=== PATIENT | female | born 1945 | race Caucasian/White ===

== ENCOUNTER 2018-03-05 11:00 | Outpatient (RCR) | payer MEDICARE, OTHER, SELFPAY ==
--- NOTE | 2018-02-05 10:17 | HP.PTEVAL_ITS ---
Patient's Visit Information JUDITH MERCADO is a 72 year old F referred to Physical Therapy by Alexi Hoawrd with a diagnosis of back and leg pain. Date of Evaluation: 02/05/18 Physical Therapist: Su Leary - Visit Plan Frequency: 1x/Week Duration: 4 Weeks Plan: 1X/ for 4 visits for HEP per pt request for core stability and flexion biased exercises for home exercise program. - Subjective Subjective: Pt reports that she moved her January 15 from [place] and saw Lee to continue with her pain meds. He was talking about PT. Pt wants to do exercises at home cause she can not be here 2-3X/ week. She is getting an injection around February 18. Pt has had injections before. Pt reports that she has spinal stenosis and she will be walking and her legs will start hurting and then her legs give out and she goes down to the floor. She has already fallen once since she has gotten here January 15 and had to call the ambulance. [facility], grocery store etc. She has been using the rollator for about 1-2 years. She promised the Dr she would not go anywhere without her rollator. Dr does not feel surgery is an option. pt has charcot in her R foot and it swells up really bad but keeps her shoes on to keep swelling down and has a lot of pain in the foot. Stairs: no stairs. She has a phone incase she falls. - Pain back pain Pain Intensity (Out of 10): 8 leg pain Pain Intensity (Out of 10): 9 R foot pain Pain Intensity (Out of 10): 10 - Objective Gait: with R foot outward, forearms on rollator arms, short stride, flexed spine. Trunk AROM: Seated flexion 75%, ext to neutral,. LE MMT: hip flex 3/ 5 B, knee ext B 4/5, knee flex B 4/5, hip abd in sitting 4-/5, hip add in sitting 4/5 B. Sit to stand: needs to use UE support with sit to stand - Goals Goal 1:: I HEP Goal 2:: Be informed of how to advance HEP - Rehabilitation Potential Rehabilitation Potential: Good - Anticipated Interventions Thank you for the opportunity to evaluate your patient. For Medicare and Medicare HMO plans, please review the plan of care and approve it. It will need to be FAXED BACK to us at [phone] for Medicare purposes. Please let me know if there are questions or concerns regarding this plan of care. Physician Signature: Date:
--- NOTE | 2018-03-05 11:32 | HP.PTDCSUM_ITS ---
HP - PT D/C Summary It has been my pleasure to treat JUDITH MERCADO under orders from Alexi Howard , for the diagnosis of back and leg pain for a total of 2 visit(s). Discharge Date: 03/05/18 Please see the following information for a summary of their discharge status. - Subjective Subjective: Pt feels that the shot really helped her back and leg pain. The foot Dr told her that she walking on a nerve and waiting an injection in her foot. Pt feels that the bending fw exercise in the chair has helped. HEP: LTR , PT, and sitting in a chair. - Pain back pain Pain Intensity (Out of 10): 8 leg pain Pain Intensity (Out of 10): 9 R foot pain Pain Intensity (Out of 10): 6 - Overall Improvement % Improvement: 60 - Objective Objective/Function: Pt is able to do HEP and has full understanding with printouts. - Goals Goal 1:: I HEP Goal Progress: Goal Met Goal 2:: Be informed of how to advance HEP Goal Progress: Goal Met - Plan Plan: DC PT to HEP per pt request - D/C Information Discharge Comments: DC PT to HEP If there are questions or concerns regarding this patient's physical therapy, please feel free to call me at [phone]. Thank you for the referral of this patient. Sincerely, Su Leary
== END 2018-03-05 19:00 | disposition home or self-care (01) ==
LOC: PT 11:00
PROVIDERS: Visit Provider Anesthesiology Pain Medicine
DX: M54.9 Dorsalgia, unspecified (principal); M79.606 Pain in leg, unspecified
CPT/HCPCS: 97161; 97530

== ENCOUNTER → 2018-06-05 11:25 | Outpatient (CLI) | payer MEDICARE, OTHER, SELFPAY ==
[2018-06-05 13:04] LABS: Amphetamine Urine VISTA NEGATIVE (<1000 ng/mL); Barbiturate Urine VISTA NEGATIVE (< 200 ng/mL); Benzodiazepine Urine VISTA NEGATIVE (< 200 ng/mL); Cocaine Urine VISTA NEGATIVE (< 300 ng/mL); Ecstacy Urine VISTA NEGATIVE (< 500 ng/mL); Methadone Urine VISTA NEGATIVE (< 300 ng/mL); PCP Urine VISTA NEGATIVE (< 25 ng/mL); THC Urine VISTA NEGATIVE (< 50 ng/mL); Vista UDS pH Range 7
== END ==
PROVIDERS: Visit Provider Anesthesiology Pain Medicine
DX: F11.20 Opioid dependence, uncomplicated (principal)
CPT/HCPCS: 80307

== ENCOUNTER 2018-07-22 10:45 | Day surgery (SDC) | payer MEDICARE, OTHER, SELFPAY ==
[2018-07-22 11:24] VITALS: BP 129/80; PULSE 80; RESP 18; TEMP 37.1; O2SAT 96; BMI 55.7
--- NOTE | 2018-07-22 12:00 | EGD_PTH ---
PATIENT: JUDITH MERCADO LOC: EN U#:[id number] AGE/SX: 73/F ROOM: RE07/22/[address]: Dr. Shawnee Hilario MD : 1945 BED: DIS: 07/22/2018 SPEC #: [id number] RECD: 07/22/18 14:40 STATUS: TRAMAINE SUSANNE #: [id number] DRE: 07/22/18 12:[address]: Shawnee Hilario DEPT: SURGICAL PATHOLOGY RECD BY: Hernandez Pena ENTERED: 07/22/18 14:57 SP TYPE: EGD BIOPSY OT DR: Dr. Christofer Vazquez MD Tissues: A - Gastric mucous membrane B - Gastric mucous membrane Procedures: Special Stain Group II Surgery Specimen Level IV Alcian Blue/PAS (control) HEADER OPERATION: [place] [place] PRE[place] DIAGNOSIS: GERD; screening TISSUE SUBMITTED: A - Antral biopsy for H. pylori and pathology, B - GE junction biopsy MICROSCOPIC DIAGNOSIS A. Antral biopsy: Mild gastritis. B. GE junction, biopsy: Fragments of gastroesophageal mucosa with chronic inflammation. Intestinal metaplasia (goblet cell metaplasia) is not identified. SJ:rg 07/23/18 COMMENT A. The results of immunohistochemistry for Helicobacter pylori will be reported separately ([id number]). B. Alcian blue/PAS stain with matched control is used in the evaluation of the specimen. MICROSCOPIC DESCRIPTION Slides are reviewed. A. The specimen shows fragments of gastric mucosa with chronic inflammatory cell infiltrates in the lamina propria consisting of lymphocytes and plasma cells, consistent with mild chronic gastritis. GROSS DESCRIPTION A - Received in fixative is one container labeled with the patient's name and designated antral biopsy. The specimen consists of multiple irregular fragments of light berry soft tissue that in aggregate measure 0.5 x 0.3 x 0.1 cm. The specimen is totally submitted in one cassette. B - Received in fixative is one container labeled with the patient's name and designated GE junction biopsy. The specimen consists of multiple irregular fragments of light berry soft tissue that in aggregate measure 0.6 x 0.5 x 0.1 cm. The specimen is totally submitted in one cassette. / NEIL:rowdy 07/22/18 TC: CPT: 71773 x2, 53313
--- NOTE | 2018-07-22 12:00 | IMM_PTH ---
PATIENT: JUDITH MERCADO LOC: [facility] U#:[id number] AGE/SX: 73/F ROOM: RE07/22/[address]: Dr. Shawnee Hilario MD : 1945 BED: DIS: 07/22/2018 SPEC #: [id number] RECD: 07/22/18 15:11 STATUS: TRAMAINE REMark #: [id number] DRE: 07/22/18 12:[address]: Shawnee Hilario DEPT: IMMUNOHISTOCHEMISTRY RECD BY: Mary Melgar ENTERED: 07/22/18 15:11 SP TYPE: IMMUNO OTHR DR: Dr. Christofer Vazquez MD Tissues: A - Stomach, NOS Procedures: H Pylori (initial) PHYSICIAN & INSTITUTION [place] [id number] SPECIMEN INFORMATION: Tissue Source: A - Antral biopsy Clinical Info: GERD Specimen Number: [id number] CPT code: 72673 METHODOLOGY: Deparaffinized sections of prefer/formalin-fixed tissue or PAP/DQ stained slides are incubated with monoclonal/polyclonal antibodies/oligonucleotide probes. Localization is made via biotin free immunoperoxidase method. Appropriate controls are performed and reacted as expected. Results on target cell population are indicated in the following table: RESULTS: ANTIBODY / CLONE RESULT Block A H Pylori (polyclonal) negative These tests were developed and their performance characteristics determined by [facility]. They may not have been cleared or approved by the U.S. Food and Drug Administration. The FDA has determined that such clearance or approval is not necessary. INTERPRETATION: A. Antral biopsy: Negative for Helicobacter pylori organisms. SJ:rowdy 07/23/18
--- NOTE | 2018-07-22 12:48 | OP.ENDO_ITS ---
Patient Name: Marilynn Mcgarry Procedure Date: 07/22/2018 11:44 AM Date of : 1945 Age: 73 Procedure: Upper GI endoscopy Indications: Suspected esophageal reflux Providers: Shawnee Hilario MD Referring MD: Shawnee Hilario MD Medicines: See the Anesthesia note for documentation of the administered medications Patient Profile: Refer to note in patient chart for documentation of history and physical. Complications: No immediate complications. Procedure: Pre-Anesthesia Assessment: - Prior to the procedure, a History and Physical was performed, and patient medications and allergies were reviewed. The patient is competent. The risks and benefits of the procedure and the sedation options and risks were discussed with the patient. All questions were answered and informed consent was obtained. Patient identification and proposed procedure were verified by the physician in the pre-procedure area. Mental Status Examination: alert and oriented. Airway Examination: normal oropharyngeal airway and neck mobility. Respiratory Examination: clear to auscultation. CV Examination: normal. Prophylactic Antibiotics: The patient does not require prophylactic antibiotics. Prior Anticoagulants: The patient has taken no previous anticoagulant or antiplatelet agents. ASA Grade Assessment: III - A patient with severe systemic disease. After reviewing the risks and benefits, the patient was deemed in satisfactory condition to undergo the procedure. The anesthesia plan was to use monitored anesthesia care (MAC). Immediately prior to administration of medications, the patient was re-assessed for adequacy to receive sedatives. The heart rate, respiratory rate, oxygen saturations, blood pressure, adequacy of pulmonary ventilation, and response to care were monitored throughout the procedure. The physical status of the patient was re-assessed after the procedure. After obtaining informed consent, the endoscope was passed under direct vision. Throughout the procedure, the patient's blood pressure, pulse, and oxygen saturations were monitored continuously. The gastroscope was introduced through the mouth, and advanced to the second part of duodenum. The upper GI endoscopy was accomplished without difficulty. The patient tolerated the procedure well. Scope In: 12:12:19 PM Scope Out: 12:16:34 PM Total Procedure Duration Time 0 hours 4 minutes 15 seconds Findings: The Z-line was irregular. Biopsies were taken with a cold forceps for histology. Estimated blood loss was minimal. Striped mildly erythematous mucosa without bleeding was found in the gastric antrum. Biopsies were taken with a cold forceps for histology. Estimated blood loss was minimal. The first portion of the duodenum and second portion of the duodenum were normal. A medium-sized hiatal hernia was present. Impression: - Z-line irregular. Biopsied. - Erythematous mucosa in the antrum. Biopsied. - Normal first portion of the duodenum and second portion of the duodenum. Recommendation: - Discharge patient to home (ambulatory). - Resume previous diet. - Continue present medications. - Await pathology results. Procedure Code(s): --- Professional --- 34666, Esophagogastroduodenoscopy, flexible, transoral; with biopsy, single or multiple Diagnosis Code(s): --- Professional --- K22.8, Other specified diseases of esophagus K31.89, Other diseases of stomach and duodenum CPT copyright 2017 [employer]. All rights reserved. The codes documented in this report are preliminary and upon socket puller review may be revised to meet current compliance requirements. MD Shawnee Reza MD 07/22/2018 12:48:01 PM This report has been signed electronically. Number of Addenda: 0 Note Initiated On: 07/22/2018 11:44 AM
[2018-07-22 12:50] VITALS: BP 103/38; BP 129/80; PULSE 66; RESP 18; TEMP 36.2; O2SAT 93
--- NOTE | 2018-07-22 12:51 | OP.ENDO_ITS ---
Patient Name: Marilynn Mcgarry Procedure Date: 07/22/2018 12:18 PM Date of : 1945 Age: 73 Procedure: Colonoscopy Indications: Screening for colorectal malignant neoplasm Providers: Shawnee Hilario MD Referring MD: Shawnee Hilario MD Medicines: See the Anesthesia note for documentation of the administered medications Patient Profile: Refer to note in patient chart for documentation of history and physical. Last Colonoscopy: more than 3 years ago. Complications: No immediate complications. Procedure: Pre-Anesthesia Assessment: - Prior to the procedure, a History and Physical was performed, and patient medications and allergies were reviewed. The patient is competent. The risks and benefits of the procedure and the sedation options and risks were discussed with the patient. All questions were answered and informed consent was obtained. Patient identification and proposed procedure were verified by the physician in the pre-procedure area. Mental Status Examination: alert and oriented. Airway Examination: normal oropharyngeal airway and neck mobility. Respiratory Examination: clear to auscultation. CV Examination: normal. Prophylactic Antibiotics: The patient does not require prophylactic antibiotics. Prior Anticoagulants: The patient has taken no previous anticoagulant or antiplatelet agents. ASA Grade Assessment: III - A patient with severe systemic disease. After reviewing the risks and benefits, the patient was deemed in satisfactory condition to undergo the procedure. The anesthesia plan was to use monitored anesthesia care (MAC). Immediately prior to administration of medications, the patient was re-assessed for adequacy to receive sedatives. The heart rate, respiratory rate, oxygen saturations, blood pressure, adequacy of pulmonary ventilation, and response to care were monitored throughout the procedure. The physical status of the patient was re-assessed after the procedure. After I obtained informed consent, the scope was passed under direct vision. Throughout the procedure, the patient's blood pressure, pulse, and oxygen saturations were monitored continuously. The colonoscope was introduced through the anus and advanced to the cecum, identified by appendiceal orifice and ileocecal valve. The colonoscopy was performed without difficulty. The patient tolerated the procedure well. The quality of the bowel preparation was adequate. Scope In: 12:20:45 PM Scope Withdrawal Time 0 hours 11 minutes 15 seconds Scope Out: 12:41:42 PM Total Procedure Duration Time 0 hours 20 minutes 57 seconds Findings: The perianal and digital rectal examinations were normal. Pertinent negatives include normal sphincter tone. Multiple small and large-mouthed diverticula were found in the sigmoid colon. One medium-mouthed diverticulum was found in the ascending colon. Non-bleeding internal hemorrhoids were found. Impression: - Diverticulosis in the sigmoid colon. - Diverticulosis in the ascending colon. - Non-bleeding internal hemorrhoids. - No specimens collected. Recommendation: - Repeat colonoscopy in 10 years for screening purposes. - Return to physician administrative personal assistant in 1 week. - Continue present medications. Procedure Code(s): --- Professional --- 11675, Colonoscopy, flexible; diagnostic, including collection of specimen(s) by brushing or washing, when performed (separate procedure) Diagnosis Code(s): --- Professional --- K57.30, Diverticulosis of large intestine without perforation or abscess without bleeding K64.8, Other hemorrhoids Z12.11, Encounter for screening for malignant neoplasm of colon CPT copyright 2017 [employer]. All rights reserved. The codes documented in this report are preliminary and upon quill cleaning machine operator review may be revised to meet current compliance requirements. MD Shawnee Reza MD 07/22/2018 12:50:43 PM This report has been signed electronically. Number of Addenda: 0 Note Initiated On: 07/22/2018 12:18 PM
[2018-07-22 12:55] VITALS: BP 128/74; BP 129/80; PULSE 65; RESP 18; O2SAT 94
[2018-07-22 13:00] VITALS: BP 129/80; BP 140/78; PULSE 64; RESP 18; O2SAT 94
[2018-07-22 13:06] VITALS: BP 129/80; BP 143/70; PULSE 62; RESP 18; TEMP 36; O2SAT 96
[2018-07-22 13:34] VITALS: BP 129/80
== END 2018-07-22 13:43 | disposition home or self-care (01) ==
LOC: EN 10:46 → AC 10:50
PROVIDERS: Family Provider Family Medicine; PCP Family Medicine; Referring Provider Surgery; Visit Provider Surgery
PROC: 0DJD8ZZ Inspection of Lower Intestinal Tract, Via Natural or Artificial Opening Endoscopic (ICD-10-PCS; CPT 45378; principal; 2018-07-22 11:55)
DX: K22.8 Other specified diseases of esophagus (principal); K31.89 Other diseases of stomach and duodenum; K44.9 Diaphragmatic hernia without obstruction or gangrene; E78.5 Hyperlipidemia, unspecified; I10 Essential (primary) hypertension; Z86.010 Personal history of colon polyps; K57.30 Diverticulosis of large intestine without perforation or abscess without bleeding; K64.8 Other hemorrhoids; Z12.11 Encounter for screening for malignant neoplasm of colon; K29.70 Gastritis, unspecified, without bleeding
CPT/HCPCS: 43239; 45378; 88305; 88313; 88342; J7120

== ENCOUNTER 2018-11-14 14:09 | Emergency (ER) | payer MEDICARE, OTHER, SELFPAY ==
[2018-11-14 14:11] VITALS: PULSE 78; RESP 16; TEMP 36.6; O2SAT 95; BMI 51.2
[2018-11-14 14:14] VITALS: BP 139/80; PULSE 74; RESP 16; O2SAT 94
[2018-11-14] MEDS: 0.9% Normal Saline 1,000 ML 1000 ML IV (15:22)
[2018-11-14] MEDS: Morphine 4 MG/ML Syringe IV (15:22)
[2018-11-14 15:31] LABS: Absolute Neutrophil Count 10.5 X10^3/uL (2.0-7.7); Basophil# 0.02 X10^3/uL; Basophil% 0.1 % (0-1); Eosinophil# 1.07 X10^3/uL; Eosinophils% 7.8 % (0-5); Hematocrit 40.9 % (37-47); Lymphocyte % 10.2 % (19-41); Mean Corp Hgb Conc 31.8 g/gl (32-36); Mean Corpuscular Hgb 31.7 pg (27.0-32.0); Mean Corpuscular Volume 99.8 fL (81-99); Mean Platelet Vol. 9.7 fl (6.2-12.0); Monocyte# 0.75 X10^3/uL; Monocyte% 5.4 % (0-10); Neutrophil # 10.49 X10^3/uL (2.7-7.7); Neutrophil % 76.1 % (47-70); Platelet Count 270 K/mm3 (150-450); RBC Distribution Width CV 13.5 % (11.6-14.6); RBC Distribution Width SD 49.3 fl (35.1-43.9); White Blood Count 13.8 K/mm3 (4.4-11.0)
[2018-11-14 15:32] LABS: POSITIVE COUNT NO; POSITIVE DIFFERENTIAL NO; POSITIVE MORPHOLOGY NO
[2018-11-14 15:47] LABS: Anion Gap 11 (5-15); BUN 28 mg/dL (7-18); BUN/Creat Ratio 16.7 RATIO (10-20); CPK Total, Creatine Kinase 261 U/L (26-192); Calcium,Total 8.9 mg/dL (8.5-10.1); Chloride 99 mmol/L (98-107); Creatinine, Serum 1.68 mg/dL (0.55-1.02); EST Glomerular Filtration Rate 32 mL/min (>60); Est Glom Filt Rate - Afr Amer 38 mL/min (>60); Estimated Creatinine Clearance 23.59 ml/min; Glucose 100 mg/dL (74-106); Potassium 4.4 mmol/L (3.5-5.1); Sodium Level 139 mmol/L (136-145)
[2018-11-14 16:29] VITALS: BP 125/46; PULSE 76; RESP 16; O2SAT 95
--- NOTE | 2018-11-14 16:47 | ED.DCSUM_ITS ---
- ER Visit Summary Date of Service: 11/14/18 Chief Complaint: Lower extremity cellulitis and fall History of Present Illness: The patient is a 73 F who presents with cellulitis in both lower extremities, back pain, and fall. Patient states she fell twice since yesterday. Patient states she had difficulty getting up today. Patient states that she was having some pain in her back and her legs gave out which caused her to fall. Patient admits to some redness and swelling in her lower extremities which is worse on the right. Patient denies any fevers or chills. Patient denies any discharge or drainage. Patient states she does have some trouble walking due to a Charcot foot on the right. Patient states she normally walks with a walker. Physical Examination: Vital signs are stable. Patient is afebrile. Patient is in no acute distress. Oral mucosa is pink and moist. Neck is supple. Trachea is midline. There is no JVD noted. Heart was regular rate and rhythm. Lungs are clear and equal bilateral. Abdomen is soft nontender. Skin is warm dry. There is erythema and warmth over the lower extremities bilaterally but worse on the right. Strength is 5/5 bilaterally in the upper and lower extremities. There are no sensory deficits noted. The remaining physical exam is within normal limits. Test Results: CBC showed a mild leukocytosis of 13.8. BUN was slightly elevated at 28 and creatinine was 1.68. There are no prior labs for comparison. Total CK was obtained and was 261. Emergency Department Course and Treatment: Patient was given IV fluids. Patient was given a dose of morphine here. Patient was started on Keflex. Patient was instructed to follow-up with her primary care physician in 5-7 days. Patient understood and was agreeable with the plan. All questions were answered. Disposition: Discharge home Impression: Cellulitis bilateral lower extremities This note was generated with [employer] dictation software. It may contain incorrect words, spelling, and punctuation that were not noted in review of the chart prior to signing ED Disposition - Plan for ED Patient: Disposition: Home or Assisted Living Diagnosis: Cellulitis of both lower extremities Instructions: ED Staph Infec Abx Tx Only Prescriptions: Cephalexin [Keflex] 500 mg PO Q6 #40 capsule Referrals: Christofer Vazquez MD [Primary Care Provider] -
[2018-11-14] MEDS: Cephalexin 250 MG Capsule 500 MG PO (17:07)
[2018-11-14 17:09] VITALS: BP 102/65
== END 2018-11-14 18:00 | disposition home or self-care (01) ==
PROVIDERS: Emergency Provider Emergency Medicine; Family Provider Family Medicine; PCP Family Medicine
DX: L03.116 Cellulitis of left lower limb (principal); L03.115 Cellulitis of right lower limb; I10 Essential (primary) hypertension; A52.16 Charcot's arthropathy (tabetic); Z91.81 History of falling
CPT/HCPCS: 80048; 82550; 85025

== ENCOUNTER 2018-11-14 21:45 | Inpatient (IN) | payer MEDICARE, OTHER, SELFPAY ==
[2018-11-14 14:11] VITALS: BMI 51.2
[2018-11-14 21:46] VITALS: BP 140/67; PULSE 90; RESP 16; TEMP 37.5; O2SAT 94; BMI 59.5
--- NOTE | 2018-11-14 22:38 | ED.DCSUM_ITS ---
- ER Visit Summary Date of Service: 11/14/18 Chief Complaint: [] Frequent falls History of Present Illness: The patient is a 73 F she stated she had 3 falls today. She denies any injury with this last fall. States that her upper extremities feel pain and give out. She had to call the paramedics 3 times t [place] to help her up. The second time she came into the emergency department and was discharged just after dinner. She stated she got into her house and then fell again. She ambulance with a walker. She is with chronic back pain. She is on Percocet for this and seeing pain management. She had a laminectomy in 2013 in [facility]. At that time she was having leg weakness as well. She was seen this afternoon here and had a bilateral lower extremity cellulitis diagnosed. She said they been red and warm for the last 2 days. She had a white count of 13.8 and a creatinine of 1.6. Given IV fluids, morphine and started on Keflex. Her is at home with her but cannot help her up. She is morbidly obese requiring 3 people to get her up. She does have Charcot foot on the right. Physical Examination: Vital signs reviewed General: Well-nourished well-developed Head: Normocephalic atraumatic Eyes: Pupils equal round and reactive to light extraocular movements intact ENT: TMs clear no hemotympanum no trauma Neck: Nontender full range of motion Cardiovascular: Regular rate rhythm no murmurs normal S1-S2 Respiratory: No distress clear to auscultation bilaterally chest nontender Abdomen: Soft nontender nondistended normal bowel sounds no masses Back: Mild soreness across her low back bilateral diffuse Extremities: Mild bilateral lower extremity cellulitis. Neuro alert oriented cranial nerves II through XII intact normal strength sensation reflexes Test Results: [] Emergency Department Course and Treatment: [] Discussed with the hospitalist. At this time the patient is morbidly obese with 3 falls today. She states her legs give out. I do not think she needs further lab work. She may require inpatient imaging and physical therapy. I do not think she is safe to go home as she stated that she is worried she will fall in the middle the night try to get to the bathroom. patient will be admitted discussed with the hospitalist Treatment Plan: [] Disposition: [] Impression: [] Falls x3 Bilateral lower extremity cellulitis Bilateral leg weakness This note was generated with [employer] dictation software. It may contain incorrect words, spelling, and punctuation that were not noted in review of the chart chuck or to signing ED Disposition - Plan for ED Patient: Referrals: Christofer Vazquez MD [Primary Care Provider] -
[2018-11-15] VITALS (12 sets, daily range): BP systolic 114–142; BP diastolic 50–85; PULSE 80–98; RESP 14–22; TEMP 36.6–37.3; O2SAT 90–97; BMI 57.4
--- NOTE | 2018-11-15 00:07 | PCM.HP.STD ---
Problem List (1) Debility Status: Acute History of Present Illness Date of Admission: 11/15/18 Chief Complaint: falls The patient is a 73 year old F who was in her normal state of health but today it was weak. Patient fell 3 times and unable to get herself up. EMS was called 3 times. The second time the patient was sent to the emergency room and diagnosed with cellulitis and sent back home. The third time patient again presented to the emergency room just unable to get up and care for herself. Patient's last reported fall was about a year ago. Patient states that she just felt very weak overall. [] Past Medical History Medical History: Medical History (Last Updated 11/15/18 @ 00:09 by Ortiz Childress DO) HTN (hypertension) I10 Allergies celecoxib [From Celebrex] Allergy (Verified 11/14/18 21:50) Other funny feeling in throat formaldehyde Allergy (Verified 11/14/18 21:50) Other formaldehyde in plastic gloves causes swelling and cracking in hands ketorolac [From Toradol] Adverse Reaction (Verified 11/14/18 21:50) Upset Stomach Home Medications: Ambulatory Orders Medication Instructions Recorded Aspirin [Aspirin, Baby] 81 mg PO DAILY@0800 07/19/18 Bumetanide 1 mg PO BID 07/19/18 Calcium Citrate 200 mg PO DAILY 07/19/18 Cholecalciferol (Vitamin D3) 1,000 unit PO DAILY 07/19/18 [Vitamin D3] Fish Oil/Dha/Epa [Fish Oil 1,200 1 each PO DAILY 07/19/18 mg Fish Oil] Folic Acid/Vit B Complex and C [Sm 400 mcg PO DAILY 07/19/18 Super Vitamin B Complex Tab] Lisinopril 20 mg PO BID 07/19/18 Lovastatin [Mevacor] 40 mg PO BID 07/19/18 Metoprolol Succinate 100 mg PO DAILY 07/19/18 Multivitamin [Multiple Vitamins] 1 each PO DAILY 07/19/18 Omeprazole 20 mg PO DAILY 07/19/18 Oxycodone HCl/Acetaminophen 1 tablet PO LUNCH 07/19/18 [Percocet 5/325] Ranitidine [Zantac] 150 mg PO QHS 07/19/18 Selenium 100 mcg PO DAILY 07/19/18 Cephalexin [Keflex] 500 mg PO Q6 #40 capsule 11/14/18 Surgical History: Surgical History (Last Updated 11/15/18 @ 00:10 by Ortiz Childress DO) H/O laminectomy Z98.890 2013 in [place]. Psychiatric History: No pertinent psych hx Lives: With Family Smoking Status: Never smoker Tobacco Use: Non-smoker Alcohol: None Drugs: None - *Family History Maternal History Items: - - No CAD Review of Systems Constitutional: Denies: Anorexia, Fever, Night Sweats Eyes: Reports: - - Reading glasses. Denies: Blurred vision, Double vision HEENT: Denies: Head Aches, Sinus Congestion, Sinus Drainage Cardiovascular: Reports: Edema. Denies: Chest Pain, Palpitations Respiratory: Denies: Cough, Shortness of breath at rest, Sputum production Gastrointestinal: Reports: - - No bowel incontinence. Denies: Abdominal Pain, Nausea, Vomiting Genitourinary: Reports: Incontinence - Chronic Musculoskeletal: Denies: Joint Pain, Joint Tenderness Neurological: Reports: Balance problems, Numbness - Chronic in her lower extremities. Denies: Blurred vision, Double vision Psychiatric: Denies: Anxiety, Depression Endocrine: Denies: Change in Body Habitus, Heat/ Cold Intolerance Hematologic/ Lymphatic: Denies: Easy Bruising, Easy Bleeding, Hx of blood clot Comment: A 10 point review of systems were negative except as mentioned in the history of present illness and the other review of systems. VTE Information - Inpt Only VTE Present on Admission: No VTE Mechan Device Prophylaxis: None VTE Pharm Prophylaxis ordered?: Yes Patient Problems: Active and Suspected Problems Debility (Acute) - Physical Exam General: Alert, Cooperative, No apparent distress HEENT: Atraumatic, Normocephalic Oral: Moist Mucosa, No Gingival or Mucosal Lesions/ Ulcerations Neck: No Nodes, Thyroid Normal Size and Texture Lungs: Clear to auscultation, Normal air movement, No rhonchi, No wheeze Cardiovascular: Regular rate, Regular Rhythm, - - 2 out of 6 systolic ejection murmur at the right upper sternal border. Abdomen: Bowel Sounds Present, Soft, Non Tender, Non-Distended, Obese Extremities: Edema - Prominent edema bilaterally with some weeping. Right leg gorman swollen than the left. Skin: No breakdown, - - Patient has some erythema bilateral lower extremities with some slight warmth. Musculoskeletal: No Tenderness to Palpation of Joints or Extremities, No Muscle Wasting Neurological: Sensory exam intact to light touch and pain, - - No clonus Psych/Mental Status: Normal Affect, Appropriate Vital Signs Temp Pulse Resp BP Pulse Ox 37.5 C H 90 16 140/67 H 94 11/14/18 21:46 11/14/18 21:46 11/14/18 21:46 11/14/18 21:46 11/14/18 21:46 Weight: 147.7 kg Body Mass Index (BMI) 59.5 Labs from earlier showed a white count of 13.8, platelets 270. Hemoglobin 13. CBC showed a creatinine 1.68 and a CPK of 261. No prior labs available to compare to. Urine drug screen was negativ with the exception of oxycodone and oxymorphone Assessment/Plan All Active Problems Debility (Acute) 1. Debility: Do not suspect that this is actually an acute process but feel is probably more of a process where her she has progressively gotten more weak and had a tipping point where she was just very weak overall and unable to adequately care for herself. Patient does have chronic back issues but clinically I do not suspect she has any new issues but she does complain of back pain and lower extremity weakness which may be more due to just progressive weakness rather than directly attributable to her back. We will order an MRI of her back but I did inform patient that I am not sure if she would exceed the weight capacity as she states that she is 280 pounds. I do not appreciate any red flags at this time. PT and OT to evaluate and treat. 2. Anasarca: Patient is diffusely edematous some small welts on her lower extremity which the fluids is seeping out. She does have a murmur so I am ordering an echocardiogram. We will give the patient 2 doses of IV Lasix and then she can resume home dosing of Bumex. Patient be on a fluid restricted diet. Try to glean if patient does have sleep apnea but she is never been formally evaluated for that but never been told that she has snored or any has any paroxysmal nocturnal dyspnea. But if she does have elevation of right heart pressures may be considered to be evaluated for outpatient polysomnogram. 3. DVT prophylaxis with Lovenox 4. Disposition: I do not have any definitive medical reasons to admit the patient the patient is brought under observation status. Patient made aware that may be an issue for her to go to a retirement facility given her current observation status but stated that case management would further assist the patient in regards to this. 5. Morbid obesity: Complicates care. Code Visit OBSV E&M: 23900 Initial observation care L3
--- NOTE | 2018-11-15 00:32 | MRI_ITS ---
STUDY: MRI LUMBAR SPINE WITHOUT CONTRAST REASON FOR EXAM: Female, 73 years old. Bilateral leg weakness and pain. TECHNIQUE: Standardized fat and water weighted pulse sequences were obtained in the sagittal and axial planes. COMPARISON: None FINDINGS: T10-T11: (Sagittal only). Normal T10 inferior endplate. Minimal anterior wedging of T11 superior endplate may be developmental or from remote injury. Normal disc height with moderate loss of disc hydration. Normal disc morphology. Normal central canal and bilateral intervertebral neural foramina. T11-T12: (Sagittal only). Minimal anterior wedging of both vertebral endplates may be developmental or from remote injury. Mild disc space height narrowing. Small posterior bulging disc. Normal central canal and bilateral intervertebral neural foramina. T12-L1: Anterior marginal spurs. Normal endplates. Mild disc space height narrowing. Small posterior bulging disc. Normal central canal and bilateral lateral recesses. Mild degenerative facet arthropathy. Normal bilateral intervertebral neural foramina. Normal lumbar lordosis. Moderately pronounced dextroscoliosis of the lumbar spine. Normal conus medullaris that terminates at the T12-L1 disc level. L1-2: Pronounced disc space height narrowing. Anterior and lateral marginal spurs. Mild central canal stenosis. The AP canal diameter is 8.4 mm. Normal bilateral lateral recesses. Mild degenerative facet arthropathy. Normal bilateral intervertebral neural foramina. L2-3: Pronounced left-sided disc space height narrowing with partial ankylosis on the left side. Prominent left lateral marginal spurs. Mild central canal stenosis with an AP canal diameter of 9 mm. Normal bilateral lateral recesses. Moderate bilateral degenerative facet arthropathy. Normal bilateral intervertebral neural foramina. L3-4: At least grade 1 right lateral subluxation of L3 on L4. Normal central canal but severe stenosis of the left intervertebral neural foramen. Mild stenosis of the right intervertebral neural foramen. Pronounced postsurgical absence of the spinous process and lamina. Normal central canal. Postsurgical absence of the left L3 inferior to chronic facet. Altered moderate degenerative facet arthropathy. L4-5: Pronounced right-sided disc space height narrowing with Modic type II degenerative vertebral marrow fatty changes underneath the vertebral endplates. Mild degenerative anterolisthesis of L4 on L5. Normal central canal. Normal bilateral lateral recesses. Postsurgical absence of the spinous process and lamina. Normal bilateral intervertebral neural foramina. Mild to moderate bilateral degenerative facet arthropathy. L5-S1: Pronounced disc space height narrowing. Modic type II degenerative vertebral marrow fatty changes of the deep the vertebral endplates. Normal central canal and bilateral lateral recesses. Postsurgical absence of the spinous processes and lamina. Mild to moderate asymmetric degenerative facet arthropathy. Normal bilateral intervertebral neural foramina. Normal visualized sacral ala. Normal visualized paraspinous soft tissue structures. MRI/Spine Lumbar (Routine) IMPRESSION: 1. At least grade 1 right lateral subluxation of L3 on L4, severe stenosis of the left intervertebral neural foramen and mild stenosis of the right intervertebral neural foramen. 2. Pronounced right-sided L4-L5 disc space height narrowing and mild to moderate bilateral degenerative facet arthropathy. 3. Pronounced L5-S1 disc space height narrowing and mild to moderate asymmetric degenerative facet arthropathy. 4. Pronounced left-sided L2-L3 disc space height narrowing with partial ankylosis of the left side and mild central canal stenosis. 5. Pronounced L1-L2 disc space height narrowing with small posterior bulging disc. 6. No MRI evidence of lumbar extruded disc fragment. Electronically Signed: Chris Petersen MD at 14:46 EST , Service support ,
--- NOTE | 2018-11-15 00:32 | ECHOCS_ITS ---
Reason For Study: Murmur Procedure This was a 2D Doppler, Color Flow transthoracic echocardiogram. Exam performed portable in patient room. Left Ventricle Normal LV size. Mild concentric left ventricular hypertrophy. Left ventricular systolic function is normal. The estimated ejection fraction is 65 %. Stage 1 diastolic dysfunction. No regional wall motion abnormalities noted. Atria The left atrium is mildly enlarged. Normal right atrium. Mitral Valve Normal mitral valve. Tricuspid Valve Normal tricuspid valve. Mild (1+) tricuspid valve insufficiency. Pulmonary artery systolic pressure is 28 mmHg. Aortic Valve The aortic valve is not well visualized. Pulmonic Valve The pulmonic valve is not well visualized. Great Vessels Normal aortic root. The pulmonary artery is normal size. Normal inferior vena cava. Pericardium/Pleural No pericardial effusion. Medication Diluted definity 5ml given slow IV push to enhance endocardial definition. MMode/2D Measurements & Calculations LVIDd: 3.7 cm IVSd: 1.3 cm Ao root diam: 3.3 cm LVIDs: 1.8 cm LVPWd: 1.2 cm LA dimension: 5.4 cm RVDd: 3.4 cm FS: 51.8 % LAV(MOD-bp): 58.3 ml LA A4 area: 22.4 cm2 RA A4 area: 15.8 cm2 LAV(MOD-bp) Indexed: 25.2 ml/m2 LAV(MOD-sp2): 49.1 ml LAV(MOD-sp4): 63.7 ml Doppler Measurements & Calculations MV E max charanjit: 96.0 cm/sec Lat Peak E' Charanjit: 8.7 cm/sec Med Peak E' Charanjit: 7.4 cm/sec MV A max charanjit: 124.0 cm/sec E/E' lat: 11.0 E/E' med: 12.9 MV E/A: 0.77 Ao V2 max: 203.0 cm/sec LV V1 max: 131.9 cm/sec PA V2 max: 100.0 cm/sec Ao max P.5 mmHg LV V1 max P.0 mmHg TR max charanjit: 241.5 cm/sec TR max P.3 mmHg Interpretation Summary Normal LV size. Mild concentric left ventricular hypertrophy. Left ventricular systolic function is normal. The estimated ejection fraction is 65 %. Stage 1 diastolic dysfunction. Mild (1+) tricuspid valve insufficiency. Pulmonary artery systolic pressure is 28 mmHg. Ordering Physician: Ortiz Childress Referring Physician: Darrick Vazquez Performed By: Sally Kitchen RDCS
[2018-11-15] MEDS: Furosemide 100 MG/10 ML Vial 60 MG IV (01:42)
[2018-11-15 06:02] LABS: Absolute Lymphocyte Count 1.38 X10^3/ul (0.83-4.51); Absolute Neutrophil Count 6.7 X10^3/uL (2.0-7.7); Basophil# 0.02 X10^3/uL; Basophil% 0.2 % (0-1); Eosinophil# 1.09 X10^3/uL; Eosinophils% 10.9 % (0-5); Hematocrit 36.5 % (37-47); Hemoglobin 11.6 g/dl (12.0-15.0); Lymphocyte # 1.38 X10^3/ul (4.0); Lymphocyte % 13.8 % (19-41); Mean Corp Hgb Conc 31.8 g/gl (32-36); Mean Corpuscular Volume 100.8 fL (81-99); Monocyte# 0.76 X10^3/uL; Monocyte% 7.6 % (0-10); Neutrophil # 6.74 X10^3/uL (2.7-7.7); Neutrophil % 67.2 % (47-70); Platelet Count 260 K/mm3 (150-450); RBC Distribution Width CV 13.2 % (11.6-14.6); RBC Distribution Width SD 47.8 fl (35.1-43.9); Red Blood Count 3.62 M/mm3 (4.2-5.4)
[2018-11-15 06:09] LABS: POSITIVE COUNT NO; POSITIVE DIFFERENTIAL NO; POSITIVE MORPHOLOGY NO
[2018-11-15 06:29] LABS: Anion Gap 11 (5-15); BUN 31 mg/dL (7-18); Calcium,Total 8.4 mg/dL (8.5-10.1); Chloride 103 mmol/L (98-107); Creatinine, Serum 1.41 mg/dL (0.55-1.02); EST Glomerular Filtration Rate 39 mL/min (>60); Est Glom Filt Rate - Afr Amer 47 mL/min (>60); Glucose 104 mg/dL (74-106); Potassium 4.1 mmol/L (3.5-5.1); Sodium Level 140 mmol/L (136-145)
[2018-11-15] MEDS: Enoxaparin 30 MG/0.3 ML Syringe SC (08:25)
[2018-11-15] MEDS: Calcium Carbonate 500 MG Tablet 200 MG PO (08:26)
[2018-11-15] MEDS: Metoprolol(XL)Succ 100 MG Tablet PO (08:26)
[2018-11-15] MEDS: Vitamin B Comp W-C Capsule 1 CAP PO (08:26)
--- NOTE | 2018-11-15 08:26 | PCM.PN.HOSP ---
Patient Problems: Active and Suspected Problems (Last Updated 11/15/18 @ 00:09 by Ortiz Childress DO) Debility (Acute) Subjective: Patient is a 73-year-old lady admitted with progressive generalized weakness and recurrent falls (3 times on the day of her admission) the patient had been seen in the emergency department prior to that diagnosed with cellulitis discharged home on oral antibiotics Objective: GENERAL: cooperative HEENT: Atraumatic; moist oral mucosa EYES; Anicteric, Normal Conjunctiva NECK; supple, normal thyroid, no distended JVD. RESPIRATORY: Diminished to auscultation bilaterally, CARDIOVASCULAR: Regular S1 S2, GI: soft, non-tender, normoactive bowel sounds, : No Renal angle tenderness; EXTREMITIES: Erythema involving both lower extremities with some edema MUSCULOSKELETAL: No Joint Tenderness; no muscle waisting NEURO: Awake; no lateralizing signs. SKIN: Mild involving the left lower extremities PSYCH; Normal affect Vitals/I&O's: Vital Signs Temp Pulse Resp BP Pulse Ox 99.2 F H 86 22 H 142/76 H 92 11/15/18 08:17 11/15/18 08:17 11/15/18 08:17 11/15/18 08:17 11/15/18 08:17 Oxygen Delivery Method Room Air Weight: 142.3 kg Body Mass Index (BMI) 57.4 Intake and Output for Last 24 Hours 11/13/18 11/14/18 11/15/18 23:59 23:59 23:59 Intake Total 240 / 240 Balance 240 / 240 Laboratory Results 11/15/18 05:17: Sodium 140, Potassium 4.1, Chloride 103, Carbon Dioxide 26.0, Anion Gap 11, BUN 31 H, Creatinine 1.41 H, Estim Creat Clear Calc 28.10, Est GFR (MDRD) Af Amer 47 L, Est GFR (MDRD) Non-Af 39 L, BUN/Creatinine Ratio 22.0 H, Glucose 104, Calcium 8.4 L 11/15/18 05:40: WBC 10.0, RBC 3.62 L, Hgb 11.6 L, Hct 36.5 L, MCV 100.8 H, MCH 32.0, MCHC 31.8 L, RDW 13.2, RDW Differential 47.8 H, Plt Count 260, MPV 10.0, Immature Gran % (Auto) 0.300, Neut % (Auto) 67.2, Lymph % (Auto) 13.8 L, [place] % (Auto) 7.6, Eos % (Auto) 10.9 H, Baso % (Auto) 0.2, Absolute Neuts (auto) 6.7, Absolute Lymphs (auto) 1.38, Total Counted Not Reportable Current Medications Aspirin (Aspirin, Baby) 81 mg PO DAILY@0800 [facility] Atorvastatin Calcium (Lipitor) 10 mg PO BID [facility] Bumetanide (Bumex) 1 mg PO BID [facility] Calcium Carbonate (Tums) 200 mg PO DAILY [facility] Cholecalciferol (Vitamin D) 1,000 unit PO DAILY [facility] Enoxaparin Sodium (Lovenox) 30 mg SC DAILY@1000 [facility] Famotidine (Pepcid) 20 mg PO QHS [facility] Furosemide (Lasix) 60 mg IV BID@1000,1800 [facility] Stop: 11/15/18 10:01 Sodium Chloride () 250 mls @ 15 mls/hr IV .[id number] PRN PRN Reason: SALINE FLUSH Lisinopril (Zestril) 20 mg PO BID [facility] Magnesium Hydroxide (Milk Of Magnesia) 30 ml PO DAILY PRN PRN PRN Reason: Constipation Metoprolol Succinate (Toprol Xl (Beta Agnes)) 100 mg PO DAILY [facility] Multivitamins (Allbee W/C Caplet, Thera B Comp/C) 1 capsule PO DAILYCM [facility] Multivitamins (Multivitamin) 1 tablet PO DAILY@0800 [place] Ondansetron HCl (Zofran) 4 mg IV Q8H PRN PRN PRN Reason: NAUSEA Oxycodone HCl (Oxyir) 5 mg PO LUNCH [facility] Pantoprazole Sodium (Protonix) 20 mg PO DAILY [facility] Sodium Chloride () 5 - 15 ml IV UD PRN PRN Reason: SALINE FLUSH Medical Necessity - Tobacco Use Smoking Status: Never smoker Tobacco Use: Non-smoker Assessment/Plan All Active Problems (Last Updated 11/15/18 @ 00:09 by Ortiz Childress DO) Debility (Acute) Patient is a 73-year-old lady admitted with progressive generalized weakness and recurrent falls 1. Adult failure to thrive; presented with recurrent falls requested for PT OT eval and case management social worker to assist with discharge planning. As part of patient evaluation ordered MRI of the lumbosacral spine as well as MRI of the brain 2. Recent diagnosis with cellulitis 3. Hypothyroidism-patient is on levothyroxine home dose continued 5. Hypertension-blood pressure controlled, home medications continued with dose adjustment as needed 5. Vitamin D deficiency on calcium and vitamin D supplementation 6. Chronic stasis dermatitis patient is on diuretics held patient denies any previous diagnosis of congestive heart failure in any case 2D echo was ordered for evaluation of her murmur as well as EF assessment 7. Morbid obesity with BMI of 57 lifestyle modification including weight loss advised 8. GERD on PPI 9. DVT prophylaxis SC Lovenox Active Medications Aspirin (Aspirin, Baby) 81 mg PO DAILY@0800 [facility] Atorvastatin Calcium (Lipitor) 10 mg PO BID [facility] Bumetanide (Bumex) 1 mg PO BID [facility] Calcium Carbonate (Tums) 200 mg PO DAILY [facility] Cholecalciferol (Vitamin D) 1,000 unit PO DAILY [facility] Enoxaparin Sodium (Lovenox) 30 mg SC DAILY@1000 [place] Famotidine (Pepcid) 20 mg PO QHS [facility] Furosemide (Lasix) 60 mg IV BID@1000,1800 [facility] Stop: 11/15/18 10:01 Sodium Chloride () 250 mls @ 15 mls/hr IV .[id number] PRN PRN Reason: SALINE FLUSH Lisinopril (Zestril) 20 mg PO BID [facility] Magnesium Hydroxide (Milk Of Magnesia) 30 ml PO DAILY PRN PRN PRN Reason: Constipation Metoprolol Succinate (Toprol Xl (Beta Agnes)) 100 mg PO DAILY [facility] Multivitamins (Allbee W/C Caplet, Thera B Comp/C) 1 capsule PO DAILYCM [facility] Multivitamins (Multivitamin) 1 tablet PO DAILY@0800 [facility] Ondansetron HCl (Zofran) 4 mg IV Q8H PRN PRN PRN Reason: NAUSEA Oxycodone HCl (Oxyir) 5 mg PO LUNCH [place] Pantoprazole Sodium (Protonix) 20 mg PO DAILY [facility] Sodium Chloride () 5 - 15 ml IV UD PRN PRN Reason: SALINE FLUSH Code Visit Inpatient E&M: 70996 [facility] Hosp L3
[2018-11-15] MEDS: Lisinopril 20 MG Tablet PO (08:27)
[2018-11-15] MEDS: Bumetanide 2 MG Tablet 1 MG PO (08:27)
[2018-11-15] MEDS: Multivitamins,Therapeutic Tablet 1 TABLET PO (08:27)
[2018-11-15] MEDS: Aspirin 81 MG TAB.CHEW PO (08:27)
--- NOTE | 2018-11-15 09:49 | MRI_ITS ---
STUDY: MRI BRAIN WITHOUT CONTRAST REASON FOR EXAM: Female, 73 years old. Bilateral leg weakness and pain TECHNIQUE: Standardized multiplanar fat and water weighted pulse sequences were obtained. COMPARISON: None. FINDINGS: Normal size of the ventricles and extra-axial spaces for the patient's age. There are a couple of punctate white matter lesions without mass effect or restricted diffusion likely representing small vessel ischemic changes. There is no evidence for acute infarct. Normal bilateral basal ganglia. Normal thalami. There is no extra-axial fluid accumulation. Normal flow voids within the major intracranial circulation suggesting patency by spin echo criteria. Normal sella turcica, pituitary gland, infundibular stalk, optic chiasm and hypothalamus. Normal tectal plate and pineal gland. Normal midbrain, marisela and medulla. Normal cerebellum. Normal basal cisterns. Normal bilateral temporal bones. Normal bilateral internal auditory canals. No demonstrated orbital abnormality, within the constraints of a routine brain study. There is mild mucosal thickening of the ethmoid air cells. Normal calvarium and skull base. Normal visualized soft tissue structures. Normal visualized upper cervical spine. MRI/Brain without Contrast IMPRESSION: Minor periventricular white matter ischemic changes. No evidence for acute infarct or other significant abnormality Electronically Signed: Khalif Tello MD at 16:11 EST , Service support ,
[2018-11-15] MEDS: Pantoprazole Sodium 20 MG Tablet PO (10:20)
[2018-11-15] MEDS: oxyCODONE 5 MG Tablet PO ×3 (10:22→22:16)
[2018-11-15] MEDS: Cephalexin 500 MG Capsule PO ×2 (11:38→21:46)
--- NOTE | 2018-11-15 14:07 | CASEMGMT ---
RN CM Face to Face with patient for initial transition planning/care coordination assessment. RN CM introduced self and role at [facility]. Patient lying in bed, alert and oriented, family at bedside. Patient willing to participate in assessment and is able to answer all questions appropriately. Care providers, pharmacy, and demographics verified. Patient is not able to determine discharge plans at this time. RN CM discussed options of outpatient therapy, HHC, vs. SNF. If patient needs to be seen by neurosurgeon, patient and family prefer [facility]. Patient states she has no further needs or concerns at this time. CM to follow for discharge planning needs that may arise. PCP: [facility] Specialists: Ernesto urologist; Lee, pain specialist; saw neurologist when in [place] for laminectomy. [facility]erred [facility]acy: [facility] Insurance: [facility] Prescription Benefit: Yes, [employer] Living Will/HPOA: Possibly has and Ed Cupec is HPOA LNOK: , daughter, granddaughter Living Arrangements: Patient lives in first floor apartment with no steps to enter the apartment. Patient is usually independent at home. Transportation: self or DME/HHC: Patient states she has shower chair, raised toilet, cane, walker, lift chair, grab bars, walker at home. Denies home oxygen, cpap, bipap, or nebulizer at home. Disposition Plan: RENETTA PHILIP, RN, CM
--- NOTE | 2018-11-15 17:20 | NURSING ---
Eliane CPS notified for Stat ABG's .
[2018-11-15] MEDS: Famotidine 20 MG Tablet PO (21:46)
[2018-11-15] MEDS: Atorvastatin Calcium 10 MG Tablet PO (21:46)
[2018-11-16 04:10] VITALS: BP 145/65; PULSE 72; RESP 15; TEMP 36.8; O2SAT 95
[2018-11-16 06:31] LABS: Hematocrit 36.8 % (37-47); Hemoglobin 11.7 g/dl (12.0-15.0); Mean Corp Hgb Conc 31.8 g/gl (32-36); Mean Corpuscular Hgb 31.6 pg (27.0-32.0); Mean Corpuscular Volume 99.5 fL (81-99); Mean Platelet Vol. 9.7 fl (6.2-12.0); Platelet Count 274 K/mm3 (150-450); RBC Distribution Width CV 13.2 % (11.6-14.6); RBC Distribution Width SD 47.9 fl (35.1-43.9); White Blood Count 8.6 K/mm3 (4.4-11.0)
[2018-11-16 06:43] LABS: Anion Gap 8 (5-15); BUN 25 mg/dL (7-18); BUN/Creat Ratio 25.3 RATIO (10-20); Calcium,Total 8.3 mg/dL (8.5-10.1); Chloride 106 mmol/L (98-107); Creatinine, Serum 0.99 mg/dL (0.55-1.02); EST Glomerular Filtration Rate 58 mL/min (>60); Est Glom Filt Rate - Afr Amer 71 mL/min (>60); Estimated Creatinine Clearance 40.03 ml/min; Glucose 101 mg/dL (74-106); Potassium 3.7 mmol/L (3.5-5.1); Sodium Level 139 mmol/L (136-145)
[2018-11-16 06:44] LABS: Scan Indicated on CBC? Y/N NO
[2018-11-16] MEDS: Magnesium Hydroxide 30 ML UDC PO (06:44)
[2018-11-16] MEDS: Cephalexin 500 MG Capsule PO ×2 (06:44→13:24)
[2018-11-16] MEDS: Vitamin B Comp W-C Capsule 1 CAP PO (08:04)
[2018-11-16] MEDS: Aspirin 81 MG TAB.CHEW PO (08:04)
[2018-11-16] MEDS: Multivitamins,Therapeutic Tablet 1 TABLET PO (08:04)
[2018-11-16 09:25] VITALS: BP 147/60; PULSE 68; RESP 18; TEMP 37.1; O2SAT 98
[2018-11-16] MEDS: oxyCODONE 5 MG Tablet PO ×3 (10:01→15:33)
[2018-11-16] MEDS: Enoxaparin 30 MG/0.3 ML Syringe SC (10:03)
[2018-11-16 10:04] VITALS: PULSE 85
[2018-11-16] MEDS: Calcium Carbonate 500 MG Tablet 200 MG PO (10:04)
[2018-11-16] MEDS: Metoprolol(XL)Succ 100 MG Tablet PO (10:04)
[2018-11-16] MEDS: Pantoprazole Sodium 20 MG Tablet PO (10:10)
[2018-11-16] MEDS: Atorvastatin Calcium 10 MG Tablet PO (10:11)
--- NOTE | 2018-11-16 10:27 | PN_ITS ---
Patient Problems: Active and Suspected Problems (Last Updated 11/15/18 @ 00:09 by Ortiz Childress DO) Debility (Acute) Subjective: Patient seen complains of low back pain as well as pain involving both lower thighs. Patient states she had undergone venous duplex performed by her PCP on account of similar complaints which is negative for DVT. Objective: GENERAL: cooperative HEENT: Atraumatic; moist oral mucosa EYES; Anicteric, Normal Conjunctiva NECK; supple, normal thyroid, no distended JVD. RESPIRATORY: Diminished to auscultation bilaterally, CARDIOVASCULAR: Regular S1 S2, GI: soft, non-tender, normoactive bowel sounds, : No Renal angle tenderness; EXTREMITIES: Erythema involving both lower extremities with some edema MUSCULOSKELETAL: No Joint Tenderness; no muscle waisting NEURO: Awake; no lateralizing signs. PSYCH; Normal affect Vitals/I&O's: Vital Signs Temp Pulse Resp BP Pulse Ox 98.8 F 85 18 147/60 H 98 11/16/18 09:25 11/16/18 10:04 11/16/18 09:25 11/16/18 09:25 11/16/18 09:25 Oxygen Delivery Method Room Air Weight: 143.3 kg Body Mass Index (BMI) 57.4 Intake and Output for Last 24 Hours 11/14/18 11/15/18 11/16/18 23:59 23:59 23:59 Intake Total 1200 / 1200 255 / 255 Output Total 450 / 450 500 / 500 Balance 750 / 750 -245 / -245 Laboratory Results 11/16/18 05:57: WBC 8.6, RBC 3.70 L, Hgb 11.7 L, Hct 36.8 L, MCV 99.5 H, MCH 31.6, MCHC 31.8 L, RDW 13.2, RDW Differential 47.9 H, Plt Count 274, MPV 9.7 11/16/18 05:57: Sodium 139, Potassium 3.7, Chloride 106, Carbon Dioxide 25.0, Anion Gap 8, BUN 25 H, Creatinine 0.99, Estim Creat Clear Calc 40.03, Est GFR (MDRD) Af Amer 71, Est GFR (MDRD) Non-Af 58 L, BUN/Creatinine Ratio 25.3 H, Glucose 101, Calcium 8.3 L, Magnesium 2.0 Current Medications Aspirin (Aspirin, Baby) 81 mg PO DAILY@0800 [facility] Last Admin: 11/16/18 08:04 Dose: 81 mg Atorvastatin Calcium (Lipitor) 10 mg PO BID [facility] Last Admin: 11/16/18 10:11 Dose: 10 mg Calcium Carbonate (Tums) 200 mg PO DAILY [facility] Last Admin: 11/16/18 10:04 Dose: 200 mg Cephalexin (Keflex) 500 mg PO Q8 [facility] Last Admin: 11/16/18 06:44 Dose: 500 mg Cholecalciferol (Vitamin D) 1,000 unit PO DAILY [facility] Last Admin: 11/16/18 10:04 Dose: 1,000 unit Enoxaparin Sodium (Lovenox) 30 mg SC DAILY@1000 [facility] Last Admin: 11/16/18 10:03 Dose: 30 mg Famotidine (Pepcid) 20 mg PO QHS [facility] Last Admin: 11/15/18 21:46 Dose: 20 mg Sodium Chloride () 250 mls @ 15 mls/hr IV .[id number] PRN PRN Reason: SALINE FLUSH Magnesium Hydroxide (Milk Of Magnesia) 30 ml PO DAILY PRN PRN PRN Reason: Constipation Last Admin: 11/16/18 06:44 Dose: 30 ml Metoprolol Succinate (Toprol Xl (Beta Agnes)) 100 mg PO DAILY [facility] Last Admin: 11/16/18 10:04 Dose: 100 mg Multivitamins (Allbee W/C Caplet, The[facility] B Comp[facility]) [facility] Admin: 11/16/18 08:04 Dose: 1 capsule Multivitamins (Multivitamin) 1 tablet PO DAILY@0800 [facility] Last Admin: 11/16/18 08:04 Dose: 1 tablet Ondansetron HCl (Zofran) 4 mg IV Q8H PRN PRN PRN Reason: NAUSEA Oxycodone HCl (Oxyir) 5 mg PO LUNCH [facility] Oxycodone HCl (Oxyir) 5 mg PO Q6H PRN PRN PRN Reason: SEVERE PAIN (6-10/10) Last Admin: 11/16/18 10:01 Dose: 5 mg Pantoprazole Sodium (Protonix) 20 mg PO DAILY [facility] Last Admin: 11/16/18 10:10 Dose: 20 mg Sodium Chloride () 5 - 15 ml IV UD PRN PRN Reason: SALINE FLUSH Medical Necessity - Tobacco Use Smoking Status: Never smoker Tobacco Use: Non-smoker Assessment/Plan All Active Problems (Last Updated 11/15/18 @ 00:09 by Ortiz Childress DO) Debility (Acute) Patient is a 73-year-old lady admitted with progressive generalized weakness and recurrent falls 1. Adult failure to thrive; presented with recurrent falls requested for PT OT eval and clinical social worker to assist with discharge planning. As part of patient evaluation ordered MRI of the lumbosacral spine as well as MRI of the brain with MRI of the brain was unremarkable MRI of the lumbosacral spine however demonstrated At least grade 1 right lateral subluxation of L3 on L4, severe stenosis of the left intervertebral neural foramen and mild stenosis of the right intervertebral neural foramen. Findings discussed with patient who is requesting transfer to [place] for subsequent management 2. Recent diagnosis with cellulitis: Patient is on Keflex continued 3. Hypothyroidism-patient is on levothyroxine home dose continued 5. Hypertension-blood pressure controlled, home medications continued with dose adjustment as needed 5. Vitamin D deficiency on calcium and vitamin D supplementation 6. Chronic stasis dermatitis patient is on diuretics held patient denies any previous diagnosis of congestive heart failure in any case 2D echo was ordered for evaluation of her murmur as well as EF assessment. Echo demonstrated stage I diastolic dysfunction with an ejection fraction of 65% VSP was estimated to be 28 mmHg 7. Morbid obesity with BMI of 57 lifestyle modification including weight loss advised 8. GERD on PPI 9. DVT prophylaxis SC Lovenox Clinical Impression(s) from Imaging Studies Lumbar Spine MRI 11/15/18 00:32 IMPRESSION: 1. At least grade 1 right lateral subluxation of L3 on L4, severe stenosis of the left intervertebral neural foramen and mild stenosis of the right intervertebral neural foramen. 2. Pronounced right-sided L4-L5 disc space height narrowing and mild to moderate bilateral degenerative facet arthropathy. 3. Pronounced L5-S1 disc space height narrowing and mild to moderate asymmetric degenerative facet arthropathy. 4. Pronounced left-sided L2-L3 disc space height narrowing with partial ankylosis of the left side and mild central canal stenosis. 5. Pronounced L1-L2 disc space height narrowing with small posterior bulging disc. 6. No MRI evidence of lumbar extruded disc fragment. Electronically Signed: Chris Petersen MD at 14:46 EST , Service support , Brain MRI 11/15/18 09:49 IMPRESSION: Minor periventricular white matter ischemic changes. No evidence for acute infarct or other significant abnormality Electronically Signed: Khalif Tello MD at 16:11 EST , Service support , Active Medications Aspirin (Aspirin, Baby) 81 mg PO DAILY@0800 [facility] Last Admin: 11/16/18 08:04 Dose: 81 mg Atorvastatin Calcium (Lipitor) 10 mg PO BID [facility] Last Admin: 11/16/18 10:11 Dose: 10 mg Calcium Carbonate (Tums) 200 mg PO DAILY [facility] Last Admin: 11/16/18 10:04 Dose: 200 mg Cephalexin (Keflex) 500 mg PO Q8 [facility] Last Admin: 11/16/18 06:44 Dose: 500 mg Cholecalciferol (Vitamin D) 1,000 unit PO DAILY [facility] Last Admin: 11/16/18 10:04 Dose: 1,000 unit Enoxaparin Sodium (Lovenox) 30 mg SC DAILY@1000 [facility] Last Admin: 11/16/18 10:03 Dose: 30 mg Famotidine (Pepcid) 20 mg PO QHS [facility] Last Admin: 11/15/18 21:46 Dose: 20 mg Sodium Chloride () 250 mls @ 15 mls/hr IV .[id number] PRN PRN Reason: SALINE FLUSH Magnesium Hydroxide (Milk Of Magnesia) 30 ml PO DAILY PRN PRN PRN Reason: Constipation Last Admin: 11/16/18 06:44 Dose: 30 ml Metoprolol Succinate (Toprol Xl (Beta Agnes)) 100 mg PO DAILY [facility] Last Admin: 11/16/18 10:04 Dose: 100 mg Multivitamins (Allbee W/C Caplet, Thera B Comp/C) 1 capsule PO DAILYCM [facility] Last Admin: 11/16/18 08:04 Dose: 1 capsule Multivitamins (Multivitamin) 1 tablet PO DAILY@0800 [facility] Last Admin: 11/16/18 08:04 Dose: 1 tablet Ondansetron HCl (Zofran) 4 mg IV Q8H PRN PRN PRN Reason: NAUSEA Oxycodone HCl (Oxyir) 5 mg PO LUNCH [facility] Oxycodone HCl (Oxyir) 5 mg PO Q6H PRN PRN PRN Reason: SEVERE PAIN (6-06/26) Last Admin: 11/16/18 10:01 Dose: 5 mg Pantoprazole Sodium (Protonix) 20 mg PO DAILY [facility] Last Admin: 11/16/18 10:10 Dose: 20 mg Sodium Chloride () 5 - 15 ml IV UD PRN PRN Reason: SALINE FLUSH Code Visit Inpatient E&M: 91643 Subs Hosp L2
--- NOTE | 2018-11-16 11:49 | DCINST_ITS ---
- Discharge Diagnoses Current Active Problems: Current Active and Chronic Problems (Last Updated 11/15/18 @ 00:09 by Ortiz Childress DO) Debility (Acute) You will use the following diet at home:: No restrictions Discharge Activity: May not drive while taking narcotic pain medications. Allergies/Adverse Reactions: Allergies celecoxib [From Celebrex] Allergy (Verified 11/14/18 21:50) Other funny feeling in throat formaldehyde Allergy (Verified 11/14/18 21:50) Other formaldehyde in plastic gloves causes swelling and cracking in hands ketorolac [From Toradol] Adverse Reaction (Verified 11/14/18 21:50) Upset Stomach Medications to take at Discharge Aspirin [Aspirin, Baby] 81 mg PO DAILY@0800 07/19/18 Bumetanide 1 mg PO BID 07/19/18 Calcium Citrate 200 mg PO DAILY 07/19/18 Cholecalciferol (Vitamin D3) [Vitamin D3] 1,000 unit PO DAILY 07/19/18 Fish Oil/Dha/Epa [Fish Oil 1,200 mg Fish Oil] 1 each PO DAILY 07/19/18 Folic Acid/Vit B Complex and C [ Super Vitamin B Complex Tab] 400 mcg PO DAILY 07/19/18 Lisinopril 20 mg PO BID 07/19/18 Lovastatin [Mevacor] 40 mg PO BID 07/19/18 Metoprolol Succinate 100 mg PO DAILY 07/19/18 Multivitamin [Multiple Vitamins] 1 each PO DAILY 07/19/18 Omeprazole 20 mg PO DAILY 07/19/18 Oxycodone HCl/Acetaminophen [Percocet 5/325] 1 tablet PO BID 07/19/18 Ranitidine [Zantac] 150 mg PO QHS 07/19/18 Selenium 100 mcg PO DAILY 07/19/18 Cephalexin [Keflex] 500 mg PO Q6 #40 capsule 11/14/18 Primary Care Physician: Christofer Vazquez MD [Primary Care Provider] - Test Results: Test results from this visit will be discussed in further detail at your follow- up appointment, if applicable. Proposed Discharge Date: 11/16/18
--- NOTE | 2018-11-16 12:06 | PCM.DC.SUM ---
Discharge Date and Diagnosis - Problem List Patient Problems: Active and Suspected Problems (Last Updated 11/15/18 @ 00:09 by Ortiz Childress DO) Debility (Acute) Date of Admission: 11/15/18 Date of Discharge: 11/16/18 - Primary Discharge Diagnosis Active and Suspected Problems (Last Updated 11/15/18 @ 00:09 by Ortiz Childress DO) Debility (Acute) Hospital Course and Treatment Imaging Results: Clinical Impression(s) from Imaging Studies Lumbar Spine MRI 11/15/18 00:32 IMPRESSION: 1. At least grade 1 right lateral subluxation of L3 on L4, severe stenosis of the left intervertebral neural foramen and mild stenosis of the right intervertebral neural foramen. 2. Pronounced right-sided L4-L5 disc space height narrowing and mild to moderate bilateral degenerative facet arthropathy. 3. Pronounced L5-S1 disc space height narrowing and mild to moderate asymmetric degenerative facet arthropathy. 4. Pronounced left-sided L2-L3 disc space height narrowing with partial ankylosis of the left side and mild central canal stenosis. 5. Pronounced L1-L2 disc space height narrowing with small posterior bulging disc. 6. No MRI evidence of lumbar extruded disc fragment. Electronically Signed: Chris Petersen MD at 14:46 EST , Service support , Brain MRI 11/15/18 09:49 IMPRESSION: Minor periventricular white matter ischemic changes. No evidence for acute infarct or other significant abnormality Electronically Signed: Khalif Tello MD at 16:11 EST , Service support , Summary of Care Provided: Patient is a 73-year-old lady admitted with progressive generalized weakness and recurrent falls 1. Adult failure to thrive; presented with recurrent falls requested for PT OT eval and rn social services to assist with discharge planning. As part of patient evaluation ordered MRI of the lumbosacral spine as well as MRI of the brain with MRI of the brain was unremarkable MRI of the lumbosacral spine however demonstrated At least grade 1 right lateral subluxation of L3 on L4, severe stenosis of the left intervertebral neural foramen and mild stenosis of the right intervertebral neural foramen. Findings discussed with patient requested transfer to [facility] for subsequent management. Call was placed bed was not available at [facility] instead patient was transferred to [facility] 2. Recent diagnosis of cellulitis: Patient is on Keflex continued 3. Hypothyroidism-patient is on levothyroxine home dose continued 5. Hypertension-blood pressure controlled, home medications continued with dose adjustment as needed 5. Vitamin D deficiency on calcium and vitamin D supplementation 6. Chronic stasis dermatitis patient is on diuretics held patient denies any previous diagnosis of congestive heart failure in any case 2D echo was ordered for evaluation of her murmur as well as EF assessment. Echo demonstrated stage I diastolic dysfunction with an ejection fraction of 65% RVSP was estimated to be 28 mmHg 7. Morbid obesity with BMI of 57 lifestyle modification including weight loss advised 8. GERD on PPI 9. DVT prophylaxis SC Lovenox Patient Problems: Active and Suspected Problems (Last Updated 11/15/18 @ 00:09 by Ortiz Childress DO) Debility (Acute) Objective: GENERAL: cooperative HEENT: Atraumatic; moist oral mucosa EYES; Anicteric, Normal Conjunctiva NECK; supple, normal thyroid, no distended JVD. RESPIRATORY: Diminished to auscultation bilaterally, CARDIOVASCULAR: Regular S1 S2, GI: soft, non-tender, normoactive bowel sounds, : No Renal angle tenderness; EXTREMITIES: Erythema involving both lower extremities with some edema MUSCULOSKELETAL: No Joint Tenderness; no muscle waisting NEURO: Awake; no lateralizing signs. PSYCH; Normal affect - Physical Exam Vital Signs Temp Pulse Resp BP Pulse Ox 98.8 F 85 18 147/60 H 98 11/16/18 09:25 11/16/18 10:04 11/16/18 09:25 11/16/18 09:25 11/16/18 09:25 Oxygen Delivery Method Room Air Weight: 143.3 kg Body Mass Index (BMI) 57.4 Intake and Output for Last 24 Hours 11/14/18 11/15/18 11/16/18 23:59 23:59 23:59 Intake Total 1200 / 1200 605 / 605 Output Total 450 / 450 500 / 500 Balance 750 / 750 105 / 105 Laboratory Tests Past 24 Hrs 11/16/18 11/16/18 05:57 05:57 WBC 8.6 RBC 3.70 L Hgb 11.7 L Hct 36.8 L MCV 99.5 H MCH 31.6 MCHC 31.8 L RDW 13.2 RDW Differential 47.9 H Plt Count 274 MPV 9.7 Sodium 139 Potassium 3.7 Chloride 106 Carbon Dioxide 25.0 Anion Gap 8 BUN 25 H Creatinine 0.99 Estim Creat Clear Calc 40.03 Est GFR (MDRD) Af Amer 71 Est GFR (MDRD) Non-Af 58 L BUN/Creatinine Ratio 25.3 H Glucose 101 Calcium 8.3 L Magnesium 2.0 Discharge Activity: May not drive while taking narcotic pain medications. Home Medications: Medications to take at Discharge Aspirin [Aspirin, Baby] 81 mg PO DAILY@0800 07/19/18 Bumetanide 1 mg PO BID 07/19/18 Calcium Citrate 200 mg PO DAILY 07/19/18 Cholecalciferol (Vitamin D3) [Vitamin D3] 1,000 unit PO DAILY 07/19/18 Fish Oil/Dha/Epa [Fish Oil 1,200 mg Fish Oil] 1 each PO DAILY 07/19/18 Folic Acid/Vit B Complex and C [ Super Vitamin B Complex Tab] 400 mcg PO DAILY 07/19/18 Lisinopril 20 mg PO BID 07/19/18 Lovastatin [Mevacor] 40 mg PO BID 07/19/18 Metoprolol Succinate 100 mg PO DAILY 07/19/18 Multivitamin [Multiple Vitamins] 1 each PO DAILY 07/19/18 Omeprazole 20 mg PO DAILY 07/19/18 Oxycodone HCl/Acetaminophen [Percocet 5/325] 1 tablet PO BID 07/19/18 Ranitidine [Zantac] 150 mg PO QHS 07/19/18 Selenium 100 mcg PO DAILY 07/19/18 Cephalexin [Keflex] 500 mg PO Q6 #40 capsule 11/14/18 Primary Care Physician: Christofer Vazquez MD [Primary Care Provider] - Disposition: [facility] Minutes spent on discharge:: 50 Patient Condition:: Stable Medical Necessity - Tobacco Use Smoking Status: Never smoker Tobacco Use: Non-smoker Meaningful Use Info Meaningful Use Diagnoses (Choose all that apply): None applicable Code Visit Inpatient E&M: 06185 Disch Hosp
--- NOTE | 2018-11-16 12:20 | DS.PCM_ITS ---
Discharge Date and Diagnosis - Problem List Patient Problems: Active and Suspected Problems (Last Updated 11/15/18 @ 00:09 by Ortiz Childress DO) Debility (Acute) Date of Admission: 11/15/18 Date of Discharge: 11/16/18 - Primary Discharge Diagnosis Active and Suspected Problems (Last Updated 11/15/18 @ 00:09 by Ortiz Childress DO) Debility (Acute) Hospital Course and Treatment Imaging Results: Clinical Impression(s) from Imaging Studies Lumbar Spine MRI 11/15/18 00:32 IMPRESSION: 1. At least grade 1 right lateral subluxation of L3 on L4, severe stenosis of the left intervertebral neural foramen and mild stenosis of the right intervertebral neural foramen. 2. Pronounced right-sided L4-L5 disc space height narrowing and mild to moderate bilateral degenerative facet arthropathy. 3. Pronounced L5-S1 disc space height narrowing and mild to moderate asymmetric degenerative facet arthropathy. 4. Pronounced left-sided L2-L3 disc space height narrowing with partial ankylosis of the left side and mild central canal stenosis. 5. Pronounced L1-L2 disc space height narrowing with small posterior bulging disc. 6. No MRI evidence of lumbar extruded disc fragment. Electronically Signed: Chris Petersen MD at 14:46 EST , Service support , Brain MRI 11/15/18 09:49 IMPRESSION: Minor periventricular white matter ischemic changes. No evidence for acute infarct or other significant abnormality Electronically Signed: Khalif Tello MD at 16:11 EST , Service support , Summary of Care Provided: Patient is a 73-year-old lady admitted with progressive generalized weakness and recurrent falls 1. Adult failure to thrive; presented with recurrent falls requested for PT OT eval and oncology social worker to assist with discharge planning. As part of patient evaluation ordered MRI of the lumbosacral spine as well as MRI of the brain with MRI of the brain was unremarkable MRI of the lumbosacral spine however demonstrated At least grade 1 right lateral subluxation of L3 on L4, severe stenosis of the left intervertebral neural foramen and mild stenosis of the right intervertebral neural foramen. Findings discussed with patient requested transfer to [facility] for subsequent management. Call was placed bed was not available at [facility] instead patient was transferred to [facility] 2. Recent diagnosis of cellulitis: Patient is on Keflex continued 3. Hypothyroidism-patient is on levothyroxine home dose continued 5. Hypertension-blood pressure controlled, home medications continued with dose adjustment as needed 5. Vitamin D deficiency on calcium and vitamin D supplementation 6. Chronic stasis dermatitis patient is on diuretics held patient denies any previous diagnosis of congestive heart failure in any case 2D echo was ordered for evaluation of her murmur as well as EF assessment. Echo demonstrated stage I diastolic dysfunction with an ejection fraction of 65% RVSP was estimated to be 28 mmHg 7. Morbid obesity with BMI of 57 lifestyle modification including weight loss advised 8. GERD on PPI 9. DVT prophylaxis SC Lovenox Patient Problems: Active and Suspected Problems (Last Updated 11/15/18 @ 00:09 by Ortiz Childress DO) Debility (Acute) Objective: GENERAL: cooperative HEENT: Atraumatic; moist oral mucosa EYES; Anicteric, Normal Conjunctiva NECK; supple, normal thyroid, no distended JVD. RESPIRATORY: Diminished to auscultation bilaterally, CARDIOVASCULAR: Regular S1 S2, GI: soft, non-tender, normoactive bowel sounds, : No Renal angle tenderness; EXTREMITIES: Erythema involving both lower extremities with some edema MUSCULOSKELETAL: No Joint Tenderness; no muscle waisting NEURO: Awake; no lateralizing signs. PSYCH; Normal affect - Physical Exam Vital Signs Temp Pulse Resp BP Pulse Ox 98.8 F 85 18 147/60 H 98 11/16/18 09:25 11/16/18 10:04 11/16/18 09:25 11/16/18 09:25 11/16/18 09:25 Oxygen Delivery Method Room Air Weight: 143.3 kg Body Mass Index (BMI) 57.4 Intake and Output for Last 24 Hours 11/14/18 11/15/18 11/16/18 23:59 23:59 23:59 Intake Total 1200 / 1200 605 / 605 Output Total 450 / 450 500 / 500 Balance 750 / 750 105 / 105 Laboratory Tests Past 24 Hrs 11/16/18 11/16/18 05:57 05:57 WBC 8.6 RBC 3.70 L Hgb 11.7 L Hct 36.8 L MCV 99.5 H MCH 31.6 MCHC 31.8 L RDW 13.2 RDW Differential 47.9 H Plt Count 274 MPV 9.7 Sodium 139 Potassium 3.7 Chloride 106 Carbon Dioxide 25.0 Anion Gap 8 BUN 25 H Creatinine 0.99 Estim Creat Clear Calc 40.03 Est GFR (MDRD) Af Amer 71 Est GFR (MDRD) Non-Af 58 L BUN/Creatinine Ratio 25.3 H Glucose 101 Calcium 8.3 L Magnesium 2.0 Discharge Activity: May not drive while taking narcotic pain medications. Home Medications: Medications to take at Discharge Aspirin [Aspirin, Baby] 81 mg PO DAILY@0800 07/19/18 Bumetanide 1 mg PO BID 07/19/18 Calcium Citrate 200 mg PO DAILY 07/19/18 Cholecalciferol (Vitamin D3) [Vitamin D3] 1,000 unit PO DAILY 07/19/18 Fish Oil/Dha/Epa [Fish Oil 1,200 mg Fish Oil] 1 each PO DAILY 07/19/18 Folic Acid/Vit B Complex and C [ Super Vitamin B Complex Tab] 400 mcg PO DAILY 07/19/18 Lisinopril 20 mg PO BID 07/19/18 Lovastatin [Mevacor] 40 mg PO BID 07/19/18 Metoprolol Succinate 100 mg PO DAILY 07/19/18 Multivitamin [Multiple Vitamins] 1 each PO DAILY 07/19/18 Omeprazole 20 mg PO DAILY 07/19/18 Oxycodone HCl/Acetaminophen [Percocet 5/325] 1 tablet PO BID 07/19/18 Ranitidine [Zantac] 150 mg PO QHS 07/19/18 Selenium 100 mcg PO DAILY 07/19/18 Cephalexin [Keflex] 500 mg PO Q6 #40 capsule 11/14/18 Primary Care Physician: Christofer Vazquez MD [Primary Care Provider] - Disposition: [facility] Minutes spent on discharge:: 50 Patient Condition:: Stable Medical Necessity - Tobacco Use Smoking Status: Never smoker Tobacco Use: Non-smoker Meaningful Use Info Meaningful Use Diagnoses (Choose all that apply): None applicable Code Visit Inpatient E&M: 13322 Disch Hosp
[2018-11-16 15:34] VITALS: BP 148/74; PULSE 74; RESP 18; TEMP 37; O2SAT 98
== END 2018-11-16 16:38 | disposition short-term general hospital (02) | DRG 552 ==
LOC: ED 23:03 → MS3 23:43
PROVIDERS: Internal Medicine; Emergency Provider Emergency Medicine; Family Provider Family Medicine; PCP Family Medicine; Visit Provider Internal Medicine
DX: M99.23 Subluxation stenosis of neural canal of lumbar region (principal); L03.116 Cellulitis of left lower limb; Z68.43 Body mass index [BMI] 50.0-59.9, adult; L03.115 Cellulitis of right lower limb; R53.81 Other malaise; R62.7 Adult failure to thrive; R53.1 Weakness; R29.6 Repeated falls; E66.01 Morbid (severe) obesity due to excess calories; E03.9 Hypothyroidism, unspecified; I87.2 Venous insufficiency (chronic) (peripheral); K21.9 Gastro-esophageal reflux disease without esophagitis; I10 Essential (primary) hypertension; E55.9 Vitamin D deficiency, unspecified; Z79.899 Other long term (current) drug therapy
CPT/HCPCS: 36415; 70551; 72148; 80048; 82550; 83735; 85025; 85027; 93306; 96361; 96374; 97110; 97162; 97165; 97530; 97802; 99284; 99285; Q9957; A4216; C8929; J1940

== ENCOUNTER 2018-11-21 15:18 | Inpatient (IN) | payer MEDICARE, OTHER, SELFPAY ==
[2018-11-21 15:16] VITALS: BMI 59.5
[2018-11-21 15:19] VITALS: BP 95/47; PULSE 76; RESP 18; TEMP 36.8; O2SAT 92; BMI 51.3
--- NOTE | 2018-11-21 16:03 | ED.VISSUMM ---
- ER Visit Summary Date of Service: 11/21/18 Chief Complaint: Lower extremity weakness History of Present Illness: The patient is a 73 F who presents with weakness of her lower extremities and frequent falls that has gotten worse over the past 2 days. Patient was admitted here recently for frequent falls and then was transferred to [facility]. Patient states she was supposed to see a spine surgeon but never did. Patient states she had physical therapy and was able to walk with a walker. Patient was then discharged home. Patient states her lower extremities have gotten weaker. Patient states she has been falling more frequently. Patient states she was diagnosed with a spinal stenosis with an MRI while she was admitted recently. Physical Examination: Vital signs are stable. Patient is afebrile. Patient is in no acute distress. Oral mucosa is pink and moist. Neck is supple. Trachea is midline. There is no JVD noted. Heart was regular rate and rhythm. Lungs are clear and equal bilateral. Abdomen is soft and nontender. Cranial nerves II through XII are intact. Strength is 5/5 bilaterally upper and lower extremities. There are no sensory deficits noted. Pedal pulses are equal bilaterally. Test Results: CBC shows a leukocytosis of 16.5. Basic metabolic profile showed an elevated BUN of 56 and a creatinine 4.41. These are both elevated compared to previous results. Urinalysis does not show any evidence of urinary tract infection. Troponin was normal. Emergency Department Course and Treatment: Patient initially wanted to go back to [facility] however, there were no beds available. Case was discussed with the hospitalist here. Patient will be admitted here for acute kidney injury. Disposition: Admit to hospital Impression: 1. Acute kidney injury 2. Lower extremity weakness This note was generated with [employer] dictation software. It may contain incorrect words, spelling, and punctuation that were not noted in review of the chart prior to signing ED Disposition - Plan for ED Patient: Disposition: Acute Care Hospital [facility] Diagnosis: Acute kidney injury, Lower extremity weakness, Frequent falls Referrals: Christofer Vazquez MD [Primary Care Provider] -
[2018-11-21 16:30] LABS: Hematocrit 40.1 % (37-47); Hemoglobin 12.9 g/dl (12.0-15.0); Mean Corp Hgb Conc 32.2 g/gl (32-36); Mean Corpuscular Hgb 32.2 pg (27.0-32.0); Mean Platelet Vol. 9.8 fl (6.2-12.0); Platelet Count 309 K/mm3 (150-450); RBC Distribution Width CV 13.6 % (11.6-14.6); RBC Distribution Width SD 49.4 fl (35.1-43.9); Red Blood Count 4.01 M/mm3 (4.2-5.4); White Blood Count 16.5 K/mm3 (4.4-11.0)
[2018-11-21 16:43] LABS: ALB/GLOB Ratio 0.9 RATIO (0.9-2.4); AST(SGOT) 17 U/L (15-37); Alanine Aminotransfer ALT/SGPT 23 U/L (13-56); Albumin, Serum 3.2 g/dL (3.2-5.0); Alkaline Phosphatase 48 U/L (45-117); Anion Gap 11 (5-15); BUN 56 mg/dL (7-18); BUN/Creat Ratio 12.7 RATIO (10-20); Calcium,Total 8.6 mg/dL (8.5-10.1); Chloride 101 mmol/L (98-107); Creatinine, Serum 4.41 mg/dL (0.55-1.02); EST Glomerular Filtration Rate 10 mL/min (>60); Est Glom Filt Rate - Afr Amer 13 mL/min (>60); Globulin 3.5 g/dL (2.2-4.2); Glucose 121 mg/dL (74-106); Potassium 4.3 mmol/L (3.5-5.1); Protein, Total 6.7 g/dL (6.4-8.2); Sodium Level 136 mmol/L (136-145)
[2018-11-21 16:53] LABS: Differential Indicated MANUAL DIFF; POSITIVE COUNT NO; POSITIVE DIFFERENTIAL NO; POSITIVE MORPHOLOGY YES
[2018-11-21 17:04] LABS: Eosinophil 15 % (0-5); Lymphocyte 17 % (19-41); Monocyte 2 % (0-10); Neutrophil-Band 5 % (0-5); Neutrophil-Segmented 61 % (47-70); Total Cells Counted 100 (MANUAL DIFF)
[2018-11-21 17:11] LABS: Absolute Neutrophil Count 2.8 X10^3/uL (2.0-7.7); Anisocytosis 1+; Macrocytosis 1+; Platelet Estimate ADEQUATE (ADEQ)
[2018-11-21 17:13] VITALS: BP 114/66; PULSE 62; RESP 17; O2SAT 94
[2018-11-21 17:17] LABS: Bacteria 0 SEEN /hpf (None Seen); Mucous, Urine 0 SEEN /hpf (<or=2+); Red Blood Cells-Urine 0 SEEN /hpf (0-5); Squamous Epithelial Cells - UA 0 SEEN /hpf (5-10); White Blood Cells 0 SEEN /hpf (0-5)
[2018-11-21 17:36] LABS: Color, Urine Yellow (Yellow); Glucose, Dipstick Normal (Normal); Ketone-Dipstick 5 mg/dl (Negative); Leukocyte Esterase-Dipstick 100 /ul (Negative); Nitrite-Dipstick Negative (Negative); Occult Blood-Urine 10 /ul (Negative); Protein-Dipstick 15 mg/dl (Negative); Urine Bilirubin Dipstick Negative (Negative); Urine Clarity Sl. Cloudy (Clear); Urine Urobilinogen Normal (Normal)
[2018-11-21 18:02] LABS: Amorphous Sediment 1+; Hyaline Cast 10-25 SEEN /lpf (0-5)
[2018-11-21 18:54] VITALS: BP 103/47; PULSE 64; RESP 23; O2SAT 94
--- NOTE | 2018-11-21 19:28 | PCM.HP.STD ---
Problem List (1) Acute cystitis Status: Acute (2) Acute kidney injury Status: Acute (3) Lower extremity weakness Status: Acute (4) Frequent falls Status: Acute History of Present Illness Date of Admission: 11/21/18 Chief Complaint: frequent falls and lower extremity weakness The patient is a 73 year old F with a significant history of hypertension; hyperlipidemia; and spinal stenosis who was recently admitted on 11/15/2018 and transferred to clinic on 11/16/2018 for severe spinal stenosis presenting again with frequent falls and bilateral lower extremity weakness that has no change since her prior admission. She reports that within the last 7 days she has fallen about 7 times. She fell a day before this presentation and paramedics came home to help her get up. On the day of presentation she fell again and paramedics brought her to the emergency department. At the emergency department patient was found to have severely elevated creatinine. Also, she was found to have abnormal urinalysis. Since she was recently transferred to [facility] a call was placed to [facility] to transfer patient. However it was reported that at [facility] does not have a bed at any of its facility. Past Medical History Medical History: Medical History (Last Reviewed 11/21/18 @ 20:15 by Renzo Moreno MD) HTN (hypertension) I10 Allergies celecoxib [From Celebrex] Allergy (Verified 11/14/18 21:50) Other funny feeling in throat formaldehyde Allergy (Verified 11/14/18 21:50) Other formaldehyde in plastic gloves causes swelling and cracking in hands ketorolac [From Toradol] Adverse Reaction (Verified 11/14/18 21:50) Upset Stomach Home Medications: Ambulatory Orders Medication Instructions Recorded Aspirin [Aspirin, Baby] 81 mg PO DAILY@0800 07/19/18 Bumetanide 1 mg PO BID 07/19/18 Fish Oil/Dha/Epa [Fish Oil 1,200 1 cap PO DAILY 07/19/18 mg Fish Oil] Folic Acid/Vit B Complex and C [Sm 400 mcg PO DAILY 07/19/18 Super Vitamin B Complex Tab] Lisinopril 20 mg PO BID 07/19/18 Lovastatin [Mevacor] 40 mg PO BID 07/19/18 Multivitamin [Multiple Vitamins] 1 each PO DAILY 07/19/18 Oxycodone HCl/Acetaminophen 1 tablet PO BID 07/19/18 [Percocet 5/325] Ranitidine [Zantac] 150 mg PO QHS 07/19/18 Calcium Citrate 200 mg PO DAILY 11/21/18 Cephalexin [Keflex] 500 mg PO Q6H 11/21/18 Cholecalciferol (VIT D3) [Vitamin 1,000 unit PO DAILY 11/21/18 D] Metoprolol Tartrate [Lopressor 100 mg PO DAILY 11/21/18 (beta liz)] Omeprazole 20 mg PO DAILY 11/21/18 Selenium 100 mcg PO DAILY 11/21/18 Surgical History: Surgical History (Last Reviewed 11/21/18 @ 20:15 by Renzo Moreno MD) H/O laminectomy Z98.890 2013 in [place]. Psychiatric History: No pertinent psych hx Lives: Spouse/ Significant Other Smoking Status: Never smoker Alcohol: None - *Family History Maternal History Items: - - No CAD Paternal History Items: Heart Disease Review of Systems Constitutional: Denies: Chills, Fever, Weight Change HEENT: Denies: Head Aches, Sinus Congestion, Sinus Drainage Cardiovascular: Denies: Chest Pain, Palpitations Respiratory: Reports: Cough. Denies: Shortness of breath at rest, Sputum production Gastrointestinal: Denies: Abdominal Pain, Nausea, Vomiting Genitourinary: Denies: Dysuria Musculoskeletal: Reports: Back Pain Skin: Denies: Rash, Wounds Neurological: Denies: Numbness, Tingling, Focal weakness Psychiatric: Denies: Anxiety, Depression, Homicidal Ideations, Suicidal Ideations Hematologic/ Lymphatic: Denies: Easy Bruising, Easy Bleeding VTE Information - Inpt Only VTE Present on Admission: No VTE Mechan Device Prophylaxis: None VTE Pharm Prophylaxis ordered?: Yes Patient Problems: Active and Suspected Problems (Last Reviewed 11/21/18 @ 20:15 by Renzo Moreno MD) Acute kidney injury (Acute) Lower extremity weakness (Acute) Frequent falls (Acute) Acute cystitis (Acute) - Physical Exam General: Alert, Oriented x3, Cooperative HEENT: Atraumatic, PERRLA, EOMI, Normocephalic Neck: Supple, No JVD, Negative Carotid Bruits Lungs: Clear to auscultation, Normal air movement Cardiovascular: Regular rate, No murmurs Abdomen: Bowel Sounds Present, Soft, Non Tender Extremities: Capillary Refill Less than 3 Seconds, - - Deformed bilateral lower extremities. Skin: No rashes, No breakdown Musculoskeletal: No Tenderness to Palpation of Joints or Extremities Neurological: Neuro grossly intact Psych/Mental Status: Normal Affect, Appropriate Vital Signs Temp Pulse Resp BP Pulse Ox 98.3 F 64 23 H 103/47 L 94 11/21/18 15:19 11/21/18 18:54 11/21/18 18:54 11/21/18 18:54 11/21/18 18:54 Oxygen Delivery Method Room Air Weight: 131.542 kg Body Mass Index (BMI) 51.3 Laboratory Tests Past 24 Hrs 11/21/18 11/21/18 11/21/18 16:12 16:12 17:10 WBC 16.5 H RBC 4.01 L Hgb 12.9 Hct 40.1 MCV 100.0 H MCH 32.2 H MCHC 32.2 RDW 13.6 RDW Differential 49.4 H Plt Count 309 MPV 9.8 Neut % (Auto) Not Reportable Absolute Neuts (auto) 2.8 Total Counted 100 Neutrophils % (Manual) 61 Band Neutrophils % 5 Lymphocytes % (Manual) 17 L Monocytes % (Manual) 2 Eosinophils % (Manual) 15 H Platelet Estimate ADEQUATE Anisocytosis 1+ Macrocytosis 1+ Sodium 136 Potassium 4.3 Chloride 101 Carbon Dioxide 24.0 Anion Gap 11 BUN 56 H Creatinine 4.41 H Estim Creat Clear Calc 9.40 Est GFR (MDRD) Af Amer 13 L Est GFR (MDRD) Non-Af 10 L BUN/Creatinine Ratio 12.7 Glucose 121 H Calcium 8.6 Total Bilirubin 0.60 AST 17 ALT 23 Alkaline Phosphatase 48 Troponin I < 0.015 Total Protein 6.7 Albumin 3.2 Globulin 3.5 Albumin/Globulin Ratio 0.9 Urine Color Yellow Urine Clarity Sl. Cloudy Urine pH 5.0 Ur Specific [place] 1.020 Urine Protein 15 H Urine Glucose (UA) Normal Urine Ketones 5 H Urine Occult Blood 10 H Urine Nitrite Negative Urine Bilirubin Negative Urine Urobilinogen Normal Ur Leukocyte Esterase 100 H Urine RBC 0 SEEN Urine WBC 0 SEEN Ur Squamous Epith Cells 0 SEEN Amorphous Sediment 1+ Urine Bacteria 0 SEEN Hyaline Casts 10-25 SEEN Urine Mucus 0 SEEN Assessment/Plan All Active Problems (Last Reviewed 11/21/18 @ 20:15 by Renzo Moreno MD) Debility (Acute) Acute kidney injury (Acute) Lower extremity weakness (Acute) Frequent falls (Acute) Acute cystitis (Acute) The patient is a 73 year old F with a significant history of hypertension; hyperlipidemia; and spinal stenosis who was recently admitted on 11/15/2018 and transferred to clinic on 11/16/2018 for severe spinal stenosis presenting again with frequent falls and bilateral lower extremity weakness and also found to have severely elevated creatinine and abnormal urinalysis. AK I Creatinine on admission was 4.41. Review of old records shows that her creatinine 5 days ago was 0.99. Her creatinine on 11/15/2018 was 1.41. And her creatinine on 11/14/2018 was 1.68. Her BUN on admission was 56. This is more than double her BUN 5 days ago. Her BUN over creatinine is 12.7. At this time cannot rule out intrinsic renal failure. Will order urinary studies including urine urea as patient is on Bumex. Would hold her Bumex; and lisinopril. Avoid other nephrotoxic's. Patient received normal saline IV bolus at the emergency department. Continue patient on gentle normal saline IV hydration. Trend BMP. Consider nephrology consult if patient is still here and has not been transferred to [facility]. Spinal stenosis Likely due to likely this is the etiology of her frequent falls and bilateral lower extremity weakness. Patient to work with PT and OT. Emergency housekeeping department worker has placed a call to [facility] for transfer. Please check with [facility] for availability of beds. Per patient although she was supposed to see a neurosurgeon, it was later reported that she does not need surgery and she was subsequently discharged home. Will obtain records from [facility], where patient was transferred to. Home Percocet continued. Hypertension On presentation her blood pressure was within goal. Lisinopril held due to AK I. Home metoprolol continued with parameters. Trend blood pressures and adjust blood pressure medication as necessary. Acute cystitis Patient reported that she saw urologist Bella Orozco within the last 1 to 2 weeks. She reported that her urine was sent to some lab in [place]. She reported that her urine was full of strange bacteria that would not show up on microscope. Reportedly she was started on antibiotics. On her med list is Keflex. At that time she had some tingling sensation in her urethra. But this time she does not have any tingling sensation. Because of abnormal urinalysis we will continue patient on ceftriaxone and get a urine culture. Cough Patient reports a cough that has been going on for about 1 month. She reported that the nursing staff told her that the cough may be due to lisinopril use. In any case lisinopril has been held because of AK I. Consider changing lisinopril when indicated indicated. DVT Prophylaxis Subcutaneous heparin. . Code Visit Inpatient E&M: 80366 Init Hosp L3
[2018-11-21] MEDS: 0.9% Normal Saline 1,000 ML 1000 ML IV (19:43)
[2018-11-21 20:53] VITALS: BMI 54.8
[2018-11-21 21:03] VITALS: BMI 54.8
[2018-11-21] MEDS: 0.9% Normal Saline 1,000 ML 100 ML IV (21:55)
[2018-11-21] MEDS: Ceftriaxone 1 GM/50 ML BAG IV (21:55)
[2018-11-21] MEDS: oxyCODONE 5 MG Tablet PO (21:56)
[2018-11-21] MEDS: Heparin Injection (Vial) 5,000 UNIT/ML VIAL 5000 UNIT SC (21:56)
[2018-11-21] MEDS: Famotidine 20 MG Tablet PO (21:57)
[2018-11-21] MEDS: Atorvastatin Calcium 40 MG Tablet PO (21:57)
[2018-11-21 22:34] VITALS: BP 116/89; PULSE 73; RESP 18; TEMP 36.7; O2SAT 99
[2018-11-21 23:29] LABS: Urine Sodium 28 mmol/L (Not Establ.)
[2018-11-21 23:36] LABS: Osmolality, Urine 298 mOsm/KG
[2018-11-22 04:30] VITALS: BP 97/43; PULSE 66; RESP 18; TEMP 36.6; O2SAT 94
[2018-11-22 07:02] VITALS: O2SAT 94
[2018-11-22 07:33] LABS: Hematocrit 34.4 % (37-47); Hemoglobin 10.8 g/dl (12.0-15.0); Mean Corp Hgb Conc 31.4 g/gl (32-36); Mean Corpuscular Hgb 31.4 pg (27.0-32.0); Platelet Count 307 K/mm3 (150-450); RBC Distribution Width CV 13.6 % (11.6-14.6); Red Blood Count 3.44 M/mm3 (4.2-5.4); White Blood Count 11.8 K/mm3 (4.4-11.0)
[2018-11-22 07:35] LABS: Differential Indicated MANUAL DIFF; POSITIVE COUNT NO; POSITIVE DIFFERENTIAL NO; POSITIVE MORPHOLOGY YES
[2018-11-22 07:44] LABS: Anion Gap 9 (5-15); BUN 55 mg/dL (7-18); Chloride 104 mmol/L (98-107); Creatinine, Serum 3.43 mg/dL (0.55-1.02); EST Glomerular Filtration Rate 14 mL/min (>60); Est Glom Filt Rate - Afr Amer 17 mL/min (>60); Estimated Creatinine Clearance 12.08 ml/min; Glucose 88 mg/dL (74-106); Potassium 3.8 mmol/L (3.5-5.1); Sodium Level 137 mmol/L (136-145)
[2018-11-22 08:46] LABS: Eosinophil 16 % (0-5); Lymphocyte 19 % (19-41); Monocyte 6 % (0-10); Neutrophil-Segmented 59 % (47-70); Platelet Estimate ADEQUATE (ADEQ); Red Cell Morphology NORM C+C NORMAL (NORM C&C); Total Cells Counted 100 (MANUAL DIFF)
[2018-11-22 08:48] LABS: Absolute Lymphocyte Count 2.24 X10^3/ul (0.83-4.51); Lymphocyte # 2.24 X10^3/ul (4.0)
[2018-11-22 09:35] VITALS: BP 120/53; PULSE 84; RESP 18; TEMP 36.9; O2SAT 95
[2018-11-22 09:37] VITALS: PULSE 84
[2018-11-22] MEDS: Multivitamins,Therapeutic Tablet 1 TABLET PO (09:37)
[2018-11-22] MEDS: oxyCODONE 5 MG Tablet PO ×2 (09:37→21:00)
[2018-11-22] MEDS: Pantoprazole Sodium 20 MG Tablet PO (09:37)
[2018-11-22] MEDS: Metoprolol Tartrate 100 MG Tablet PO (09:37)
[2018-11-22] MEDS: Vitamin B Comp W-C Capsule 1 CAP PO (09:37)
[2018-11-22] MEDS: Aspirin 81 MG TAB.CHEW PO (09:38)
[2018-11-22] MEDS: Calcium Carbonate 500 MG Tablet PO (09:38)
[2018-11-22] MEDS: Heparin Injection (Vial) 5,000 UNIT/ML VIAL 5000 UNIT SC ×2 (09:38→21:00)
--- NOTE | 2018-11-22 10:02 | CASEMGMT ---
RN SUDEEP Re-admission note: Recent admission 11/15-11/15 w/admission diagnosis of Debility. MRI spine showed severe stenosis. Pt was transferred to [facility]. Re-admitted 11/21/18 w/ROSAS and frequent falls @ home. To room to talk with pt. Introduced self and RN SUDEEP role to pt. Pt resting in bed. Awake/alert/oriented. Pt reports when she was just @ [facility], that she was not seen by a Neurosurgeon while there. She stated, I don't know what was going on there. I was discharged with instructions to make follow-up appt with a neurosurgeon but wasn't seen by a neurosurgeon while I was actually in the hospital. Noted in H/P, that per neuro-surgeon @ [facility], pt did not require emergent surgery and was instructed to follow-up with neurosurgeon as an out-pt. Pt states she did call to make a follow-up appt with the doctor listed on the discharge instructions but was told that he was no longer taking new patients and she was referred to a neurosurgeon, Dr Rosen. She states she did make an appt with Dr Rosen but has not seen him yet. States she does not remember the date of the appt. She states she also has an appt with PCP, Dr Vazquez, but does not remember the date of appt. Discussed therapy with pt and discharge planning. Pt states, I just want to know what's going on. I don't think therapy is the answer. I'm usually independent. I walk around fine and then my legs just give out on me out of nowhere. She states she wishes to be transferred back to [facility], since there isn't a neurosurgeon here. [facility] Sheriff, has been made aware of pt's wishes. French PHILIP RN, CM
[2018-11-22 10:36] LABS: CPK Total, Creatine Kinase 230 U/L (26-192)
--- NOTE | 2018-11-22 11:59 | PN_ITS ---
<Otf Acevedo - Last Filed: 11/22/18 11:50> Patient Problems: Active and Suspected Problems (Last Reviewed 11/21/18 @ 20:15 by Renzo Moreno MD) Acute kidney injury (Acute) Lower extremity weakness (Acute) Frequent falls (Acute) Acute cystitis (Acute) Subjective: Patient resting comfortably in bed. Minimal pain-worst pain is above the knees bilateral legs. She has no numbness or tingling. No change in urinary continence. No urinary symptoms today. She reports that she was recently diagnosed with a UTI and has been on Keflex for this, and that she was told she had an unusual bacteria. Last week she was at [facility] for her spinal stenosis and was discharged and advised to follow-up with Dr. Reddy, neurosurgery, as an outpatient next week. - Physical Exam General: Alert, Oriented x3, Cooperative HEENT: Atraumatic, PERRLA, EOMI, Normocephalic Neck: Supple, No JVD, Negative Carotid Bruits Lungs: Clear to auscultation, Normal air movement Cardiovascular: Regular rate, No murmurs Abdomen: Bowel Sounds Present, Soft, Non Tender, Obese Extremities: No edema, Capillary Refill Less than 3 Seconds Skin: No rashes, No breakdown Musculoskeletal: No Tenderness to Palpation of Joints or Extremities Neurological: Cranial nerves II-XII grossly intact Psych/Mental Status: Normal Affect, Appropriate, Alert and oriented to time, place, person, mood and affect Vital Signs Temp Pulse Resp BP Pulse Ox 98.4 F 84 18 120/53 L 95 11/22/18 09:35 11/22/18 09:37 11/22/18 09:35 11/22/18 09:35 11/22/18 09:35 Oxygen Delivery Method Room Air Weight: 309 lb 8.464 oz Body Mass Index (BMI) 54.8 Intake and Output for Last 24 Hours 11/20/18 11/21/18 11/22/18 23:59 23:59 23:59 Intake Total 210 / 210 466 / 466 Output Total 150 / 150 Balance 60 / 60 466 / 466 Laboratory Tests Past 24 Hrs 11/21/18 11/21/18 11/21/18 16:12 16:12 17:10 WBC 16.5 H RBC 4.01 L Hgb 12.9 Hct 40.1 MCV 100.0 H MCH 32.2 H MCHC 32.2 RDW 13.6 RDW Differential 49.4 H Plt Count 309 MPV 9.8 Neut % (Auto) Not Reportable Absolute Neuts (auto) 2.8 Absolute Lymphs (auto) Total Counted 100 Neutrophils % (Manual) 61 Band Neutrophils % 5 Lymphocytes % (Manual) 17 L Monocytes % (Manual) 2 Eosinophils % (Manual) 15 H Platelet Estimate ADEQUATE RBC Morphology Anisocytosis 1+ Macrocytosis 1+ Sodium 136 Potassium 4.3 Chloride 101 Carbon Dioxide 24.0 Anion Gap 11 BUN 56 H Creatinine 4.41 H Estim Creat Clear Calc 9.40 Est GFR (MDRD) Af Amer 13 L Est GFR (MDRD) Non-Af 10 L BUN/Creatinine Ratio 12.7 Glucose 121 H Calcium 8.6 Total Bilirubin 0.60 AST 17 ALT 23 Alkaline Phosphatase 48 Total Creatine Kinase Troponin I < 0.015 Total Protein 6.7 Albumin 3.2 Globulin 3.5 Albumin/Globulin Ratio 0.9 Urine Color Yellow Urine Clarity Sl. Cloudy Urine pH 5.0 Ur Specific [place] 1.020 Urine Protein 15 H Urine Glucose (UA) Normal Urine Ketones 5 H Urine Occult Blood 10 H Urine Nitrite Negative Urine Bilirubin Negative Urine Urobilinogen Normal Ur Leukocyte Esterase 100 H Urine RBC 0 SEEN Urine WBC 0 SEEN Ur Squamous Epith Cells 0 SEEN Amorphous Sediment 1+ Urine Bacteria 0 SEEN Hyaline Casts 10-25 SEEN Urine Mucus 0 SEEN Urine Osmolality Ur Random Sodium Urine Creatinine 11/21/18 11/21/18 11/21/18 22:20 22:20 22:20 WBC RBC Hgb Hct MCV MCH MCHC RDW RDW Differential Plt Count MPV Neut % (Auto) Absolute Neuts (auto) Absolute Lymphs (auto) Total Counted Neutrophils % (Manual) Band Neutrophils % Lymphocytes % (Manual) Monocytes % (Manual) Eosinophils % (Manual) Platelet Estimate RBC Morphology Anisocytosis Macrocytosis Sodium Potassium Chloride Carbon Dioxide Anion Gap BUN Creatinine Estim Creat Clear Calc Est GFR (MDRD) Af Amer Est GFR (MDRD) Non-Af BUN/Creatinine Ratio Glucose Calcium Total Bilirubin AST ALT Alkaline Phosphatase Total Creatine Kinase Troponin I Total Protein Albumin Globulin Albumin/Globulin Ratio Urine Color Urine Clarity Urine pH Ur Specific [place] Urine Protein Urine Glucose (UA) Urine Ketones Urine Occult Blood Urine Nitrite Urine Bilirubin Urine Urobilinogen Ur Leukocyte Esterase Urine RBC Urine WBC Ur Squamous Epith Cells Amorphous Sediment Urine Bacteria Hyaline Casts Urine Mucus Urine Osmolality 298 Ur Random Sodium 28 Urine Creatinine 182.00 11/22/18 11/22/18 11/22/18 05:46 05:46 05:46 WBC 11.8 H RBC 3.44 L Hgb 10.8 L Hct 34.4 L MCV 100.0 H MCH 31.4 MCHC 31.4 L RDW 13.6 RDW Differential 49.0 H Plt Count 307 MPV 10.0 Neut % (Auto) Not Reportable Absolute Neuts (auto) 7.0 Absolute Lymphs (auto) 2.24 Total Counted 100 Neutrophils % (Manual) 59 Band Neutrophils % Lymphocytes % (Manual) 19 Monocytes % (Manual) 6 Eosinophils % (Manual) 16 H Platelet Estimate ADEQUATE RBC Morphology NORM C+C Anisocytosis Macrocytosis Sodium 137 Potassium 3.8 Chloride 104 Carbon Dioxide 24.0 Anion Gap 9 BUN 55 H Creatinine 3.43 H Estim Creat Clear Calc 12.08 Est GFR (MDRD) Af Amer 17 L Est GFR (MDRD) Non-Af 14 L BUN/Creatinine Ratio 16.0 Glucose 88 Calcium 8.0 L Total Bilirubin AST ALT Alkaline Phosphatase Total Creatine Kinase 230 H Troponin I Total Protein Albumin Globulin Albumin/Globulin Ratio Urine Color Urine Clarity Urine pH Ur Specific [place] Urine Protein Urine Glucose (UA) Urine Ketones Urine Occult Blood Urine Nitrite Urine Bilirubin Urine Urobilinogen Ur Leukocyte Esterase Urine RBC Urine WBC Ur Squamous Epith Cells Amorphous Sediment Urine Bacteria Hyaline Casts Urine Mucus Urine Osmolality Ur Random Sodium Urine Creatinine Medical Necessity - Tobacco Use Smoking Status: Never smoker Assessment/Plan All Active Problems (Last Reviewed 11/21/18 @ 20:15 by Renzo Moreno MD) Debility (Acute) Acute kidney injury (Acute) Lower extremity weakness (Acute) Frequent falls (Acute) Acute cystitis (Acute) 1. Worsening debility with frequent falls at home-continue PT OT, follow-up with neurosurgery as an outpatient for spinal stenosis-Dr. Reddy at [facility]. Obtain records from [place]. 2. Acute kidney injury-suspect secondary to dehydration, mild rhabdo with elevated CPK (multiple falls at home, unable to get up, lies on the floor until somebody is able to come help her), Bumex and lisinopril held, will provide gentle hydration and recheck CPK tomorrow. Check post void residual given possible UTI. 3. Questionable UTI-currently asymptomatic, and unimpressive UA. She was on keflex as an outpatient. WBCs have improved, continue Rocephin, obtain records from Dr. Orozco's office for culture and sensitivity. 4. HTN - stable 5. HLD - statin - hold with rhabdo. 6. Mild macrocytic anemia - trend. nl at admission 7. Morbid obesity - dietary eval. DVT ppx: heparin DC planning: pt needs placement at SNF as she is unsafe to go home given her recurrent falls. I discussed this with her and she is considering it. This patient was seen by Otf Acevedo PA-C under the supervision of Doctor Melody <Eliceo Oliver F - Last Filed: 11/22/18 12:52> - Physical Exam Vital Signs Temp Pulse Resp BP Pulse Ox 98.4 F 84 18 120/53 L 95 11/22/18 09:35 11/22/18 09:37 11/22/18 09:35 11/22/18 09:35 11/22/18 09:35 Oxygen Delivery Method Room Air Weight: 309 lb 8.464 oz Body Mass Index (BMI) 54.8 Intake and Output for Last 24 Hours 11/20/18 11/21/18 11/22/18 23:59 23:59 23:59 Intake Total 210 / 210 1280 / 1280 Output Total 150 / 150 300 / 300 Balance 60 / 60 980 / 980 Laboratory Tests Past 24 Hrs 11/21/18 11/21/18 11/21/18 16:12 16:12 17:10 WBC 16.5 H RBC 4.01 L Hgb 12.9 Hct 40.1 MCV 100.0 H MCH 32.2 H MCHC 32.2 RDW 13.6 RDW Differential 49.4 H Plt Count 309 MPV 9.8 Neut % (Auto) Not Reportable Absolute Neuts (auto) 2.8 Absolute Lymphs (auto) Total Counted 100 Neutrophils % (Manual) 61 Band Neutrophils % 5 Lymphocytes % (Manual) 17 L Monocytes % (Manual) 2 Eosinophils % (Manual) 15 H Platelet Estimate ADEQUATE RBC Morphology Anisocytosis 1+ Macrocytosis 1+ Sodium 136 Potassium 4.3 Chloride 101 Carbon Dioxide 24.0 Anion Gap 11 BUN 56 H Creatinine 4.41 H Estim Creat Clear Calc 9.40 Est GFR (MDRD) Af Amer 13 L Est GFR (MDRD) Non-Af 10 L BUN/Creatinine Ratio 12.7 Glucose 121 H Calcium 8.6 Total Bilirubin 0.60 AST 17 ALT 23 Alkaline Phosphatase 48 Total Creatine Kinase Troponin I < 0.015 Total Protein 6.7 Albumin 3.2 Globulin 3.5 Albumin/Globulin Ratio 0.9 Urine Color Yellow Urine Clarity Sl. Cloudy Urine pH 5.0 Ur Specific [place] 1.020 Urine Protein 15 H Urine Glucose (UA) Normal Urine Ketones 5 H Urine Occult Blood 10 H Urine Nitrite Negative Urine Bilirubin Negative Urine Urobilinogen Normal Ur Leukocyte Esterase 100 H Urine RBC 0 SEEN Urine WBC 0 SEEN Ur Squamous Epith Cells 0 SEEN Amorphous Sediment 1+ Urine Bacteria 0 SEEN Hyaline Casts 10-25 SEEN Urine Mucus 0 SEEN Urine Osmolality Ur Random Sodium Urine Creatinine 11/21/18 11/21/18 11/21/18 22:20 22:20 22:20 WBC RBC Hgb Hct MCV MCH MCHC RDW RDW Differential Plt Count MPV Neut % (Auto) Absolute Neuts (auto) Absolute Lymphs (auto) Total Counted Neutrophils % (Manual) Band Neutrophils % Lymphocytes % (Manual) Monocytes % (Manual) Eosinophils % (Manual) Platelet Estimate RBC Morphology Anisocytosis Macrocytosis Sodium Potassium Chloride Carbon Dioxide Anion Gap BUN Creatinine Estim Creat Clear Calc Est GFR (MDRD) Af Amer Est GFR (MDRD) Non-Af BUN/Creatinine Ratio Glucose Calcium Total Bilirubin AST ALT Alkaline Phosphatase Total Creatine Kinase Troponin I Total Protein Albumin Globulin Albumin/Globulin Ratio Urine Color Urine Clarity Urine pH Ur Specific [place] Urine Protein Urine Glucose (UA) Urine Ketones Urine Occult Blood Urine Nitrite Urine Bilirubin Urine Urobilinogen Ur Leukocyte Esterase Urine RBC Urine WBC Ur Squamous Epith Cells Amorphous Sediment Urine Bacteria Hyaline Casts Urine Mucus Urine Osmolality 298 Ur Random Sodium 28 Urine Creatinine 182.00 11/22/18 11/22/18 11/22/18 05:46 05:46 05:46 WBC 11.8 H RBC 3.44 L Hgb 10.8 L Hct 34.4 L MCV 100.0 H MCH 31.4 MCHC 31.4 L RDW 13.6 RDW Differential 49.0 H Plt Count 307 MPV 10.0 Neut % (Auto) Not Reportable Absolute Neuts (auto) 7.0 Absolute Lymphs (auto) 2.24 Total Counted 100 Neutrophils % (Manual) 59 Band Neutrophils % Lymphocytes % (Manual) 19 Monocytes % (Manual) 6 Eosinophils % (Manual) 16 H Platelet Estimate ADEQUATE RBC Morphology NORM C+C Anisocytosis Macrocytosis Sodium 137 Potassium 3.8 Chloride 104 Carbon Dioxide 24.0 Anion Gap 9 BUN 55 H Creatinine 3.43 H Estim Creat Clear Calc 12.08 Est GFR (MDRD) Af Amer 17 L Est GFR (MDRD) Non-Af 14 L BUN/Creatinine Ratio 16.0 Glucose 88 Calcium 8.0 L Total Bilirubin AST ALT Alkaline Phosphatase Total Creatine Kinase 230 H Troponin I Total Protein Albumin Globulin Albumin/Globulin Ratio Urine Color Urine Clarity Urine pH Ur Specific [place] Urine Protein Urine Glucose (UA) Urine Ketones Urine Occult Blood Urine Nitrite Urine Bilirubin Urine Urobilinogen Ur Leukocyte Esterase Urine RBC Urine WBC Ur Squamous Epith Cells Amorphous Sediment Urine Bacteria Hyaline Casts Urine Mucus Urine Osmolality Ur Random Sodium Urine Creatinine Code Visit Addendum: Dr. Oliver I personally examined the patient and reviewed the chart. I agree with the above. 73-year-old female with a history of HTN, HLD and spinal stenosis who was recently admitted and discharged from the [facility] for her spinal stenosis. Apparently she was told that there is no they could do and she should follow-up with Dr. Reddy who is a neurosurgeon as an outpatient. She presents to the hospital with worsening debility and frequent falls. She was also treated for UTI which seems to be of resolved however because of her symptoms she was started on Rocephin here which we can complete in 2 more doses. We will continue with PT/OT for evaluation and to determine the necessity of placement. Of note she also has a new acute kidney injury, on the second her creatinine was 0.99 and on admission was 4.41. It is improving however I feel that is likely secondary to a combination of dehydration, medications including Keflex and lisinopril. We will continue with IV hydration and monitor her renal function. Inpatient E&M: 42363 Subs Hosp L2
[2018-11-22] MEDS: 0.9% Normal Saline 1,000 ML 75 ML IV (12:38)
--- NOTE | 2018-11-22 13:34 | CASEMGMT ---
Addendum entered by Meaghan Rodriguez 11/22/18 14:13: SW spoke with Inez at [facility] stating she is able to accept pt on Sunday. Green sheet on chart. SW completed convalescent 7000 in [facility]. Placed on chart. Pt updated on acceptance to [facility]. Original Note: Social Work Note SW met with pt to confirm discharge plans. SW introduced self and role at [facility]. Pt is alert and orientated x3. Pt states that she feels unsafe at home due to recently falling. SW educated pt on SNF and Medicare. Pt agreeable to referral being sent to [facility]. SW faxed referral to Inez at [facility] and placed a call and left a message regarding referral. SW waiting to hear back from Inez at [facility]. Plan: SNF pending acceptance Meaghan Rodriguez [employer], [employer]
--- NOTE | 2018-11-22 16:09 | CHAPLAIN ---
Type of Pastoral Visit _x__ Initial Visit ___ Follow-up Visit ___ On-call Visit ___ General Patient Visit ___ Spiritual Assessment ___ Family Conference ___ Bereavement ___ Rapid Response ___ Code Blue ___ Other (describe below) Pastoral Care Referral From _x__ Patient ___ Family ___ Nurse ___ Physician ___ Residential [place] ___ Senior Front End Web Developer ___ Other (describe below) Sacrament/Intervention _x__ Active listening ___ Anointing ___ Orthodox ___ Bereavement ___ Communion _x__ Garima exploration ___ _x__ Life review _x__ Prayer ___ Reconciliation ___ Sacrament of Sick _x__ Supportive presence ___ Wedding ___ Other (describe below) Pastoral Comments patient has lived in this area for less than one year and asked many questions about local restorationist/parish groups and is seeking greater support in spiritual connection with her roots as a [place]arsani
[2018-11-22 16:10] VITALS: BP 130/59; PULSE 70; RESP 16; TEMP 37.1; O2SAT 98
[2018-11-22 21:00] VITALS: BP 120/48; PULSE 73; RESP 16; RESP 18; TEMP 37.1; O2SAT 97
[2018-11-22] MEDS: Famotidine 20 MG Tablet PO (21:01)
[2018-11-22] MEDS: Ceftriaxone 1 GM/50 ML BAG IV (21:01)
[2018-11-23] MEDS: 0.9% Normal Saline 1,000 ML 75 ML IV (02:40)
[2018-11-23 02:48] VITALS: BP 138/53; PULSE 70; RESP 18; TEMP 36.8; O2SAT 96
[2018-11-23 07:08] LABS: Anion Gap 8 (5-15); BUN 40 mg/dL (7-18); BUN/Creat Ratio 24.5 RATIO (10-20); CPK Total, Creatine Kinase 92 U/L (26-192); Calcium,Total 8.5 mg/dL (8.5-10.1); Chloride 112 mmol/L (98-107); Creatinine, Serum 1.63 mg/dL (0.55-1.02); EST Glomerular Filtration Rate 33 mL/min (>60); Est Glom Filt Rate - Afr Amer 40 mL/min (>60); Estimated Creatinine Clearance 25.43 ml/min; Glucose 96 mg/dL (74-106); Potassium 4.3 mmol/L (3.5-5.1); Sodium Level 145 mmol/L (136-145)
[2018-11-23 07:15] LABS: Absolute Lymphocyte Count 2.63 X10^3/ul (0.83-4.51); Absolute Neutrophil Count 5.2 X10^3/uL (2.0-7.7); Basophil# 0.05 X10^3/uL; Basophil% 0.4 % (0-1); Eosinophils% 23.7 % (0-5); Hemoglobin 11.4 g/dl (12.0-15.0); Lymphocyte # 2.63 X10^3/ul (4.0); Lymphocyte % 23.7 % (19-41); Mean Corp Hgb Conc 31.7 g/gl (32-36); Mean Corpuscular Hgb 32.2 pg (27.0-32.0); Mean Corpuscular Volume 101.7 fL (81-99); Mean Platelet Vol. 9.8 fl (6.2-12.0); Monocyte% 4.5 % (0-10); Neutrophil # 5.24 X10^3/uL (2.7-7.7); Neutrophil % 47.1 % (47-70); Platelet Count 325 K/mm3 (150-450); RBC Distribution Width CV 13.4 % (11.6-14.6); RBC Distribution Width SD 48.4 fl (35.1-43.9); Red Blood Count 3.54 M/mm3 (4.2-5.4); White Blood Count 11.1 K/mm3 (4.4-11.0)
[2018-11-23 07:17] LABS: Differential Indicated SCAN CRITERIA MET; Eosinophil# 2.63 X10^3/uL; POSITIVE COUNT NO; POSITIVE DIFFERENTIAL YES; POSITIVE MORPHOLOGY NO
[2018-11-23 07:44] LABS: Macrocytosis 1+; Platelet Estimate ADEQUATE (ADEQ)
[2018-11-23 07:45] LABS: Differential Comment SCANNED
[2018-11-23] MEDS: Multivitamins,Therapeutic Tablet 1 TABLET PO (08:35)
[2018-11-23] MEDS: Vitamin B Comp W-C Capsule 1 CAP PO (08:35)
[2018-11-23] MEDS: Aspirin 81 MG TAB.CHEW PO (08:35)
[2018-11-23 08:45] VITALS: BP 136/68; PULSE 77; RESP 18; TEMP 36.5; O2SAT 98
[2018-11-23 09:00] VITALS: O2SAT 98
[2018-11-23 11:10] VITALS: PULSE 75
[2018-11-23] MEDS: Metoprolol Tartrate 100 MG Tablet PO (11:10)
[2018-11-23] MEDS: Calcium Carbonate 500 MG Tablet PO (11:10)
[2018-11-23] MEDS: oxyCODONE 5 MG Tablet PO ×2 (11:10→22:12)
[2018-11-23] MEDS: Pantoprazole Sodium 20 MG Tablet PO (11:10)
[2018-11-23] MEDS: Heparin Injection (Vial) 5,000 UNIT/ML VIAL 5000 UNIT SC ×2 (11:10→22:12)
--- NOTE | 2018-11-23 13:09 | PN_ITS ---
<Otf Acevedo - Last Filed: 11/23/18 13:04> Patient Problems: Active and Suspected Problems (Last Reviewed 11/21/18 @ 20:15 by Renzo Moreno MD) Acute kidney injury (Acute) Lower extremity weakness (Acute) Frequent falls (Acute) Acute cystitis (Acute) - Physical Exam General: Alert, Oriented x3, Cooperative HEENT: Atraumatic, PERRLA, EOMI, Normocephalic Neck: Supple, No JVD, Negative Carotid Bruits Lungs: Clear to auscultation, Normal air movement Cardiovascular: Regular rate, No murmurs Abdomen: Bowel Sounds Present, Soft, Non Tender, Obese Extremities: Capillary Refill Less than 3 Seconds, Edema - non pitting puffy edema BLE Skin: No rashes, No breakdown Musculoskeletal: No Tenderness to Palpation of Joints or Extremities Neurological: Cranial nerves II-XII grossly intact Psych/Mental Status: Normal Affect, Appropriate, Alert and oriented to time, place, person, mood and affect Vital Signs Temp Pulse Resp BP Pulse Ox 97.7 F L 75 18 136/68 H 98 11/23/18 08:45 11/23/18 11:10 11/23/18 08:45 11/23/18 08:45 11/23/18 09:00 Oxygen Delivery Method Room Air Weight: 309 lb 8.464 oz Body Mass Index (BMI) 54.8 Intake and Output for Last 24 Hours 11/21/18 11/22/18 11/23/18 23:59 23:59 23:59 Intake Total 210 / 210 2113 / 2113 1348 / 1348 Output Total 150 / 150 1000 / 1000 250 / 250 Balance 60 / 60 1113 / 1113 1098 / 1098 Laboratory Tests Past 24 Hrs 11/23/18 11/23/18 06:26 06:26 WBC 11.1 H RBC 3.54 L Hgb 11.4 L Hct 36.0 L MCV 101.7 H MCH 32.2 H MCHC 31.7 L RDW 13.4 RDW Differential 48.4 H Plt Count 325 MPV 9.8 Immature Gran % (Auto) 0.600 Neut % (Auto) 47.1 Lymph % (Auto) 23.7 [place] % (Auto) 4.5 Eos % (Auto) 23.7 H Baso % (Auto) 0.4 Absolute Neuts (auto) 5.2 Absolute Lymphs (auto) 2.63 Total Counted Not Reportable Differential Comment SCANNED Diff Path Review May foll Platelet Estimate ADEQUATE Macrocytosis 1+ Sodium 145 Potassium 4.3 Chloride 112 H Carbon Dioxide 25.0 Anion Gap 8 BUN 40 H Creatinine 1.63 H Estim Creat Clear Calc 25.43 Est GFR (MDRD) Af Amer 40 L Est GFR (MDRD) Non-Af 33 L BUN/Creatinine Ratio 24.5 H Glucose 96 Calcium 8.5 Total Creatine Kinase 92 Medical Necessity - Tobacco Use Smoking Status: Never smoker Assessment/Plan All Active Problems (Last Reviewed 11/21/18 @ 20:15 by Renzo Moreno MD) Debility (Acute) Acute kidney injury (Acute) Lower extremity weakness (Acute) Frequent falls (Acute) Acute cystitis (Acute) 1. Worsening debility with frequent falls at home-continue PT OT, follow-up with neurosurgery as an outpatient for spinal stenosis-Dr. Reddy at [facility]. Obtain records from [facility]. Will go to SNF tomorrow. 2. Acute kidney injury-suspect secondary to dehydration, mild rhabdo with elevated CPK (multiple falls at home, unable to get up, lies on the floor until somebody is able to come help her), Bumex and lisinopril held. Resolved. DC fluids. 3. Questionable UTI-currently asymptomatic, and unimpressive UA. She was on keflex as an outpatient. WBCs have improved, continue Rocephin, obtain records from Dr. Orozco's office for culture and sensitivity. culture here pending. 4. HTN - stable 5. HLD - statin - hold with rhabdo. 6. Mild macrocytic anemia - stable 7. Morbid obesity - dietary eval. DVT ppx: heparin DC planning: SNF tomorrow This patient was seen by Otf Acevedo PA-C under the supervision of Doctor Melody <Eliceo Oliver - Last Filed: 11/23/18 15:20> - Physical Exam Vital Signs Temp Pulse Resp BP Pulse Ox 97.7 F L 75 18 136/68 H 98 11/23/18 08:45 11/23/18 11:10 11/23/18 08:45 11/23/18 08:45 11/23/18 09:00 Oxygen Delivery Method Room Air Weight: 309 lb 8.464 oz Body Mass Index (BMI) 54.8 Intake and Output for Last 24 Hours 11/21/18 11/22/18 11/23/18 23:59 23:59 23:59 Intake Total 210 / 210 2113 / 2113 1348 / 1348 Output Total 150 / 150 1000 / 1000 250 / 250 Balance 60 / 60 1113 / 1113 1098 / 1098 Laboratory Tests Past 24 Hrs 11/23/18 11/23/18 06:26 06:26 WBC 11.1 H RBC 3.54 L Hgb 11.4 L Hct 36.0 L MCV 101.7 H MCH 32.2 H MCHC 31.7 L RDW 13.4 RDW Differential 48.4 H Plt Count 325 MPV 9.8 Immature Gran % (Auto) 0.600 Neut % (Auto) 47.1 Lymph % (Auto) 23.7 [place] % (Auto) 4.5 Eos % (Auto) 23.7 H Baso % (Auto) 0.4 Absolute Neuts (auto) 5.2 Absolute Lymphs (auto) 2.63 Total Counted Not Reportable Differential Comment SCANNED Diff Path Review May foll Platelet Estimate ADEQUATE Macrocytosis 1+ Sodium 145 Potassium 4.3 Chloride 112 H Carbon Dioxide 25.0 Anion Gap 8 BUN 40 H Creatinine 1.63 H Estim Creat Clear Calc 25.43 Est GFR (MDRD) Af Amer 40 L Est GFR (MDRD) Non-Af 33 L BUN/Creatinine Ratio 24.5 H Glucose 96 Calcium 8.5 Total Creatine Kinase 92 Code Visit Addendum: Dr. Oliver I personally examined the patient and reviewed the chart. I agree with the above. 73-year-old female with a history of HTN, HLD and spinal stenosis who was recently admitted and discharged from the [facility] for her spinal stenosis. Apparently she was told that there is no they could do and she should follow-up with Dr. Reddy who is a neurosurgeon as an outpatient. She presents to the hospital with worsening debility and frequent falls. She was also treated for UTI which seems to be of resolved however because of her symptoms she was started on Rocephin here which we can complete in 1 more dose. We will continue with PT/OT for evaluation and to determine the necessity of placement. Of note she also has a new acute kidney injury, on the second her creatinine was 0.99 and on admission was 4.41. It is improving however and is now 1.63, I feel that is likely secondary to a combination of dehydration, and medications including Keflex and lisinopril. We will continue with IV hydration and monitor her renal function. She complains of a cough and this could be secondary to her lisinopril and therefore on discharge will discontinue her lisinopril and start losartan. Inpatient E&M: 45201 Subs Hosp L2
[2018-11-23 14:45] VITALS: BP 97/74; PULSE 64; RESP 18; TEMP 36.2; O2SAT 98
[2018-11-23 21:57] VITALS: BP 150/55; PULSE 66; RESP 14; TEMP 37; O2SAT 95
[2018-11-23] MEDS: Famotidine 20 MG Tablet PO (22:12)
[2018-11-23] MEDS: Ceftriaxone 1 GM/50 ML BAG IV (22:12)
[2018-11-24 04:49] VITALS: BP 151/62; PULSE 66; RESP 16; TEMP 36.6; O2SAT 95
[2018-11-24 07:54] VITALS: O2SAT 94
[2018-11-24 09:02] VITALS: PULSE 70
[2018-11-24] MEDS: Multivitamins,Therapeutic Tablet 1 TABLET PO (09:02)
[2018-11-24] MEDS: Metoprolol Tartrate 100 MG Tablet PO (09:02)
[2018-11-24] MEDS: Heparin Injection (Vial) 5,000 UNIT/ML VIAL 5000 UNIT SC (09:02)
[2018-11-24] MEDS: Vitamin B Comp W-C Capsule 1 CAP PO (09:02)
[2018-11-24] MEDS: Calcium Carbonate 500 MG Tablet PO (09:02)
[2018-11-24] MEDS: Aspirin 81 MG TAB.CHEW PO (09:02)
[2018-11-24] MEDS: Pantoprazole Sodium 20 MG Tablet PO (09:02)
[2018-11-24] MEDS: oxyCODONE 5 MG Tablet PO (09:06)
--- NOTE | 2018-11-24 10:55 | PCM.EXTCARCO ---
- Diet 11/21/18 20:53 Diet: Cardiac - Routine Orders/Code Status Suppository Type: Dulcolax 10mg Suppository Frequency: Daily PRN Routine Lab Work: CBC - 5 days, BMP - 5 days Code Status: Full Code - Therapies Physical Therapy: Eval and Treat Occupational Therapy: Eval and Treat - Problem/Diagnosis (1) Acute kidney injury Status: Acute Current Visit: Yes (2) Frequent falls Status: Chronic Current Visit: Yes (3) Lower extremity weakness Status: Acute Current Visit: Yes (4) Spinal stenosis Status: Chronic Current Visit: Yes (5) Anemia Status: Chronic Current Visit: Yes (6) Morbid obesity Status: Chronic Current Visit: Yes (7) HTN (hypertension) Status: Chronic Current Visit: Yes (8) HLD (hyperlipidemia) Status: Chronic Current Visit: Yes (9) Debility Status: Chronic Current Visit: No - Allergies/Procedures Done in Hospital Allergies/Adverse Reactions: Allergies celecoxib [From Celebrex] Allergy (Verified 11/14/18 21:50) Other funny feeling in throat formaldehyde Allergy (Verified 11/14/18 21:50) Other formaldehyde in plastic gloves causes swelling and cracking in hands ketorolac [From Toradol] Adverse Reaction (Verified 11/14/18 21:50) Upset Stomach Procedures: None - Type of Care/Length of Stay Estimated LOS: Convalescent Care Less Than 30 days Type of Care Needed: Skilled Rehab Potential: Fair Prognosis: Fair - Additional Orders/Day of Discharge Day of Discharge: 11/24/18 - Dietary and Speech Recommendations Dietitian Recommendations/Changes: Rec diet change to Cardiac / low sodium w/ fluid restriction as indicated - Follow Up Care Primary Care Physician: Christofer Vazquez MD [Primary Care Provider] - Please follow up with your Primary Care Physician in: 1-2 weeks Please Follow Up With: Neurosurgery When: Keep your Appointment this Week.
--- NOTE | 2018-11-24 14:21 | PCM.DC.SUM ---
<Otf Acevedo - Last Filed: 11/24/18 14:21> Discharge Date and Diagnosis Date of Admission: 11/21/18 Date of Discharge: 11/24/18 - Primary Discharge Diagnosis Active and Suspected Problems (Last Reviewed 11/21/18 @ 20:15 by Renzo Moreno MD) Acute kidney injury (Acute) Lower extremity weakness (Acute) Acute cystitis (Acute) - ruled out Frequent falls Spinal stenosis Morbid obesity Hypertension Hyperlipidemia Macrocytic anemia - Secondary Discharge Diagnosis Chronic Problems (Last Reviewed 11/21/18 @ 20:15 by Renzo Moreno MD) Debility (Chronic) Frequent falls (Chronic) Spinal stenosis (Chronic) Anemia (Chronic) Morbid obesity (Chronic) HTN (hypertension) (Chronic) HLD (hyperlipidemia) (Chronic) Hospital Course and Treatment Operations: None Procedures: None Summary of Care Provided: Hospital course: The patient is a 73 year old F with past medical history as above, significant for spinal stenosis that she has been evaluated for at the [facility] recently. She was discharged from the [facility] to home after being evaluated for ongoing weakness and fall secondary to spinal stenosis, she was advised to follow-up with a neurosurgeon as an outpatient. She went home and was falling repeatedly. She was brought to the emergency room and found to have acute kidney injury, signs of mild early rhabdo, and questionable UTI for which she was being treated for with Keflex as an outpatient. She is admitted to the medical surgical unit given IV fluids, Rocephin, and physical therapy. Her renal function improved with IV fluids. Her urine culture came back with no bacteria and antibiotics were discontinued. She remained very weak and unsafe to go home by herself. She was agreeable to care home placement. She is discharged to care home in stable condition. She has an appointment in December to see Dr. Reddy if the neurosurgeon at [facility]. We advised her strongly to keep this appointment. We also advised her to follow-up with her PCP in 1-2 weeks. This patient was seen by Otf Acevedo PA-C under the supervision of Doctor Oliver. [] - Physical Exam General: Alert, Oriented x3, Cooperative HEENT: Atraumatic, PERRLA, EOMI, Normocephalic Neck: Supple, No JVD, Negative Carotid Bruits Lungs: Clear to auscultation, Normal air movement Cardiovascular: Regular rate, No murmurs Abdomen: Bowel Sounds Present, Soft, Non Tender Extremities: No edema, Capillary Refill Less than 3 Seconds Skin: No rashes, No breakdown Musculoskeletal: No Tenderness to Palpation of Joints or Extremities Neurological: Cranial nerves II-XII grossly intact Psych/Mental Status: Normal Affect, Appropriate, Alert and oriented to time, place, person, mood and affect Vital Signs Temp Pulse Resp BP Pulse Ox 97.8 F 70 16 151/62 H 94 11/24/18 04:49 11/24/18 09:02 11/24/18 04:49 11/24/18 04:49 11/24/18 07:54 Oxygen Delivery Method Room Air Weight: 309 lb 8.464 oz Body Mass Index (BMI) 54.8 Intake and Output for Last 24 Hours 11/22/18 11/23/18 11/25/18 23:59 23:59 00:59 Intake Total 2113 / 2113 1348 / 1348 453 / 453 Output Total 1000 / 1000 250 / 250 200 / 200 Balance 1113 / 1113 1098 / 1098 253 / 253 Microbiology Past 72 Hours 11/21/18 22:20 Urine Culture - Final Urine, Catheterized Culture exhibits no growth. Discharge Diet: Low fat/ Low Cholesterol, 2000 mg Sodium Diet Discharge Activity: Return to Normal Activity Home Medications: Medications to take at Discharge Aspirin [Aspirin, Baby] 81 mg PO DAILY@0800 07/19/18 Fish Oil/Dha/Epa [Fish Oil 1,200 mg Fish Oil] 1 cap PO DAILY 07/19/18 Folic Acid/Vit B Complex and C [Sm Super Vitamin B Complex Tab] 400 mcg PO DAILY 07/19/18 Lovastatin [Mevacor] 40 mg PO BID 07/19/18 Multivitamin [Multiple Vitamins] 1 each PO DAILY 07/19/18 Ranitidine [Zantac] 150 mg PO QHS 07/19/18 Calcium Citrate 200 mg PO DAILY 11/21/18 Cholecalciferol (VIT D3) [Vitamin D3] 1,000 unit PO DAILY 11/21/18 Metoprolol Tartrate [Lopressor (beta liz)] 100 mg PO DAILY 11/21/18 Omeprazole 20 mg PO DAILY 11/21/18 Selenium 100 mcg PO DAILY 11/21/18 Lisinopril 20 mg PO DAILY #0 11/24/18 Oxycodone HCl/Acetaminophen [Percocet 5-325] 1 tab PO BID PRN PRN 3 Days #6 tab 11/24/18 Following Prescrptions Were Given to Patient: Oxycodone HCl/Acetaminophen [Percocet 5-325] 1 tab PO BID PRN PRN 3 Days #6 tab PRN Reason: Mod-Severe Pain (-06/26) Primary Care Physician: Christofer Vazquez MD [Primary Care Provider] - Please follow up with your Primary Care Physician in: 1-2 weeks Please Follow Up With: Neurosurgery When: Keep your Appointment this Week. [facility]position: [facility] facility Minutes spent on discharge:: 35 Patient Condition:: Stable Medical Necessity - Tobacco Use Smoking Status: Never smoker Meaningful Use Info Meaningful Use Diagnoses (Choose all that apply): None applicable <Eliceo Oliver - Last Filed: 11/24/18 17:37> Discharge Date and Diagnosis - Secondary Discharge Diagnosis Chronic Problems (Last Reviewed 11/21/18 @ 20:15 by Renzo Moreno MD) Debility (Chronic) Frequent falls (Chronic) Spinal stenosis (Chronic) Anemia (Chronic) Morbid obesity (Chronic) HTN (hypertension) (Chronic) HLD (hyperlipidemia) (Chronic) Hospital Course and Treatment Summary of Care Provided: The patient is a 73 year old F [] - Physical Exam Vital Signs Temp Pulse Resp BP Pulse Ox 97.8 F 70 16 151/62 H 94 11/24/18 04:49 11/24/18 09:02 11/24/18 04:49 11/24/18 04:49 11/24/18 07:54 Oxygen Delivery Method Room Air Weight: 309 lb 8.464 oz Body Mass Index (BMI) 54.8 Intake and Output for Last 24 Hours 11/22/18 11/23/18 11/25/18 23:59 23:59 00:59 Intake Total 2113 / 2113 1348 / 1348 453 / 453 Output Total 1000 / 1000 250 / 250 200 / 200 Balance 1113 / 1113 1098 / 1098 253 / 253 Microbiology Past 72 Hours 11/21/18 22:20 Urine Culture - Final Urine, Catheterized Culture exhibits no growth. Code Visit Addendum: Dr. Oliver I personally examined the patient and reviewed the chart. I agree with the above. 73-year-old female with a history of HTN, HLD and spinal stenosis who was recently admitted and discharged from the [facility] for her spinal stenosis. Apparently she was told that there is no they could do and she should follow-up with Dr. Reddy who is a neurosurgeon as an outpatient. She presents to the hospital with worsening debility and frequent falls. She was also treated for UTI which seems to be of resolved however because of her symptoms she was started on Rocephin here which was completed while here. Her creatinine ultimately improved with IV fluids and she was discharged today for rehab. I discussed with her that if her cough does not resolve in the next couple of days to weeks, that she can discuss with her primary care physician about transitioning her off the lisinopril and onto losartan. Inpatient E&M: 07136 Disch Hosp
--- NOTE | 2018-11-24 14:25 | DS.PCM_ITS ---
<Otf Acevedo - Last Filed: 11/24/18 14:21> Discharge Date and Diagnosis Date of Admission: 11/21/18 Date of Discharge: 11/24/18 - Primary Discharge Diagnosis Active and Suspected Problems (Last Reviewed 11/21/18 @ 20:15 by Renzo Moreno MD) Acute kidney injury (Acute) Lower extremity weakness (Acute) Acute cystitis (Acute) - ruled out Frequent falls Spinal stenosis Morbid obesity Hypertension Hyperlipidemia Macrocytic anemia - Secondary Discharge Diagnosis Chronic Problems (Last Reviewed 11/21/18 @ 20:15 by Renzo Moreno MD) Debility (Chronic) Frequent falls (Chronic) Spinal stenosis (Chronic) Anemia (Chronic) Morbid obesity (Chronic) HTN (hypertension) (Chronic) HLD (hyperlipidemia) (Chronic) Hospital Course and Treatment Operations: None Procedures: None Summary of Care Provided: Hospital course: The patient is a 73 year old F with past medical history as above, significant for spinal stenosis that she has been evaluated for at the [facility] recently. She was discharged from the [facility] to home after being evaluated for ongoing weakness and fall secondary to spinal stenosis, she was advised to follow-up with a neurosurgeon as an outpatient. She went home and was falling repeatedly. She was brought to the emergency room and found to have acute kidney injury, signs of mild early rhabdo, and questionable UTI for which she was being treated for with Keflex as an outpatient. She is admitted to the medical surgical unit given IV fluids, Rocephin, and physical therapy. Her renal function improved with IV fluids. Her urine culture came back with no bacteria and antibiotics were discontinued. She remained very weak and unsafe to go home by herself. She was agreeable to shelter placement. She is discharged to shelter in stable condition. She has an appointment in December to see Dr. Reddy if the neurosurgeon at [facility]. We advised her strongly to keep this appointment. We also advised her to follow-up with her PCP in 1-2 weeks. This patient was seen by Otf Acevedo PA-C under the supervision of Doctor Oliver. [] - Physical Exam General: Alert, Oriented x3, Cooperative HEENT: Atraumatic, PERRLA, EOMI, Normocephalic Neck: Supple, No JVD, Negative Carotid Bruits Lungs: Clear to auscultation, Normal air movement Cardiovascular: Regular rate, No murmurs Abdomen: Bowel Sounds Present, Soft, Non Tender Extremities: No edema, Capillary Refill Less than 3 Seconds Skin: No rashes, No breakdown Musculoskeletal: No Tenderness to Palpation of Joints or Extremities Neurological: Cranial nerves II-XII grossly intact Psych/Mental Status: Normal Affect, Appropriate, Alert and oriented to time, place, person, mood and affect Vital Signs Temp Pulse Resp BP Pulse Ox 97.8 F 70 16 151/62 H 94 11/24/18 04:49 11/24/18 09:02 11/24/18 04:49 11/24/18 04:49 11/24/18 07:54 Oxygen Delivery Method Room Air Weight: 309 lb 8.464 oz Body Mass Index (BMI) 54.8 Intake and Output for Last 24 Hours 11/22/18 11/23/18 11/25/18 23:59 23:59 00:59 Intake Total 2113 / 2113 1348 / 1348 453 / 453 Output Total 1000 / 1000 250 / 250 200 / 200 Balance 1113 / 1113 1098 / 1098 253 / 253 Microbiology Past 72 Hours 11/21/18 22:20 Urine Culture - Final Urine, Catheterized Culture exhibits no growth. Discharge Diet: Low fat/ Low Cholesterol, 2000 mg Sodium Diet Discharge Activity: Return to Normal Activity Home Medications: Medications to take at Discharge Aspirin [Aspirin, Baby] 81 mg PO DAILY@0800 07/19/18 Fish Oil/Dha/Epa [Fish Oil 1,200 mg Fish Oil] 1 cap PO DAILY 07/19/18 Folic Acid/Vit B Complex and C [Sm Super Vitamin B Complex Tab] 400 mcg PO DAILY 07/19/18 Lovastatin [Mevacor] 40 mg PO BID 07/19/18 Multivitamin [Multiple Vitamins] 1 each PO DAILY 07/19/18 Ranitidine [Zantac] 150 mg PO QHS 07/19/18 Calcium Citrate 200 mg PO DAILY 11/21/18 Cholecalciferol (VIT D3) [Vitamin D3] 1,000 unit PO DAILY 11/21/18 Metoprolol Tartrate [Lopressor (beta liz)] 100 mg PO DAILY 11/21/18 Omeprazole 20 mg PO DAILY 11/21/18 Selenium 100 mcg PO DAILY 11/21/18 Lisinopril 20 mg PO DAILY #0 11/24/18 Oxycodone HCl/Acetaminophen [Percocet 5-325] 1 tab PO BID PRN PRN 3 Days #6 tab 11/24/18 Following Prescrptions Were Given to Patient: Oxycodone HCl/Acetaminophen [Percocet 5-325] 1 tab PO BID PRN PRN 3 Days #6 tab PRN Reason: Mod-Severe Pain (-06/26) Primary Care Physician: Christofer Vazquez MD [Primary Care Provider] - Please follow up with your Primary Care Physician in: 1-2 weeks Please Follow Up With: Neurosurgery When: Keep your Appointment this Week. Disposition: Senior Living facility Minutes spent on discharge:: 35 Patient Condition:: Stable Medical Necessity - Tobacco Use Smoking Status: Never smoker Meaningful Use Info Meaningful Use Diagnoses (Choose all that apply): None applicable <Eliceo Oliver - Last Filed: 11/24/18 17:37> Discharge Date and Diagnosis - Secondary Discharge Diagnosis Chronic Problems (Last Reviewed 11/21/18 @ 20:15 by Renzo Moreno MD) Debility (Chronic) Frequent falls (Chronic) Spinal stenosis (Chronic) Anemia (Chronic) Morbid obesity (Chronic) HTN (hypertension) (Chronic) HLD (hyperlipidemia) (Chronic) Hospital Course and Treatment Summary of Care Provided: The patient is a 73 year old F [] - Physical Exam Vital Signs Temp Pulse Resp BP Pulse Ox 97.8 F 70 16 151/62 H 94 11/24/18 04:49 11/24/18 09:02 11/24/18 04:49 11/24/18 04:49 11/24/18 07:54 Oxygen Delivery Method Room Air Weight: 309 lb 8.464 oz Body Mass Index (BMI) 54.8 Intake and Output for Last 24 Hours 11/22/18 11/23/18 11/25/18 23:59 23:59 00:59 Intake Total 2113 / 2113 1348 / 1348 453 / 453 Output Total 1000 / 1000 250 / 250 200 / 200 Balance 1113 / 1113 1098 / 1098 253 / 253 Microbiology Past 72 Hours 11/21/18 22:20 Urine Culture - Final Urine, Catheterized Culture exhibits no growth. Code Visit Addendum: Dr. Oliver I personally examined the patient and reviewed the chart. I agree with the above. 73-year-old female with a history of HTN, HLD and spinal stenosis who was recently admitted and discharged from the [facility] for her spinal stenosis. Apparently she was told that there is no they could do and she should follow-up with Dr. Reddy who is a neurosurgeon as an outpatient. She presents to the hospital with worsening debility and frequent falls. She was also treated for UTI which seems to be of resolved however because of her symptoms she was started on Rocephin here which was completed while here. Her creatinine ultimately improved with IV fluids and she was discharged today for rehab. I discussed with her that if her cough does not resolve in the next couple of days to weeks, that she can discuss with her primary care physician about transitioning her off the lisinopril and onto losartan. Inpatient E&M: 37215 Disch Hosp
[2018-11-26 13:12] LABS: Pathologist Review Reviewed
== END 2018-11-24 15:00 | disposition skilled nursing facility (03) | DRG 683 ==
LOC: ED 19:38 → MS3 20:19
PROVIDERS: Physician Assistant; Admitting Provider Hospitalist; Emergency Provider Emergency Medicine; Family Provider Family Medicine; PCP Family Medicine; Visit Provider Family Medicine
DX: N17.9 Acute kidney failure, unspecified (principal); Z68.43 Body mass index [BMI] 50.0-59.9, adult; M62.82 Rhabdomyolysis; E78.5 Hyperlipidemia, unspecified; I10 Essential (primary) hypertension; M48.00 Spinal stenosis, site unspecified; E66.01 Morbid (severe) obesity due to excess calories; R53.81 Other malaise; R29.6 Repeated falls; E86.0 Dehydration; D53.9 Nutritional anemia, unspecified; R53.1 Weakness
CPT/HCPCS: 36415; 80048; 80053; 81001; 82550; 82570; 83935; 84300; 84484; 85025; 87086; 97110; 97116; 97162; 97166; 97530; 97535; 97802; 99285; J7030; A4216

== ENCOUNTER → 2018-12-05 12:21 | Outpatient (CLI) | payer MEDICARE, OTHER, SELFPAY ==
[2018-11-21 20:53] VITALS: BMI 54.8
--- NOTE | 2018-12-05 12:23 | US_ITS ---
STUDY: RENAL ULTRASOUND - COMPLETE REASON FOR EXAM: Female, 73 years old. Elevated BUN/creatinine TECHNIQUE: Ultrasound evaluation of the kidneys was performed with real-time and static taylor-scale imaging. COMPARISON: None. FINDINGS: RIGHT KIDNEY: Normal location of the right kidney, which is normal in size. The right kidney measures 10.2 x 5.5 x 4.4 cm. There is a normal cortex of the right kidney. The renal cortex measures 1.2 cm. There is no right renal mass or cyst. There are no right renal calculi. There is no right hydronephrosis. DISTAL RIGHT URETER: There is non-visualization of the distal right ureter. There is no demonstrated right ureterovesical junction calculus. There is a visualized right ureteral jet. LEFT KIDNEY: Normal location of the left kidney, which is normal in size. The left kidney measures 10.4 x 4.2 x 5.0 cm. There is a normal cortex of the left kidney. The renal cortex measures 1.6 cm. There is no left renal mass or cyst. There are no left renal calculi. There is no left hydronephrosis. DISTAL LEFT URETER: There is non-visualization of the distal left ureter. There is no demonstrated left ureterovesical junction calculus. There is a visualized left ureteral jet. AORTA: There is no elongation or tortuosity of the abdominal aorta. I.V.C.: The IVC is patent. BLADDER: The bladder is incompletely distended US/Kidney and Bladder IMPRESSION: No suspicious sonographic findings Electronically Signed: Og Marina MD at 18:26 EDT , Service support ,
== END ==
PROVIDERS: Family Provider Family Medicine; PCP Family Medicine; Referring Provider Urology; Visit Provider Urology
DX: R79.89 Other specified abnormal findings of blood chemistry (principal)
CPT/HCPCS: 76770

== ENCOUNTER → 2019-01-08 11:53 | Outpatient (CLI) | payer MEDICARE, OTHER, SELFPAY ==
[2019-01-03 09:42] VITALS: BMI 52.1
[2019-01-08 12:20] LABS: Amphetamine Urine VISTA NEGATIVE (<1000 ng/mL); Barbiturate Urine VISTA NEGATIVE (< 200 ng/mL); Benzodiazepine Urine VISTA NEGATIVE (< 200 ng/mL); Cocaine Urine VISTA NEGATIVE (< 300 ng/mL); Ecstacy Urine VISTA NEGATIVE (< 500 ng/mL); Methadone Urine VISTA NEGATIVE (< 300 ng/mL); PCP Urine VISTA NEGATIVE (< 25 ng/mL); THC Urine VISTA NEGATIVE (< 50 ng/mL); Vista UDS pH Range 6
== END ==
PROVIDERS: Family Provider Family Medicine; PCP Family Medicine; Referring Provider Anesthesiology Pain Medicine; Visit Provider Anesthesiology Pain Medicine
DX: F11.20 Opioid dependence, uncomplicated (principal)
CPT/HCPCS: 80307

== ENCOUNTER 2019-01-10 09:45 | Outpatient (RCR) | payer MEDICARE, OTHER, SELFPAY ==
[2019-01-03 09:42] VITALS: BP 163/99; PULSE 65; RESP 16; TEMP 36.4; BMI 52.1
--- NOTE | 2019-01-03 11:51 | HP.PCM_ITS ---
(1) Lower extremity weakness Status: Acute Current Visit: No Code(s): R29.898 - Other symptoms and signs involving the musculoskeletal system (2) Debility Status: Chronic Current Visit: No Code(s): R53.81 - Other malaise (3) Frequent falls Status: Chronic Current Visit: No Code(s): R29.6 - Repeated falls (4) Decubitus ulcer of right buttock, stage 2 Status: Acute Current Visit: Yes Code(s): L89.312 - Pressure ulcer of right buttock, stage 2 (5) Decubitus ulcer of left buttock, stage 2 Status: Acute Current Visit: Yes Code(s): L89.322 - Pressure ulcer of left buttock, stage 2 (6) Morbid obesity with BMI of 40.0-44.9, adult Status: Acute Current Visit: Yes Code(s): E66.01 - Morbid (severe) obesity due to excess calories; Z68.41 - Body mass index (BMI) 40.0-44.9, adult History of Present Illness Date of Service: 01/03/19 Chief Complaint: Follow-up on right and left buttocks ulcers History of Wound: 73-year-old white female has history of many falls has just returned home from [facility] for falling. Sits most of the day in her recliner because afraid of falling and has therefore developed d ecubitus ulcers on each buttocks cheeks near her anus since November. Patient has just been using antibiotic cream. Past Medical History Past Medical History: Chronic Problems (Last Reviewed 11/21/18 @ 20:15 by Renzo Moreno MD) Debility (Chronic) Frequent falls (Chronic) Spinal stenosis (Chronic) Anemia (Chronic) Morbid obesity (Chronic) HTN (hypertension) (Chronic) HLD (hyperlipidemia) (Chronic) Past Medical History: Decubitus ulcers right and left buttocks cheeks. Chronic renal insufficiency stage III Allergies/Adverse Reactions: Allergies celecoxib [From Celebrex] Allergy (Verified 01/03/19 10:01) Other funny feeling in throat formaldehyde Allergy (Verified 01/03/19 10:01) Other formaldehyde in plastic gloves causes swelling and cracking in hands ketorolac [From Toradol] Adverse Reaction (Verified 01/03/19 10:01) Upset Stomach Home Medications: Ambulatory Orders Medication Instructions Recorded Aspirin [Aspirin, Baby] 81 mg PO DAILY@0800 07/19/18 Fish Oil/Dha/Epa [Fish Oil 1,200 1 cap PO DAILY 07/19/18 mg Fish Oil] Folic Acid/Vit B Complex and C [Sm 400 mcg PO DAILY 07/19/18 Super Vitamin B Complex Tab] Lovastatin [Mevacor] 40 mg PO BID 07/19/18 Multivitamin [Multiple Vitamins] 1 each PO DAILY 07/19/18 Ranitidine [Zantac] 150 mg PO QHS 07/19/18 Calcium Citrate 200 mg PO DAILY 11/21/18 Cholecalciferol (VIT D3) [Vitamin 1,000 unit PO DAILY 11/21/18 D3] Omeprazole 20 mg PO DAILY 11/21/18 Selenium 100 mcg PO DAILY 11/21/18 Oxycodone HCl/Acetaminophen 2 tablet PO DAILY 01/03/19 [Percocet 5/325] - Family History Maternal - - No CAD Paternal Heart Disease Smoking Status: Never smoker Review of Systems Constitutional: Denies: Chills, Fever Eyes: Denies: Blurred vision, Drainage, Pain HEENT: Denies: Difficulty Hearing, Difficulty Swallowing, Sore Throat, Visual Changes Cardiovascular: Denies: Chest Pain, Palpitations, Syncope Respiratory: Denies: Cough, Shortness of Breath Gastrointestinal: Denies: Abdominal Pain, Nausea, Vomiting Genitourinary: Denies: Dysuria, Frequency Musculoskeletal: Denies: Joint Pain, Muscle pain Skin: Denies: Jaundice, Rash Neurological: Denies: Balance problems, Change in Speech, Difficulty swallowing, Focal weakness Psychiatric: Denies: Anxiety, Depression Endocrine: Denies: Change in Body Habitus Hematologic/ Lymphatic: Denies: Adenopathy - Physical Exam Vital Signs Temp Pulse Resp BP 97.5 F L 65 16 163/99 H 01/03/19 09:42 01/03/19 09:42 01/03/19 09:42 01/03/19 09:42 General: Oriented x3, Cooperative, Well developed HEENT: Atraumatic, PERRLA Oral: Moist Mucosa Neck: Supple, No JVD Lungs: Clear to auscultation, Normal air movement Cardiovascular: Regular rate, Regular Rhythm Abdomen: Bowel Sounds Present, Soft, Non Tender, No Hepato-splenomegaly Extremities: No clubbing, No edema Skin: Ulcer/ Wound - Right and left decubitus ulcers stage II's Wound Measurements and Assessment WC - Nurse 1 - General Ulcer Measurement Start: 01/03/19 09:42 Freq: Status: Active Protocol: Activity Type Activity Date Activity User E-Sign Co-Sign Detail Recorded Client Recorded Date Recorded By Document 01/03/19 09:42 [facility] [id number] 01/03/19 09:58 [facility] 01/03/19 09:42 Wound Center Nurse 1 [Ulcer Assessment] #2- LT BUTTOCK CLUSTER -Combined with other wound No -Current Size (cm) - Length 2.8 -Current Size (cm) - Width 6.1 -Current Size (cm) - Depth 0.2 -Total Square Cm 17.08 -Date of Last Picture (Recall this 01/03/19 field) -Photo Taken Yes -Epithelialization None Present -Tunneling No -Undermining/Tunneling No -Circular Undermining No -Classification - Thickness Full Thickness without Exposed Support Structure -Exudate Amt None Present -Wound Margin Flat & Intact -Granulation Amt Medium (34-66%) -Granulation Quality [place] -Slough/Fibrin Yes -Necrosis Amt Medium (34-66%) -Necrotic Tissue Type Adherent Slough -Texture (Fidelia-wound Skin Appearance) Assessed Excoriation Scarring -Moisture (Fidelia-wound Skin Appearance Assessed ) -Color (Fidelia-wound Skin Appearance) Assessed Erythema -Temperature (Fidelia-wound Skin No Abnormality Appearance) (Pt Warm) -Tenderness on Palpation (Fidelia-wound No Skin Appearance) -Ulcer Cleansing Rinsed/ Irrigated with Saline -Foul Odor after Cleansing No -Anesthetic Used 4% Lidocaine Solution 5% Lidocaine Gel #1- RT BUTTOCK CLUSTER -Combined with other wound No -Current Size (cm) - Length 8 -Current Size (cm) - Width 3 -Current Size (cm) - Depth 0.2 -Total Square Cm 24 -Date of Last Picture (Recall this 01/03/19 field) -Photo Taken Yes -Epithelialization None Present -Tunneling No -Undermining/Tunneling No -Circular Undermining No -Classification - Thickness Full Thickness without Exposed Support Structure -Exudate Amt None Present -Wound Margin Flat & Intact -Granulation Amt Medium (34-66%) -Granulation Quality [place] -Slough/Fibrin Yes -Necrosis Amt Medium (34-66%) -Necrotic Tissue Type Adherent Slough -Texture (Fidelia-wound Skin Appearance) Assessed Excoriation Scarring -Moisture (Fidelia-wound Skin Appearance Assessed ) -Color (Fidelia-wound Skin Appearance) Assessed Erythema -Temperature (Fidelia-wound Skin No Abnormality Appearance) (Pt Warm) -Tenderness on Palpation (Fidelia-wound No Skin Appearance) -Ulcer Cleansing Rinsed/ Irrigated with Saline -Foul Odor after Cleansing No -Anesthetic Used 4% Lidocaine Solution 5% Lidocaine Gel WC - Nurse 2 - General Ulcer CM Notes Start: 01/03/19 09:42 Freq: Status: Active Protocol: Activity Type Activity Date Activity User E-Sign Co-Sign Detail Recorded Client Recorded Date Recorded By Document 01/03/19 10:21 MW [id number] 01/03/19 10:28 MW 01/03/19 10:21 Wound Center Nurse 2 [Procedure/Treatment] #2- LT BUTTOCK CLUSTER -Time 10:21 -Correct Patient Yes -Correct Side, Site, Position Yes -Correct Procedure Yes -Procedure Performed Yes -Type of Procedure Debridement -Clinical Debridement Subcutaneous -Post Debridement Size (cm) - Length 3.0 -Post Debridement Size (cm) - Width 7.0 -Post Debridement Size (cm) - Depth 0.2 -Total Square Cm 21.00 -Wound/Ulcer Outcome Not Healed -Ulcer Cleansing Rinsed/ Irrigated with Saline -Foul Odor after Cleansing No -Bioengineered Tissue No -Bleeding Controlled with Pressure -Offloading No #1- RT BUTTOCK CLUSTER -Time 10:24 -Correct Patient Yes -Correct Side, Site, Position Yes -Correct Procedure Yes -Procedure Performed Yes -Type of Procedure Debridement -Clinical Debridement Subcutaneous -Post Debridement Size (cm) - Length 8.5 -Post Debridement Size (cm) - Width 3.5 -Post Debridement Size (cm) - Depth 0.2 -Total Square Cm 29.75 -Wound/Ulcer Outcome Not Healed -Ulcer Cleansing Rinsed/ Irrigated with Saline -Foul Odor after Cleansing No -Bioengineered Tissue No -Bleeding Controlled with Pressure -Offloading No -Treatment Response Procedure Tolerated Well [See Physician Procedure note for Specifics] Pain Scale: 0-10 Numeric [Pain] -Is Patient Pain Free? Yes Musculoskeletal: No Tenderness to Palpation of Joints or Extremities Lymphatic: No Cervical, Supraclavicular, or Inguinal Adenopathy Neurological: Cranial nerves II-XII grossly intact, Neuro grossly intact Psych/Mental Status: Normal Affect, Appropriate, Alert and oriented to time, place, person, mood and affect Debridement Note Post-Debridement Measurements/Treatment WC - Nurse 2 - General Ulcer CM Notes Start: 01/03/19 09:42 Freq: Status: Active Protocol: Activity Type Activity Date Activity User E-Sign Co-Sign Detail Recorded Client Recorded Date Recorded By Document 01/03/19 10:21 MW [id number] 01/03/19 10:28 MW 01/03/19 10:21 Wound Center Nurse 2 #2- LT BUTTOCK CLUSTER -Time 10:21 -Correct Patient Yes -Correct Side, Site, Position Yes -Correct Procedure Yes -Procedure Performed Yes -Type of Procedure Debridement -Clinical Debridement Subcutaneous -Post Debridement Size (cm) - Length 3.0 -Post Debridement Size (cm) - Width 7.0 -Post Debridement Size (cm) - Depth 0.2 -Total Square Cm 21.00 -Wound/Ulcer Outcome Not Healed -Ulcer Cleansing Rinsed/ Irrigated with Saline -Foul Odor after Cleansing No -Bioengineered Tissue No -Bleeding Controlled with Pressure -Offloading No #1- RT BUTTOCK CLUSTER -Time 10:24 -Correct Patient Yes -Correct Side, Site, Position Yes -Correct Procedure Yes -Procedure Performed Yes -Type of Procedure Debridement -Clinical Debridement Subcutaneous -Post Debridement Size (cm) - Length 8.5 -Post Debridement Size (cm) - Width 3.5 -Post Debridement Size (cm) - Depth 0.2 -Total Square Cm 29.75 -Wound/Ulcer Outcome Not Healed -Ulcer Cleansing Rinsed/ Irrigated with Saline -Foul Odor after Cleansing No -Bioengineered Tissue No -Bleeding Controlled with Pressure -Offloading No -Treatment Response Procedure Tolerated Well Pain Scale: 0-10 Numeric Is Patient Pain Free? Yes Wound debrided: Right buttocks Wound Grade/Stage: Stage II Type of Debridement: Excisional debridement Anesthesia Used: 5% Lidocaine Gel Depth: Down to and including healthy tissue, in the subcutaneous layer Percentage of wound debrided: 100 Instrument Used: 5mm curette Tissue Removed: Fibrin Severity: Limited To Skin Breakdown Amount of bleeding with debridement: Mild Bleeding Controlled with: Compression and gauze Patient tolerated procedure well - Additional Wound Wound debrided: Left buttocks Wound Grade/Stage: Stage II Type of Debridement: Excisional debridement Anesthesia Used: 5% Lidocaine Gel Depth: Down to and including healthy tissue, in the subcutaneous layer Percentage of wound debrided: 100 Instrument Used: 5mm curette Tissue Removed: Fibrin Severity: Limited To Skin Breakdown Amount of bleeding with debridement: Mild Bleeding Controlled with: Compression and gauze Patient tolerated procedure: Patient tolerated procedure well Assessment/Plan Active Problems (Last Reviewed 11/21/18 @ 20:15 by Renzo Moreno MD) Decubitus ulcer of right buttock, stage 2 (Acute) Decubitus ulcer of left buttock, stage 2 (Acute) Morbid obesity with BMI of 40.0-44.9, adult (Acute) Assessment: Decubitus ulcers right and left buttocks stage II's. morbid obesity. Renal insufficiency stage III Plan: Wash buttocks with soap and water. Apply Aquacel extra 2 open areas. Cover with gauze dressings and tape. Follow-up in 1 week
[2019-01-10 10:04] VITALS: BP 165/73; PULSE 62; RESP 18; TEMP 35.3; BMI 52.1
--- NOTE | 2019-01-10 11:03 | PN.PCM_ITS ---
(1) Lower extremity weakness Status: Acute Current Visit: Yes Qualifiers: Laterality: bilateral Qualified Code(s): R29.898 - Other symptoms and signs involving the musculoskeletal system Code(s): R29.898 - Other symptoms and signs involving the musculoskeletal system (2) Debility Status: Chronic Current Visit: Yes Code(s): R53.81 - Other malaise (3) Frequent falls Status: Chronic Current Visit: Yes Code(s): R29.6 - Repeated falls (4) Decubitus ulcer of right buttock, stage 2 Status: Acute Current Visit: Yes Code(s): L89.312 - Pressure ulcer of right buttock, stage 2 (5) Decubitus ulcer of left buttock, stage 2 Status: Acute Current Visit: Yes Code(s): L89.322 - Pressure ulcer of left buttock, stage 2 (6) Morbid obesity with BMI of 40.0-44.9, adult Status: Acute Current Visit: Yes Code(s): E66.01 - Morbid (severe) obesity due to excess calories; Z68.41 - Body mass index (BMI) 40.0-44.9, adult Type of Wound Chief Complaint: Follow-up on right and left buttocks ulcers History of Wound: 73-year-old white female has history of many falls has just returned home from [facility] for falling. Sits most of the day in her recliner because afraid of falling and has therefore developed decubitus ulcers on each buttocks cheeks near her anus since November. Patient has just been using antibiotic cream. Progress of Wound: Bilateral ulcers of the cheeks have more than half there is size smaller. She is tolerating treatments well states pain is less. Patient is staying off her buttocks and laying in bed more on her sides. Patient states is still has not received her gel cushion yet. Sign of infection was here today to learn how to do the dressings better had some questions. - Physical Exam Vital Signs Temp Pulse Resp BP 95.5 F L 62 18 165/73 H 01/10/19 10:04 01/10/19 10:04 01/10/19 10:04 01/10/19 10:04 General: Oriented x3, Cooperative, Well developed HEENT: Atraumatic, PERRLA Oral: Moist Mucosa Neck: Supple, No JVD Lungs: Clear to auscultation, Normal air movement Cardiovascular: Regular rate, Regular Rhythm Abdomen: Bowel Sounds Present, Soft, Non Tender, No Hepato-splenomegaly Extremities: No clubbing, No edema Skin: Ulcer/ Wound - Venous ulcers stage II bilateral buttocks cheeks near anus Wound Measurements and Assessment WC - Nurse 1 - General Ulcer Measurement Start: 01/03/19 09:42 Freq: Status: Active Protocol: Activity Type Activity Date Activity User E-Sign Co-Sign Detail Recorded Client Recorded Date Recorded By Document 01/10/19 10:04 MW [id number] 01/10/19 10:11 MW 01/10/19 10:04 Wound Center Nurse 1 [Ulcer Assessment] #2- LT BUTTOCK CLUSTER -Combined with other wound No -Current Size (cm) - Length 3.7 -Current Size (cm) - Width 6.0 -Current Size (cm) - Depth 0.1 -Total Square Cm 22.20 -Photo Taken No -Epithelialization None Present -Tunneling No -Undermining/Tunneling No -Circular Undermining No -Exudate Amt None Present -Wound Margin Flat & Intact -Granulation Amt Medium (34-66%) -Granulation Quality [place] -Slough/Fibrin Yes -Necrosis Amt Small (1-33%) -Necrotic Tissue Type Adherent Slough -Structure Exposed N/A -Texture (Fidelia-wound Skin Appearance) No Abnormality Assessed -Moisture (Fidelia-wound Skin Appearance No Abnormality ) Assessed -Color (Fidelia-wound Skin Appearance) No Abnormality Rubor -Temperature (Fidelia-wound Skin No Abnormality Appearance) (Pt Warm) -Tenderness on Palpation (Fidelia-wound No Skin Appearance) -Ulcer Cleansing Rinsed/ Irrigated with Saline -Foul Odor after Cleansing No -Anesthetic Used 5% Lidocaine Gel #1- RT BUTTOCK CLUSTER -Combined with other wound No -Current Size (cm) - Length 4.0 -Current Size (cm) - Width 3.0 -Current Size (cm) - Depth 0.1 -Total Square Cm 12.00 -Photo Taken No -Epithelialization None Present -Tunneling No -Undermining/Tunneling No -Circular Undermining No -Exudate Amt None Present -Wound Margin Flat & Intact -Granulation Amt Medium (34-66%) -Granulation Quality [place] -Slough/Fibrin Yes -Necrosis Amt Small (1-33%) -Necrotic Tissue Type Adherent Slough -Structure Exposed N/A -Texture (Fidelia-wound Skin Appearance) No Abnormality Assessed -Moisture (Fidelia-wound Skin Appearance No Abnormality ) Assessed -Color (Fidelia-wound Skin Appearance) No Abnormality Rubor -Temperature (Fidelia-wound Skin No Abnormality Appearance) (Pt Warm) -Tenderness on Palpation (Fidelia-wound No Skin Appearance) -Ulcer Cleansing Rinsed/ Irrigated with Saline -Foul Odor after Cleansing No -Anesthetic Used 5% Lidocaine Gel [Edema Assessment] -Lower Limb Edema Present No WC - Nurse 2 - General Ulcer CM Notes Start: 01/03/19 09:42 Freq: Status: Active Protocol: Activity Type Activity Date Activity User E-Sign Co-Sign Detail Recorded Client Recorded Date Recorded By Document 01/10/19 10:20 MW [id number] 01/10/19 10:25 MW 01/10/19 10:20 Wound Center Nurse 2 [Procedure/Treatment] #2- LT BUTTOCK CLUSTER -Time 10:24 -Correct Patient Yes -Correct Side, Site, Position Yes -Correct Procedure Yes -Procedure Performed Yes -Type of Procedure Debridement -Clinical Debridement Subcutaneous -Post Debridement Size (cm) - Length 2.2 -Post Debridement Size (cm) - Width 6.0 -Post Debridement Size (cm) - Depth 0.1 -Total Square Cm 13.20 -Wound/Ulcer Outcome Not Healed -Ulcer Cleansing Rinsed/ Irrigated with Saline -Foul Odor after Cleansing No -Bioengineered Tissue No -Bleeding Controlled with Pressure -Offloading No -Treatment Response Procedure Tolerated Well #1- RT BUTTOCK CLUSTER -Time 10:24 -Correct Patient Yes -Correct Side, Site, Position Yes -Correct Procedure Yes -Procedure Performed Yes -Type of Procedure Debridement -Clinical Debridement Subcutaneous -Post Debridement Size (cm) - Length 0.7 -Post Debridement Size (cm) - Width 2.8 -Post Debridement Size (cm) - Depth 0.1 -Total Square Cm 1.96 -Wound/Ulcer Outcome Not Healed -Ulcer Cleansing Rinsed/ Irrigated with Saline -Foul Odor after Cleansing No -Bioengineered Tissue No -Bleeding Controlled with Pressure -Offloading No -Treatment Response Procedure Tolerated Well [See Physician Procedure note for Specifics] Pain Scale: 0-10 Numeric [Pain] -Is Patient Pain Free? Yes Musculoskeletal: No Tenderness to Palpation of Joints or Extremities Lymphatic: No Cervical, Supraclavicular, or Inguinal Adenopathy Neurological: Cranial nerves II-XII grossly intact, Neuro grossly intact Psych/Mental Status: Normal Affect, Appropriate Debridement Note Post-Debridement Measurements/Treatment WC - Nurse 2 - General Ulcer CM Notes Start: 01/03/19 09:42 Freq: Status: Active Protocol: Activity Type Activity Date Activity User E-Sign Co-Sign Detail Recorded Client Recorded Date Recorded By Document 01/03/19 10:21 MW [id number] 01/03/19 10:28 MW Document 01/10/19 10:20 MW [id number] 01/10/19 10:25 MW 01/03/19 01/10/19 10:21 10:20 Wound Center Nurse 2 #2- LT BUTTOCK CLUSTER -Time 10:21 10:24 -Correct Patient Yes Yes -Correct Side, Site, Position Yes Yes -Correct Procedure Yes Yes -Procedure Performed Yes Yes -Type of Procedure Debridement Debridement -Clinical Debridement Subcutaneous Subcutaneous -Post Debridement Size (cm) - Length 3.0 2.2 -Post Debridement Size (cm) - Width 7.0 6.0 -Post Debridement Size (cm) - Depth 0.2 0.1 -Total Square Cm 21.00 13.20 -Wound/Ulcer Outcome Not Healed Not Healed -Ulcer Cleansing Rinsed/ Rinsed/ Irrigated with Irrigated with Saline Saline -Foul Odor after Cleansing No No -Bioengineered Tissue No No -Bleeding Controlled with Pressure Pressure -Offloading No No -Treatment Response Procedure Tolerated Well #1- RT BUTTOCK CLUSTER -Time 10:24 10:24 -Correct Patient Yes Yes -Correct Side, Site, Position Yes Yes -Correct Procedure Yes Yes -Procedure Performed Yes Yes -Type of Procedure Debridement Debridement -Clinical Debridement Subcutaneous Subcutaneous -Post Debridement Size (cm) - Length 8.5 0.7 -Post Debridement Size (cm) - Width 3.5 2.8 -Post Debridement Size (cm) - Depth 0.2 0.1 -Total Square Cm 29.75 1.96 -Wound/Ulcer Outcome Not Healed Not Healed -Ulcer Cleansing Rinsed/ Rinsed/ Irrigated with Irrigated with Saline Saline -Foul Odor after Cleansing No No -Bioengineered Tissue No No -Bleeding Controlled with Pressure Pressure -Offloading No No -Treatment Response Procedure Procedure Tolerated Well Tolerated Well Pain Scale: 0-10 Numeric Is Patient Pain Free? Yes Yes Wound debrided: The right buttocks cheek Type of Debridement: Excisional debridement Anesthesia Used: 5% Lidocaine Gel Depth: Down to and including healthy tissue, in the subcutaneous layer Percentage of wound debrided: 100 Instrument Used: 5mm curette Tissue Removed: Fibrin Severity: Limited To Skin Breakdown Amount of bleeding with debridement: Mild Bleeding Controlled with: Compression and gauze Patient tolerated procedure well - Additional Wound Wound debrided: Left buttocks cheeks Laterality: Left Wound Grade/Stage: Stage II Type of Debridement: Excisional debridement Anesthesia Used: 5% Lidocaine Gel Depth: Down to and including healthy tissue, in the subcutaneous layer Instrument Used: 5mm curette Tissue Removed: Fibrin Severity: Limited To Skin Breakdown Amount of bleeding with debridement: Mild Bleeding Controlled with: Compression and gauze Assessment/Plan Active Problems (Last Reviewed 11/21/18 @ 20:15 by Renzo Moreno MD) Debility (Chronic) Lower extremity weakness (Acute) Frequent falls (Chronic) Decubitus ulcer of right buttock, stage 2 (Acute) Decubitus ulcer of left buttock, stage 2 (Acute) Morbid obesity with BMI of 40.0-44.9, adult (Acute) Assessment: Decubitus ulcers right and left buttocks stage II's. morbid obesity. Renal insufficiency stage III Plan: Wash buttocks with soap and water. Apply Aquacel extra 2 open areas. Cover with gauze dressings and tape. Follow-up in 1 week
== END 2019-01-14 23:59 ==
LOC: WC 09:45
PROVIDERS: Family Provider Family Medicine; PCP Family Medicine; Visit Provider Nurse Practitioner
DX: L89.312 Pressure ulcer of right buttock, stage 2 (principal); L89.322 Pressure ulcer of left buttock, stage 2; R29.6 Repeated falls; E66.01 Morbid (severe) obesity due to excess calories; Z68.41 Body mass index [BMI] 40.0-44.9, adult; N18.3 Chronic kidney disease, stage 3 (moderate); I12.9 Hypertensive chronic kidney disease with stage 1 through stage 4 chronic kidney disease, or unspecified chronic kidney disease; E78.5 Hyperlipidemia, unspecified; Z79.899 Other long term (current) drug therapy; Z79.82 Long term (current) use of aspirin
CPT/HCPCS: 11042; 11045; 99213; G0463

== ENCOUNTER 2019-01-24 09:15 | Outpatient (RCR) | payer MEDICARE, OTHER, SELFPAY ==
[2019-01-15 01:54] VITALS: BP 165/73; PULSE 62; RESP 18; TEMP 35.3
[2019-01-17 10:01] VITALS: BP 171/63; PULSE 63; RESP 16; TEMP 36; BMI 52.1
--- NOTE | 2019-01-17 11:00 | PCM.WC.PN ---
(1) Decubitus ulcer of left buttock, stage 2 Status: Acute Current Visit: Yes Code(s): L89.322 - Pressure ulcer of left buttock, stage 2 (2) Decubitus ulcer of right buttock, stage 2 Status: Acute Current Visit: Yes Code(s): L89.312 - Pressure ulcer of right buttock, stage 2 (3) Morbid obesity with BMI of 40.0-44.9, adult Status: Acute Current Visit: Yes Code(s): E66.01 - Morbid (severe) obesity due to excess calories; Z68.41 - Body mass index (BMI) 40.0-44.9, adult (4) Debility Status: Chronic Current Visit: No Code(s): R53.81 - Other malaise Type of Wound Chief Complaint: Follow-up on right and left buttocks ulcers History of Wound: 73-year-old white female has history of many falls has just returned home from [facility] for falling. Sits most of the day in her recliner because afraid of falling and has therefore developed decubitus ulcers on each buttocks cheeks near her anus since November. Patient has just been using antibiotic cream. Progress of Wound: Right buttocks cheek is healed. Left buttocks cheek much smaller only open areas near the anus. No sign of infection skin is supple. She is tolerating treatments well states pain is gone. Patient is staying off her buttocks and laying in bed more on her sides. Patient states is still has not received her gel cushion yet. - Physical Exam Vital Signs Temp Pulse Resp BP 96.8 F L 63 16 171/63 H 01/17/19 10:01 01/17/19 10:01 01/17/19 10:01 01/17/19 10:01 General: Oriented x3, Cooperative, Well developed HEENT: Atraumatic, PERRLA Oral: Moist Mucosa Neck: Supple, No JVD Lungs: Clear to auscultation, Normal air movement Cardiovascular: Regular rate, Regular Rhythm Abdomen: Bowel Sounds Present, Soft, Non Tender, No Hepato-splenomegaly Extremities: No clubbing, No edema Wound Measurements and Assessment WC - Nurse 1 - General Ulcer Measurement Start: 01/17/19 10:01 Freq: Status: Active Protocol: Activity Type Activity Date Activity User E-Sign Co-Sign Detail Recorded Client Recorded Date Recorded By Document 01/17/19 10:01 [facility] [id number] 01/17/19 10:05 [facility] 01/17/19 10:01 Wound Center Nurse 1 [Ulcer Assessment] #2- LT BUTTOCK CLUSTER -Combined with other wound No -Current Size (cm) - Length 1.7 -Current Size (cm) - Width 5 -Current Size (cm) - Depth 0.1 -Total Square Cm 8.5 -Photo Taken No -Epithelialization Small 1-33% -Tunneling No -Undermining/Tunneling No -Circular Undermining No -Wound Margin Flat & Intact -Granulation Amt Large (67-100%) -Granulation Quality Red -Slough/Fibrin Yes -Necrosis Amt Small (1-33%) -Necrotic Tissue Type Adherent Slough -Texture (Fidelia-wound Skin Appearance) Assessed Scarring -Moisture (Fidelia-wound Skin Appearance Assessed ) Maceration -Color (Fidelia-wound Skin Appearance) Assessed Erythema Palor -Temperature (Fidelia-wound Skin No Abnormality Appearance) (Pt Warm) -Tenderness on Palpation (Fidelia-wound No Skin Appearance) -Ulcer Cleansing Rinsed/ Irrigated with Saline -Foul Odor after Cleansing No -Anesthetic Used 4% Lidocaine Solution #1- RT BUTTOCK CLUSTER -Combined with other wound No -Current Size (cm) - Length 0.2 -Current Size (cm) - Width 1.1 -Current Size (cm) - Depth 0.1 -Total Square Cm 0.22 -Photo Taken No -Epithelialization Medium 34-66% -Tunneling No -Undermining/Tunneling No -Circular Undermining No -Exudate Amt None Present -Wound Margin Flat & Intact -Granulation Amt Large (67-100%) -Granulation Quality Red -Slough/Fibrin Yes -Necrosis Amt Small (1-33%) -Necrotic Tissue Type Adherent Slough -Texture (Fidelia-wound Skin Appearance) Assessed Scarring -Moisture (Fidelia-wound Skin Appearance Assessed ) Maceration -Color (Fidelia-wound Skin Appearance) Assessed Erythema Palor -Temperature (Fidelia-wound Skin No Abnormality Appearance) (Pt Warm) -Tenderness on Palpation (Fidelia-wound No Skin Appearance) -Ulcer Cleansing Rinsed/ Irrigated with Saline -Foul Odor after Cleansing No -Anesthetic Used 4% Lidocaine Solution WC - Nurse 2 - General Ulcer CM Notes Start: 01/17/19 10:01 Freq: Status: Active Protocol: Activity Type Activity Date Activity User E-Sign Co-Sign Detail Recorded Client Recorded Date Recorded By Document 01/17/19 10:16 MW [id number] 01/17/19 10:19 MW 01/17/19 10:16 Wound Center Nurse 2 [Procedure/Treatment] #2- LT BUTTOCK CLUSTER -Time 10:16 -Correct Patient Yes -Correct Side, Site, Position Yes -Correct Procedure Yes -Procedure Performed Yes -Type of Procedure Debridement -Clinical Debridement Subcutaneous -Post Debridement Size (cm) - Length 1.5 -Post Debridement Size (cm) - Width 0.9 -Post Debridement Size (cm) - Depth 0.1 -Total Square Cm 1.35 -Wound/Ulcer Outcome Not Healed -Ulcer Cleansing Rinsed/ Irrigated with Saline -Foul Odor after Cleansing No -Bioengineered Tissue No -Bleeding Controlled with Pressure -Offloading No -Treatment Response Procedure Tolerated Well #1- RT BUTTOCK CLUSTER -Time 10:17 -Correct Patient Yes -Correct Side, Site, Position Yes -Correct Procedure Yes -Procedure Performed No -Post Debridement Size (cm) - Length 0 -Post Debridement Size (cm) - Width 0 -Post Debridement Size (cm) - Depth 0 -Total Square Cm 0 -Wound/Ulcer Outcome Not Healed [See Physician Procedure note for Specifics] Musculoskeletal: No Tenderness to Palpation of Joints or Extremities Lymphatic: No Cervical, Supraclavicular, or Inguinal Adenopathy Neurological: Cranial nerves II-XII grossly intact, Neuro grossly intact Psych/Mental Status: Normal Affect, Appropriate Debridement Note Post-Debridement Measurements/Treatment WC - Nurse 2 - General Ulcer CM Notes Start: 01/17/19 10:01 Freq: Status: Active Protocol: Activity Type Activity Date Activity User E-Sign Co-Sign Detail Recorded Client Recorded Date Recorded By Document 01/17/19 10:16 MW [id number] 01/17/19 10:19 MW 01/17/19 10:16 Wound Center Nurse 2 #2- LT BUTTOCK CLUSTER -Time 10:16 -Correct Patient Yes -Correct Side, Site, Position Yes -Correct Procedure Yes -Procedure Performed Yes -Type of Procedure Debridement -Clinical Debridement Subcutaneous -Post Debridement Size (cm) - Length 1.5 -Post Debridement Size (cm) - Width 0.9 -Post Debridement Size (cm) - Depth 0.1 -Total Square Cm 1.35 -Wound/Ulcer Outcome Not Healed -Ulcer Cleansing Rinsed/ Irrigated with Saline -Foul Odor after Cleansing No -Bioengineered Tissue No -Bleeding Controlled with Pressure -Offloading No -Treatment Response Procedure Tolerated Well #1- RT BUTTOCK CLUSTER -Time 10:17 -Correct Patient Yes -Correct Side, Site, Position Yes -Correct Procedure Yes -Procedure Performed No -Post Debridement Size (cm) - Length 0 -Post Debridement Size (cm) - Width 0 -Post Debridement Size (cm) - Depth 0 -Total Square Cm 0 -Wound/Ulcer Outcome Not Healed Wound debrided: Right buttocks Wound Grade/Stage: Stage II resolved No debridement was completed today - Additional Wound Wound debrided: Left buttocks Wound Grade/Stage: Stage II Type of Debridement: Excisional debridement Anesthesia Used: 5% Lidocaine Gel Depth: Down to and including healthy tissue, in the subcutaneous layer Percentage of wound debrided: 100 Instrument Used: 3mm curette Tissue Removed: Fibrin Severity: Limited To Skin Breakdown Amount of bleeding with debridement: Mild Bleeding Controlled with: Compression and gauze Patient tolerated procedure: Patient tolerated procedure well Assessment/Plan Active Problems (Last Reviewed 11/21/18 @ 20:15 by Renzo Moreno MD) Decubitus ulcer of right buttock, stage 2 (Acute) Decubitus ulcer of left buttock, stage 2 (Acute) Morbid obesity with BMI of 40.0-44.9, adult (Acute) Assessment: Decubitus ulcers right and left buttocks stage II's. morbid obesity. Renal insufficiency stage III Plan: Wash buttocks with soap and water. Apply Aquacel extra 2 open areas left buttocks. Cover with gauze dressings and tape. Right buttocks covered with DuoDERM thin keep on for as long as possible. Follow-up in 1 week
--- NOTE | 2019-01-17 11:04 | PN.PCM_ITS ---
(1) Decubitus ulcer of left buttock, stage 2 Status: Acute Current Visit: Yes Code(s): L89.322 - Pressure ulcer of left buttock, stage 2 (2) Decubitus ulcer of right buttock, stage 2 Status: Acute Current Visit: Yes Code(s): L89.312 - Pressure ulcer of right buttock, stage 2 (3) Morbid obesity with BMI of 40.0-44.9, adult Status: Acute Current Visit: Yes Code(s): E66.01 - Morbid (severe) obesity due to excess calories; Z68.41 - Body mass index (BMI) 40.0-44.9, adult (4) Debility Status: Chronic Current Visit: No Code(s): R53.81 - Other malaise Type of Wound Chief Complaint: Follow-up on right and left buttocks ulcers History of Wound: 73-year-old white female has history of many falls has just returned home from [facility] for falling. Sits most of the day in her recliner because afraid of falling and has therefore developed decubitus ulcers on each buttocks cheeks near her anus since November. Patient has just been using antibiotic cream. Progress of Wound: Right buttocks cheek is healed. Left buttocks cheek much smaller only open areas near the anus. No sign of infection skin is supple. She is tolerating treatments well states pain is gone. Patient is staying off her buttocks and laying in bed more on her sides. Patient states is still has not received her gel cushion yet. - Physical Exam Vital Signs Temp Pulse Resp BP 96.8 F L 63 16 171/63 H 01/17/19 10:01 01/17/19 10:01 01/17/19 10:01 01/17/19 10:01 General: Oriented x3, Cooperative, Well developed HEENT: Atraumatic, PERRLA Oral: Moist Mucosa Neck: Supple, No JVD Lungs: Clear to auscultation, Normal air movement Cardiovascular: Regular rate, Regular Rhythm Abdomen: Bowel Sounds Present, Soft, Non Tender, No Hepato-splenomegaly Extremities: No clubbing, No edema Wound Measurements and Assessment WC - Nurse 1 - General Ulcer Measurement Start: 01/17/19 10:01 Freq: Status: Active Protocol: Activity Type Activity Date Activity User E-Sign Co-Sign Detail Recorded Client Recorded Date Recorded By Document 01/17/19 10:01 [facility] [id number] 01/17/19 10:05 [facility] 01/17/19 10:01 Wound Center Nurse 1 [Ulcer Assessment] #2- LT BUTTOCK CLUSTER -Combined with other wound No -Current Size (cm) - Length 1.7 -Current Size (cm) - Width 5 -Current Size (cm) - Depth 0.1 -Total Square Cm 8.5 -Photo Taken No -Epithelialization Small 1-33% -Tunneling No -Undermining/Tunneling No -Circular Undermining No -Wound Margin Flat & Intact -Granulation Amt Large (67-100%) -Granulation Quality Red -Slough/Fibrin Yes -Necrosis Amt Small (1-33%) -Necrotic Tissue Type Adherent Slough -Texture (Fidelia-wound Skin Appearance) Assessed Scarring -Moisture (Fidelia-wound Skin Appearance Assessed ) Maceration -Color (Fidelia-wound Skin Appearance) Assessed Erythema Palor -Temperature (Fidelia-wound Skin No Abnormality Appearance) (Pt Warm) -Tenderness on Palpation (Fidelia-wound No Skin Appearance) -Ulcer Cleansing Rinsed/ Irrigated with Saline -Foul Odor after Cleansing No -Anesthetic Used 4% Lidocaine Solution #1- RT BUTTOCK CLUSTER -Combined with other wound No -Current Size (cm) - Length 0.2 -Current Size (cm) - Width 1.1 -Current Size (cm) - Depth 0.1 -Total Square Cm 0.22 -Photo Taken No -Epithelialization Medium 34-66% -Tunneling No -Undermining/Tunneling No -Circular Undermining No -Exudate Amt None Present -Wound Margin Flat & Intact -Granulation Amt Large (67-100%) -Granulation Quality Red -Slough/Fibrin Yes -Necrosis Amt Small (1-33%) -Necrotic Tissue Type Adherent Slough -Texture (Fidelia-wound Skin Appearance) Assessed Scarring -Moisture (Fidelia-wound Skin Appearance Assessed ) Maceration -Color (Fidelia-wound Skin Appearance) Assessed Erythema Palor -Temperature (Fidelia-wound Skin No Abnormality Appearance) (Pt Warm) -Tenderness on Palpation (Fidelia-wound No Skin Appearance) -Ulcer Cleansing Rinsed/ Irrigated with Saline -Foul Odor after Cleansing No -Anesthetic Used 4% Lidocaine Solution WC - Nurse 2 - General Ulcer CM Notes Start: 01/17/19 10:01 Freq: Status: Active Protocol: Activity Type Activity Date Activity User E-Sign Co-Sign Detail Recorded Client Recorded Date Recorded By Document 01/17/19 10:16 MW [id number] 01/17/19 10:19 MW 01/17/19 10:16 Wound Center Nurse 2 [Procedure/Treatment] #2- LT BUTTOCK CLUSTER -Time 10:16 -Correct Patient Yes -Correct Side, Site, Position Yes -Correct Procedure Yes -Procedure Performed Yes -Type of Procedure Debridement -Clinical Debridement Subcutaneous -Post Debridement Size (cm) - Length 1.5 -Post Debridement Size (cm) - Width 0.9 -Post Debridement Size (cm) - Depth 0.1 -Total Square Cm 1.35 -Wound/Ulcer Outcome Not Healed -Ulcer Cleansing Rinsed/ Irrigated with Saline -Foul Odor after Cleansing No -Bioengineered Tissue No -Bleeding Controlled with Pressure -Offloading No -Treatment Response Procedure Tolerated Well #1- RT BUTTOCK CLUSTER -Time 10:17 -Correct Patient Yes -Correct Side, Site, Position Yes -Correct Procedure Yes -Procedure Performed No -Post Debridement Size (cm) - Length 0 -Post Debridement Size (cm) - Width 0 -Post Debridement Size (cm) - Depth 0 -Total Square Cm 0 -Wound/Ulcer Outcome Not Healed [See Physician Procedure note for Specifics] Musculoskeletal: No Tenderness to Palpation of Joints or Extremities Lymphatic: No Cervical, Supraclavicular, or Inguinal Adenopathy Neurological: Cranial nerves II-XII grossly intact, Neuro grossly intact Psych/Mental Status: Normal Affect, Appropriate Debridement Note Post-Debridement Measurements/Treatment WC - Nurse 2 - General Ulcer CM Notes Start: 01/17/19 10:01 Freq: Status: Active Protocol: Activity Type Activity Date Activity User E-Sign Co-Sign Detail Recorded Client Recorded Date Recorded By Document 01/17/19 10:16 MW [id number] 01/17/19 10:19 MW 01/17/19 10:16 Wound Center Nurse 2 #2- LT BUTTOCK CLUSTER -Time 10:16 -Correct Patient Yes -Correct Side, Site, Position Yes -Correct Procedure Yes -Procedure Performed Yes -Type of Procedure Debridement -Clinical Debridement Subcutaneous -Post Debridement Size (cm) - Length 1.5 -Post Debridement Size (cm) - Width 0.9 -Post Debridement Size (cm) - Depth 0.1 -Total Square Cm 1.35 -Wound/Ulcer Outcome Not Healed -Ulcer Cleansing Rinsed/ Irrigated with Saline -Foul Odor after Cleansing No -Bioengineered Tissue No -Bleeding Controlled with Pressure -Offloading No -Treatment Response Procedure Tolerated Well #1- RT BUTTOCK CLUSTER -Time 10:17 -Correct Patient Yes -Correct Side, Site, Position Yes -Correct Procedure Yes -Procedure Performed No -Post Debridement Size (cm) - Length 0 -Post Debridement Size (cm) - Width 0 -Post Debridement Size (cm) - Depth 0 -Total Square Cm 0 -Wound/Ulcer Outcome Not Healed Wound debrided: Right buttocks Wound Grade/Stage: Stage II resolved No debridement was completed today - Additional Wound Wound debrided: Left buttocks Wound Grade/Stage: Stage II Type of Debridement: Excisional debridement Anesthesia Used: 5% Lidocaine Gel Depth: Down to and including healthy tissue, in the subcutaneous layer Percentage of wound debrided: 100 Instrument Used: 3mm curette Tissue Removed: Fibrin Severity: Limited To Skin Breakdown Amount of bleeding with debridement: Mild Bleeding Controlled with: Compression and gauze Patient tolerated procedure: Patient tolerated procedure well Assessment/Plan Active Problems (Last Reviewed 11/21/18 @ 20:15 by Renzo Moreno MD) Decubitus ulcer of right buttock, stage 2 (Acute) Decubitus ulcer of left buttock, stage 2 (Acute) Morbid obesity with BMI of 40.0-44.9, adult (Acute) Assessment: Decubitus ulcers right and left buttocks stage II's. morbid obesity. Renal insufficiency stage III Plan: Wash buttocks with soap and water. Apply Aquacel extra 2 open areas left buttocks. Cover with gauze dressings and tape. Right buttocks covered with DuoDERM thin keep on for as long as possible. Follow-up in 1 week
[2019-01-24 09:52] VITALS: BP 194/90; PULSE 59; RESP 18; TEMP 36; BMI 52.1
--- NOTE | 2019-01-24 11:43 | PCM.WC.PN ---
(1) Decubitus ulcer of left buttock, stage 2 Status: Acute Current Visit: Yes Code(s): L89.322 - Pressure ulcer of left buttock, stage 2 (2) Decubitus ulcer of right buttock, stage 2 Status: Acute Current Visit: Yes Code(s): L89.312 - Pressure ulcer of right buttock, stage 2 (3) Morbid obesity with BMI of 40.0-44.9, adult Status: Acute Current Visit: Yes Code(s): E66.01 - Morbid (severe) obesity due to excess calories; Z68.41 - Body mass index (BMI) 40.0-44.9, adult (4) Debility Status: Chronic Current Visit: Yes Code(s): R53.81 - Other malaise Type of Wound Chief Complaint: Follow-up on right and left buttocks ulcers History of Wound: 73-year-old white female has history of many falls has just returned home from [facility] for falling. Sits most of the day in her recliner because afraid of falling and has therefore developed decubitus ulcers on each buttocks cheeks near her anus since November. Patient has just been using antibiotic cream. Progress of Wound: Right buttocks cheek is healed. Left buttocks cheek cluster healed. Patient will be discharged from the wound center - Physical Exam Vital Signs Temp Pulse Resp BP 96.8 F L 59 L 18 194/90 H 01/24/19 09:52 01/24/19 09:52 01/24/19 09:52 01/24/19 09:52 General: Oriented x3, Cooperative, Well developed HEENT: Atraumatic, PERRLA Oral: Moist Mucosa Neck: Supple, No JVD Lungs: Clear to auscultation, Normal air movement Cardiovascular: Regular rate, Regular Rhythm Abdomen: Bowel Sounds Present, Soft, Non Tender, No Hepato-splenomegaly Extremities: No clubbing, No edema Skin: Ulcer/ Wound - Right and left buttocks ulcers stage II's Wound Measurements and Assessment WC - Nurse 1 - General Ulcer Measurement Start: 01/17/19 10:01 Freq: Status: Active Protocol: Activity Type Activity Date Activity User E-Sign Co-Sign Detail Recorded Client Recorded Date Recorded By Document 01/24/19 09:52 [facility] [id number] 01/24/19 09:57 [facility] 01/24/19 09:52 Wound Center Nurse 1 [Ulcer Assessment] #2- LT BUTTOCK CLUSTER -Combined with other wound No -Current Size (cm) - Length 1 -Current Size (cm) - Width 0.3 -Current Size (cm) - Depth 0.1 -Total Square Cm 0.3 -Photo Taken No -Epithelialization Medium 34-66% -Tunneling No -Undermining/Tunneling No -Circular Undermining No -Exudate Amt None Present -Wound Margin Distinct, Outline Attached -Granulation Amt Medium (34-66%) -Granulation Quality Red -Slough/Fibrin Yes -Necrosis Amt Small (1-33%) -Necrotic Tissue Type Adherent Slough -Texture (Fidelia-wound Skin Appearance) Assessed Scarring -Moisture (Fidelia-wound Skin Appearance Assessed ) -Color (Fidelia-wound Skin Appearance) Assessed Erythema -Temperature (Fidelia-wound Skin No Abnormality Appearance) (Pt Warm) -Tenderness on Palpation (Fidelia-wound No Skin Appearance) -Ulcer Cleansing Rinsed/ Irrigated with Saline -Foul Odor after Cleansing No -Anesthetic Used 4% Lidocaine Solution WC - Nurse 2 - General Ulcer CM Notes Start: 01/17/19 10:01 Freq: Status: Active Protocol: Activity Type Activity Date Activity User E-Sign Co-Sign Detail Recorded Client Recorded Date Recorded By Document 01/24/19 10:07 MW [id number] 01/24/19 10:08 MW 01/24/19 10:07 Wound Center Nurse 2 [Procedure/Treatment] -Time 10:07 -Correct Patient Yes -Correct Side, Site, Position Yes -Correct Procedure Yes -Procedure Performed No -Post Debridement Size (cm) - Length 0 -Post Debridement Size (cm) - Width 0 -Post Debridement Size (cm) - Depth 0 -Total Square Cm 0 -Wound/Ulcer Outcome Healed- Epithelialized [See Physician Procedure note for Specifics] Pain Scale: 0-10 Numeric [Pain] -Is Patient Pain Free? Yes Musculoskeletal: No Tenderness to Palpation of Joints or Extremities Lymphatic: No Cervical, Supraclavicular, or Inguinal Adenopathy Neurological: Cranial nerves II-XII grossly intact, Neuro grossly intact Psych/Mental Status: Normal Affect, Appropriate Debridement Note Post-Debridement Measurements/Treatment WC - Nurse 2 - General Ulcer CM Notes Start: 01/17/19 10:01 Freq: Status: Active Protocol: Activity Type Activity Date Activity User E-Sign Co-Sign Detail Recorded Client Recorded Date Recorded By Document 01/17/19 10:16 MW [id number] 01/17/19 10:19 MW Document 01/24/19 10:07 MW [id number] 01/24/19 10:08 MW 01/17/19 01/24/19 10:16 10:07 Wound Center Nurse 2 #2- LT BUTTOCK CLUSTER -Time 10:16 10:07 -Correct Patient Yes Yes -Correct Side, Site, Position Yes Yes -Correct Procedure Yes Yes -Procedure Performed Yes No -Type of Procedure Debridement -Clinical Debridement Subcutaneous -Post Debridement Size (cm) - Length 1.5 0 -Post Debridement Size (cm) - Width 0.9 0 -Post Debridement Size (cm) - Depth 0.1 0 -Total Square Cm 1.35 0 -Wound/Ulcer Outcome Not Healed Healed- Epithelialized -Ulcer Cleansing Rinsed/ Irrigated with Saline -Foul Odor after Cleansing No -Bioengineered Tissue No -Bleeding Controlled with Pressure -Offloading No -Treatment Response Procedure Tolerated Well #1- RT BUTTOCK CLUSTER -Time 10:17 -Correct Patient Yes -Correct Side, Site, Position Yes -Correct Procedure Yes -Procedure Performed No -Post Debridement Size (cm) - Length 0 -Post Debridement Size (cm) - Width 0 -Post Debridement Size (cm) - Depth 0 -Total Square Cm 0 -Wound/Ulcer Outcome Not Healed Pain Scale: 0-10 Numeric Is Patient Pain Free? Yes No debridement was completed today Assessment/Plan Active Problems (Last Reviewed 01/17/19 @ 17:12 by Dee Flowers) Debility (Chronic) Decubitus ulcer of right buttock, stage 2 (Acute) Decubitus ulcer of left buttock, stage 2 (Acute) Morbid obesity with BMI of 40.0-44.9, adult (Acute) Assessment: Decubitus ulcers right and left buttocks stage II's solved. morbid obesity. Renal insufficiency stage III Plan: Discharge from the wound center follow-up as needed
--- NOTE | 2019-01-24 11:46 | PN.PCM_ITS ---
(1) Decubitus ulcer of left buttock, stage 2 Status: Acute Current Visit: Yes Code(s): L89.322 - Pressure ulcer of left buttock, stage 2 (2) Decubitus ulcer of right buttock, stage 2 Status: Acute Current Visit: Yes Code(s): L89.312 - Pressure ulcer of right buttock, stage 2 (3) Morbid obesity with BMI of 40.0-44.9, adult Status: Acute Current Visit: Yes Code(s): E66.01 - Morbid (severe) obesity due to excess calories; Z68.41 - Body mass index (BMI) 40.0-44.9, adult (4) Debility Status: Chronic Current Visit: Yes Code(s): R53.81 - Other malaise Type of Wound Chief Complaint: Follow-up on right and left buttocks ulcers History of Wound: 73-year-old white female has history of many falls has just returned home from [facility] [place] for falling. Sits most of the day in her recliner because afraid of falling and has therefore developed decubitus ulcers on each buttocks cheeks near her anus since November. Patient has just been using antibiotic cream. Progress of Wound: Right buttocks cheek is healed. Left buttocks cheek cluster healed. Patient will be discharged from the wound center - Physical Exam Vital Signs Temp Pulse Resp BP 96.8 F L 59 L 18 194/90 H 01/24/19 09:52 01/24/19 09:52 01/24/19 09:52 01/24/19 09:52 General: Oriented x3, Cooperative, Well developed HEENT: Atraumatic, PERRLA Oral: Moist Mucosa Neck: Supple, No JVD Lungs: Clear to auscultation, Normal air movement Cardiovascular: Regular rate, Regular Rhythm Abdomen: Bowel Sounds Present, Soft, Non Tender, No Hepato-splenomegaly Extremities: No clubbing, No edema Skin: Ulcer/ Wound - Right and left buttocks ulcers stage II's Wound Measurements and Assessment WC - Nurse 1 - General Ulcer Measurement Start: 01/17/19 10:01 Freq: Status: Active Protocol: Activity Type Activity Date Activity User E-Sign Co-Sign Detail Recorded Client Recorded Date Recorded By Document 01/24/19 09:52 [facility] [id number] 01/24/19 09:57 BMF 01/24/19 09:52 Wound Center Nurse 1 [Ulcer Assessment] #2- LT BUTTOCK CLUSTER -Combined with other wound No -Current Size (cm) - Length 1 -Current Size (cm) - Width 0.3 -Current Size (cm) - Depth 0.1 -Total Square Cm 0.3 -Photo Taken No -Epithelialization Medium 34-66% -Tunneling No -Undermining/Tunneling No -Circular Undermining No -Exudate Amt None Present -Wound Margin Distinct, Outline Attached -Granulation Amt Medium (34-66%) -Granulation Quality Red -Slough/Fibrin Yes -Necrosis Amt Small (1-33%) -Necrotic Tissue Type Adherent Slough -Texture (Fidelia-wound Skin Appearance) Assessed Scarring -Moisture (Fidelia-wound Skin Appearance Assessed ) -Color (Fidelia-wound Skin Appearance) Assessed Erythema -Temperature (Fidelia-wound Skin No Abnormality Appearance) (Pt Warm) -Tenderness on Palpation (Fidelia-wound No Skin Appearance) -Ulcer Cleansing Rinsed/ Irrigated with Saline -Foul Odor after Cleansing No -Anesthetic Used 4% Lidocaine Solution WC - Nurse 2 - General Ulcer CM Notes Start: 01/17/19 10:01 Freq: Status: Active Protocol: Activity Type Activity Date Activity User E-Sign Co-Sign Detail Recorded Client Recorded Date Recorded By Document 01/24/19 10:07 MW [id number] 01/24/19 10:08 MW 01/24/19 10:07 Wound Center Nurse 2 [Procedure/Treatment] -Time 10:07 -Correct Patient Yes -Correct Side, Site, Position Yes -Correct Procedure Yes -Procedure Performed No -Post Debridement Size (cm) - Length 0 -Post Debridement Size (cm) - Width 0 -Post Debridement Size (cm) - Depth 0 -Total Square Cm 0 -Wound/Ulcer Outcome Healed- Epithelialized [See Physician Procedure note for Specifics] Pain Scale: 0-10 Numeric [Pain] -Is Patient Pain Free? Yes Musculoskeletal: No Tenderness to Palpation of Joints or Extremities Lymphatic: No Cervical, Supraclavicular, or Inguinal Adenopathy Neurological: Cranial nerves II-XII grossly intact, Neuro grossly intact Psych/Mental Status: Normal Affect, Appropriate Debridement Note Post-Debridement Measurements/Treatment WC - Nurse 2 - General Ulcer CM Notes Start: 01/17/19 10:01 Freq: Status: Active Protocol: Activity Type Activity Date Activity User E-Sign Co-Sign Detail Recorded Client Recorded Date Recorded By Document 01/17/19 10:16 MW [id number] 01/17/19 10:19 MW Document 01/24/19 10:07 MW [id number] 01/24/19 10:08 MW 01/17/19 01/24/19 10:16 10:07 Wound Center Nurse 2 #2- LT BUTTOCK CLUSTER -Time 10:16 10:07 -Correct Patient Yes Yes -Correct Side, Site, Position Yes Yes -Correct Procedure Yes Yes -Procedure Performed Yes No -Type of Procedure Debridement -Clinical Debridement Subcutaneous -Post Debridement Size (cm) - Length 1.5 0 -Post Debridement Size (cm) - Width 0.9 0 -Post Debridement Size (cm) - Depth 0.1 0 -Total Square Cm 1.35 0 -Wound/Ulcer Outcome Not Healed Healed- Epithelialized -Ulcer Cleansing Rinsed/ Irrigated with Saline -Foul Odor after Cleansing No -Bioengineered Tissue No -Bleeding Controlled with Pressure -Offloading No -Treatment Response Procedure Tolerated Well #1- RT BUTTOCK CLUSTER -Time 10:17 -Correct Patient Yes -Correct Side, Site, Position Yes -Correct Procedure Yes -Procedure Performed No -Post Debridement Size (cm) - Length 0 -Post Debridement Size (cm) - Width 0 -Post Debridement Size (cm) - Depth 0 -Total Square Cm 0 -Wound/Ulcer Outcome Not Healed Pain Scale: 0-10 Numeric Is Patient Pain Free? Yes No debridement was completed today Assessment/Plan Active Problems (Last Reviewed 01/17/19 @ 17:12 by Dee Flowers) Debility (Chronic) Decubitus ulcer of right buttock, stage 2 (Acute) Decubitus ulcer of left buttock, stage 2 (Acute) Morbid obesity with BMI of 40.0-44.9, adult (Acute) Assessment: Decubitus ulcers right and left buttocks stage II's solved. morbid obesity. Renal insufficiency stage III Plan: Discharge from the wound center follow-up as needed
== END 2019-02-14 23:59 ==
LOC: WC 09:15
PROVIDERS: Family Provider Family Medicine; PCP Family Medicine; Visit Provider Nurse Practitioner
DX: L89.322 Pressure ulcer of left buttock, stage 2 (principal); E66.01 Morbid (severe) obesity due to excess calories; Z68.41 Body mass index [BMI] 40.0-44.9, adult; Z71.3 Dietary counseling and surveillance; N18.3 Chronic kidney disease, stage 3 (moderate)
CPT/HCPCS: 11042; 99212; G0463

== ENCOUNTER → 2019-02-12 07:59 | Outpatient (CLI) | payer MEDICARE, OTHER, SELFPAY ==
[2019-01-24 09:52] VITALS: BMI 52.1
--- NOTE | 2019-02-12 10:06 | NEURO ---
NCS and/or EMG Patient Report Ordering Doctor: ari motley DATE OF SERVICE: 02/12/19 This is a bilateral lower extremity nerve conduction study performed on this 74-year-old female with a history of falls, she is developed a Charcot foot which she first noted 5 or 6 years ago. Believes her sister may be developing some volar problems. There is a history of lymphedema and spinal stenosis as well as weakness in the legs. On examination there is a right Charcot joint in her ankle, and severe neuropathic changes as well as severe lymphedema. Bilateral lower extremity sensory and motor nerve conduction studies were performed. The sural sensory responses bilaterally are absent as are the H reflex is from the tibial nerves bilaterally. The left tibial and common peroneal F-wave latencies are prolonged. The right common peroneal response is absent, on the left side the response is severely slowed. The right tibial motor response is absent and the left tibial motor responses severely slowed. EMG was ordered but not performed due to severe lymphedema. 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
== END ==
PROVIDERS: Family Provider Family Medicine; PCP Family Medicine
DX: M48.061 Spinal stenosis, lumbar region without neurogenic claudication (principal)
CPT/HCPCS: 95910

== ENCOUNTER → 2020-03-03 | Outpatient (CLI) | payer MEDICARE, OTHER, SELFPAY ==
--- NOTE | 2020-03-03 13:41 | ECHOD_ITS ---
Reason For Study: DYSPNEA Procedure This was a 2D Doppler, Color Flow transthoracic echocardiogram. The study was technically difficult. Due to body habitus. Exam performed in department. Left Ventricle Normal LV size. The estimated ejection fraction is 60 %. Stage 2 diastolic dysfunction. No regional wall motion abnormalities noted. Right Ventricle Normal RV size. Normal systolic function. Atria The left atrium is mildly enlarged. Normal right atrium. No doppler evidence for ASD. Mitral Valve There is no mitral valve stenosis. No mitral valve insufficiency. Tricuspid Valve There is no tricuspid stenosis. Trivial tricuspid valve insufficiency. Pulmonary artery systolic pressure is 40 mmHg. Aortic Valve The aortic valve is not well visualized. There is no aortic stenosis. No aortic valve insufficiency. Pulmonic Valve There is no pulmonic valvular stenosis. No pulmonic valve insufficiency. Great Vessels Normal aortic root. Pericardium/Pleural No pericardial effusion. MMode/2D Measurements & Calculations LVIDd: 5.4 cm IVSd: 1.2 cm LVOT diam: 2.0 cm LVIDs: 4.0 cm LVPWd: 1.2 cm LVOT area: 3.3 cm2 RVDd: 2.9 cm FS: 27.0 % Ao root diam: 3.4 cm LAV(MOD-bp): 75.5 ml LA A4 area: 22.9 cm2 LAV(MOD-bp) Indexed: 32.4 ml/m2 LAV(MOD-sp2): 76.4 ml LAV(MOD-sp4): 72.4 ml LA dimension(2D): 4.7 cm RA A4 area: 19.5 cm2 Time Measurements MV dec time: 0.29 sec Doppler Measurements & Calculations MV E max charanjit: 92.9 cm/sec Lat Peak E' Charanjit: 6.0 cm/sec Med Peak E' Charanjit: 6.4 cm/sec MV A max charanjit: 104.8 cm/sec E/E' lat: 15.5 E/E' med: 14.5 MV E/A: 0.89 Ao V2 max: 153.8 cm/sec LV V1 max: 93.1 cm/sec PA V2 max: 96.5 cm/sec Ao max P.5 mmHg LV V1 max P.5 mmHg Ao V2 mean: 107.0 cm/sec Ao mean P.1 mmHg Ao V2 VTI: 29.5 cm CARLOS(V,D): 2.0 cm2 TR max charanjit: 292.8 cm/sec TR max P.3 mmHg Interpretation Summary The estimated ejection fraction is 60 %. Stage 2 diastolic dysfunction. Ordering Physician: Christofer Vazquez Referring Physician: Christofer Vazquez Performed By: Bree Chaves, APRIL, RVT
== END | disposition home or self-care (01) ==
PROVIDERS: PCP Family Medicine; Referring Provider Family Medicine; Visit Provider Family Medicine
DX: R06.00 Dyspnea, unspecified (principal); I10 Essential (primary) hypertension; I89.0 Lymphedema, not elsewhere classified
CPT/HCPCS: 93306

== ENCOUNTER 2020-04-27 18:34 | Inpatient (IN) | payer MEDICARE, OTHER, SELFPAY ==
[2020-03-05 12:58] VITALS: BMI 62.1
[2020-04-27 18:35] VITALS: BP 162/84; PULSE 83; RESP 17; TEMP 36.3; O2SAT 94; BMI 58.5
[2020-04-27 20:53] LABS: Absolute Lymphocyte Count 2.54 X10^3/uL (0.83-4.51); Absolute Neutrophil Count 6.8 X10^3/uL (2.0-7.7); Basophil# 0.07 X10^3/uL; Basophil% 0.6 % (0-1); Eosinophil# 0.36 X10^3/uL; Eosinophils% 3.3 % (0-5); Hematocrit 37.9 % (37-47); Hemoglobin 12.5 g/dL (12.0-15.0); Lymphocyte # 2.54 X10^3/ul (4.0); Lymphocyte % 23.4 % (19-41); Mean Corpuscular Hgb 32.1 pg (27.0-32.0); Mean Corpuscular Volume 97.4 fL (81-99); Mean Platelet Vol. 9.6 fl (6.2-12.0); Monocyte# 1.02 X10^3/uL; Monocyte% 9.4 % (0-10); NRBC Flagged by Analyzer 0 % (0-5); Neutrophil # 6.79 X10^3/uL (2.7-7.7); Neutrophil % 62.7 % (47-70); Platelet Count 264 K/mm3 (150-450); RBC Distribution Width CV 13.2 % (11.6-14.6); RBC Distribution Width SD 47.5 fl (35.1-43.9); Red Blood Count 3.89 M/mm3 (4.2-5.4); White Blood Count 10.8 K/mm3 (4.4-11.0)
[2020-04-27 21:09] LABS: ALB/GLOB Ratio 0.8 RATIO (0.9-2.4); AST(SGOT) 30 U/L (15-37); Alanine Aminotransfer ALT/SGPT 19 U/L (13-56); Albumin, Serum 3.4 g/dL (3.2-5.0); Alkaline Phosphatase 55 U/L (45-117); Anion Gap 7 (5-15); BUN 15 mg/dL (7-18); BUN/Creat Ratio 14.2 RATIO (10-20); Calcium,Total 8.8 mg/dL (8.5-10.1); Chloride 103 mmol/L (98-107); Creatinine, Serum 1.06 mg/dL (0.55-1.02); EST Glomerular Filtration Rate 54 mL/min (>60); Est Glom Filt Rate - Afr Amer 65 mL/min (>60); Estimated Creatinine Clearance 36.27 ml/min; Glucose 101 mg/dL (74-106); Potassium 3.1 mmol/L (3.5-5.1); Protein, Total 7.4 g/dL (6.4-8.2); Sodium Level 138 mmol/L (136-145)
[2020-04-27 21:25] LABS: Lactic Acid 1.4 mmol/L (0.4-1.9)
[2020-04-27] MEDS: Cefazolin 1 GM/50 ML BAG IV (21:47)
--- NOTE | 2020-04-27 22:14 | ED.VISSUMM ---
- ER Visit Summary Date of Service: 04/27/20 Chief Complaint: Cellulitis right leg History of Present Illness: The patient is a 75 F who presents with cellulitis of her right leg that it has been constant for the past several months but became worse over the past few days. Patient has a chronic wound to her right ankle area. Patient states that today she noticed some redness extending to the distal thigh. Patient admits to a fever of 100.4 at home. Patient states her pain is a dull ache. Patient states it is worse when she got in the shower. Patient denies any paresthesias or weakness. Physical Examination: Vital signs are stable. Patient is afebrile. Patient is in no acute distress. Oral mucosa is pink and moist. Neck is supple. Trachea is midline. There is no JVD. Heart was regular rate and rhythm. Lungs are clear and equal bilaterally. Abdomen is soft. Bowel sounds are normal. There is no tenderness. Cranial nerves II through XII are intact. There are no focal motor or sensory deficits noted. Skin is warm and dry. There is erythema and warmth over the right thigh and lower leg. There is no active drainage noted. There is no abscess formation. Sensation was intact to light touch in all digits. Capillary refill is less than 2 seconds in all digits. Test Results: CBC, basic metabolic profile, and lactate were obtained and were all within normal limits. Emergency Department Course and Treatment: Patient was given a dose of Ancef here. Patient states her redness in her lower leg is much worse than usual. Case was discussed with the hospitalist. Patient will be admitted for IV antibiotics. Patient understood and was agreeable with the plan. All questions were answered. Disposition: Admit to hospital Impression: Cellulitis right lower extremity This note was generated with [employer] dictation software. It may contain incorrect words, spelling, and punctuation that were not noted in review of the chart prior to signing ED Disposition - Plan for ED Patient: Disposition: Acute Care Hospital [facility] Diagnosis: Cellulitis of right lower extremity Referrals: Christofer Vazquez MD [Primary Care Provider] -
[2020-04-27 22:54] VITALS: BP 132/48; PULSE 72; PULSE 74; RESP 20; TEMP 36.6; O2SAT 96; O2SAT 97
--- NOTE | 2020-04-27 23:23 | PCM.HP.STD ---
Problem List (1) Cellulitis of right lower extremity Status: Acute (2) Neuropathy Status: Chronic (3) GERD (gastroesophageal reflux disease) Status: Chronic Qualifiers: Esophagitis presence: esophagitis presence not specified Qualified Code(s): K21.9 - Gastro-esophageal reflux disease without esophagitis (4) Morbid obesity Status: Chronic (5) Lymphedema Status: Chronic (6) Essential hypertension Status: Chronic (7) HLD (hyperlipidemia) Status: Chronic Qualifiers: Hyperlipidemia type: unspecified Qualified Code(s): E78.5 - Hyperlipidemia, unspecified History of Present Illness Date of Admission: 04/27/20 Chief Complaint: RLE redness, edema, fever, chills The patient is a 75 y/o F w/ PMHx: CKD stage III, Morbid Obesity, Chronic distal RLE wound following with WCC, Chronic BL LE Lymphedema, GERD, HTN, HLD, Chronic back pain with spinal stenosis and DDD who presents to the [facility] ED on 04/27/20 with history of onset more proximal inner upper right thigh redness, edema, warmth to touch and pain starting the Sunday prior to ED presentation with chills and fever up to 100.4 at home, not improving with associated nausea with no emesis prompting ED presentation. Patient notes that wound appearance is similar to prior with no change and no significant discharge. Work-up in the ED included T 97.8, heart rate 72, BP 132/48, respiratory rate 20, 97% on room air, CBC with WC 10.8, hemoglobin 12.5, platelet 264 without market shift, CMP with potassium 3.1, BUN/creatinine 35/1.06 otherwise not marked appearing, lactic acid 1.4, blood culture x2 pending per ED. In ED patient ministered Ancef therapy. Past Medical History Past Medical History (Chronic Problems): Chronic Problems (Last Reviewed 03/05/20 @ 13:[address] Jayson Castañeda MD) Neuropathy (Chronic) GERD (gastroesophageal reflux disease) (Chronic) Morbid obesity (Chronic) Lymphedema (Chronic) Essential hypertension (Chronic) Debility (Chronic) Frequent falls (Chronic) HLD (hyperlipidemia) (Chronic) Medical History: Medical History (Last Reviewed 03/05/20 @ 13:[address] Jayson Castañeda MD) Cellulitis (Acute) L03.90 Lymphedema (Chronic) I89.0 Essential hypertension (Chronic) I10 Debility (Chronic) R53.81 Lower extremity weakness (Acute) R29.898 Frequent falls (Chronic) R29.6 HLD (hyperlipidemia) (Chronic) E78.5 DDD (degenerative disc disease), lumbar M51.36 GERD (gastroesophageal reflux disease) K21.9 Morbid obesity with BMI of 40.0-44.9, adult E66.01, Z68.41 Spinal stenosis M48.00 Venous stasis ulcers I83.009, L97.909 Acute cystitis (Resolved) N30.00 Acute kidney injury N17.9 Anemia D64.9 Decubitus ulcer of left buttock, stage 2 (Resolved) L89.322 Decubitus ulcer of right buttock, stage 2 (Resolved) L89.312 Allergies ciprofloxacin [From Cipro] Allergy (Severe, Verified 04/27/20 18:35) unk adhesive tape Allergy (Intermediate, Verified 04/27/20 18:35) Rash celecoxib [From Celebrex] Allergy (Verified 04/27/20 18:35) Other funny feeling in throat formaldehyde Allergy (Verified 04/27/20 18:35) Other formaldehyde in plastic gloves causes swelling and cracking in hands ketorolac [From Toradol] Adverse Reaction (Verified 04/27/20 18:35) Upset Stomach Home Medications: Ambulatory Orders Medication Instructions Recorded Aspirin [Aspirin, Baby] 81 mg PO DAILY@0800 07/19/18 Lovastatin [Mevacor] 40 mg PO BID 07/19/18 Multivitamin [Multiple Vitamins] 1 ea PO DAILY 07/19/18 Cholecalciferol (VIT D3) [Vitamin 1,000 unit PO DAILY 11/21/18 D3] Omeprazole 20 mg PO DAILY 11/21/18 Selenium 100 mcg PO DAILY 11/21/18 folic acid 400 mcg tablet 0.4 mg PO DAILY 02/24/20 furosemide 20 mg tablet 60 mg PO BID tab 02/24/20 gabapentin 300 mg capsule 300 mg PO 4X/DAY cap 02/24/20 krill 1 cap PO DAILY 02/24/20 [id number] 300 mg-90 mg-24 mg-50 mg capsule losartan 50 mg tablet 75 mg PO DAILY tab 02/24/20 omega-3 fatty acids-vitamin E 1,000 mg PO DAILY cap 02/24/20 1,000 mg capsule potassium chloride 10 mEq 20 meq PO DAILY tab 02/24/20 tablet,extended release(part/cryst) metoprolol tartrate 100 mg tablet 50 mg PO BID tab 03/05/20 Surgical History: Surgical History (Last Reviewed 03/05/20 @ 13:[address] Jayson Castañeda MD) H/O laminectomy Z98.890 2014 in [place] repair of site 2015 History of Achilles tendon repair Z98.890 History of section Z98.891 x3 History of foot surgery Z98.890 heel spurs History of hysterectomy Z90.710 History of total bilateral knee replacement Z96.653 Surgical History: - - Lumbar laminectomy, bilateral total knee replacement, x3, hysterectomy with possible appendectomy concurrently, several numerous bilateral foot surgeries, tonsillectomy, cholecystectomy. Psychiatric History: No pertinent psych hx MANAGER PUBLIC History: No pertinent MANAGER PUBLIC history Lives: Spouse/ Significant Other Smoking Status: Never smoker Tobacco Use: Non-smoker Alcohol: None Drugs: None - *Family History Maternal Family History: Family History (Last Reviewed 03/05/20 @ 13:[address] Jayson Castañeda MD) Father CAD (coronary artery disease) Myocardial infarction Sister Breast cancer History Items: - - Patient notes a maternal family history of cancer, unclear specific type but when she was younger. Paternal Family History: Family History (Last Reviewed 03/05/20 @ 13:[address] Jayson Castñaeda MD) Father CAD (coronary artery disease) Myocardial infarction Sister Breast cancer History Items: Heart Disease Review of Systems Constitutional: Reports: Anorexia, Chills, Fever, Malaise, Weakness, Fatigue. Denies: Weight Change HEENT: Denies: Head Aches, Sinus Congestion, Sinus Drainage Cardiovascular: Denies: Chest Pain, Chest Pressure, Chest Tightness, Light Headedness, Palpitations, Syncope Respiratory: Denies: Cough, Shortness of Breath, Shortness of breath at rest, Shortness of breath upon exertion, Sputum production Gastrointestinal: Reports: Nausea. Denies: Abdominal Pain, Vomiting Genitourinary: Denies: Dysuria Musculoskeletal: Reports: Back Pain, Joint Pain, Leg Pain. Denies: Joint Tenderness Skin: Reports: Skin Changes, Wounds. Denies: Rash Neurological: Reports: Tingling. Denies: Focal weakness, Numbness Psychiatric: Denies: Anxiety, Depression, Homicidal Ideations, Suicidal Ideations Hematologic/ Lymphatic: Denies: Easy Bruising, Easy Bleeding VTE Information - Inpt Only VTE Present on Admission: No VTE Mechan Device Prophylaxis: SCD's VTE Pharm Prophylaxis ordered?: Yes Patient Problems: Active and Suspected Problems (Last Reviewed 03/05/20 @ 13:[address] Jayson Castañeda MD) Cellulitis of right lower extremity (Acute) Subjective: Patient seated upright in ED bed, fatigued appearance, no acute distress otherwise. Objective: Physical Examination: General: awake, alert, oriented x 3 and cooperative, seated upright in the ED bed, fatigued otherwise no acute distress. Skin: normal color, turgor, no icterus, cyanosis except significant bilateral lower extremity stasis disease, chronic bilateral lower extremity lymphedema, chronic right lower anterior vera more medial chronic wounds, no significant purulent drainage, [id number], erythema currently extending upward with section on the medial mid anterior thigh, warm to touch, tender to palpation. HEENT: AT/NC, EOMI, PERRLA, mildly dry MM, no carotid bruits or JVD noted. Lungs: CTA bilaterally, moderate effort, moderate decrease BL bases, no rales, ronchi or wheezing. Heart: Regular rate and rhythm; no gallop, rub audible. Abdomen: soft, morbidly obese, NTTP, ND, normal BS, no obvious HSM however habitus makes examination very difficult. Extremities: no cyanosis, clubbing, see skin, significant bilateral lower extremity lymphedema. Neurological: patient awake, alert, oriented x 3; cognitive function intact; pupils equally reactive to light and accomodation; cranial nerves II-XII grossly normal, moving all 4 extremities, no focal deficits, strength moderately to severely global decrease secondary to comorbidities and acute presentation. Psychiatric: affect appears fatigued otherwise normal, no acute evidence of depressive or anxiety feelings. - Physical Exam Vitals/I&O's: Vital Signs Temp Pulse Resp BP Pulse Ox 97.8 F 74 20 H 132/48 H 97 04/27/20 22:54 04/27/20 22:54 04/27/20 22:54 04/27/20 22:54 04/27/20 22:54 Oxygen Delivery Method Room Air Weight: 320 lb 0.01 oz Body Mass Index (BMI) 58.5 Intake and Output for Last 24 Hours 04/25/20 04/26/20 04/27/20 23:59 23:59 23:59 Intake Total 50 / 50 Balance 50 / 50 Laboratory Results 04/27/20 20:40: WBC 10.8, RBC 3.89 L, Hgb 12.5, Hct 37.9, MCV 97.4, MCH 32.1 H, MCHC 33.0, RDW Std Deviation 47.5 H, RDW Coeff of Joel 13.2, Plt Count 264, MPV 9.6, Immature Gran % (Auto) 0.600, Neut % (Auto) 62.7, Lymph % (Auto) 23.4, [place] % (Auto) 9.4, Eos % (Auto) 3.3, Baso % (Auto) 0.6, Absolute Neuts (auto) 6.8, Absolute Lymphs (auto) 2.54, Nucleated RBC % 0 04/27/20 20:40: Sodium 138, Potassium 3.1 L, Chloride 103, Carbon Dioxide 28.0, Anion Gap 7, BUN 15, Creatinine 1.06 H, Estim Creat Clear Calc 36.27, Est GFR (MDRD) Af Amer 65, Est GFR (MDRD) Non-Af 54 L, BUN/Creatinine Ratio 14.2, Glucose 101, Calcium 8.8, Total Bilirubin 0.90, AST 30, ALT 19, Alkaline Phosphatase 55, Total Protein 7.4, Albumin 3.4, Globulin 4.0, Albumin/Globulin Ratio 0.8 L 04/27/20 20:40: Lactic Acid 1.4 Assessment/Plan All Active Problems (Last Reviewed 03/05/20 @ 13:[address] Jayson Castañeda MD) Cellulitis of right lower extremity (Acute) Pulmonary hypertension (Acute) Cellulitis (Acute) Lower extremity weakness (Acute) Acute cystitis (Resolved) Decubitus ulcer of left buttock, stage 2 (Resolved) Decubitus ulcer of right buttock, stage 2 (Resolved) The patient is a 75 y/o F w/ PMHx: CKD stage III, Morbid Obesity, Chronic distal RLE wound following with WCC, Chronic BL LE Lymphedema, GERD, HTN, HLD, Chronic back pain with spinal stenosis and DDD who presents to the [facility] ED on 04/27/20 with history of onset more proximal inner upper right thigh redness, edema, warmth to touch and pain starting the Sunday prior to ED presentation with chills, fever, nausea associated. 1. Right lower extremity Cellulitis complicated by right lower extremity chronic wounds and chronic bilateral lower extremity lymphedema: Will admit to [facility], maintain on IV rocephin, currently no significant wound drainage but if onset would obtain wound culture and MRSA of wound, will repeat CBC in a.m., place snug [place]o wraps with bilateral lower extremity elevation, obtain duplex ultrasound of the right lower extremity given patient reported decreased activity significantly secondary to COVID precautions, continue affected extremity elevation above heart when seated and in bed, monitor erythema outline with VS checks, PRN pain regimen, PRN nausea regimen. 2. Hypokalemia: Admission K+ 3.1, magnesium level requested, supplementation given, repeat level in AM. 3. Hypertension: Continue home regimen including Lasix, losartan, metoprolol regimen with hold parameters, PRN hydralazine. 4. Hyperlipidemia: Continue home statin regimen. 5. Chronic back pain with spinal stenosis, radiculopathy: We will continue patient home gabapentin regimen, frequent position changes, fall precautions. 6. Morbid Obesity: Weight loss and lifestyle changes encouraged, nutrition consulted. 7. Chronic Kidney Disease Stage III: Admission BUN/Cr 15/1.06, baseline renal function most recently noted to be 1.4-1.6, repeat BMP in AM. 8. GERD: We will continue patient home omeprazole regimen. 9. DVT prophylaxis: SCDs, Lovenox 10. CODE status: Patient MUKUND is her and living will is currently in place. Discussed CODE status at length including difference between FULL code, DNR-CCA and DNR-CC status. Following discussions about the differences in these status, requested full CODE STATUS. Advanced Care Planning Face to Face Time: 16 minutes. Inpatient E&M: 76703 Init Hosp L3 Procedures: 47093 Advncd Care Plan 30 Min
[2020-04-28] VITALS (9 sets, daily range): BP systolic 131–159; BP diastolic 51–79; PULSE 71–86; RESP 16–19; TEMP 36.8–37.3; O2SAT 91–99; BMI 60.5
--- NOTE | 2020-04-28 01:05 | VDLE_ITS ---
Reason For Study: Pain RIGHT GSV is normal. CFV is compressible, spontaneous, phasic, competent and demonstrates normal augmentation. FV is compressible, spontaneous, phasic, competent and demonstrates normal augmentation. POP V is compressible, spontaneous, phasic, competent and demonstrates normal augmentation. T/P Trunk is compressible. PTV is compressible. RT PerV is compressible. Procedure Exam performed portable in patient room. Calf veins only visualized at proximal calf due to bandages. A preliminary report was called and/or faxed to [facility]. Interpretation Summary There is no evidence of right lower extremity deep vein thrombosis. Right great saphenous vein appears patent and compressible segmentally. Visualization of calf veins limited by dressings Ordering Physician: Alize Key Referring Physician: Darrick Vazquez Performed By: Meaghan Graham RVT
[2020-04-28 01:26] LABS: Magnesium 2.3 mg/dL (1.6-2.6)
[2020-04-28] MEDS: Enoxaparin 40 MG/0.4 ML Syringe SC ×3 (02:13→21:26)
[2020-04-28] MEDS: Nystatin Powder 15gm Bottle 1 APPLIC TOPICAL ×3 (05:32→21:26)
[2020-04-28 06:01] LABS: Absolute Lymphocyte Count 1.94 X10^3/uL (0.83-4.51); Absolute Neutrophil Count 5.9 X10^3/uL (2.0-7.7); Basophil# 0.06 X10^3/uL; Basophil% 0.6 % (0-1); Eosinophils% 6.3 % (0-5); Hematocrit 35.8 % (37-47); Hemoglobin 11.7 g/dL (12.0-15.0); Lymphocyte # 1.94 X10^3/ul (4.0); Lymphocyte % 20.5 % (19-41); Mean Corp Hgb Conc 32.7 g/dL (32-36); Mean Corpuscular Hgb 31.6 pg (27.0-32.0); Mean Corpuscular Volume 96.8 fL (81-99); Mean Platelet Vol. 9.7 fl (6.2-12.0); Monocyte# 0.89 X10^3/uL; Monocyte% 9.4 % (0-10); NRBC Flagged by Analyzer 0 % (0-5); Neutrophil # 5.92 X10^3/uL (2.7-7.7); Neutrophil % 62.6 % (47-70); Platelet Count 253 K/mm3 (150-450); RBC Distribution Width CV 13.2 % (11.6-14.6); RBC Distribution Width SD 47.3 fl (35.1-43.9); White Blood Count 9.5 K/mm3 (4.4-11.0)
[2020-04-28 06:49] LABS: ALB/GLOB Ratio 0.7 RATIO (0.9-2.4); AST(SGOT) 27 U/L (15-37); Alanine Aminotransfer ALT/SGPT 22 U/L (13-56); Albumin, Serum 2.8 g/dL (3.2-5.0); Alkaline Phosphatase 51 U/L (45-117); Anion Gap 8 (5-15); BUN 13 mg/dL (7-18); BUN/Creat Ratio 16.7 RATIO (10-20); Calcium,Total 8.4 mg/dL (8.5-10.1); Chloride 102 mmol/L (98-107); Creatinine, Serum 0.78 mg/dL (0.55-1.02); EST Glomerular Filtration Rate 77 mL/min (>60); Est Glom Filt Rate - Afr Amer 93 mL/min (>60); Estimated Creatinine Clearance 38.44 ml/min; Globulin 3.8 g/dL (2.2-4.2); Glucose 88 mg/dL (74-106); Potassium 3.2 mmol/L (3.5-5.1); Protein, Total 6.6 g/dL (6.4-8.2); Sodium Level 138 mmol/L (136-145)
[2020-04-28] MEDS: Aspirin 81 MG TAB.CHEW PO (07:49)
--- NOTE | 2020-04-28 08:19 | PCM.PN.HOSP ---
Patient Problems: Active and Suspected Problems (Last Reviewed 03/05/20 @ 13:[address] Jayson Castañeda MD) Cellulitis of right lower extremity (Acute) Reason for Visit: Patient admitted with right leg cellulitis with right medial lower leg ulcer for 8 months. Bilateral lower extremity lymphedema. No fever or chills. Physical exam General: Alert, Oriented x3, Cooperative HEENT: Atraumatic, PERRLA, EOMI, Normocephalic Oral: No Gingival or Mucosal Lesions/ Ulcerations Neck: Supple, No JVD, Negative Carotid Bruits Lungs: Air entry diminished in bilateral lung bases. No crepitation/rhonchi Cardiovascular: Regular rate, Regular Rhythm, Normal S1, Normal S2, Pansystolic murmur over left lower sternal border Abdomen: Bowel Sounds Present, Soft, Non Tender, Non-Distended : No renal angle tenderness. No suprapubic tenderness. Extremities: Bilateral lower extremity lymphedema, chronic in nature. Capillary Refill Less than 3 Seconds Skin: Superficial 3 ulceration posterior medial leg. Compression bandage applied. Erythema, swelling and tenderness present, right mid thigh, improving. Musculoskeletal: No Tenderness to Palpation of Joints or Extremities. Range of motion at knee and ankle severely limited. Right foot Charcot joint. Neurological: Cranial nerves II-XII grossly intact, Deep Tendon Reflexes 2+/4 and Symmetrical, Neuro grossly intact Psych/Mental Status: Normal Affect, Appropriate. Vitals/I&O's: Vital Signs Temp Pulse Resp BP Pulse Ox 98.7 F 75 18 133/72 H 91 04/28/20 05:38 04/28/20 05:38 04/28/20 05:38 04/28/20 05:38 04/28/20 06:52 Oxygen Delivery Method Room Air Weight: 330 lb 14.621 oz Body Mass Index (BMI) 60.5 Intake and Output for Last 24 Hours 04/26/20 04/27/20 04/28/20 23:59 23:59 23:59 Intake Total 50 / 50 250 / 250 Output Total 100 / 100 Balance 50 / 50 150 / 150 Laboratory Results 04/27/20 20:40: WBC 10.8, RBC 3.89 L, Hgb 12.5, Hct 37.9, MCV 97.4, MCH 32.1 H, MCHC 33.0, RDW Std Deviation 47.5 H, RDW Coeff of Joel 13.2, Plt Count 264, MPV 9.6, Immature Gran % (Auto) 0.600, Neut % (Auto) 62.7, Lymph % (Auto) 23.4, [place] % (Auto) 9.4, Eos % (Auto) 3.3, Baso % (Auto) 0.6, Absolute Neuts (auto) 6.8, Absolute Lymphs (auto) 2.54, Nucleated RBC % 0 04/27/20 20:40: Sodium 138, Potassium 3.1 L, Chloride 103, Carbon Dioxide 28.0, Anion Gap 7, BUN 15, Creatinine 1.06 H, Estim Creat Clear Calc 36.27, Est GFR (MDRD) Af Amer 65, Est GFR (MDRD) Non-Af 54 L, BUN/Creatinine Ratio 14.2, Glucose 101, Calcium 8.8, Total Bilirubin 0.90, AST 30, ALT 19, Alkaline Phosphatase 55, Total Protein 7.4, Albumin 3.4, Globulin 4.0, Albumin/Globulin Ratio 0.8 L 04/27/20 20:40: Lactic Acid 1.4 04/27/20 20:40: Magnesium 2.3 04/28/20 05:29: WBC 9.5, RBC 3.70 L, Hgb 11.7 L, Hct 35.8 L, MCV 96.8, MCH 31.6, MCHC 32.7, RDW Std Deviation 47.3 H, RDW Coeff of Joel 13.2, Plt Count 253, MPV 9.7, Immature Gran % (Auto) 0.600, Neut % (Auto) 62.6, Lymph % (Auto) 20.5, [place] % (Auto) 9.4, Eos % (Auto) 6.3 H, Baso % (Auto) 0.6, Absolute Neuts (auto) 5.9, Absolute Lymphs (auto) 1.94, Nucleated RBC % 0 04/28/20 05:29: Sodium 138, Potassium 3.2 L, Chloride 102, Carbon Dioxide 28.0, Anion Gap 8, BUN 13, Creatinine 0.78, Estim Creat Clear Calc 38.44, Est GFR (MDRD) Af Amer 93, Est GFR (MDRD) Non-Af 77, BUN/Creatinine Ratio 16.7, Glucose 88, Calcium 8.4 L, Total Bilirubin 0.60, AST 27, ALT 22, Alkaline Phosphatase 51, Total Protein 6.6, Albumin 2.8 L, Globulin 3.8, Albumin/Globulin Ratio 0.7 L Current Medications Acetaminophen (Tylenol) 650 mg PO Q6H PRN PRN PRN Reason: Pain Score 1-10/Temp > 100.7 F Al Hydroxide/Mg Hydroxide (Mylanta Ii) 30 ml PO Q6H PRN PRN PRN Reason: Gastric Burning Albuterol Sulfate (Ventolin Aerosols) 2.5 mg INHALATION Q2H PRN PRN PRN Reason: Dyspnea, wheezing Aspirin (Aspirin, Baby) 81 mg PO DAILY@0800 [facility] Last Admin: 04/28/20 07:49 Dose: 81 mg Documented by: Atorvastatin Calcium (Lipitor) 10 mg PO QHS [facility] Enoxaparin Sodium (Lovenox) 40 mg SC BID [facility] Last Admin: 04/28/20 02:13 Dose: 40 mg Documented by: Furosemide (Lasix) 60 mg PO BIDLX [facility] Gabapentin (Neurontin) 300 mg PO 4X/DAY [facility] Guaifenesin (Robitussin) 20 ml PO Q4H PRN PRN PRN Reason: COUGH Hydralazine HCl (Apresoline Iv) 10 mg IV Q4H PRN PRN PRN Reason: SBP > 160 Ceftriaxone Sodium (Rocephin) 1 gm in 50 mls @ 100 mls/hr IV Q24@2200 [facility] Sodium Chloride () 250 mls @ 15 mls/hr IV .[id number] PRN PRN Reason: Saline Flush Sodium Chloride () 250 mls @ 15 mls/hr IV .[id number] PRN PRN Reason: Additional IVPB Infusion Losartan Potassium (Cozaar) 75 mg PO DAILY [facility] Magnesium Hydroxide (Milk Of Magnesia) 30 ml PO DAILY PRN PRN PRN Reason: Constipation Melatonin (Melatonin) 3 mg PO QHS PRN PRN PRN Reason: INSOMNIA Metoprolol Tartrate (Lopressor (Beta Agnes)) 50 mg PO BID [facility] Morphine Sulfate () 2 mg IV Q3H PRN PRN PRN Reason: Pain Score 6-10/10 Nitroglycerin (Nitrostat) 0.4 mg SUBLINGUAL Q5M PRN PRN Reason: CARDIAC/CHEST PAIN Nystatin (Mycostatin Powder) 1 applic TOPICAL TID [facility]; Protocol Last Admin: 04/28/20 05:32 Dose: 1 applicatio Documented by: Ondansetron HCl (Zofran) 4 mg IV Q8H PRN PRN PRN Reason: NAUSEA/VOMITING Oxycodone HCl (Oxyir) 5 mg PO Q4H PRN PRN PRN Reason: Pain Score 4-5/10 Pantoprazole Sodium (Protonix) 20 mg PO DAILY [facility] Potassium Chloride (K-Dur) 20 meq PO DAILY [facility] Last Admin: 04/28/20 07:49 Dose: 20 meq Documented by: Prochlorperazine Edisylate (Compazine Iv) 5 mg IV Q4H PRN PRN PRN Reason: Breakthrough nausea/vomiting Psyllium Hydrophilic Mucilloid (Metamucil) 1 packet PO DAILY PRN PRN PRN Reason: Constipation Senna/Docusate Sodium (Senokot-S, Fidelia-Colace) 2 tablet PO BID PRN PRN PRN Reason: Constipation Sodium Chloride () 10 - 40 ml IV UD PRN PRN Reason: SALINE FLUSH Throat Lozenges (Cepacol Sore Throat Lozenge) 1 lozenge MUCOUS MEM Q2H PRN PRN PRN Reason: SORE THROAT STROKE Vital Signs/Narrative: Vital Signs Temp Pulse Resp BP Pulse Ox 04/28/20 06:52 91 04/28/20 05:38 98.7 F 75 18 133/72 H 92 Medical Necessity - Tobacco Use Smoking Status: Never smoker Tobacco Use: Non-smoker Assessment/Plan All Active Problems (Last Reviewed 03/05/20 @ 13:[address] Jayson Castañeda MD) Cellulitis of right lower extremity (Acute) Pulmonary hypertension (Acute) Cellulitis (Acute) Lower extremity weakness (Acute) Acute cystitis (Resolved) Decubitus ulcer of left buttock, stage 2 (Resolved) Decubitus ulcer of right buttock, stage 2 (Resolved) The patient is a 75 y/o F WITH HISTORY OF CKD stage III, Morbid Obesity, Chronic distal RLE ulcer, Chronic BL LE Lymphedema, GERD, HTN, HLD, Chronic back pain with spinal stenosis and DDD who presents to the [facility] ED on 04/27/20 with history of onset more proximal inner upper right thigh redness, edema, warmth to touch and pain starting the Sunday prior to ED presentation with chills, fever, nausea associated. 1. Right lower extremity Cellulitis complicated by right lower extremity chronic, superficial ulcer seems venous ulcer and chronic bilateral lower extremity lymphedema: Patient is admitted on MedSurg. On IV ceftriaxone. Core Driller Helper Dr. Yun called.. Bedside debridement of nonviable tissue. No drainage. Dressing with Aquacel and compression. MRI of right ankle to evaluate for any abscess. No evidence of right lower extremity DVT. Right great saphenous vein appears patent and compressible. Bilateral lower extremity elevation 2. Hypokalemia: Admission K+ 3.1, magnesium and phosphorus level normal. Continue potassium replacement. 3. Hypertension: Continue home regimen including Lasix, losartan, metoprolol regimen with hold parameters, PRN hydralazine. 4. Hyperlipidemia: Continue home statin regimen. 5. Chronic back pain with spinal stenosis, radiculopathy: continue patient home gabapentin regimen, frequent position changes, fall precautions. 6. Morbid Obesity: Weight loss and lifestyle changes encouraged, reading recovery teacher consulted. 7. Chronic Kidney Disease Stage III: Admission BUN/Cr 15/1.06, baseline renal function most recently noted to be 1.4-1.6, repeat BMP shows BUN/creatinine normal range. 8. GERD: continue patient home omeprazole regimen. 9. DVT prophylaxis: Pati Seay Inpatient E&M: 32841 Subs Hosp L2
[2020-04-28 08:50] LABS: Phosphorus 3.3 mg/dL (2.5-4.9)
[2020-04-28] MEDS: Metoprolol Tartrate 50 MG Tablet PO ×2 (10:36→21:27)
[2020-04-28] MEDS: Losartan Potassium 25 MG Tablet 75 MG PO (10:36)
[2020-04-28] MEDS: Gabapentin 300 MG Capsule PO ×4 (10:36→21:27)
[2020-04-28] MEDS: Furosemide 20 MG Tablet 60 MG PO ×2 (10:36→17:45)
[2020-04-28] MEDS: Pantoprazole Sodium 20 MG Tablet PO (10:36)
--- NOTE | 2020-04-28 11:35 | CASEMGMT ---
RN SUDEEP Face to Face with patient for initial transition planning/care coordination assessment. RN CM introduced self and role at [facility]. Patient lying in bed, alert and oriented. Patient willing to participate in assessment and is able to answer all questions appropriately. Care providers, pharmacy, and demographics verified. Patient wishes to discharge home, denies need for home health at this time. Patient states she has no further needs or concerns at this time. CM to follow for discharge planning needs that may arise. PCP: [facility] Specialists: [place], Podiatry; Basali, pain [facility] Benefit: yes Living Will/HPOA: yes, Ed [place] LNOK: Living Arrangements: Patient lives with in a 1st floor apartment. Patient states she is independent at home. assists with dressing changes. Transportation: DME/HHC: Patient states that she has shower chair, raised toilet, cane, walker, and grab bars. Patient denies previous HHC, has been to [facility] in the past Disposition Plan: Patient to discharge home with family support and follow-up plans in place. Meaghan PHILIP, RN, CM
--- NOTE | 2020-04-28 12:44 | NURSING ---
dr obrien was in and cleaned/assessed/redressed rt lower ext. pictures taken w/oncology camera for chart.
--- NOTE | 2020-04-28 13:03 | CON.PCM_ITS ---
Reason for Consult Date of Consultation: 04/28/20 Reason for Consultation: cellulitis of right leg History of Present Illness: The patient is a 75 year old F with history of lymphadema who has superficial ulceration treated with aquacel and compression by Gretel Kirkland, PHD, PHYSICAL THERAPY NURSE at [facility]. patient apparently has ulceration that has been present as a result of a blister sustained around 2018. she has had on/off episodes of cellulitis. patient states that over the weekend, she noticed her right leg getting more swollen, red and warm. she contacted her pcp, Dr. Darrick Ohara who is not in the office so she presented to the ED and was subsequently admitted. patient reports mild pain to right calf. duplex doppler is pending. Past Medical History Past Medical History (Chronic Problems): Chronic Problems (Last Reviewed 03/05/20 @ 13:[address] Jayson Castañeda MD) Neuropathy (Chronic) GERD (gastroesophageal reflux disease) (Chronic) Morbid obesity (Chronic) Lymphedema (Chronic) Essential hypertension (Chronic) Debility (Chronic) Frequent falls (Chronic) HLD (hyperlipidemia) (Chronic) Medical History: Medical History (Last Reviewed 03/05/20 @ 13:[address] Jayson Castañeda MD) Cellulitis (Acute) L03.90 Lymphedema (Chronic) I89.0 Essential hypertension (Chronic) I10 Debility (Chronic) R53.81 Lower extremity weakness (Acute) R29.898 Frequent falls (Chronic) R29.6 HLD (hyperlipidemia) (Chronic) E78.5 DDD (degenerative disc disease), lumbar M51.36 GERD (gastroesophageal reflux disease) K21.9 Morbid obesity with BMI of 40.0-44.9, adult E66.01, Z68.41 Spinal stenosis M48.00 Venous stasis ulcers I83.009, L97.909 Acute cystitis (Resolved) N30.00 Acute kidney injury N17.9 Anemia D64.9 Decubitus ulcer of left buttock, stage 2 (Resolved) L89.322 Decubitus ulcer of right buttock, stage 2 (Resolved) L89.312 Allergies ciprofloxacin [From Cipro] Allergy (Severe, Verified 04/27/20 18:35) unk adhesive tape Allergy (Intermediate, Verified 08/11/20 18:35) Rash celecoxib [From Celebrex] Allergy (Verified 04/27/20 18:35) Other funny feeling in throat formaldehyde Allergy (Verified 04/27/20 18:35) Other formaldehyde in plastic gloves causes swelling and cracking in hands ketorolac [From Toradol] Adverse Reaction (Verified 04/27/20 18:35) Upset Stomach Home Medications: Ambulatory Orders Medication Instructions Recorded Aspirin [Aspirin, Baby] 81 mg PO DAILY@0800 07/19/18 Lovastatin [Mevacor] 40 mg PO BID 07/19/18 Multivitamin [Multiple Vitamins] 1 ea PO DAILY 07/19/18 Cholecalciferol (VIT D3) [Vitamin 1,000 unit PO DAILY 11/21/18 D3] Omeprazole 20 mg PO DAILY 11/21/18 Selenium 100 mcg PO DAILY 11/21/18 folic acid 400 mcg tablet 0.4 mg PO DAILY 02/24/20 furosemide 20 mg tablet 60 mg PO BID tab 02/24/20 gabapentin 300 mg capsule 300 mg PO 4X/DAY cap 02/24/20 krill 1 cap PO DAILY 02/24/20 [id number] 300 mg-90 mg-24 mg-50 mg capsule losartan 50 mg tablet 75 mg PO DAILY tab 02/24/20 omega-3 fatty acids-vitamin E 1,000 mg PO DAILY cap 02/24/20 1,000 mg capsule potassium chloride 10 mEq 20 meq PO DAILY tab 02/24/20 tablet,extended release(part/cryst) metoprolol tartrate 100 mg tablet 50 mg PO BID tab 03/05/20 Surgical History: Surgical History (Last Reviewed 03/05/20 @ 13:[address] Jayson Castañeda MD) H/O laminectomy Z98.890 2014 in [place] repair of site 2015 History of Achilles tendon repair Z98.890 History of section Z98.891 x3 History of foot surgery Z98.890 heel spurs History of hysterectomy Z90.710 History of total bilateral knee replacement Z96.653 Surgical History: - - Lumbar laminectomy, bilateral total knee replacement, C- section x3, hysterectomy with possible appendectomy concurrently, several numerous bilateral foot surgeries, tonsillectomy, cholecystectomy. 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 Jayson Castañeda MD) Father CAD (coronary artery disease) Myocardial infarction Sister Breast cancer History Items: - - Patient notes a maternal family history of cancer, unclear specific type but when she was younger. Paternal Family History: Family History (Last Reviewed 03/05/20 @ 13:[address] Jayson Castañeda MD) Father CAD (coronary artery disease) Myocardial infarction Sister Breast cancer History Items: Heart Disease Patient Problems: Active and Suspected Problems (Last Reviewed 03/05/20 @ 13:[address] Jayson Castañeda MD) Cellulitis of right lower extremity (Acute) Objective: patient is alert and orientated x 3 vascular: DP and PT pulses are faint due to swelling in b/l legs. there is swelling in b/l lower extremity R>L. there is + tenderness to palpation of right posterior medial calf. there is erythema present to right entire leg but the redness does improve slightly with elevation. Derm: there are three superficial ulcerations to right posterior medial leg. the most anterior ulceration measures 1.5 cm x 0.7 cm. Just posterior to this ulceration is a superfifical ulceration that measures 0.5 cm x 2.0 cm. Lastly, there is a posterior wound that measures 3 mm in diameter. Each wound presents with mixture of eschar and granulation tissue. there is no purulence. I do not detect any fluctuance on physical exam. there is no deep subcutaneous tissue exposed. m/s: there is severe swelling of b/l lower extremity R>L. 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 - Physical Exam Vitals/I&O's: Vital Signs Temp Pulse Resp BP Pulse Ox 98.3 F 79 16 133/62 H 93 04/28/20 10:30 04/28/20 10:36 04/28/20 10:30 04/28/20 10:30 04/28/20 10:30 Oxygen Delivery Method Room Air Weight: 150.1 kg Body Mass Index (BMI) 60.5 Intake and Output for Last 24 Hours 04/26/20 04/27/20 04/28/20 23:59 23:59 23:59 Intake Total 50 / 50 250 / 250 Output Total 100 / 100 Balance 50 / 50 150 / 150 Laboratory Results 04/27/20 20:40: WBC 10.8, RBC 3.89 L, Hgb 12.5, Hct 37.9, MCV 97.4, MCH 32.1 H, MCHC 33.0, RDW Std Deviation 47.5 H, RDW Coeff of Joel 13.2, Plt Count 264, MPV 9.6, Immature Gran % (Auto) 0.600, Neut % (Auto) 62.7, Lymph % (Auto) 23.4, [place] % (Auto) 9.4, Eos % (Auto) 3.3, Baso % (Auto) 0.6, Absolute Neuts (auto) 6.8, Absolute Lymphs (auto) 2.54, Nucleated RBC % 0 04/27/20 20:40: Sodium 138, Potassium 3.1 L, Chloride 103, Carbon Dioxide 28.0, Anion Gap 7, BUN 15, Creatinine 1.06 H, Estim Creat Clear Calc 36.27, Est GFR (MDRD) Af Amer 65, Est GFR (MDRD) Non-Af 54 L, BUN/Creatinine Ratio 14.2, Glucose 101, Calcium 8.8, Total Bilirubin 0.90, AST 30, ALT 19, Alkaline Phosphatase 55, Total Protein 7.4, Albumin 3.4, Globulin 4.0, Albumin/Globulin Ratio 0.8 L 04/27/20 20:40: Lactic Acid 1.4 04/27/20 20:40: Magnesium 2.3 04/28/20 05:29: WBC 9.5, RBC 3.70 L, Hgb 11.7 L, Hct 35.8 L, MCV 96.8, MCH 31.6, MCHC 32.7, RDW Std Deviation 47.3 H, RDW Coeff of Joel 13.2, Plt Count 253, MPV 9.7, Immature Gran % (Auto) 0.600, Neut % (Auto) 62.6, Lymph % (Auto) 20.5, [place] % (Auto) 9.4, Eos % (Auto) 6.3 H, Baso % (Auto) 0.6, Absolute Neuts (auto) 5.9, Absolute Lymphs (auto) 1.94, Nucleated RBC % 0 04/28/20 05:29: Sodium 138, Potassium 3.2 L, Chloride 102, Carbon Dioxide 28.0, Anion Gap 8, BUN 13, Creatinine 0.78, Estim Creat Clear Calc 38.44, Est GFR (MDRD) Af Amer 93, Est GFR (MDRD) Non-Af 77, BUN/Creatinine Ratio 16.7, Glucose 88, Calcium 8.4 L, Total Bilirubin 0.60, AST 27, ALT 22, Alkaline Phosphatase 51, Total Protein 6.6, Albumin 2.8 L, Globulin 3.8, Albumin/Globulin Ratio 0.7 L 04/28/20 05:29: Phosphorus 3.3 Current Medications Acetaminophen (Tylenol) 650 mg PO Q6H PRN PRN PRN Reason: Pain Score 1-10/Temp > 100.7 F Al Hydroxide/Mg Hydroxide (Mylanta Ii) 30 ml PO Q6H PRN PRN PRN Reason: Gastric Burning Albuterol Sulfate (Ventolin Aerosols) 2.5 mg INHALATION Q2H PRN PRN PRN Reason: Dyspnea, wheezing Aspirin (Aspirin, Baby) 81 mg PO DAILY@0800 [facility] Last Admin: 04/28/20 07:49 Dose: 81 mg Documented by: Atorvastatin Calcium (Lipitor) 10 mg PO QHS [facility] Enoxaparin Sodium (Lovenox) 40 mg SC BID [facility] Last Admin: 04/28/20 10:37 Dose: 40 mg Documented by: Furosemide (Lasix) 60 mg PO BIDLX [facility] Last Admin: 04/28/20 10:36 Dose: 60 mg Documented by: Gabapentin (Neurontin) 300 mg PO 4X/DAY [facility] Last Admin: 04/28/20 10:36 Dose: 300 mg Documented by: Guaifenesin (Robitussin) 20 ml PO Q4H PRN PRN PRN Reason: COUGH Hydralazine HCl (Apresoline Iv) 10 mg IV Q4H PRN PRN PRN Reason: SBP > 160 Ceftriaxone Sodium (Rocephin) 1 gm in 50 mls @ 100 mls/hr IV Q24@2200 [facility] Sodium Chloride () 250 mls @ 15 mls/hr IV .[id number] PRN PRN Reason: Saline Flush Sodium Chloride () 250 mls @ 15 mls/hr IV .[id number] PRN PRN Reason: Additional IVPB Infusion Losartan Potassium (Cozaar) 75 mg PO DAILY [facility] Last Admin: 04/28/20 10:36 Dose: 75 mg Documented by: Magnesium Hydroxide (Milk Of Magnesia) 30 ml PO DAILY PRN PRN PRN Reason: Constipation Melatonin (Melatonin) 3 mg PO QHS PRN PRN PRN Reason: INSOMNIA Metoprolol Tartrate (Lopressor (Beta Agnes)) 50 mg PO BID [facility] Last Admin: 04/28/20 10:36 Dose: 50 mg Documented by: Morphine Sulfate () 2 mg IV Q3H PRN PRN PRN Reason: Pain Score 6-10/10 Nitroglycerin (Nitrostat) 0.4 mg SUBLINGUAL Q5M PRN PRN Reason: CARDIAC/CHEST PAIN Nystatin (Mycostatin Powder) 1 applic TOPICAL TID [facility]; Protocol Last Admin: 04/28/20 05:32 Dose: 1 applicatio Documented by: Ondansetron HCl (Zofran) 4 mg IV Q8H PRN PRN PRN Reason: NAUSEA/VOMITING Oxycodone HCl (Oxyir) 5 mg PO Q4H PRN PRN PRN Reason: Pain Score 4-5/10 Pantoprazole Sodium (Protonix) 20 mg PO DAILY [facility] Last Admin: 04/28/20 10:36 Dose: 20 mg Documented by: Potassium Chloride ([facility]Dur) [facility] Prochlorperazine Edisylate (Compazine Iv) 5 mg IV Q4H PRN PRN PRN Reason: Breakthrough nausea/vomiting Psyllium Hydrophilic Mucilloid (Metamucil) 1 packet PO DAILY PRN PRN PRN Reason: Constipation Senna/Docusate Sodium (Senokot-S, Fidelia-Colace) 2 tablet PO BID PRN PRN PRN Reason: Constipation Sodium Chloride () 10 - 40 ml IV UD PRN PRN Reason: SALINE FLUSH Throat Lozenges (Cepacol Sore Throat Lozenge) 1 lozenge MUCOUS MEM Q2H PRN PRN PRN Reason: SORE THROAT Assessment/Plan All Active Problems (Last Reviewed 03/05/20 @ 13:[address] Jayson Castañeda MD) Cellulitis of right lower extremity (Acute) Pulmonary hypertension (Acute) Cellulitis (Acute) Lower extremity weakness (Acute) Acute cystitis (Resolved) Decubitus ulcer of left buttock, stage 2 (Resolved) Decubitus ulcer of right buttock, stage 2 (Resolved) patient was examined and informed of current findings. on exam, she does have cellulitis of the entire leg. this cellulitis appears to be improving based on prior outline set when patient presented to the ed. I would continue with antibiotic. She does have three superficial ulcerations to the posterior medial leg. these wounds were debrided of nonviable tissue with tissue nippers. there is no drainage present to the ulceration . There is nothing to culture. I am going to treat with aquacel and compression. these wounds have been present in some capacity since july 2019. she does have cellulitis. While I have low suspicion for deep abscess, I am going to recommend getting mri of right ankle to evaluate for any abscess. if no abscess, will plan for continued wound care and compression. compression is critical to reduce swelling and aide in healing of ulceration. biopsy of wound could be of benefit but this does pose risk to patient given severe swelling. will wait on biopsy and can always be done as outpatient Patient would benefit from cardiac work-up. I feel that her swelling of right leg is detrimental to healing of these ulcerations.
--- NOTE | 2020-04-28 13:44 | MRI_ITS ---
STUDY: MRI RIGHT ANKLE WITH AND WITHOUT CONTRAST REASON FOR EXAM: Female, 75 years old. rt ankle cellulitis -- bandaid removed from inside rt ankle last fall , still has swelling, redness pain, charcot foot TECHNIQUE: Standarized fat and water weighted pulse sequences were obtained in all 3 orthogonal plane pre and post intravenous administration of dotarem iv 30 ml. COMPARISON: None. FINDINGS: There is subcutaneous edema with skin thickening and enhancement of the medial more than the lateral aspects. No fluid collection. There is marrow edema and enhancement of the distal fibula extending to the lateral malleolus, series 9 image 16/32. There is edema with cystic change and enhancement of the talus and calcaneus at the subtalar joint. There is marrow edema and enhancement of the medial aspect of the navicular, series 4 image 11/26. Normal posterior tibialis tendon. Normal flexor digitorum longus tendon. Normal flexor hallucis longus tendon. There is a tenosynovitis of the peroneal tendons without a demonstrated tendon tear. Normal tibialis anterior tendon. Normal extensor hallucis longus tendon. Normal extensor digitorum longus tendons. Tendinosis of the distal Achilles with thickening and numerous calcifications in the distal tendon. Normal plantar fascia. Normal plantar calcaneal tubercles. Normal intrinsic muscles of the rearfoot. Normal distal tibiofibular syndesmotic ligamentous complex. There is interstitial edema with periligamentous edema and thinning of the anterior and posterior talofibular ligaments of the lateral collateral ligamentous complex consistent with a partial lateral ankle sprain. Normal deltoid ligamentous complexes. Spurring and joint effusion of the tibiotalar articulation. Normal talar dome. There is a joint effusion of the posterior subtalar articulation with capsular distension. There is joint space narrowing and spurring. There is moderate joint space narrowing and spurring and effusion of the talonavicular articulation. Normal calcaneocuboid articulation. Normal navicular-cuneiform articulations. MRI/Lower Ext Joint Only W/WO Cont IMPRESSION: Soft tissue swelling. No abscess or fluid collection. Arthritic changes of the ankle and foot. Edema and enhancement of the navicular with osteomyelitis versus arthropathy. Edema and enhancement of the distal fibula and talus and calcaneus suggesting Charcot arthropathy. Tendinosis with multiple calcifications of the distal Achilles. Electronically Signed: Pablo Mendosa MD at 16:16 EDT , Service support ,
[2020-04-28] MEDS: oxyCODONE 5 MG Tablet PO (17:45)
[2020-04-28] MEDS: Atorvastatin Calcium 10 MG Tablet PO (21:27)
[2020-04-28] MEDS: Ceftriaxone 1 GM/50 ML BAG IV (21:28)
[2020-04-28] MEDS: 0.9% Saline Lock 10 ML Syringe IV (21:28)
[2020-04-28] MEDS: Acetaminophen 325 MG Tablet 650 MG PO (21:35)
[2020-04-29] MEDS: Nystatin Powder 15gm Bottle 1 APPLIC TOPICAL (05:10)
[2020-04-29 05:11] VITALS: BP 118/81; PULSE 76; RESP 18; TEMP 36.7; O2SAT 95
--- NOTE | 2020-04-29 07:19 | PCM.PN.SRG ---
Patient Problems: Active and Suspected Problems (Last Reviewed 03/05/20 @ 13:[address] Jayson Castañeda MD) Cellulitis of right lower extremity (Acute) Subjective: patient is seen this morning for follow-up right leg ulceration. patient denies n/v/f/c. patient denies any sob or chest pain. she has no pain to right leg. Objective: patient is alert and orientated x 3. she does not appear in any distress vascular: DP and PT pulses palpable to b/l lower extremity. CFT is less than 5 seconds. skin temperature is warm to warm. erythema is noted to right leg but much improved compared to yesterday. no calf pain present derm: superficial ulceration x 3 to right medial leg. scant serous drainage present but no purulence. erythema noted along periphery of ulceration but improves with elevation. no exposed tendon or bone. no deep subcutaneous exposure. There are no open sores to b/l foot. specifically, no ulceration or sore noted of right medial arch along navicular. callus present to left heel but no ulceration. m/s: there is severe swelling of right foot and ankle. there is calcaneovalgus foot type consistent with charcot neuroarthropathy. mri reviewed. There is subcutaneous edema with skin thickening and enhancement of the medial more than the lateral aspects. No fluid collection. There is marrow edema and enhancement of the distal fibula extending to the lateral malleolus, series 9 image 16/32. There is edema with cystic change and enhancement of the talus and calcaneus at the subtalar joint. There is marrow edema and enhancement of the medial aspect of the navicular, series 4 image 11/26. Normal posterior tibialis tendon. Normal flexor digitorum longus tendon. Normal flexor hallucis longus tendon. There is a tenosynovitis of the peroneal tendons without a demonstrated tendon tear. Normal tibialis anterior tendon. Normal extensor hallucis longus tendon. Normal extensor digitorum longus tendons. Tendinosis of the distal Achilles with thickening and numerous calcifications in the distal tendon. Normal plantar fascia. Normal plantar calcaneal tubercles. Normal intrinsic muscles of the rearfoot. Normal distal tibiofibular syndesmotic ligamentous complex. There is interstitial edema with periligamentous edema and thinning of the anterior and posterior talofibular ligaments of the lateral collateral ligamentous complex consistent with a partial lateral ankle sprain. Normal deltoid ligamentous complexes. Spurring and joint effusion of the tibiotalar articulation. Normal talar dome. There is a joint effusion of the posterior subtalar articulation with capsular distension. There is joint space narrowing and spurring. There is moderate joint space narrowing and spurring and effusion of the talonavicular articulation. Normal calcaneocuboid articulation. Normal navicular-cuneiform articulations. MRI/Lower Ext Joint Only W/WO Cont IMPRESSION: Soft tissue swelling. No abscess or fluid collection. Arthritic changes of the ankle and foot. Edema and enhancement of the navicular with osteomyelitis versus arthropathy. Edema and enhancement of the distal fibula and talus and calcaneus suggesting Charcot arthropathy. - Physical Exam Vitals/I&O's: Vital Signs Temp Pulse Resp BP Pulse Ox 98.1 F 76 18 118/81 H 95 04/29/20 05:11 04/29/20 05:11 04/29/20 05:11 04/29/20 05:11 04/29/20 05:11 Oxygen Delivery Method Room Air Weight: 150.1 kg Body Mass Index (BMI) 60.5 Intake and Output for Last 24 Hours 04/27/20 04/28/20 04/29/20 23:59 23:59 23:59 Intake Total 50 / 50 1060 / 1060 Output Total 550 / 550 Balance 50 / 50 510 / 510 Laboratory Results 04/28/20 05:29: Phosphorus 3.3 Current Medications Acetaminophen (Tylenol) 650 mg PO Q6H PRN PRN PRN Reason: Pain Score 1-10/Temp > 100.7 F Last Admin: 04/28/20 21:35 Dose: 650 mg Documented by: Al Hydroxide/Mg Hydroxide (Mylanta Ii) 30 ml PO Q6H PRN PRN PRN Reason: Gastric Burning Albuterol Sulfate (Ventolin Aerosols) 2.5 mg INHALATION Q2H PRN PRN PRN Reason: Dyspnea, wheezing Aspirin (Aspirin, Baby) 81 mg PO DAILY@0800 [facility] Last Admin: 04/28/20 07:49 Dose: 81 mg Documented by: Atorvastatin Calcium (Lipitor) 10 mg PO QHS [facility] Last Admin: 04/28/20 21:27 Dose: 10 mg Documented by: Enoxaparin Sodium (Lovenox) 40 mg SC BID [facility] Last Admin: 04/28/20 21:26 Dose: 40 mg Documented by: Furosemide (Lasix) 60 mg PO BIDLX [facility] Last Admin: 04/28/20 17:45 Dose: 60 mg Documented by: Gabapentin (Neurontin) 300 mg PO 4X/DAY [facility] Last Admin: 04/28/20 21:27 Dose: 300 mg Documented by: Guaifenesin (Robitussin) 20 ml PO Q4H PRN PRN PRN Reason: COUGH Hydralazine HCl (Apresoline Iv) 10 mg IV Q4H PRN PRN PRN Reason: SBP > 160 Ceftriaxone Sodium (Rocephin) 1 gm in 50 mls @ 100 mls/hr IV Q24@2200 [facility] Last Infusion: 04/28/20 22:05 Dose: Infused Documented by: Sodium Chloride () 250 mls @ 15 mls/hr IV .[id number] PRN PRN Reason: Saline Flush Last Infusion: 04/28/20 22:33 Dose: Infused Documented by: Sodium Chloride () 250 mls @ 15 mls/hr IV .[id number] PRN PRN Reason: Additional IVPB Infusion Losartan Potassium (Cozaar) 75 mg PO DAILY [facility] Last Admin: 04/28/20 10:36 Dose: 75 mg Documented by: Magnesium Hydroxide (Milk Of Magnesia) 30 ml PO DAILY PRN PRN PRN Reason: Constipation Melatonin (Melatonin) 3 mg PO QHS PRN PRN PRN Reason: INSOMNIA Metoprolol Tartrate (Lopressor (Beta Agnes)) 50 mg PO BID [facility] Last Admin: 04/28/20 21:27 Dose: 50 mg Documented by: Morphine Sulfate () 2 mg IV Q3H PRN PRN PRN Reason: Pain Score 6-10/10 Nitroglycerin (Nitrostat) 0.4 mg SUBLINGUAL Q5M PRN PRN Reason: CARDIAC/CHEST PAIN Nystatin (Mycostatin Powder) 1 applic TOPICAL TID [facility]; Protocol Last Admin: 04/29/20 05:10 Dose: 1 applicatio Documented by: Ondansetron HCl (Zofran) 4 mg IV Q8H PRN PRN PRN Reason: NAUSEA/VOMITING Oxycodone HCl (Oxyir) 5 mg PO Q4H PRN PRN PRN Reason: Pain Score 4-5/10 Last Admin: 04/28/20 17:45 Dose: 5 mg Documented by: Pantoprazole Sodium (Protonix) 20 mg PO DAILY [facility] Last Admin: 04/28/20 10:36 Dose: 20 mg Documented by: Potassium Chloride (K-Dur) 40 meq PO DAILYCM [facility] Prochlorperazine Edisylate (Compazine Iv) 5 mg IV Q4H PRN PRN PRN Reason: Breakthrough nausea/vomiting Psyllium Hydrophilic Mucilloid (Metamucil) 1 packet PO DAILY PRN PRN PRN Reason: Constipation Senna/Docusate Sodium (Senokot-S, Fidelia-Colace) 2 tablet PO BID PRN PRN PRN Reason: Constipation Sodium Chloride () 10 - 40 ml IV UD PRN PRN Reason: SALINE FLUSH Last Admin: 04/28/20 21:28 Dose: 10 ml Documented by: Throat Lozenges (Cepacol Sore Throat Lozenge) 1 lozenge MUCOUS MEM Q2H PRN PRN PRN Reason: SORE THROAT Medical Necessity - Tobacco Use Smoking Status: Never smoker Tobacco Use: Non-smoker Assessment/Plan All Active Problems (Last Reviewed 03/05/20 @ 13:[address] Jayson Castañeda MD) Cellulitis of right lower extremity (Acute) Pulmonary hypertension (Acute) Cellulitis (Acute) Lower extremity weakness (Acute) Acute cystitis (Resolved) Decubitus ulcer of left buttock, stage 2 (Resolved) Decubitus ulcer of right buttock, stage 2 (Resolved) patient was examined and informed of findings. on exam, the redness to right leg is improving relative to prior outlined margins. continue with antibiotics. on exam, there was slight amounts of serous drainage likely due to chronic venous insufficiency. I cultured this today to assure approrpiate antibiotics are being prescribed. I am going to continue with aquacel and compression. compression is critical in swelling reduction to aide in healing of ulcerations. I discussed home compliance with compression. I reviewed mri. mri does not show any deep abscess. there is marrow edema of the fibula, talus, calcaneus and navicular. the marrow edema seen can be seen in cases of osteomyelitis vs arthropathy. patient has no ulcerations in the region of navicular. I discussed options not limited to monitoring vs bone biopsy. I discussed r/b/a to biopsy. patient would like to hold on biopsy at this time. she does not wish to cause another wound that may risk slow healing. I suspect the finding on mri is that of charcot rather than osteomyelitis. I am going to order wound culture of right leg I will check esr/crp/cbc will continue with aquacel and compression. if cellulitis continues to improve, patient can likely discharge home on oral antibiotics with f/u in one week with me.
[2020-04-29 07:54] VITALS: BP 150/60; PULSE 77; RESP 18; TEMP 36.7; O2SAT 95
[2020-04-29] MEDS: Furosemide 20 MG Tablet 60 MG PO (07:58)
[2020-04-29] MEDS: Gabapentin 300 MG Capsule PO (07:58)
[2020-04-29] MEDS: Losartan Potassium 25 MG Tablet 75 MG PO (07:58)
[2020-04-29] MEDS: Enoxaparin 40 MG/0.4 ML Syringe SC (07:58)
[2020-04-29 07:59] VITALS: PULSE 77
[2020-04-29] MEDS: Aspirin 81 MG TAB.CHEW PO (07:59)
[2020-04-29] MEDS: Metoprolol Tartrate 50 MG Tablet PO (07:59)
[2020-04-29] MEDS: Pantoprazole Sodium 20 MG Tablet PO (07:59)
[2020-04-29 08:15] LABS: Erythrocyte Sedimentation Rate 59 mm/hr (0-30)
[2020-04-29 08:17] LABS: Absolute Lymphocyte Count 1.92 X10^3/uL (0.83-4.51); Basophil# 0.06 X10^3/uL; Basophil% 0.7 % (0-1); Eosinophil# 0.59 X10^3/uL; Eosinophils% 7.1 % (0-5); Hemoglobin 12.3 g/dL (12.0-15.0); Lymphocyte # 1.92 X10^3/ul (4.0); Lymphocyte % 23.2 % (19-41); Mean Corp Hgb Conc 32.4 g/dL (32-36); Mean Corpuscular Hgb 31.5 pg (27.0-32.0); Mean Corpuscular Volume 97.4 fL (81-99); Mean Platelet Vol. 9.6 fl (6.2-12.0); Monocyte# 0.65 X10^3/uL; Monocyte% 7.9 % (0-10); NRBC Flagged by Analyzer 0 % (0-5); Neutrophil # 5.02 X10^3/uL (2.7-7.7); Neutrophil % 60.6 % (47-70); Platelet Count 295 K/mm3 (150-450); RBC Distribution Width CV 13.3 % (11.6-14.6); RBC Distribution Width SD 47.7 fl (35.1-43.9); White Blood Count 8.3 K/mm3 (4.4-11.0)
--- NOTE | 2020-04-29 08:46 | PCM.DC ---
- Discharge Diagnoses Current Active Problems: Current Active and Chronic Problems (Last Reviewed 03/05/20 @ 13:[address] Jayson Castañeda MD) Cellulitis of right lower extremity (Acute) Neuropathy (Chronic) GERD (gastroesophageal reflux disease) (Chronic) Morbid obesity (Chronic) You will use the following diet at home:: No restrictions Your food should be the consistency of: Regular Allergies/Adverse Reactions: Allergies ciprofloxacin [From Cipro] Allergy (Severe, Verified 04/27/20 18:35) unk adhesive tape Allergy (Intermediate, Verified 04/27/20 18:35) Rash celecoxib [From Celebrex] Allergy (Verified 04/27/20 18:35) Other funny feeling in throat formaldehyde Allergy (Verified 04/27/20 18:35) Other formaldehyde in plastic gloves causes swelling and cracking in hands ketorolac [From Toradol] Adverse Reaction (Verified 04/27/20 18:35) Upset Stomach Medications to take at Discharge Aspirin [Aspirin, Baby] 81 mg PO DAILY@0800 07/19/18 Lovastatin [Mevacor] 40 mg PO BID 07/19/18 Multivitamin [Multiple Vitamins] 1 ea PO DAILY 07/19/18 Cholecalciferol (VIT D3) [Vitamin D3] 1,000 unit PO DAILY 11/21/18 Omeprazole 20 mg PO DAILY 11/21/18 Selenium 100 mcg PO DAILY 11/21/18 folic acid 400 mcg tablet 0.4 mg PO DAILY 02/24/20 furosemide 20 mg tablet 60 mg PO BID tab 02/24/20 gabapentin 300 mg capsule 300 mg PO 4X/DAY cap 02/24/20 krill [id number] 300 mg-90 mg-24 mg-50 mg capsule 1 cap PO DAILY 02/24/20 losartan 50 mg tablet 75 mg PO DAILY tab 02/24/20 omega-3 fatty acids-vitamin E 1,000 mg capsule 1,000 mg PO DAILY cap 02/24/20 potassium chloride 10 mEq tablet,extended release(part/cryst) 20 meq PO DAILY tab 02/24/20 metoprolol tartrate 100 mg tablet 50 mg PO BID tab 03/05/20 Cefdinir [Omnicef [equiv]] 300 mg PO Q12H #14 cap 04/29/20 The following prescriptions were given: Cefdinir [Omnicef [equiv]] 300 mg PO Q12H #14 cap Transmission Status: Pending to [id number] Primary Care Physician: Christofer Vazquez MD [Primary Care Provider] - Please follow up with your Primary Care Physician in: in 5-7 days Test Results: Test results from this visit will be discussed in further detail at your follow-up appointment, if applicable. Please Follow Up With: Alan Yun DPM When: in 5-7 days Proposed Discharge Date: 04/29/20
--- NOTE | 2020-04-29 08:49 | DS.PCM_ITS ---
Discharge Date and Diagnosis - Problem List Patient Problems: Active and Suspected Problems (Last Reviewed 03/05/20 @ 13:[address] Jayson Castañeda MD) Cellulitis of right lower extremity (Acute) Date of Admission: 04/27/20 Date of Discharge: 04/29/20 - Primary Discharge Diagnosis Acute Problems: Active Problems (Last Reviewed 03/05/20 @ 13:[address] Jayson Castañeda MD) Cellulitis of right lower extremity (Acute) - Secondary Discharge Diagnosis Chronic Problems: Chronic Problems (Last Reviewed 03/05/20 @ 13:[address] Jayson Castañeda MD) Neuropathy (Chronic) GERD (gastroesophageal reflux disease) (Chronic) Morbid obesity (Chronic) Lymphedema (Chronic) Essential hypertension (Chronic) Debility (Chronic) Frequent falls (Chronic) HLD (hyperlipidemia) (Chronic) Hospital Course and Treatment Consultations 04/28/20 02:06 Consult: Onc/Wound/computer forensics investigator Routine Comment: Operations: None Summary of Care Provided: The patient is a 75 year old F who comorbidities admitted with redness involving the right lower extremity 1. Cellulitis involving the right lower extremity ?Patient admitted to regular nursing floor managed with Rocephin patient did improve. Patient was also seen in consultation by podiatry 2. Chronic stasis dermatitis with superficial ulcers ?MRI performed did not demonstrate any abscesses. Patient was offered bone biopsy by podiatry she wanted to try conservative management at this point 3. Hypothyroidism -patient is on levothyroxine home dose continued 5. Hypertension -blood pressure controlled, home medications continued with dose adjustment as needed 5. Vitamin D deficiency on calcium and vitamin D supplementation 6. Hypokalemia ?Corrected per protocol 7. Morbid obesity with BMI of 60 lifestyle modification including weight loss advised 8. GERD on PPI 9. Chronic back pain ?Secondary to spinal stenosis with radiculopathy. Patient is on gabapentin did continue 6. DVT Prophylaxis ?SC Lovenox Patient Problems: Active and Suspected Problems (Last Reviewed 03/05/20 @ 13:[address] Jayson Castañeda MD) Cellulitis of right lower extremity (Acute) - Physical Exam Vitals/I&O's: Vital Signs Temp Pulse Resp BP Pulse Ox 98.0 F 77 18 150/60 H 95 04/29/20 07:54 04/29/20 07:59 04/29/20 07:54 04/29/20 07:54 04/29/20 07:54 Oxygen Delivery Method Room Air Weight: 150.1 kg Body Mass Index (BMI) 60.5 Intake and Output for Last 24 Hours 04/27/20 04/28/20 04/29/20 23:59 23:59 23:59 Intake Total 50 / 50 1060 / 1060 Output Total 550 / 550 Balance 50 / 50 510 / 510 General: Alert HEENT: Atraumatic Neck: Supple Lungs: Diminished Cardiovascular: Regular rate, Regular Rhythm Neurological: Neuro grossly intact Laboratory Results 04/28/20 05:29: Phosphorus 3.3 04/29/20 08:00: WBC 8.3, RBC 3.90 L, Hgb 12.3, Hct 38.0, MCV 97.4, MCH 31.5, MCHC 32.4, RDW Std Deviation 47.7 H, RDW Coeff of Joel 13.3, Plt Count 295, MPV 9.6, Immature Gran % (Auto) 0.500, Neut % (Auto) 60.6, Lymph % (Auto) 23.2, Fajardo % (Auto) 7.9, Eos % (Auto) 7.1 H, Baso % (Auto) 0.7, Absolute Neuts (auto) 5.0, Absolute Lymphs (auto) 1.92, Nucleated RBC % 0, ESR 59 H 04/29/20 08:00: C-React Prot High Sens 57.50 H Current Medications Acetaminophen (Tylenol) 650 mg PO Q6H PRN PRN PRN Reason: Pain Score 1-10/Temp > 100.7 F Last Admin: 04/28/20 21:35 Dose: 650 mg Documented by: Al Hydroxide/Mg Hydroxide (Mylanta Ii) 30 ml PO Q6H PRN PRN PRN Reason: Gastric Burning Albuterol Sulfate (Ventolin Aerosols) 2.5 mg INHALATION Q2H PRN PRN PRN Reason: Dyspnea, wheezing Aspirin (Aspirin, Baby) 81 mg PO DAILY@0800 [facility] Last Admin: 04/29/20 07:59 Dose: 81 mg Documented by: Atorvastatin Calcium (Lipitor) 10 mg PO QHS [facility] Last Admin: 04/28/20 21:27 Dose: 10 mg Documented by: Enoxaparin Sodium (Lovenox) 40 mg SC BID [facility] Last Admin: 04/29/20 07:58 Dose: 40 mg Documented by: Furosemide (Lasix) 60 mg PO BIDLX [facility] Last Admin: 04/29/20 07:58 Dose: 60 mg Documented by: Gabapentin (Neurontin) 300 mg PO 4X/DAY [facility] Last Admin: 04/29/20 07:58 Dose: 300 mg Documented by: Guaifenesin (Robitussin) 20 ml PO Q4H PRN PRN PRN Reason: COUGH Hydralazine HCl (Apresoline Iv) 10 mg IV Q4H PRN PRN PRN Reason: SBP > 160 Ceftriaxone Sodium (Rocephin) 1 gm in 50 mls @ 100 mls/hr IV Q24@2200 [facility] Last Infusion: 04/28/20 22:05 Dose: Infused Documented by: Sodium Chloride () 250 mls @ 15 mls/hr IV .[id number] PRN PRN Reason: Saline Flush Last Infusion: 04/28/20 22:33 Dose: Infused Documented by: Sodium Chloride () 250 mls @ 15 mls/hr IV .[id number] PRN PRN Reason: Additional IVPB Infusion Losartan Potassium (Cozaar) 75 mg PO DAILY [facility] Last Admin: 04/29/20 07:58 Dose: 75 mg Documented by: Magnesium Hydroxide (Milk Of Magnesia) 30 ml PO DAILY PRN PRN PRN Reason: Constipation Melatonin (Melatonin) 3 mg PO QHS PRN PRN PRN Reason: INSOMNIA Metoprolol Tartrate (Lopressor (Beta Agnes)) 50 mg PO BID [facility] Last Admin: 04/29/20 07:59 Dose: 50 mg Documented by: Morphine Sulfate () 2 mg IV Q3H PRN PRN PRN Reason: Pain Score 6-10/10 Nitroglycerin (Nitrostat) 0.4 mg SUBLINGUAL Q5M PRN PRN Reason: CARDIAC/CHEST PAIN Nystatin (Mycostatin Powder) 1 applic TOPICAL TID [facility]; Protocol Last Admin: 04/29/20 05:10 Dose: 1 applicatio Documented by: Ondansetron HCl (Zofran) 4 mg IV Q8H PRN PRN PRN Reason: NAUSEA/VOMITING Oxycodone HCl (Oxyir) 5 mg PO Q4H PRN PRN PRN Reason: Pain Score 4-5/10 Last Admin: 04/28/20 17:45 Dose: 5 mg Documented by: Pantoprazole Sodium (Protonix) 20 mg PO DAILY [facility] Last Admin: 04/29/20 07:59 Dose: 20 mg Documented by: Potassium Chloride (K-Dur) [facility] Last Admin: 04/29/20 08:00 Dose: 40 meq Documented by: Prochlorperazine Edisylate (Compazine Iv) 5 mg IV Q4H PRN PRN PRN Reason: Breakthrough nausea/vomiting Psyllium Hydrophilic Mucilloid (Metamucil) 1 packet PO DAILY PRN PRN PRN Reason: Constipation Senna/Docusate Sodium (Senokot-S, Fidelia-Colace) 2 tablet PO BID PRN PRN PRN Reason: Constipation Sodium Chloride () 10 - 40 ml IV UD PRN PRN Reason: SALINE FLUSH Last Admin: 04/28/20 21:28 Dose: 10 ml Documented by: Throat Lozenges (Cepacol Sore Throat Lozenge) 1 lozenge MUCOUS MEM Q2H PRN PRN PRN Reason: SORE THROAT Discharge Diet: No Restrictions Discharge Activity: Return to Normal Activity Home Medications: Medications to take at Discharge Aspirin [Aspirin, Baby] 81 mg PO DAILY@0800 07/19/18 Lovastatin [Mevacor] 40 mg PO BID 07/19/18 Multivitamin [Multiple Vitamins] 1 ea PO DAILY 07/19/18 Cholecalciferol (VIT D3) [Vitamin D3] 1,000 unit PO DAILY 11/21/18 Omeprazole 20 mg PO DAILY 11/21/18 Selenium 100 mcg PO DAILY 11/21/18 folic acid 400 mcg tablet 0.4 mg PO DAILY 02/24/20 furosemide 20 mg tablet 60 mg PO BID tab 02/24/20 gabapentin 300 mg capsule 300 mg PO 4X/DAY cap 02/24/20 krill [id number] 300 mg-90 mg-24 mg-50 mg capsule 1 cap PO DAILY 02/24/20 losartan 50 mg tablet 75 mg PO DAILY tab 02/24/20 omega-3 fatty acids-vitamin E 1,000 mg capsule 1,000 mg PO DAILY cap 02/24/20 potassium chloride 10 mEq tablet,extended release(part/cryst) 20 meq PO DAILY tab 02/24/20 metoprolol tartrate 100 mg tablet 50 mg PO BID tab 03/05/20 Cefdinir [Omnicef [equiv]] 300 mg PO Q12H #14 cap 04/29/20 Following Prescriptions Were Given to Patient: Cefdinir [Omnicef [equiv]] 300 mg PO Q12H #14 cap Transmission Status: Received by [id number] Primary Care Physician: Christofer Vazquez MD [Primary Care Provider] - Please follow up with your Primary Care Physician in: in 5-7 days Please Follow Up With: Alan Yun DPM When: in 5-7 days Disposition: Home Minutes spent on discharge:: 35 Patient Condition:: Stable Medical Necessity - Tobacco Use Smoking Status: Never smoker Tobacco Use: Non-smoker Meaningful Use Info Meaningful Use Diagnoses (Choose all that apply): None applicable Inpatient E&M: 16836 Disch Hosp
--- NOTE | 2020-04-29 11:04 | PHA.DC.COU ---
Pharmacy Services has performed discharge medication counseling for this patient. The patient was counseled on the following discharge medications and changes in medications for homegoing review. The Reason for Use, instructions for use, and potential side effects were reviewed for all new medications. The patient's questions regarding all of their medications were answered. The patient was able to verbally demonstrate an understanding of their discharge medications. The patient demonstrated some understanding but would benefit from further education and reinforcement. The patient was not able to adequately demonstrate understanding.
== END 2020-04-29 11:28 | disposition home or self-care (01) | DRG 603 ==
LOC: ED 22:20 → MS3 04-28 03:04
PROVIDERS: Internal Medicine; Podiatrist Foot & Ankle Surgery; Admitting Provider Family Medicine; Emergency Provider Emergency Medicine; PCP Family Medicine; Visit Provider Internal Medicine
DX: L03.115 Cellulitis of right lower limb (principal); Z68.43 Body mass index [BMI] 50.0-59.9, adult; L97.811 Non-pressure chronic ulcer of other part of right lower leg limited to breakdown of skin; G62.9 Polyneuropathy, unspecified; K21.9 Gastro-esophageal reflux disease without esophagitis; E66.01 Morbid (severe) obesity due to excess calories; E78.5 Hyperlipidemia, unspecified; I12.9 Hypertensive chronic kidney disease with stage 1 through stage 4 chronic kidney disease, or unspecified chronic kidney disease; N18.3 Chronic kidney disease, stage 3 (moderate); Z79.899 Other long term (current) drug therapy; E87.6 Hypokalemia; M48.00 Spinal stenosis, site unspecified; M54.10 Radiculopathy, site unspecified; I89.0 Lymphedema, not elsewhere classified; I87.2 Venous insufficiency (chronic) (peripheral); E03.9 Hypothyroidism, unspecified; E55.9 Vitamin D deficiency, unspecified
CPT/HCPCS: 36415; 73723; 80053; 83605; 83735; 84100; 85025; 85652; 86141; 87040; 87070; 87075; 87077; 87186; 87205; 93971; 97802; 99283; A9575; J7050; A4216

== ENCOUNTER → 2020-07-28 10:59 | Outpatient (CLI) | payer MEDICARE, OTHER, SELFPAY ==
[2020-04-28 01:13] VITALS: BMI 60.5
--- NOTE | 2020-07-28 11:02 | RAD_ITS ---
STUDY: X-RAY - LUMBAR SPINE REASON FOR EXAM: Female, 75 years old. LOWER BACK PAIN. TECHNIQUE: 4 view(s) of the lumbar spine were obtained. COMPARISON: None FINDINGS: Diminished lumbar lordosis. There is a dextroscoliosis with apex at L3-4. Status post laminectomy from L3 through L5. Degenerative changes of the vertebral bodies with prominent spurring at the lower lumbar endplates. Narrowed disc space heights. Vacuum phenomena at L3-4 The soft tissue structures are unremarkable. Calcified aorta. RAD/Lumbar Spine 2 or 3 Views IMPRESSION: Degenerative and postsurgical changes as noted of the lumbar spine. Scoliosis. Electronically Signed: Kapil Wild DO at 17:32 EST Tel [phone], Service support ,
== END ==
PROVIDERS: PCP Family Medicine; Referring Provider Anesthesiology Pain Medicine; Visit Provider Anesthesiology Pain Medicine
DX: M54.5 Low back pain (principal)
CPT/HCPCS: 72100

== ENCOUNTER 2020-10-15 10:44 | Outpatient (RCR) | payer MEDICARE, OTHER, SELFPAY ==
[2020-04-28 01:13] VITALS: BMI 60.5
== END 2020-10-15 23:59 ==
LOC: IMMUN 10:44
PROVIDERS: PCP Family Medicine; Referring Provider Family Medicine; Visit Provider Family Medicine
DX: Z23 Encounter for immunization (principal)
CPT/HCPCS: 0011A; 0012A; 91301

== ENCOUNTER 2020-12-08 16:16 | Inpatient (IN) | payer MEDICARE, OTHER, SELFPAY ==
[2020-04-28 01:13] VITALS: BMI 60.5
[2020-12-08 16:21] VITALS: BP 139/113; PULSE 77; PULSE 89; RESP 18; TEMP 37.2; O2SAT 94; O2SAT 95; BMI 60.1
--- NOTE | 2020-12-08 16:33 | EKG12_ITS ---
Test Reason : WEAKNESS Blood Pressure : / mmHG Vent. Rate : 077 BPM Atrial Rate : 077 BPM P-R Int : 216 ms QRS Dur : 086 ms QT Int : 372 ms P-R-T Axes : 037 -28 032 degrees QTc Int : 420 ms Sinus rhythm with sinus arrhythmia with 1st degree A-V block Cannot rule out Inferior infarct , age undetermined Abnormal ECG Confirmed by TARYN العلي, JENNIFER ([id number]), newspaper editor SHAMA SHOEMAKER ([id number]) on 12/10/2020 9:34:48 AM Referred By: LANDON Confirmed By:MARÍA CENTENO MD
--- NOTE | 2020-12-08 16:34 | ED.VISSUMM ---
- ER Visit Summary Date of Service: 12/08/20 Chief Complaint: [Weakness] History of Present Illness: The patient is a 75 F [presents to the emergency department with complaint of weakness in both legs. Patient states that she has had chills all day and her legs just do not feel like they want to hold her up. Patient states he had an episode in the kitchen where she had to help her self slowly to the floor because she felt like she was going to fall. Patient denies any fever or cough or sore throat. She has been immunized for Covid. Patient denies urinary symptoms. She denies chest pain or shortness of breath. She denies any back pain out of the ordinary but states she has some chronic mild pain from time to time. Patient denies vomiting or diarrhea. Patient states that she is currently on an antibiotic prescribed to her by her urologist to help her get to the bathroom on time but she can think of the name of the antibiotic. Patient denies any injuries today.] Physical Examination: [HEENT-PERRLA, EOMI. Cranial nerves II through XII grossly intact. TMs clear. Mucous membranes moist. No adenopathy. Cardiovascular-regular rate and rhythm without murmur or ectopy Lungs-clear to auscultation, chest wall stable without crepitus or subcu emphysema Abdomen-normoactive bowel sounds, soft, nontender, no rebound or rigidity, no peritoneal signs. Back exam-no significant tenderness to the thoracic or lumbar spine. She has negative straight leg raises. She is able to lift both legs off the bed. She has normal sensation. Extremities-intact ?4, normal range of motion, normal pulses, atraumatic. Patient has a Charcot foot on the right and the foot is rotated out chronically. She does have some faint erythema to the right lower extremity compared to the left and she does have chronic lymphedema. Patient has had history of chronic wound to the right lower extremity.] Test Results: [EKG obtained arrival shows sinus rhythm with a ventricular rate 77 bpm with first-degree AV block and old inferior infarct noted. CBC with differential showed a count of 14.4, hemoglobin 14.4, hematocrit 44, placed 313. Chemistries unremarkable. Troponin was less than 0.015. Lactate was 1.7. Chest x-ray 1 view obtained showed pulmonary congestion on my interpretation and radiology read as CHF and pulmonary edema.] Emergency Department Course and Treatment: [Line established on arrival. Patient was started on Unasyn 3 g IV. During her stay in the department her blood pressure would vary from the 140s systolic and at times to 80 systolic. Her blood pressure cuff is on her forearm however. Patient is not exhibiting any symptoms of hypotension otherwise.] Treatment Plan: [Admit] Disposition: [Admit] Impression: [Generalized weakness Cellulitis right leg] This note was generated with [employer] dictation software. It may contain incorrect words, spelling, and punctuation that were not noted in review of the chart prior to signing ED Disposition - Plan for ED Patient: Referrals: Christofer Vazquez MD [Primary Care Provider] -
--- NOTE | 2020-12-08 16:37 | NURSING ---
NO OLD EKGS
--- NOTE | 2020-12-08 17:15 | RAD_ITS ---
STUDY: X-RAY CHEST REASON FOR EXAM: Female, 75 years old. Weakness TECHNIQUE: Single frontal view of the chest. COMPARISON: None. FINDINGS: Cardiac silhouette enlarged. Pulmonary vascularity increased. Aorta unremarkable. No focal airspace opacities. No pleural effusions. Upper abdomen unremarkable. Osseous structures intact. No pneumothorax. RAD/Chest 1 View (Portable) IMPRESSION: Findings consistent with CHF/pulmonary edema as clinically indicated. Electronically Signed: Guilherme Mills MD at 17:48 EDT Tel , Service support ,
[2020-12-08] MEDS: 0.9% Normal Saline 1,000 ML 1000 ML IV (17:24)
[2020-12-08 17:40] LABS: Absolute Lymphocyte Count 0.87 X10^3/uL (0.83-4.51); Absolute Neutrophil Count 12.3 X10^3/uL (2.0-7.7); Basophil# 0.06 X10^3/uL; Basophil% 0.4 % (0-1); Eosinophil# 0.52 X10^3/uL; Eosinophils% 3.6 % (0-5); Hematocrit 44.1 % (37-47); Hemoglobin 14.4 g/dL (12.0-15.0); Lymphocyte # 0.87 X10^3/ul (4.0); Mean Corp Hgb Conc 32.7 g/dL (32-36); Mean Corpuscular Hgb 32.7 pg (27.0-32.0); Mean Corpuscular Volume 100.2 fL (81-99); Mean Platelet Vol. 9.7 fl (6.2-12.0); Monocyte# 0.66 X10^3/uL; Monocyte% 4.6 % (0-10); NRBC Flagged by Analyzer 0 % (0-5); Neutrophil # 12.29 X10^3/uL (2.7-7.7); Neutrophil % 85.1 % (47-70); Platelet Count 313 K/mm3 (150-450); RBC Distribution Width SD 47.7 fl (35.1-43.9); White Blood Count 14.4 K/mm3 (4.4-11.0)
[2020-12-08 17:41] LABS: Anion Gap 4 (5-15); BUN 18 mg/dL (7-18); BUN/Creat Ratio 16.7 RATIO (10-20); Calcium,Total 9.7 mg/dL (8.5-10.1); Chloride 97 mmol/L (98-107); Creatinine, Serum 1.08 mg/dL (0.55-1.02); EST Glomerular Filtration Rate 52 mL/min (>60); Est Glom Filt Rate - Afr Amer 64 mL/min (>60); Estimated Creatinine Clearance 37.23 ml/min; Glucose 108 mg/dL (74-106); Potassium 3.7 mmol/L (3.5-5.1); Sodium Level 134 mmol/L (136-145)
[2020-12-08 17:48] LABS: Lactic Acid 1.7 mmol/L (0.4-1.9)
[2020-12-08 19:11] VITALS: BP 142/58; PULSE 81; RESP 16; O2SAT 95
[2020-12-08 19:15] LABS: Bacteria 0 SEEN /hpf (None Seen); Color, Urine Yellow (Yellow); Glucose, Dipstick Normal (Normal); Ketone-Dipstick Negative (Negative); Leukocyte Esterase-Dipstick Negative /ul (Negative); Mucous, Urine 0 SEEN /hpf (<or=2+); Nitrite-Dipstick Negative (Negative); Occult Blood-Urine 10 /ul (Negative); Protein-Dipstick Negative (Negative); Red Blood Cells-Urine 0 SEEN /hpf (0-5); Urine Bilirubin Dipstick Negative (Negative); Urine Clarity Clear (Clear); Urine Urobilinogen Normal (Normal); Urine pH 6.5 (5.0 - 8.0); White Blood Cells 0 SEEN /hpf (0-5)
[2020-12-08] MEDS: 0.9% Normal Saline 1,000 ML 150 ML IV (19:16)
[2020-12-08 19:41] LABS: Squamous Epithelial Cells - UA 0-5 SEEN /hpf (5-10)
--- NOTE | 2020-12-08 20:12 | PCM.HP.STD ---
Problem List (1) Cellulitis of right lower extremity Status: Acute (2) Neuropathy Status: Chronic (3) GERD (gastroesophageal reflux disease) Status: Chronic (4) Morbid obesity Status: Chronic (5) Lymphedema Status: Chronic (6) Essential hypertension Status: Chronic (7) Lower extremity weakness Status: Chronic Qualifiers: Laterality: bilateral (8) HLD (hyperlipidemia) Status: Chronic Qualifiers: History of Present Illness Date of Admission: 12/08/20 Chief Complaint: Bilateral lower extremity weakness The patient is a 75 year old F who presents today following a fall at home. Patient reports that she has chronic weakness of her bilateral lower extremities and that at times it gets worse which is what happened today. Patient is currently being treated by her urologist for a urinary tract infection, but otherwise has no other acute symptoms. Patient denies fever, cough, sore throat, chest pain, shortness of breath. Patient reports back pain that is chronic. Patient also reports that she has chronic lymphedema of her right lower extremity, but that it is not usually red or warm. Past Medical History Past Medical History (Chronic Problems): Chronic Problems (Last Reviewed 03/05/20 @ 13:[address] Jayson Castañeda MD) Neuropathy (Chronic) GERD (gastroesophageal reflux disease) (Chronic) Morbid obesity (Chronic) Lymphedema (Chronic) Essential hypertension (Chronic) Debility (Chronic) Lower extremity weakness (Chronic) Frequent falls (Chronic) HLD (hyperlipidemia) (Chronic) Medical History: Medical History (Last Reviewed 12/08/20 @ 20:15 by Danay Gonzalez, PUBLISHING DIRECTOR-C) Cellulitis (Acute) L03.90 Lymphedema (Chronic) I89.0 Essential hypertension (Chronic) I10 Debility (Chronic) R53.81 Lower extremity weakness (Acute) R29.898 Frequent falls (Chronic) R29.6 HLD (hyperlipidemia) (Chronic) E78.5 DDD (degenerative disc disease), lumbar M51.36 GERD (gastroesophageal reflux disease) K21.9 Morbid obesity with BMI of 40.0-44.9, adult E66.01, Z68.41 Spinal stenosis M48.00 Venous stasis ulcers I83.009, L97.909 Acute cystitis (Resolved) N30.00 Acute kidney injury N17.9 Anemia D64.9 Decubitus ulcer of left buttock, stage 2 (Resolved) L89.322 Decubitus ulcer of right buttock, stage 2 (Resolved) L89.312 Allergies ciprofloxacin [From Cipro] Allergy (Severe, Verified 04/27/20 18:35) unk adhesive tape Allergy (Intermediate, Verified 04/27/20 18:35) Rash celecoxib [From Celebrex] Allergy (Verified 04/27/20 18:35) Other funny feeling in throat formaldehyde Allergy (Verified 04/27/20 18:35) Other formaldehyde in plastic gloves causes swelling and cracking in hands ketorolac [From Toradol] Adverse Reaction (Verified 04/27/20 18:35) Upset Stomach Home Medications: Ambulatory Orders Medication Instructions Recorded Aspirin [Aspirin, Baby] 81 mg PO DAILY@0800 07/19/18 Lovastatin [Mevacor] 40 mg PO BID 07/19/18 Multivitamin [Multiple Vitamins] 1 ea PO DAILY 07/19/18 Cholecalciferol (VIT D3) [Vitamin 1,000 unit PO DAILY 11/21/18 D3] Selenium 100 mcg PO DAILY 11/21/18 folic acid 400 mcg tablet 0.4 mg PO DAILY 02/24/20 furosemide 20 mg tablet 60 mg PO BID tab 02/24/20 gabapentin 300 mg capsule 300 mg PO 4X/DAY cap 02/24/20 losartan 50 mg tablet 75 mg PO DAILY tab 02/24/20 potassium chloride 10 mEq 20 meq PO DAILY tab 02/24/20 tablet,extended release(part/cryst) metoprolol tartrate 100 mg tablet 50 mg PO BID tab 03/05/20 Nitrofurantoin Macrocrystal 100 mg PO BID 12/08/20 [Nitrofurantoin] [place]-3 Fatty Acids/Fish Oil 1 cap PO DAILY 12/08/20 [[place] 3 1,000 mg Softgel] Omeprazole [Prilosec] 20 mg PO DAILY 12/08/20 Zinc Sulfate 220 mg PO DAILY 12/08/20 Surgical History: Surgical History (Last Reviewed 12/08/20 @ 20:15 by Danay Gonzalez, PUBLISHING DIRECTOR-C) H/O laminectomy Z98.890 2013 in 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 Paternal Family History: Family History (Last Reviewed 12/08/20 @ 20:15 by DARLINE SanchezC) Father CAD (coronary artery disease) Myocardial infarction Sister Breast cancer History Items: Heart Disease Review of Systems Constitutional: Reports: Weakness - Specifically bilateral lower extremities. Denies: Chills, Fever, Weight Change HEENT: Denies: Head Aches, Sinus Congestion, Sinus Drainage Cardiovascular: Denies: Chest Pain, Palpitations Respiratory: Denies: Cough, Shortness of breath at rest, Sputum production Gastrointestinal: Denies: Abdominal Pain, Nausea, Vomiting Genitourinary: Reports: Frequency, Incontinence - Patient currently being treated outpatient for UTI, Urgency. Denies: Dysuria Musculoskeletal: Reports: Back Pain - Chronic. Denies: Joint Pain, Joint Tenderness Skin: Reports: -. Denies: Rash, Wounds Neurological: Denies: Numbness, Tingling, Focal weakness Psychiatric: Denies: Anxiety, Depression, Homicidal Ideations, Suicidal Ideations Hematologic/ Lymphatic: Denies: Easy Bruising, Easy Bleeding VTE Information - Inpt Only VTE Present on Admission: No VTE Mechan Device Prophylaxis: None VTE Pharm Prophylaxis ordered?: Yes - Physical Exam Vitals/I&O's: Vital Signs Temp Pulse Resp BP Pulse Ox 98.9 F 81 16 142/58 H 95 12/08/20 16:21 12/08/20 19:11 12/08/20 19:11 12/08/20 19:11 12/08/20 19:11 Oxygen Delivery Method Room Air Weight: 339 lb 8.19 oz Body Mass Index (BMI) 60.1 Intake and Output for Last 24 Hours 12/06/20 12/07/20 12/08/20 23:59 23:59 23:59 Intake Total 1000 / 1000 Balance 1000 / 1000 General: Alert, Oriented x3, Cooperative HEENT: Atraumatic, PERRLA, EOMI, Normocephalic Neck: Supple, No JVD, Negative Carotid Bruits Lungs: Clear to auscultation, Normal air movement, Diminished Cardiovascular: Regular rate, Regular Rhythm, Normal S1, Normal S2, No murmurs Abdomen: Bowel Sounds Present, Soft, Non Tender Extremities: Diminished Peripheral Pulses, Edema - Chronic lymphedema to right lower extremity Skin: No rashes, No breakdown, - - Erythema and warmth to right lower extremity Musculoskeletal: No Tenderness to Palpation of Joints or Extremities Neurological: Cranial nerves II-XII grossly intact Psych/Mental Status: Normal Affect, Appropriate Laboratory Results 12/08/20 16:55: WBC 14.4 H, RBC 4.40, Hgb 14.4, Hct 44.1, MCV 100.2 H, MCH 32.7 H, MCHC 32.7, RDW Std Deviation 47.7 H, RDW Coeff of Joel 13.0, Plt Count 313, MPV 9.7, Immature Gran % (Auto) 0.300, Neut % (Auto) 85.1 H, Lymph % (Auto) 6.0 L, [place] % (Auto) 4.6, Eos % (Auto) 3.6, Baso % (Auto) 0.4, Absolute Neuts (auto) 12.3 H, Absolute Lymphs (auto) 0.87, Nucleated RBC % 0 12/08/20 16:55: Sodium 134 L, Potassium 3.7, Chloride 97 L, Carbon Dioxide 33.0 H, Anion Gap 4 L, BUN 18, Creatinine 1.08 H, Estim Creat Clear Calc 37.23, Est GFR (MDRD) Af Amer 64, Est GFR (MDRD) Non-Af 52 L, BUN/Creatinine Ratio 16.7, Glucose 108 H, Calcium 9.7, Troponin I < 0.015 12/08/20 16:55: Lactic Acid 1.7 12/08/20 19:00: Urine Color Yellow, Urine Clarity Clear, Urine pH 6.5, Ur Specific [place] 1.010, Urine Protein Negative, Urine Glucose (UA) Normal, Urine Ketones Negative, Urine Occult Blood 10 H, Urine Nitrite Negative, Urine Bilirubin Negative, Urine Urobilinogen Normal, Ur Leukocyte Esterase Negative, Urine RBC 0 SEEN, Urine WBC 0 SEEN, Ur Squamous Epith Cells 0-5 SEEN, Urine Bacteria 0 SEEN, Urine Mucus 0 SEEN Current Medications Sodium Chloride () 1,000 mls @ 150 mls/hr IV .Q6H40M [facility] Last Admin: 12/08/20 19:16 Dose: 150 mls/hr Documented by: Ampicillin Sodium/Sulbactam (Sodium 3 gm/ Sodium Chloride) 112 mls @ 150 mls/hr IV X1 ONE Stop: 12/08/20 20:25 Sodium Chloride () 500 mls @ 999 mls/hr IV .Q31M [facility] Stop: 12/08/20 20:15 Assessment/Plan All Active Problems (Last Reviewed 03/05/20 @ 13:[address] Jayson Castañeda MD) Cellulitis of right lower extremity (Acute) Pulmonary hypertension (Acute) Cellulitis (Acute) Acute cystitis (Resolved) Decubitus ulcer of left buttock, stage 2 (Resolved) Decubitus ulcer of right buttock, stage 2 (Resolved) 1. Cellulitis of right lower extremity -start Rocephin IV -CEZAR wraps ordered. -CBC in am as WBC 14.4, no left shift present -Procalcitonin ordered 2. Lymphedema of right lower extremity -CEZRA wraps ordered. -Lasix 40 mg IV x1. -Venous duplex ordered to rule out DVT 3. Lower extremity weakness, bilateral -PT/OT to eval and treat 4. UTI -Started nitrofurantoin as outpatient 2 days ago, will hold while inpatient and receiving rocephin. 4. Hypertension -Continue home regimen -IV hydralazine ordered as needed 5. Hyperlipidemia -Continue home regimen. 6. GERD -Continue home regimen 7. Morbid obesity -Lifestyle modification encouraged. DVT prophylaxis-subcu Lovenox This patient was seen by Danay Gonzalez NP-C under the supervision of Dr. Key.
[2020-12-08] MEDS: Acetaminophen 325 MG Tablet 650 MG PO (20:35)
[2020-12-08 20:42] VITALS: BP 158/64; PULSE 83; RESP 26; TEMP 38.6; O2SAT 92
--- NOTE | 2020-12-08 22:10 | VDLE_ITS ---
Reason For Study: Elevated D-dimer RIGHT GSV is normal. CFV is compressible, spontaneous, phasic, competent and demonstrates normal augmentation. FV is compressible, spontaneous, phasic, competent and demonstrates normal augmentation. POP V is compressible, spontaneous, phasic, competent and demonstrates normal augmentation. T/P Trunk is compressible. PTV is compressible. RT PerV is compressible. Procedure This is a venous duplex using B-mode, color flow and spectral Doppler. Exam performed portable in patient room. A preliminary report was called and/or faxed to [facility]. Interpretation Summary There is no evidence of right lower extremity deep vein thrombosis. Right great saphenous vein appears patent and compressible segmentally. Ordering Physician: Danay Gonzalez Referring Physician: Darrick Vazquez Performed By: Meaghan Graham RVT
[2020-12-08 22:11] VITALS: BMI 61.0
[2020-12-08 22:25] LABS: Magnesium 2.1 mg/dL (1.6-2.6)
[2020-12-08 22:26] VITALS: BP 139/67; PULSE 76; RESP 20; TEMP 36.6; O2SAT 93
[2020-12-08 22:37] LABS: Procalcitonin 0.06 ng/mL (0.00-0.09)
[2020-12-08 23:09] VITALS: PULSE 76
[2020-12-08] MEDS: 0.9% Saline Lock 10 ML Syringe IV (23:09)
[2020-12-08] MEDS: Metoprolol Tartrate 50 MG Tablet PO (23:09)
[2020-12-08] MEDS: Furosemide 40 MG/4 ML Vial IV (23:09)
[2020-12-08] MEDS: Enoxaparin 40 MG/0.4 ML Syringe SC (23:10)
[2020-12-08] MEDS: Gabapentin 300 MG Capsule PO (23:10)
[2020-12-08] MEDS: Atorvastatin Calcium 20 MG Tablet PO (23:10)
[2020-12-08 23:56] VITALS: PULSE 73
[2020-12-09] VITALS (15 sets, daily range): BP systolic 103–138; BP diastolic 33–87; PULSE 68–90; RESP 17–20; TEMP 37.1–37.4; O2SAT 92–95
[2020-12-09 05:03] LABS: Absolute Lymphocyte Count 1.07 X10^3/uL (0.83-4.51); Absolute Neutrophil Count 8.1 X10^3/uL (2.0-7.7); Basophil# 0.05 X10^3/uL; Basophil% 0.5 % (0-1); Eosinophil# 0.89 X10^3/uL; Eosinophils% 8.2 % (0-5); Hematocrit 40.7 % (37-47); Lymphocyte # 1.07 X10^3/ul (4.0); Lymphocyte % 9.9 % (19-41); Mean Corp Hgb Conc 31.9 g/dL (32-36); Mean Corpuscular Hgb 32.6 pg (27.0-32.0); Mean Platelet Vol. 9.6 fl (6.2-12.0); Monocyte# 0.65 X10^3/uL; NRBC Flagged by Analyzer 0 % (0-5); Neutrophil # 8.13 X10^3/uL (2.7-7.7); Neutrophil % 74.9 % (47-70); Platelet Count 264 K/mm3 (150-450); RBC Distribution Width SD 48.9 fl (35.1-43.9); Red Blood Count 3.99 M/mm3 (4.2-5.4); White Blood Count 10.8 K/mm3 (4.4-11.0)
[2020-12-09 05:38] LABS: ALB/GLOB Ratio 0.9 RATIO (0.9-2.4); AST(SGOT) 13 U/L (15-37); Alanine Aminotransfer ALT/SGPT 20 U/L (13-56); Albumin, Serum 3.2 g/dL (3.2-5.0); Alkaline Phosphatase 49 U/L (45-117); Anion Gap 5 (5-15); BUN 15 mg/dL (7-18); BUN/Creat Ratio 15.9 RATIO (10-20); Calcium,Total 8.6 mg/dL (8.5-10.1); Chloride 102 mmol/L (98-107); Creatinine, Serum 0.94 mg/dL (0.55-1.02); EST Glomerular Filtration Rate 61 mL/min (>60); Est Glom Filt Rate - Afr Amer 74 mL/min (>60); Estimated Creatinine Clearance 42.78 ml/min; Globulin 3.5 g/dL (2.2-4.2); Glucose 108 mg/dL (74-106); Potassium 3.5 mmol/L (3.5-5.1); Protein, Total 6.7 g/dL (6.4-8.2); Sodium Level 140 mmol/L (136-145)
[2020-12-09] MEDS: Aspirin 81 MG TAB.CHEW PO (07:29)
--- NOTE | 2020-12-09 09:51 | PCM.PROGNOTE ---
<Darlyn Burch RAW SCALES OPERATOR - Last Filed: 12/09/20 10:03> Patient Problems: Active and Suspected Problems (Last Reviewed 12/08/20 @ 20:15 by Danay Gonzalez NP-C) Cellulitis of right lower extremity (Acute) Subjective: Patient seen and examined. Reports right lower extremity burning. States her legs intermittently give out on her which is happened to her several times in the past. Denies fever. States chills have resolved. - Physical Exam Vitals/I&O's: Vital Signs Temp Pulse Resp BP Pulse Ox 99.3 F H 90 18 138/55 H 95 12/09/20 04:48 12/09/20 07:31 12/09/20 04:48 12/09/20 04:48 12/09/20 07:07 Oxygen Delivery Method Room Air Weight: 344 lb 2.265 oz Body Mass Index (BMI) 61.0 Intake and Output for Last 24 Hours 12/07/20 12/08/20 12/09/20 23:59 23:59 23:59 Intake Total 2364.5 / 2364.5 0 / 0 Output Total 240 / 240 920 / 920 Balance 2124.5 / 2124.5 -920 / -920 General: Alert, Oriented x3, Cooperative HEENT: Atraumatic, PERRLA, EOMI, Normocephalic Neck: Supple, No JVD, Negative Carotid Bruits Lungs: Clear to auscultation, Normal air movement Cardiovascular: Regular rate, No murmurs Abdomen: Bowel Sounds Present, Soft, Non Tender, Non-Distended Extremities: No clubbing, No cyanosis, - - Chronic lymphedema right lower extremity Skin: - - Redness, warmth right lower extremity Musculoskeletal: No Tenderness to Palpation of Joints or Extremities Neurological: Cranial nerves II-XII grossly intact, Neuro grossly intact Psych/Mental Status: Normal Affect, Appropriate Laboratory Results 12/08/20 16:55: WBC 14.4 H, RBC 4.40, Hgb 14.4, Hct 44.1, MCV 100.2 H, MCH 32.7 H, MCHC 32.7, RDW Std Deviation 47.7 H, RDW Coeff of Joel 13.0, Plt Count 313, MPV 9.7, Immature Gran % (Auto) 0.300, Neut % (Auto) 85.1 H, Lymph % (Auto) 6.0 L, Eddy % (Auto) 4.6, Eos % (Auto) 3.6, Baso % (Auto) 0.4, Absolute Neuts (auto) 12.3 H, Absolute Lymphs (auto) 0.87, Nucleated RBC % 0 12/08/20 16:55: Sodium 134 L, Potassium 3.7, Chloride 97 L, Carbon Dioxide 33.0 H, Anion Gap 4 L, BUN 18, Creatinine 1.08 H, Estim Creat Clear Calc 37.23, Est GFR (MDRD) Af Amer 64, Est GFR (MDRD) Non-Af 52 L, BUN/Creatinine Ratio 16.7, Glucose 108 H, Calcium 9.7, Troponin I < 0.015 12/08/20 16:55: Lactic Acid 1.7 12/08/20 16:55: Magnesium 2.1 12/08/20 16:55: Procalcitonin 0.06 12/08/20 19:00: Urine Color Yellow, Urine Clarity Clear, Urine pH 6.5, Ur Specific [place] 1.010, Urine Protein Negative, Urine Glucose (UA) Normal, Urine Ketones Negative, Urine Occult Blood 10 H, Urine Nitrite Negative, Urine Bilirubin Negative, Urine Urobilinogen Normal, Ur Leukocyte Esterase Negative, Urine RBC 0 SEEN, Urine WBC 0 SEEN, Ur Squamous Epith Cells 0-5 SEEN, Urine Bacteria 0 SEEN, Urine Mucus 0 SEEN 12/08/20 22:40: Troponin I < 0.015 12/09/20 01:27: Troponin I < 0.015 12/09/20 04:40: WBC 10.8, RBC 3.99 L, Hgb 13.0, Hct 40.7, MCV 102.0 H, MCH 32.6 H, MCHC 31.9 L, RDW Std Deviation 48.9 H, RDW Coeff of Joel 13.0, Plt Count 264, MPV 9.6, Immature Gran % (Auto) 0.500, Neut % (Auto) 74.9 H, Lymph % (Auto) 9.9 L, Eddy % (Auto) 6.0, Eos % (Auto) 8.2 H, Baso % (Auto) 0.5, Absolute Neuts (auto) 8.1 H, Absolute Lymphs (auto) 1.07, Nucleated RBC % 0 12/09/20 04:40: Sodium 140, Potassium 3.5, Chloride 102, Carbon Dioxide 33.0 H, Anion Gap 5, BUN 15, Creatinine 0.94, Estim Creat Clear Calc 42.78, Est GFR (MDRD) Af Amer 74, Est GFR (MDRD) Non-Af 61, BUN/Creatinine Ratio 15.9, Glucose 108 H, Calcium 8.6, Total Bilirubin 0.80, AST 13 L, ALT 20, Alkaline Phosphatase 49, Total Protein 6.7, Albumin 3.2, Globulin 3.5, Albumin/Globulin Ratio 0.9 12/09/20 04:40: Troponin I < 0.015 Current Medications Acetaminophen (Acetaminophen 325 Mg Tablet) 650 mg PO Q6H PRN PRN PRN Reason: Pain Score 1-10/Temp > 100.7 F Al Hydroxide/Mg Hydroxide (Mag Hydrox/Al Hydrox/Simeth 30 Ml Udc) 30 ml PO Q6H PRN PRN PRN Reason: Gastric Burning Albuterol Sulfate (Albuterol 2.5 Mg/3 Ml Vial.Neb.) 2.5 mg INHALATION Q2H PRN PRN PRN Reason: Dyspnea, wheezing Aspirin (Aspirin 81 Mg Tab.Chew) 81 mg PO DAILY@0800 [facility] Last Admin: 12/09/20 07:29 Dose: 81 mg Documented by: Atorvastatin Calcium (Atorvastatin Calcium 20 Mg Tablet) 20 mg PO QHS [facility] Last Admin: 12/08/20 23:10 Dose: 20 mg Documented by: Cholecalciferol (Cholecalciferol (Vit D3) 25 Mcg Tablet (1,000 Units)) 25 mcg PO DAILY [facility] Enoxaparin Sodium (Enoxaparin 40 Mg/0.4 Ml Syringe) 40 mg SC BID [facility] Last Admin: 12/08/20 23:10 Dose: 40 mg Documented by: Furosemide (Furosemide 20 Mg Tablet) 60 mg PO BID [facility] Gabapentin (Gabapentin 300 Mg Capsule) 300 mg PO 4X/DAY [facility] Last Admin: 12/08/20 23:10 Dose: 300 mg Documented by: Guaifenesin (Guaifenesin 10 Ml Udc (200mg/10ml)) 20 ml PO Q4H PRN PRN PRN Reason: COUGH Hydralazine HCl (Hydralazine 20 Mg/Ml Vial) 10 mg IV Q4H PRN PRN PRN Reason: SBP > 160 Ceftriaxone Sodium 2 gm/ (Sodium Chloride) 50 mls @ 100 mls/hr IV Q24 [facility] Losartan Potassium (Losartan Potassium 25 Mg Tablet) 75 mg PO DAILY [facility] Magnesium Hydroxide (Magnesium Hydroxide 30 Ml Udc) 30 ml PO DAILY PRN PRN PRN Reason: Constipation Melatonin (Melatonin 3 Mg Tablet) 3 mg PO QHS PRN PRN PRN Reason: INSOMNIA Metoprolol Tartrate (Metoprolol Tartrate 50 Mg Tablet) 50 mg PO BID [facility] Last Admin: 12/08/20 23:09 Dose: 50 mg Documented by: Morphine Sulfate (Morphine 2 Mg/Ml Syringe) 2 mg IV Q3H PRN PRN PRN Reason: Pain Score 6-10 Nitroglycerin (Nitroglycerin (Inpatient Use) 0.4 Mg Tab.Subl) 0.4 mg SL Q5M PRN PRN Reason: CARDIAC/CHEST PAIN Nutritional Formula (Lactose Free) (Ensure Enlive 120 Ml Liquid) 120 ml PO 4X/DAY [facility] Ondansetron HCl (Ondansetron 4 Mg/2 Ml Vial) 4 mg IV Q8H PRN PRN PRN Reason: NAUSEA/VOMITING Oxycodone HCl (Oxycodone 5 Mg Tablet) 5 mg PO Q4H PRN PRN PRN Reason: Pain Score 4-5 Pantoprazole Sodium (Pantoprazole Sodium 20 Mg Tablet) 20 mg PO DAILY [facility] Potassium Chloride (Potassium Chloride Oral Tablet 10 Meq) 20 meq PO DAILY [facility] Prochlorperazine Edisylate (Prochlorperazine 10 Mg/2 Ml Vial) 5 mg IV Q4H PRN PRN PRN Reason: Breakthrough nausea/vomiting Psyllium Hydrophilic Mucilloid (Psyllium 1 Packet) 1 packet PO DAILY PRN PRN PRN Reason: Constipation Senna/Docusate Sodium (Senna/Docusate Sodium 1 Tablet) 2 tablet PO BID PRN PRN PRN Reason: Constipation Sodium Chloride (0.9% Saline Lock 10 Ml Syringe) 10 - 40 ml IV UD PRN PRN Reason: SALINE FLUSH Last Admin: 12/08/20 23:09 Dose: 10 ml Documented by: Throat Lozenges (Benzocaine/Menthol 1 Lozenge) 1 lozenge MUCOUS MEM Q2H PRN PRN PRN Reason: SORE THROAT Medical Necessity - Tobacco Use Smoking Status: Never smoker Assessment/Plan All Active Problems (Last Reviewed 12/08/20 @ 20:15 by Danay Gonzalez NP-Corina) Cellulitis of right lower extremity (Acute) Pulmonary hypertension (Acute) Cellulitis (Acute) Acute cystitis (Resolved) Decubitus ulcer of left buttock, stage 2 (Resolved) Decubitus ulcer of right buttock, stage 2 (Resolved) 1. Right lower extremity cellulitis, chronic right charcot foot-duplex ultrasound pending to rule out DVT. IV Rocephin. PT/OT. 2. Chronic bilateral lower extremity lymphedema-snug Paco wraps. Received IV Lasix x1. 3. Chronic bilateral lower extremity weakness-PT/OT. 4. Hypertension-stable, continue losartan, metoprolol, Lasix. 5. Hyperlipidemia-continue statin. 6. GERD-continue PPI. 7. Morbid obesity-encouraged diet and lifestyle modifications. DVT prophylaxis-Lovenox subcu This patient was seen by ANDI Manzano under the supervision of Dr. Andres. <Melissa Andres - Last Filed: 12/09/20 16:39> Subjective: Agree with the above and the following is a reflection of my independent history and physical examination. Patient is sleeping soundly upon my evaluation. - Physical Exam Vitals/I&O's: Vital Signs Temp Pulse Resp BP Pulse Ox 98.7 F 70 18 133/59 H 94 12/09/20 14:51 12/09/20 14:57 12/09/20 14:51 12/09/20 14:51 12/09/20 14:51 Oxygen Delivery Method Room Air Weight: 156.1 kg Body Mass Index (BMI) 61.0 Intake and Output for Last 24 Hours 12/07/20 12/08/20 12/09/20 23:59 23:59 23:59 Intake Total 2364.5 / 2364.5 50 / 50 Output Total 240 / 240 1670 / 1670 Balance 2124.5 / 2124.5 -1620 / -1620 General: No apparent distress, Well developed, Well nourished, - - Obese older white female lying in bed sleeping soundly, nontoxic-appearing HEENT: Atraumatic, PERRLA, EOMI, Normocephalic, EAC Clear Oral: - - We will to examine Neck: - - Able to examine Lungs: Clear to auscultation, Normal air movement, No rhonchi, No wheeze, No rales, - - Distant secondary to body habitus Cardiovascular: Regular rate, Regular Rhythm, Normal S1, Normal S2, No murmurs, No Ectopic Activity, No rub noted, No Gallop, - - Distant secondary to body habitus Abdomen: Bowel Sounds Present, Soft, Non Tender, Non-Distended, Obese Extremities: No clubbing, No cyanosis, Capillary Refill Less than 3 Seconds, Edema - Trace bilateral lower extremity edema, - - Chronic lymphedema right lower extremity, bilateral lower extremity dressings in place Musculoskeletal: No Tenderness to Palpation of Joints or Extremities, Arthritic Changes, - - Right lower extremity Charcot foot deformity-severe Neurological: - - Unable to examine secondary to patient's sleeping Laboratory Results 12/08/20 16:55: WBC 14.4 H, RBC 4.40, Hgb 14.4, Hct 44.1, MCV 100.2 H, MCH 32.7 H, MCHC 32.7, RDW Std Deviation 47.7 H, RDW Coeff of Joel 13.0, Plt Count 313, MPV 9.7, Immature Gran % (Auto) 0.300, Neut % (Auto) 85.1 H, Lymph % (Auto) 6.0 L, Eddy % (Auto) 4.6, Eos % (Auto) 3.6, Baso % (Auto) 0.4, Absolute Neuts (auto) 12.3 H, Absolute Lymphs (auto) 0.87, Nucleated RBC % 0 12/08/20 16:55: Sodium 134 L, Potassium 3.7, Chloride 97 L, Carbon Dioxide 33.0 H, Anion Gap 4 L, BUN 18, Creatinine 1.08 H, Estim Creat Clear Calc 37.23, Est GFR (MDRD) Af Amer 64, Est GFR (MDRD) Non-Af 52 L, BUN/Creatinine Ratio 16.7, Glucose 108 H, Calcium 9.7, Troponin I < 0.015 12/08/20 16:55: Lactic Acid 1.7 12/08/20 16:55: Magnesium 2.1 12/08/20 16:55: Procalcitonin 0.06 12/08/20 19:00: Urine Color Yellow, Urine Clarity Clear, Urine pH 6.5, Ur Specific [place] 1.010, Urine Protein Negative, Urine Glucose (UA) Normal, Urine Ketones Negative, Urine Occult Blood 10 H, Urine Nitrite Negative, Urine Bilirubin Negative, Urine Urobilinogen Normal, Ur Leukocyte Esterase Negative, Urine RBC 0 SEEN, Urine WBC 0 SEEN, Ur Squamous Epith Cells 0-5 SEEN, Urine Bacteria 0 SEEN, Urine Mucus 0 SEEN 12/08/20 22:40: Troponin I < 0.015 12/09/20 01:27: Troponin I < 0.015 12/09/20 04:40: WBC 10.8, RBC 3.99 L, Hgb 13.0, Hct 40.7, MCV 102.0 H, MCH 32.6 H, MCHC 31.9 L, RDW Std Deviation 48.9 H, RDW Coeff of Joel 13.0, Plt Count 264, MPV 9.6, Immature Gran % (Auto) 0.500, Neut % (Auto) 74.9 H, Lymph % (Auto) 9.9 L, Eddy % (Auto) 6.0, Eos % (Auto) 8.2 H, Baso % (Auto) 0.5, Absolute Neuts (auto) 8.1 H, Absolute Lymphs (auto) 1.07, Nucleated RBC % 0 12/09/20 04:40: Sodium 140, Potassium 3.5, Chloride 102, Carbon Dioxide 33.0 H, Anion Gap 5, BUN 15, Creatinine 0.94, Estim Creat Clear Calc 42.78, Est GFR (MDRD) Af Amer 74, Est GFR (MDRD) Non-Af 61, BUN/Creatinine Ratio 15.9, Glucose 108 H, Calcium 8.6, Total Bilirubin 0.80, AST 13 L, ALT 20, Alkaline Phosphatase 49, Total Protein 6.7, Albumin 3.2, Globulin 3.5, Albumin/Globulin Ratio 0.9 12/09/20 04:40: Troponin I < 0.015 Current Medications Acetaminophen (Acetaminophen 325 Mg Tablet) 650 mg PO Q6H PRN PRN PRN Reason: Pain Score 1-10/Temp > 100.7 F Al Hydroxide/Mg Hydroxide (Mag Hydrox/Al Hydrox/Simeth 30 Ml Udc) 30 ml PO Q6H PRN PRN PRN Reason: Gastric Burning Albuterol Sulfate (Albuterol 2.5 Mg/3 Ml Vial.Neb.) 2.5 mg INHALATION Q2H PRN PRN PRN Reason: Dyspnea, wheezing Aspirin (Aspirin 81 Mg Tab.Chew) 81 mg PO DAILY@0800 [facility] Last Admin: 12/09/20 07:29 Dose: 81 mg Documented by: Atorvastatin Calcium (Atorvastatin Calcium 20 Mg Tablet) 20 mg PO QHS [facility] Last Admin: 12/08/20 23:10 Dose: 20 mg Documented by: Cholecalciferol (Cholecalciferol (Vit D3) 25 Mcg Tablet (1,000 Units)) 25 mcg PO DAILY [facility] Last Admin: 12/09/20 09:54 Dose: 25 mcg Documented by: Enoxaparin Sodium (Enoxaparin 40 Mg/0.4 Ml Syringe) 40 mg SC BID [facility] Last Admin: 12/09/20 09:55 Dose: 40 mg Documented by: Furosemide (Furosemide 20 Mg Tablet) 60 mg PO BID [facility] Last Admin: 12/09/20 09:53 Dose: 60 mg Documented by: Gabapentin (Gabapentin 300 Mg Capsule) 300 mg PO 4X/DAY [facility] Last Admin: 12/09/20 13:22 Dose: 300 mg Documented by: Guaifenesin (Guaifenesin 10 Ml Udc (200mg/10ml)) 20 ml PO Q4H PRN PRN PRN Reason: COUGH Hydralazine HCl (Hydralazine 20 Mg/Ml Vial) 10 mg IV Q4H PRN PRN PRN Reason: SBP > 160 Ceftriaxone Sodium 2 gm/ (Sodium Chloride) 50 mls @ 100 mls/hr IV Q24 [facility] Last Infusion: 12/09/20 11:00 Dose: Infused Documented by: Losartan Potassium (Losartan Potassium 25 Mg Tablet) 75 mg PO DAILY [facility] Last Admin: 12/09/20 15:09 Dose: 75 mg Documented by: Magnesium Hydroxide (Magnesium Hydroxide 30 Ml Udc) 30 ml PO DAILY PRN PRN PRN Reason: Constipation Melatonin (Melatonin 3 Mg Tablet) 3 mg PO QHS PRN PRN PRN Reason: INSOMNIA Metoprolol Tartrate (Metoprolol Tartrate 50 Mg Tablet) 50 mg PO BID [facility] Last Admin: 12/09/20 09:53 Dose: 50 mg Documented by: Morphine Sulfate (Morphine 2 Mg/Ml Syringe) 2 mg IV Q3H PRN PRN PRN Reason: Pain Score 6-10 Nitroglycerin (Nitroglycerin (Inpatient Use) 0.4 Mg Tab.Subl) 0.4 mg SL Q5M PRN PRN Reason: CARDIAC/CHEST PAIN Ondansetron HCl (Ondansetron 4 Mg/2 Ml Vial) 4 mg IV Q8H PRN PRN PRN Reason: NAUSEA/VOMITING Oxycodone HCl (Oxycodone 5 Mg Tablet) 5 mg PO Q4H PRN PRN PRN Reason: Pain Score 4-5 Last Admin: 12/09/20 10:23 Dose: 5 mg Documented by: Pantoprazole Sodium (Pantoprazole Sodium 20 Mg Tablet) 20 mg PO DAILY [facility] Last Admin: 12/09/20 09:53 Dose: 20 mg Documented by: Potassium Chloride (Potassium Chloride Oral Tablet 10 Meq) 20 meq PO DAILY [facility] Last Admin: 12/09/20 09:54 Dose: 20 meq Documented by: Prochlorperazine Edisylate (Prochlorperazine 10 Mg/2 Ml Vial) 5 mg IV Q4H PRN PRN PRN Reason: Breakthrough nausea/vomiting Psyllium Hydrophilic Mucilloid (Psyllium 1 Packet) 1 packet PO DAILY PRN PRN PRN Reason: Constipation Senna/Docusate Sodium (Senna/Docusate Sodium 1 Tablet) 2 tablet PO BID PRN PRN PRN Reason: Constipation Sodium Chloride (0.9% Saline Lock 10 Ml Syringe) 10 - 40 ml IV UD PRN PRN Reason: SALINE FLUSH Last Admin: 12/08/20 23:09 Dose: 10 ml Documented by: Throat Lozenges (Benzocaine/Menthol 1 Lozenge) 1 lozenge MUCOUS MEM Q2H PRN PRN PRN Reason: SORE THROAT Assessment/Plan ASSESSMENT Right lower extremity cellulitis Severe Charcot foot abnormality-chronic right lower extremity Leukocytosis Mild ROSAS on CKD stage II HFpEF secondary to diastolic dysfunction and PAH-mild to moderate pulmonary artery systolic pressures 40 mmHg Frequent falls/debility Hyponatremia Obesity hypoventilation syndrome with chronic CO2 elevation-compensated Vitamin D deficiency Diabetic neuropathy Hyperlipidemia Hypertension GERD Super morbid obesity-BMI 61 Suspected IVETTE/OHS Degenerative disc disease Osteoarthritis Spinal stenosis Chronic venous stasis Mild fasting hyperglycemia PLAN -Continue IV antibiotics as ordered-ceftriaxone 2 g daily -Check MRSA PCR -If positive add vancomycin -PT and OT to follow -ROSAS has resolved -Bilateral ultrasounds of lower extremities pending -Continue diuresis -Continue bilateral lower extremity dressings with Paco wraps -Check hemoglobin A1c as patient's fasting blood sugars are mildly elevated -I suspect her postprandial blood sugars may even be higher Inpatient E&M: 57110 Subs Hosp L2
[2020-12-09] MEDS: Metoprolol Tartrate 50 MG Tablet PO ×2 (09:53→21:01)
[2020-12-09] MEDS: Furosemide 20 MG Tablet 60 MG PO ×2 (09:53→21:01)
[2020-12-09] MEDS: Pantoprazole Sodium 20 MG Tablet PO (09:53)
[2020-12-09] MEDS: Gabapentin 300 MG Capsule PO ×4 (09:53→21:02)
[2020-12-09] MEDS: Cholecalciferol (VIT D3) 25 MCG TABLET (1,000 UNITS) PO (09:54)
[2020-12-09] MEDS: Potassium Chloride Oral Tablet 10 MEQ 20 MEQ PO (09:54)
[2020-12-09] MEDS: Enoxaparin 40 MG/0.4 ML Syringe SC ×2 (09:55→21:01)
[2020-12-09] MEDS: oxyCODONE 5 MG Tablet PO (10:23)
--- NOTE | 2020-12-09 14:32 | CHAPLAIN ---
Type of Pastoral Visit _x__ Initial Visit ___ Follow-up Visit ___ On-call Visit ___ General Patient Visit ___ Spiritual Assessment ___ Family Conference ___ Bereavement ___ Rapid Response ___ Code Blue ___ Other (describe below) Pastoral Care Referral From _x__ Patient ___ Family ___ Nurse ___ Physician ___ Residential Sales Associate ___ Rn Radiation Oncology ___ Other (describe below) Sacrament/Intervention _x__ Active listening ___ Anointing ___ Lutheran ___ Bereavement ___ Communion ___ Garima exploration ___ _x__ Life review _x__ Prayer ___ Reconciliation ___ Sacrament of Sick ___ Supportive presence ___ Wedding ___ Other (describe below) Pastoral Comments patient is sitting up in chair and welcoming; pt is talkative; pt requests a prayer; technicians came into room for testing so visit ended
--- NOTE | 2020-12-09 14:35 | CASEMGMT ---
GUILLE SHEETS Assessment: Face to Face with pt for initial transition planning/care coordination assessment. RN SUDEEP introduced self and role at [facility], pt voices understanding and consents to assessment. Pt is A/O x4 and answers all questions appropriately at this time. Pt is very pleasant, lying in bed in no distress. Care providers, pharmacy, and demographics verified/updated. Admitting Dx: Cellulitis PCP: Dr. Vazquez Specialists: Dr. Kowalski, cardio; , pain mgmt; , neuro; , uro; Dr. Yun, podiatry; Pt sees Flores Vergara at [facility] for lymphedema. Preferred Pharmacy: [facility] Prescription Benefit: Yes, [employer] LW/HPOA: Pt reports she has a LW/DPOA in [place] but not in [place]. Reports her is her DPOA. LNOK: Ed Zeferino, Dtr Emily Campocarlos a Living Arrangements: Pt lives with her in a ground floor apt with no steps to enter. Pt states she is I in ADL's. Denies concerns at home. Transportation: Pt states she can drive but not far and her usually takes her to her appts. Pt denies concerns regarding transportation. DME/HHC/SNF: Pt reports having a rollator, cane, shower chair and grab bars in the shower. She denies need for further DME. Pt denies having HHC in the past. States she has stayed at [facility] for a short stay. Pt states no concerns with going home at time of dc. Pt states no further concerns/needs. CM to follow. Advised pt to ask CM if any further question/concerns/needs arise, voices understanding. Pt Goal: Home Plan: Home with family support, will follow therapy.
[2020-12-09] MEDS: Losartan Potassium 25 MG Tablet 75 MG PO (15:09)
--- NOTE | 2020-12-09 17:01 | NURSING ---
CEZAR wraps were removed for about one hour now applied again, and scds applied and legs elevated.
[2020-12-09] MEDS: guaiFENesin 10 ML UDC (200MG/10ML) 20 ML PO (18:22)
[2020-12-09] MEDS: Albuterol 2.5 MG/3 ML VIAL.NEB. INHALATION ×2 (18:50→21:54)
[2020-12-09 19:41] LABS: M R Staph aureus DNA By PCR Negative (Negative); Probe Check PASS; Specimen Processing Control PASS
[2020-12-09] MEDS: Atorvastatin Calcium 20 MG Tablet PO (21:01)
[2020-12-10] VITALS (7 sets, daily range): BP systolic 132–143; BP diastolic 47–58; PULSE 76–80; RESP 16–18; TEMP 36.8–37.2; O2SAT 93–95
[2020-12-10 05:54] LABS: Anion Gap 6 (5-15); BUN 16 mg/dL (7-18); BUN/Creat Ratio 18.2 RATIO (10-20); Calcium,Total 8.7 mg/dL (8.5-10.1); Chloride 102 mmol/L (98-107); Creatinine, Serum 0.88 mg/dL (0.55-1.02); EST Glomerular Filtration Rate 67 mL/min (>60); Est Glom Filt Rate - Afr Amer 81 mL/min (>60); Estimated Creatinine Clearance 45.69 ml/min; Glucose 115 mg/dL (74-106); Potassium 3.9 mmol/L (3.5-5.1); Sodium Level 139 mmol/L (136-145)
[2020-12-10 07:48] LABS: Hemoglobin A1c 5.5 % (3.8-5.6)
[2020-12-10] MEDS: Aspirin 81 MG TAB.CHEW PO (09:39)
[2020-12-10] MEDS: Losartan Potassium 25 MG Tablet 75 MG PO (09:40)
[2020-12-10] MEDS: Potassium Chloride Oral Tablet 10 MEQ 20 MEQ PO (09:41)
[2020-12-10] MEDS: Furosemide 20 MG Tablet 60 MG PO (09:41)
[2020-12-10] MEDS: Metoprolol Tartrate 50 MG Tablet PO (09:42)
[2020-12-10] MEDS: Gabapentin 300 MG Capsule PO (09:43)
[2020-12-10] MEDS: Cholecalciferol (VIT D3) 25 MCG TABLET (1,000 UNITS) PO (09:44)
[2020-12-10] MEDS: Pantoprazole Sodium 20 MG Tablet PO (09:44)
[2020-12-10] MEDS: Enoxaparin 40 MG/0.4 ML Syringe SC (09:45)
[2020-12-10] MEDS: 0.9% Saline Lock 10 ML Syringe IV ×2 (09:56→10:37)
[2020-12-10] MEDS: Acetaminophen 325 MG Tablet 650 MG PO (10:43)
--- NOTE | 2020-12-10 10:46 | DCINST_ITS ---
- Discharge Diagnoses Current Active Problems: Current Active and Chronic Problems (Last Reviewed 12/08/20 @ 20:15 by Danay Gonzalez NP-C) Cellulitis of right lower extremity (Acute) Neuropathy (Chronic) GERD (gastroesophageal reflux disease) (Chronic) Morbid obesity (Chronic) Lymphedema (Chronic) Essential hypertension (Chronic) Lower extremity weakness (Chronic) HLD (hyperlipidemia) (Chronic) You will use the following diet at home:: Cardiac Discharge Activity: Return to Normal Activity, Use Walker Call your doctor if you observe: Fever of 101 or Higher, Shortness of breath, Dizziness, Fainting spells, Chest pain Allergies/Adverse Reactions: Allergies ciprofloxacin [From Cipro] Allergy (Severe, Verified 12/08/20 22:15) throat swelling adhesive tape Allergy (Intermediate, Verified 04/27/20 18:35) Rash celecoxib [From Celebrex] Allergy (Verified 12/08/20 22:15) vomited blood clots formaldehyde Allergy (Verified 04/27/20 18:35) Other formaldehyde in plastic gloves causes swelling and cracking in hands ketorolac [From Toradol] Adverse Reaction (Verified 04/27/20 18:35) Upset Stomach Medications to take at Discharge Aspirin [Aspirin, Baby] 81 mg PO DAILY@0800 07/19/18 Lovastatin [Mevacor] 40 mg PO BID 07/19/18 Multivitamin [Multiple Vitamins] 1 ea PO DAILY 07/19/18 Cholecalciferol (VIT D3) [Vitamin D3] 1,000 unit PO DAILY 11/21/18 Selenium 100 mcg PO DAILY 11/21/18 folic acid 400 mcg tablet 0.4 mg PO DAILY 02/24/20 furosemide 20 mg tablet 40 mg PO TID tab 02/24/20 gabapentin 300 mg capsule 300 mg PO 4X/DAY cap 02/24/20 losartan 50 mg tablet 75 mg PO DAILY tab 02/24/20 potassium chloride 10 mEq tablet,extended release(part/cryst) 20 meq PO DAILY tab 02/24/20 metoprolol tartrate 100 mg tablet 50 mg PO BID tab 03/05/20 [place]-3 Fatty Acids/Fish Oil [[place] 3 1,000 mg Softgel] 1 cap PO DAILY 12/08/20 Omeprazole [Prilosec] 20 mg PO DAILY 12/08/20 Zinc Sulfate 220 mg PO DAILY 12/08/20 levoFLOXacin tablet [Levaquin tablet] 750 mg PO Q48H #5 tab 12/10/20 The following prescriptions were given: levoFLOXacin tablet [Levaquin tablet] 750 mg PO Q48H #5 tab Transmission Status: Pending to [facility] Primary Care Physician: Christofer Vazquez MD [Primary Care Provider] - Please follow up with your Primary Care Physician in: 1 Week Test Results: Test results from this visit will be discussed in further detail at your follow- up appointment, if applicable. Please Follow Up With: Clinic,Wound When: Follow at wound clinic for chronic lymphedema Proposed Discharge Date: 12/10/20
[2020-12-10] MEDS: guaiFENesin 10 ML UDC (200MG/10ML) 20 ML PO (10:50)
--- NOTE | 2020-12-10 10:58 | PCM.DC.SUM ---
<MarcinDarlyneverardo FREED - Last Filed: 12/10/20 11:19> Discharge Date and Diagnosis - Problem List Patient Problems: Active and Suspected Problems (Last Reviewed 12/08/20 @ 20:15 by ANDI Sanchez) Cellulitis of right lower extremity (Acute) Date of Admission: 12/08/20 Date of Discharge: 12/10/20 - Primary Discharge Diagnosis Acute Problems: Active Problems (Last Reviewed 12/08/20 @ 20:15 by ANDI Sanchez) 1. Right lower extremity cellulitis, chronic right charcot foot 2. Chronic bilateral lower extremity lymphedema 3. Chronic bilateral lower extremity weakness 4. Hypertension 5. Hyperlipidemia 6. GERD 7. Morbid obesity - Secondary Discharge Diagnosis Chronic Problems: Chronic Problems (Last Reviewed 12/08/20 @ 20:15 by ANDI Sanchez) Neuropathy (Chronic) GERD (gastroesophageal reflux disease) (Chronic) Morbid obesity (Chronic) Lymphedema (Chronic) Essential hypertension (Chronic) Debility (Chronic) Lower extremity weakness (Chronic) Frequent falls (Chronic) HLD (hyperlipidemia) (Chronic) Hospital Course and Treatment Imaging Results: Diagnostic Data Chest X-Ray 12/08/20 17:15 IMPRESSION: Findings consistent with CHF/pulmonary edema as clinically indicated. Electronically Signed: Guilherme Mills MD at 17:48 EDT Tel , Service support , Operations: None Procedures: None Summary of Care Provided: The patient is a 75 year old F admitted 12/08/2020 due to bilateral lower extremity weakness. 1. Right lower extremity cellulitis, chronic right charcot foot-duplex ultrasound negative for DVT. IV Rocephin during admission. Right lower extremity redness and warmth improved. Based on prior wound cultures which grew staph and Pseudomonas, discharged on renally dosed Levaquin to complete 10-day course. Recommend follow-up with podiatry for chronic right charcot foot to discuss correction. 2. Chronic bilateral lower extremity lymphedema-snug Paco wraps. Received IV Lasix x1. Continue home Lasix regimen. Recommend outpatient follow-up with wound center for chronic lymphedema. 3. Chronic bilateral lower extremity weakness-outpatient PT/OT if patient is amendable. Continue use of walker. 4. Hypertension-stable, continue losartan, metoprolol, Lasix. 5. Hyperlipidemia-continue statin. 6. GERD-continue PPI. 7. Morbid obesity-encouraged diet and lifestyle modifications. General: Alert, Oriented x3, Cooperative HEENT: Atraumatic, PERRLA, EOMI, Normocephalic Neck: Supple, No JVD, Negative Carotid Bruits Lungs: Clear to auscultation, Normal air movement Cardiovascular: Regular rate, No murmurs Abdomen: Bowel Sounds Present, Soft, Non Tender, Non-Distended Extremities: No clubbing, No cyanosis, - - Chronic lymphedema bilateral lower extremity, worse on right Skin: Right lower extremity warmth and redness improved Musculoskeletal: No Tenderness to Palpation of Joints or Extremities Neurological: Cranial nerves II-XII grossly intact, Neuro grossly intact Psych/Mental Status: Normal Affect, Appropriate Patient seen and examined prior to discharge. Physical assessment as noted above. Patient is stable for discharge with follow up recommendations as noted above. This patient was seen by ANDI Manzano under the supervision of Dr. Andres. Patient Problems: Active and Suspected Problems (Last Reviewed 12/08/20 @ 20:15 by ANDI Sanchez) Cellulitis of right lower extremity (Acute) - Physical Exam Vitals/I&O's: Vital Signs Temp Pulse Resp BP Pulse Ox 98.2 F 77 16 132/58 H 93 12/10/20 08:52 12/10/20 09:42 12/10/20 08:52 12/10/20 09:42 12/10/20 08:52 Oxygen Delivery Method Room Air Weight: 344 lb 9.32 oz Body Mass Index (BMI) 61.0 Intake and Output for Last 24 Hours 12/08/20 12/09/20 12/10/20 23:59 23:59 23:59 Intake Total 2364.5 / 2364.5 50 / 300 300 / 300 Output Total 240 / 240 2420 / 3920 2500 / 2500 Balance 2124.5 / 2124.5 -2370 / -3620 -2200 / -2200 Laboratory Results 12/09/20 18:12: MRSA (PCR) Negative 12/10/20 05:34: Sodium 139, Potassium 3.9, Chloride 102, Carbon Dioxide 31.0, Anion Gap 6, BUN 16, Creatinine 0.88, Estim Creat Clear Calc 45.69, Est GFR (MDRD) Af Amer 81, Est GFR (MDRD) Non-Af 67, BUN/Creatinine Ratio 18.2, Glucose 115 H, Calcium 8.7 12/10/20 05:34: Hemoglobin A1c 5.5 Current Medications Acetaminophen (Acetaminophen 325 Mg Tablet) 650 mg PO Q6H PRN PRN PRN Reason: Pain Score 1-10/Temp > 100.7 F Last Admin: 12/10/20 10:43 Dose: 650 mg Documented by: Al Hydroxide/Mg Hydroxide (Mag Hydrox/Al Hydrox/Simeth 30 Ml Udc) 30 ml PO Q6H PRN PRN PRN Reason: Gastric Burning Albuterol Sulfate (Albuterol 2.5 Mg/3 Ml Vial.Neb.) 2.5 mg INHALATION Q2H PRN PRN PRN Reason: Dyspnea, wheezing Last Admin: 12/09/20 21:54 Dose: 2.5 mg Documented by: Aspirin (Aspirin 81 Mg Tab.Chew) 81 mg PO DAILY@0800 [facility] Last Admin: 12/10/20 09:39 Dose: 81 mg Documented by: Atorvastatin Calcium (Atorvastatin Calcium 20 Mg Tablet) 20 mg PO QHS [facility] Last Admin: 12/09/20 21:01 Dose: 20 mg Documented by: Cholecalciferol (Cholecalciferol (Vit D3) 25 Mcg Tablet (1,000 Units)) 25 mcg PO DAILY [facility] Last Admin: 12/10/20 09:44 Dose: 25 mcg Documented by: Enoxaparin Sodium (Enoxaparin 40 Mg/0.4 Ml Syringe) 40 mg SC BID [facility] Last Admin: 12/10/20 09:45 Dose: 40 mg Documented by: Furosemide (Furosemide 20 Mg Tablet) 60 mg PO BID [facility] Last Admin: 12/10/20 09:41 Dose: 60 mg Documented by: Gabapentin (Gabapentin 300 Mg Capsule) 300 mg PO 4X/DAY [facility] Last Admin: 12/10/20 09:43 Dose: 300 mg Documented by: Guaifenesin (Guaifenesin 10 Ml Udc (200mg/10ml)) 20 ml PO Q4H PRN PRN PRN Reason: COUGH Last Admin: 12/10/20 10:50 Dose: 20 ml Documented by: Hydralazine HCl (Hydralazine 20 Mg/Ml Vial) 10 mg IV Q4H PRN PRN PRN Reason: SBP > 160 Ceftriaxone Sodium 2 gm/ (Sodium Chloride) 50 mls @ 100 mls/hr IV Q24 [facility] Last Infusion: 12/10/20 10:36 Dose: Infused Documented by: Losartan Potassium (Losartan Potassium 25 Mg Tablet) 75 mg PO DAILY [facility] Last Admin: 12/10/20 09:40 Dose: 75 mg Documented by: Magnesium Hydroxide (Magnesium Hydroxide 30 Ml Udc) 30 ml PO DAILY PRN PRN PRN Reason: Constipation Melatonin (Melatonin 3 Mg Tablet) 3 mg PO QHS PRN PRN PRN Reason: INSOMNIA Metoprolol Tartrate (Metoprolol Tartrate 50 Mg Tablet) 50 mg PO BID [facility] Last Admin: 12/10/20 09:42 Dose: 50 mg Documented by: Morphine Sulfate (Morphine 2 Mg/Ml Syringe) 2 mg IV Q3H PRN PRN PRN Reason: Pain Score 6-10 Nitroglycerin (Nitroglycerin (Inpatient Use) 0.4 Mg Tab.Subl) 0.4 mg SL Q5M PRN PRN Reason: CARDIAC/CHEST PAIN Ondansetron HCl (Ondansetron 4 Mg/2 Ml Vial) 4 mg IV Q8H PRN PRN PRN Reason: NAUSEA/VOMITING Oxycodone HCl (Oxycodone 5 Mg Tablet) 5 mg PO Q4H PRN PRN PRN Reason: Pain Score 4-5 Last Admin: 12/09/20 10:23 Dose: 5 mg Documented by: Pantoprazole Sodium (Pantoprazole Sodium 20 Mg Tablet) 20 mg PO DAILY [facility] Last Admin: 12/10/20 09:44 Dose: 20 mg Documented by: Potassium Chloride (Potassium Chloride Oral Tablet 10 Meq) 20 meq PO DAILY [facility] Last Admin: 12/10/20 09:41 Dose: 20 meq Documented by: Prochlorperazine Edisylate (Prochlorperazine 10 Mg/2 Ml Vial) 5 mg IV Q4H PRN PRN PRN Reason: Breakthrough nausea/vomiting Psyllium Hydrophilic Mucilloid (Psyllium 1 Packet) 1 packet PO DAILY PRN PRN PRN Reason: Constipation Senna/Docusate Sodium (Senna/Docusate Sodium 1 Tablet) 2 tablet PO BID PRN PRN PRN Reason: Constipation Sodium Chloride (0.9% Saline Lock 10 Ml Syringe) 10 - 40 ml IV UD PRN PRN Reason: SALINE FLUSH Last Admin: 12/10/20 10:37 Dose: 10 ml Documented by: Throat Lozenges (Benzocaine/Menthol 1 Lozenge) 1 lozenge MUCOUS MEM Q2H PRN PRN PRN Reason: SORE THROAT Discharge Diet: Low fat/ Low Cholesterol Discharge Activity: Return to Normal Activity, Use Walker Call your doctor if you observe: Fever of 101 or Higher, Shortness of breath, Dizziness, Fainting spells, Chest pain Home Medications: Medications to take at Discharge Aspirin [Aspirin, Baby] 81 mg PO DAILY@0800 07/19/18 Lovastatin [Mevacor] 40 mg PO BID 07/19/18 Multivitamin [Multiple Vitamins] 1 ea PO DAILY 07/19/18 Cholecalciferol (VIT D3) [Vitamin D3] 1,000 unit PO DAILY 11/21/18 Selenium 100 mcg PO DAILY 11/21/18 folic acid 400 mcg tablet 0.4 mg PO DAILY 02/24/20 furosemide 20 mg tablet 40 mg PO TID tab 02/24/20 gabapentin 300 mg capsule 300 mg PO 4X/DAY cap 02/24/20 losartan 50 mg tablet 75 mg PO DAILY tab 02/24/20 potassium chloride 10 mEq tablet,extended release(part/cryst) 20 meq PO DAILY tab 02/24/20 metoprolol tartrate 100 mg tablet 50 mg PO BID tab 03/05/20 [place]-3 Fatty Acids/Fish Oil [[place] 3 1,000 mg Softgel] 1 cap PO DAILY 12/08/20 Omeprazole [Prilosec] 20 mg PO DAILY 12/08/20 Zinc Sulfate 220 mg PO DAILY 12/08/20 levoFLOXacin tablet [Levaquin tablet] 750 mg PO Q48H #5 tab 12/10/20 Following Prescriptions Were Given to Patient: levoFLOXacin tablet [Levaquin tablet] 750 mg PO Q48H #5 tab Transmission Status: Received by [facility] Primary Care Physician: Christofer Vazquez MD [Primary Care Provider] - Please follow up with your Primary Care Physician in: 1 Week Please Follow Up With: Clinic,Wound When: Follow at wound clinic for chronic lymphedema Disposition: Home Minutes spent on discharge:: 35 Patient Condition:: Stable Medical Necessity - Tobacco Use Smoking Status: Never smoker Meaningful Use Info Meaningful Use Diagnoses (Choose all that apply): None applicable <Melissa Andres - Last Filed: 12/10/20 12:43> Discharge Date and Diagnosis - Primary Discharge Diagnosis Acute Problems: Active Problems (Last Reviewed 12/08/20 @ 20:15 by ANDI Sanchez) Cellulitis of right lower extremity (Acute) - Secondary Discharge Diagnosis Chronic Problems: Chronic Problems (Last Reviewed 12/08/20 @ 20:15 by ANDI Sanchez) Neuropathy (Chronic) GERD (gastroesophageal reflux disease) (Chronic) Morbid obesity (Chronic) Lymphedema (Chronic) Essential hypertension (Chronic) Debility (Chronic) Lower extremity weakness (Chronic) Frequent falls (Chronic) HLD (hyperlipidemia) (Chronic) Hospital Course and Treatment Summary of Care Provided: I agree with the above and the following is representation my independent history and physical examination. Ms. Mcgarry is a 75 year old white F who presented to the emergency department on 12/08/2020 with a chief complaint of bilateral lower extremity weakness and right lower extremity erythema. The patient reported on admission that she has chronic weakness of her bilateral lower extremities and that at times she has worsening weakness which is what happened on the day of presentation. She had been undergoing treatment with antibiotics for urinary tract infection. She admits to chronic right lower extremity lymphedema related to her chronic Charcot foot but states that it is slightly more erythematous and warm than it is at baseline. She was admitted to the medical surgical floor and placed on IV ceftriaxone. An MRSA PCR was assessed and was negative. She had mild elevation of her serum creatinine on admission but prior to discharge had resolved to baseline. She had mild fasting hyperglycemia and hemoglobin A1c was assessed and found to be 5.5. She was seen by physical therapy and did well with them and her walker and is at her baseline functional status prior to discharge. Further outpatient physical therapy was recommended but the patient is resistant at this time. Bilateral lower extremity duplex ultrasounds were performed and were negative for DVT. Given previous wound cultures which grew Pseudomonas and sensitive staph aureus she was discharged on Levaquin to complete a 10-day course and was instructed to follow-up with podiatry for chronic right Charcot foot. She is to follow-up with her primary care physician in 1 to 2 weeks Discharge diagnoses Right lower extremity cellulitis Severe Charcot foot abnormality-chronic right lower extremity Leukocytosis CKD stage II HFpEF secondary to diastolic dysfunction and PAH-mild to moderate pulmonary artery systolic pressures 40 mmHg Frequent falls/debility Hyponatremia Obesity hypoventilation syndrome with chronic CO2 elevation-compensated Vitamin D deficiency Diabetic neuropathy Hyperlipidemia Hypertension GERD Super morbid obesity-BMI 61 Suspected IVETTE/OHS Degenerative disc disease Osteoarthritis Spinal stenosis Chronic venous stasis Mild fasting hyperglycemia--> A1c 5.5 Charge time greater than 35 minutes [] Subjective: She states she is feeling better. Her right lower extremity is less erythematous and not nearly as tender as she was on presentation. She does report that occasionally her legs go out on her without notice and feels that this may be related to her back but denies any back pain when this occurs and has no leg pain either. She was seen again by physical therapy and was standby assist for bed mobility and transfers and ambulated 25 feet x 2 with a wheeled walker which is her baseline with standby assist I as well. We did recommend continued outpatient physical therapy but she was disinterested. - Physical Exam Vitals/I&O's: Vital Signs Temp Pulse Resp BP Pulse Ox 98.2 F 77 16 132/58 H 93 12/10/20 08:52 12/10/20 09:42 12/10/20 08:52 12/10/20 09:42 12/10/20 08:52 Oxygen Delivery Method Room Air Weight: 156.3 kg Body Mass Index (BMI) 61.0 Intake and Output for Last 24 Hours 12/08/20 12/09/20 12/10/20 23:59 23:59 23:59 Intake Total 2364.5 / 2364.5 50 / 300 300 / 300 Output Total 240 / 240 2420 / 3920 2500 / 2500 Balance 2124.5 / 2124.5 -2370 / -3620 -2200 / -2200 General: Alert, Oriented x3, Cooperative, No apparent distress, Well developed, Well nourished, - - Obese older white female sitting up in bed watching television, appears comfortable, nontoxic HEENT: Atraumatic, PERRLA, EOMI, Normocephalic, EAC Clear Oral: Moist Mucosa, No Gingival or Mucosal Lesions/ Ulcerations, - - Poor dentition, short thick neck Neck: Supple, Trachea Midline, Thyroid Normal Size and Texture Lungs: Clear to auscultation, Normal air movement, No rhonchi, No wheeze, No rales, - - Distant secondary to body habitus Cardiovascular: Regular rate, Regular Rhythm, Normal S1, Normal S2, No murmurs, No Ectopic Activity, No rub noted, No Gallop Abdomen: Bowel Sounds Present, Soft, Non Tender, Non-Distended, Obese Extremities: No clubbing, No cyanosis, Capillary Refill Less than 3 Seconds, Edema - Trace chronic right lower extremity edema nonpitting, Peripheral Pulses Normal Skin: No breakdown, - - Right lower extremity with mild erythema although this erythema has retracted from outlining that was placed on admission, no skin lesions were noted right lower extremity was no longer tender to palpation Musculoskeletal: No Tenderness to Palpation of Joints or Extremities, No Muscle Wasting, Arthritic Changes, - - Marked right lower extremity foot deformity Lymphatic: No Cervical, Supraclavicular, or Inguinal Adenopathy Neurological: Cranial nerves II-XII grossly intact, Neuro grossly intact, Muscle tone normal, Coordination normal, - - Light sensory loss the right foot as compared to left-chronic, generalized weakness Psych/Mental Status: Normal Affect, Appropriate, - - Very talkative Laboratory Results 12/09/20 18:12: MRSA (PCR) Negative 12/10/20 05:34: Sodium 139, Potassium 3.9, Chloride 102, Carbon Dioxide 31.0, Anion Gap 6, BUN 16, Creatinine 0.88, Estim Creat Clear Calc 45.69, Est GFR (MDRD) Af Amer 81, Est GFR (MDRD) Non-Af 67, BUN/Creatinine Ratio 18.2, Glucose 115 H, Calcium 8.7 12/10/20 05:34: Hemoglobin A1c 5.5 Meaningful Use Info Meaningful Use Diagnoses (Choose all that apply): None applicable Inpatient E&M: 10803 Disch Hosp
--- NOTE | 2020-12-10 11:05 | CASEMGMT ---
PT is recommending additional therapy for pt. GUILLE CM in to pt room to discuss. PT receives outpt OT at [facility]. She states she does not feel like she needs PT once she gets home and out of the hospital she will be at baseline. Pt aware to contact PCP if she should change her mind for the PT, and PCP can order. She verbalizes understanding and denies further needs.
== END 2020-12-10 12:00 | disposition home or self-care (01) | DRG 603 ==
LOC: ED 17:11 → MS3 20:08
PROVIDERS: Nurse Practitioner Family; Admitting Provider Family Medicine; Emergency Provider Emergency Medicine; PCP Family Medicine; Visit Provider Internal Medicine
DX: L03.115 Cellulitis of right lower limb (principal); A52.16 Charcot's arthropathy (tabetic); I13.0 Hypertensive heart and chronic kidney disease with heart failure and stage 1 through stage 4 chronic kidney disease, or unspecified chronic kidney disease; Z68.44 Body mass index [BMI] 60.0-69.9, adult; N39.0 Urinary tract infection, site not specified; N17.9 Acute kidney failure, unspecified; I50.32 Chronic diastolic (congestive) heart failure; E87.1 Hypo-osmolality and hyponatremia; E66.2 Morbid (severe) obesity with alveolar hypoventilation; I89.0 Lymphedema, not elsewhere classified; N18.2 Chronic kidney disease, stage 2 (mild); E78.5 Hyperlipidemia, unspecified; K21.9 Gastro-esophageal reflux disease without esophagitis; Z79.2 Long term (current) use of antibiotics; R29.6 Repeated falls; R53.81 Other malaise; E55.9 Vitamin D deficiency, unspecified; E11.40 Type 2 diabetes mellitus with diabetic neuropathy, unspecified; E11.22 Type 2 diabetes mellitus with diabetic chronic kidney disease; M51.36 Other intervertebral disc degeneration, lumbar region; M19.90 Unspecified osteoarthritis, unspecified site; M48.00 Spinal stenosis, site unspecified; I87.8 Other specified disorders of veins; E11.65 Type 2 diabetes mellitus with hyperglycemia
CPT/HCPCS: 36415; 71045; 80048; 80053; 81001; 83036; 83605; 83735; 84145; 84484; 85025; 87040; 87641; 93005; 93971; 94640; 97110; 97162; 97166; 97530; 97535; 97802; 99285; J7030; J7040; J7050; A4216; J0295; J0696; J1940

== ENCOUNTER 2023-07-12 09:51 | Outpatient (RCR) | payer MEDICARE, OTHER, SELFPAY ==
[2023-07-12 10:10] VITALS: BP 182/84; PULSE 87; RESP 20; TEMP 36.3; BMI 60.4
--- NOTE | 2023-07-12 10:43 | PCM.WC.HP ---
History of Present Illness Date of Service: 07/12/23 Chief Complaint: Right foot ulcer History of Wound: Patient is a 78-year-old female who presents to the wound care center as a referral by Dr. Court DPM, for right foot ulcer. She has PMHx of posterior tibial tendon dysfunction stage IV, lymphedema, HTN, HLD, debility, morbid obesity, degenerative disc disease of the lumbar, Hx Achilles tendon surgery right foot. Patient has been following with Dr. Yun for a few weeks for ulceration overlying the navicular bone of the right foot. Ulceration is complicated by significant foot deformity secondary to PTTD stage IV. Patient unable to ambulate in offloading boot secondary to significant lymphedema. Patient has been ambulating with foam cut out and placed inside of a sock barefoot. 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 Patient states she will be moving to [facility] in December as she has family in this area will aid in care of her and her. She states she has had previous discussion with a surgeon about her deformity and was told the only option was lower leg amputation. Patient did not want this at that time. States since then deformity has continued to progressively worsen with new ulceration developing on medial right foot and has been present for 2 months. Patient denies being diabetic, recent A1c 5.6%. She has been placing Aquacel to the site and is now utilizing Yaquelin. She was referred to the wound care center for second opinion pertaining to wound. She denies N/V/F/chills. She denies further problems. [facility] Medical History (Updated 07/12/23 @ 18:[address] Rylan Moreno DPM) Acute cystitis Acute kidney injury Anemia Cellulitis DDD (degenerative disc disease), lumbar Debility Decubitus ulcer of left buttock, stage 2 Decubitus ulcer of right buttock, stage 2 Essential hypertension Frequent falls GERD (gastroesophageal reflux disease) HLD (hyperlipidemia) Lower extremity weakness Lymphedema Morbid obesity with BMI of 40.0-44.9, adult Spinal stenosis Venous stasis ulcers Home Medications aspirin 81 mg chewable tablet 81 mg PO DAILY@0800 heart 07/19/18 [History Last Taken 12/08/20] lovastatin 40 mg tablet 40 mg PO BID cholesterol 07/19/18 [History Last Taken 12/08/20] multivitamin 1 ea PO DAILY spinal stenosis 07/19/18 [History Last Taken 12/08/20] cholecalciferol (vitamin D3) 25 mcg (1,000 unit) tablet 1,000 unit PO DAILY supplement 11/21/18 [History Last Taken 12/08/20] selenium 100 mcg tablet 100 mcg PO DAILY Check with primary doctor 11/21/18 [History Last Taken 12/08/20] folic acid 400 mcg tablet 0.4 mg PO DAILY supplement 02/24/20 [History Last Taken 12/08/20] furosemide 20 mg tablet 40 mg PO TID diuretic 02/24/20 [History Last Taken 12/08/20] losartan 50 mg tablet 75 mg PO DAILY hypertension 02/24/20 [History Last Taken 12/08/20] potassium chloride 10 mEq tablet,extended release(part/cryst) 20 meq PO DAILY supplement 02/24/20 [History Last Taken 12/08/20] metoprolol tartrate 100 mg tablet 50 mg PO BID hypertension 03/05/20 [History Last Taken 12/08/20] omega-3 fatty acids-fish oil 300 mg-1,000 mg capsule 1 cap PO DAILY SUPPLEMENT 12/08/20 [History Last Taken 12/08/20] omeprazole 20 mg capsule,delayed release 20 mg PO DAILY GERD 12/08/20 [History Last Taken 12/08/20] zinc sulfate 50 mg zinc (220 mg) tablet 220 mg PO DAILY SUPPLEMENT 12/08/20 [History Last Taken 12/08/20] Allergy/AdvReac Type Severity Reaction Status Date / Time ciprofloxacin [From Cipro] Allergy Severe throat Verified 12/08/20 22:15 swelling adhesive tape Allergy Intermediate Rash Verified 04/27/20 18:35 celecoxib [From Celebrex] Allergy vomited Verified 12/08/20 22:15 blood clots formaldehyde Allergy Other Verified 04/27/20 18:35 ketorolac [From Toradol] AdvReac Upset Verified 04/27/20 18:35 Stomach Family History Father CAD (coronary artery disease) Myocardial infarction Sister Breast cancer Surgical History H/O laminectomy History of Achilles tendon repair History of section History of foot surgery History of hysterectomy History of total bilateral knee replacement Social History (Updated 03/05/20 @ 14:[address] Jayson Castañeda MD) Smoking Status: Never smoker substance use type: does not use ROS Constitutional Constitutional: Denies anorexia, change in weight, chills or fever(s) Eyes Eyes: Denies blurry vision, change in vision or double vision ENT HEENT: Denies dysphagia, nasal congestion, nasal discharge or sore throat Cardiovascular Cardiovascular: Denies chest pain, claudication or palpitations Respiratory/Chest Respiratory/Chest: Denies cough, shortness of breath at rest or wheezing Gastrointestinal Gastrointestinal: Denies abdominal pain, constipation, diarrhea, nausea or vomiting Genitourinary Genitourinary: Denies dysuria, hematuria, urinary frequency or urinary urgency Musculoskeletal Musculoskeletal: Denies joint pain, joint stiffness or joint swelling Integumentary Integumentary: Denies lesions, pruritus or rash Neurologic Neurologic: Denies dizziness, numbness or seizures Psychiatric Psychiatric: Denies depression Endocrine Endocrinology: Denies cold intolerance or heat intolerance Hematologic/Lymphatic Hematologic/Lymphatic: Denies lymphadenopathy Vital Signs Vital Signs Vital Signs: 07/12/23 10:10 Temperature 97.4 F L Temperature Source Temporal Pulse Rate 87 Respiratory Rate 20 H Blood Pressure 182/84 H Blood Pressure Mean 116 Blood Pressure Source Monitor Weight Weight: 149.924 kg Body Mass Index (BMI) 60.4 Physical Exam Const alert, oriented x3, no apparent distress and well nourished General Appearance: cooperative Nutritional Appearance: morbidly obese HEENT normocephalic Eyes General Eye: normal appearance of both eyes Neck General: normal visual inspection Lymph Lymphatic: no lymphadenopathy noted and no lymphedema noted Resp normal respiratory effort Cardio regular rate and regular rhythm Extremity normal capillary refill, no calf tenderness and no pedal edema Extremity Narrative: DP and PT pulses palpable bilateral. Capillary fill time less than 5 seconds to the digits. Lymphedema and lipedema noted to lower extremity bilateral. Dermatological: Positive Stemmer sign bilateral. Lower extremity demonstrates significant swelling consistent with lymphedema versus lipedema/Lipolymphedema. There is an ulceration noted overlying the navicular bone medially with surrounding hyperkeratosis and macerated tissue. Wound base demonstrates granular layer with serosanguineous drainage. No erythema, no purulent drainage, no malodor, no palpable fluctuance/bogginess noted, no visible abscess formation, no lymphangitic streaking. Musculoskeletal: Muscle strength 5 of 5 age-appropriate left lower extremity. Muscle strength deferred secondary to significant deformity of the right lower extremity. Patient demonstrates significant valgus deformity of the ankle with inversion of the foot on ankle with rigidity of the subtalar joint and midtarsal joint. Deformity is noted to be rigid with inability to relocate calcaneus and talus under the tibia. Patient ambulates exclusively on the medial aspect of the ankle/foot with direct pressure overlying the navicular bone. Patient demonstrates changes consistent with PTTD stage IV of the right foot. Skin no rashes or lesions noted and no jaundice Neuro moves all extremities Debridement Note Debridement Note Wound debrided: Right foot Laterality: Right Wound Grade/Stage: Rivera stage I Type of Debridement: Excisional debridement Anesthesia Used: 5% Lidocaine Gel Depth: Down to and including healthy tissue and in the subcutaneous layer Percentage of wound debrided: 100 Instrument Used: 5mm curette Tissue Removed: Fibrous, devitalized subcutaneous, biofilm, slough Severity: Fat Layer Exposed Amount of bleeding with debridement: Mild Bleeding Controlled with: Compression and gauze Patient tolerated procedure: Patient tolerated procedure well Post-Debridement Measurements and Additional Note: Post-Debridement Measurements/Treatment - Nurse 1 - General Ulcer Assessment Start: 07/12/23 10:02 Freq: Status: Active Protocol: CHELSI Activity Type Activity Date Activity User E-sign Co-sign Detail Recorded Client Recorded Date Recorded By Document 07/12/23 10:10 DL Desktop 07/12/23 10:32 DL 07/12/23 10:10 - Today's Visit Information Type of service Initial Visit Arrival Mode Ambulatory, Walker Transfer Assistance None Patient Identification Verified (Name & Yes ) Patient Requires Transmission-Based Yes Precautions Safety Precautions Fall Prevention Height and Weight Height 5 ft 2 in Weight 149.924 kg Weight in Pounds 330.5 lbs Weight Measurement Method Estimated by Patient Body Mass Index (BMI) 60.4 BMI Classification Obese BSA - Juan Ramon 2.37 Vital Signs Temperature (97.8 F-99.1 F) 97.4 F L Temperature Source Temporal Pulse Rate (60-100) 87 Pulse Location Monitor Respiratory Rate (12-18) 20 H Respiratory rate source Observation Blood Pressure (90/60-120/80) 182/84 H Blood Pressure Mean 116 Source Monitor Pain Scale: 0-10 Numeric Is Patient Pain Free? Yes Lower Extremity Assessment/ Foot Assessment/ Toe Nail Assessment Left -Posterior Tibial Palpable No -Posterior Tibial Doppler Multiphasic -Dorsalis Pedis Doppler Multiphasic -Extremity Color Hemosiderin -Hair Growth on Legs No -Hair Growth on Toes No -Temperature of Extremity Warm -Capillary Refill Greater than 3 Seconds -Dependent Rubor No -Blanched when Elevated No -Lipodermatosclerosis No -Thick Yes -Discolored Yes -Deformed Yes -Improper Length & Hygeine No Right -Popliteal Doppler Monophasic -Posterior Tibial Doppler Monophasic -Extremity Color Hemosiderin -Hair Growth on Legs No -Hair Growth on Toes No -Temperature of Extremity Warm -Capillary Refill Greater than 3 Seconds -Dependent Rubor No -Blanched when Elevated No -Lipodermatosclerosis No -Other Deformity Yes -Prior Foot Ulcer Yes -Charcot Joint Yes -Prior Amputation No -Thick Yes -Discolored Yes -Improper Length & Hygeine No Neuropathy Assessment Feet - Top Side and Bottom <Entered> (a) Communication Assessment Preferred language Armenian Able to Read Yes Able to Write Yes Communication Tools None Right Hearing Abillity Normal Left Hearing Abillity Normal Visual Assistive Devices Glasses Teaching Assessment Preferences Verbal,Written Barriers to Learning None Readiness To Learn Good Willingness to Engage in Self Management Med Activies Readiness to Engage in Self Management Med Activities Anxiety Level Calm Cooperation Cooperative Interest in Health Problem Asks Questions Education Importance Acknowledges Need Does Patient Smoke tobacco or other No substances Smoking Status Never smoker Is Patient Diabetic No Functional Assessment Recent Decline in Ability to Perform Denies Any Declines Culture/Latter Day/[employer] Cultural/Latter Day Needs that may affect No Treatment Plan Would you allow our hospital direct care staffer to No meet you for the purpose of spiritual/ emotional support? Packager Machine to contact place of sabianism No (a) 1 - + WC - Nurse 1 - General Ulcer Measurement Start: 07/12/23 10:02 Freq: Status: Active Protocol: Activity Type Activity Date Activity User E-sign Co-sign Detail Recorded Client Recorded Date Recorded By Document 07/12/23 10:10 DL Desktop 07/12/23 10:32 DL 07/12/23 10:10 Wound Center Nurse 1 #3 R Med Foot -Current Size (cm) - Length 1.1 -Current Size (cm) - Width 1.2 -Current Size (cm) - Depth 0.8 -Total Square Cm 1.32 -Photo Taken Yes -Classification - Thickness Full Thickness without Exposed Support Structure -Exudate Amt Medium -Exudate Type Serosanguineous -Granulation Amt Large (67-100%) -Granulation Quality [place],Red -Necrosis Amt Small (1-33%) -Necrotic Tissue Type Adherent Slough -Structure Exposed N/A -Texture (Fidelia-wound Skin Appearance) Callus,Scarring -Moisture (Fidelia-wound Skin Appearance) Maceration -Color (Fidelia-wound Skin Appearance) Hemosiderin Staining -Temperature (Fidelia-wound Skin No Abnormality Appearance) (Pt Warm) -Tenderness on Palpation (Fidelia-wound No Skin Appearance) -Ulcer Cleansing Soap and Water -Foul Odor after Cleansing No -Anesthetic Used 5% Lidocaine Gel Right Calf (cm) 51.5 Right Ankle (cm) 35 Left Calf (cm) 50 Left Ankle (cm) 34.5 Assessment/Plan Assessment/Plan (1) Morbid obesity: CODE(S): E66.01 - Morbid (severe) obesity due to excess calories (2) Lymphedema: CODE(S): I89.0 - Lymphedema, not elsewhere classified (3) Essential hypertension: CODE(S): I10 - Essential (primary) hypertension (4) Debility: CODE(S): R53.81 - Other malaise (5) Lower extremity weakness: CODE(S): R29.898 - Other symptoms and signs involving the musculoskeletal system QUALIFIERS: Laterality: bilateral (6) Frequent falls: CODE(S): R29.6 - Repeated falls (7) HLD (hyperlipidemia): CODE(S): E78.5 - Hyperlipidemia, unspecified (8) Lipedema: CODE(S): R60.9 - Edema, unspecified (9) Posterior tibial tendon dysfunction (PTTD) of right lower extremity: CODE(S): M76.821 - Posterior tibial tendinitis, right leg (10) Acquired valgus deformity of ankle: CODE(S): M21.079 - Valgus deformity, not elsewhere classified, unspecified ankle (11) Neuropathic ulcer of right foot with fat layer exposed: CODE(S): L97.512 - Non-pressure chronic ulcer of other part of right foot with fat layer exposed (12) Neuropathy: CODE(S): G62.9 - Polyneuropathy, unspecified (13) Altered gait: CODE(S): R26.9 - Unspecified abnormalities of gait and mobility PLAN: Plan Patient seen and evaluated Right lower extremity: Lower extremity demonstrates significant swelling consistent with lymphedema vs lipedema;Lipolymphedema. There is an ulceration noted overlying the navicular bone medially with surrounding hyperkeratosis and macerated tissue. No signs of infection. Patient demonstrates significant valgus deformity of the ankle with inversion of the foot on ankle with rigidity of the subtalar joint and midtarsal joint. Deformity is noted to be rigid with inability to relocate calcaneus and talus under the tibia. Patient ambulates exclusively on the medial aspect of the ankle/foot with direct pressure overlying the navicular bone. Patient demonstrates changes consistent with PTTD stage IV of the right foot. Gait analysis: Patient ambulating without shoe gear secondary to foot deformity and Lipo lymphedema to the right lower extremity. Patient demonstrates significant valgus deformity of the ankle with inversion of the forefoot on the hindfoot. Patient ambulating exclusively on medial aspect of the ankle/foot with direct pressure overlying the navicular bone. Gait is altered secondary to significant deformity. Patient denies being diabetic, recent A1c 5.6%. Ulceration was debrided as noted in the clinical panel above. Ulceration overlying the navicular bone of the right foot measures 1.2 cm x 1.3 cm x 1.5 cm. No signs of infection. Yaquelin applied to the wound base and dressed with Aquacel Ag and dry sterile dressing. She is instructed to change dressing daily. Her plantar offloading insert (Pegasys insert) was modified with offloading cut outs underlying site of ulceration. A Plastizote insert was applied in addition to a felt offloading pad. These were secured together creating a try layer offloading insert. This insert was unable to be placed into boot or surgical shoe for additional offloading secondary to deformity and Lipo lymphedema. Patient secures offloading insert foot with Paco wrap and apply a sock over this to keep in place. She was instructed to continue to do this for adequate offloading of the right foot. We will modify this as needed. Discussed use of lymphedema pumps however this may be ineffective in her compounded lipedema. Discussed remaining off feet as much as possible however this is challenging secondary to being the only caregiver for her ill . Due to this patient also requires need to drive. Discussed elevation of lower extremities at all times of rest. Discussed adequate protein intake to aid in wound healing. Guicho supplementation recommended. She is currently taking oral Keflex. She was instructed to finish antibiotic to completion. Offloading remains difficult secondary to deformity and Lipo lymphedema. Total contact cast would be ineffective secondary to deformity and possibility of new wound formation in other areas of foot/ankle. Consideration given to knee scooter however with considerable Lipo lymphedema this would also remain difficult for compliance and use. I discussed in detail surgical options for consideration. Discussed with patient given her stage of deformity a TTC fusion would be required via intramedullary gabriela to correct the hindfoot/ankle deformity. Secondary fusions may be required for the talonavicular joint in addition to posterior tibial tendon debridement and advancement/possible tendon transfer. Discussed typical postoperative course in detail in addition to recovery time. Discussed her chronic Lipo lymphedema complicates surgical intervention and poses risk of wound healing. Discussed risk of infection is higher given her condition. Discussed risk of infection with open ulceration currently. Discussed she is at high risk of below the knee amputation of the right lower extremity. She voices understanding of this discussion today. At this time patient not interested in surgical reconstruction due to the care of her . Discussed obtaining new x-rays of the right lower extremity. She previously had radiographs at [facility] interpreted by Dr. Yun, demonstrating no evidence of osteomyelitis. Discussed signs and symptoms of infection. Discussed if she notices any redness about the ulcerative site that moves up the foot/leg, if she has any purulent drainage emerging from the wound site, she has increasing foul odor from the wound site, or if she experiences fever greater than 101 degree, nausea, vomiting, chills, these are signs of progressing infection and she needs to report to the ED to receive IV antibiotics. She voices understanding of this today. I reviewed and discussed his case today. Debridement was performed today as noted in the clinical panel to all of the ulcer sites. The following work up and care recommendations were made: Dressing: Yaquelin, Aquacel Ag and dry sterile dressing. Wash: Soap and water Tissue growth optimization: Yaquelin Offload: Modified offloading insert applied to right foot. She was instructed to continue to ambulate utilizing this to have as much offloading as possible Vascular: Palpable pedal pulses with adequate capillary fill time. Do not feel vascular is impeding healing progress. Edema: Chronic Lipo lymphedema. Discussed elevation of lower extremities and use of lymphedema pump however these may be ineffective given her status. Infection: No signs of infection. Patient currently finishing oral Keflex. Pain: May take [id number] Tylenol extra strength for discomfort Host factors: PTTD stage IV right foot, bilateral Lipo lymphedema, altered gait, valgus deformity right ankle/foot, morbid obesity, neuropathy, debility. I answered all the patient's questions. To return to the wound healing center in 2 weeks or call sooner if the patient has any questions or concerns.
== END 2023-07-17 23:59 | disposition home or self-care (01) ==
LOC: WC 09:51
PROVIDERS: PCP Family Medicine; Referring Provider Podiatrist Foot & Ankle Surgery; Visit Provider Student in an Organized Health Care Education/Training Program
DX: L97.512 Non-pressure chronic ulcer of other part of right foot with fat layer exposed (principal); E66.01 Morbid (severe) obesity due to excess calories; Z68.44 Body mass index [BMI] 60.0-69.9, adult; M21.079 Valgus deformity, not elsewhere classified, unspecified ankle; I10 Essential (primary) hypertension; I89.0 Lymphedema, not elsewhere classified; R60.9 Edema, unspecified; M14.60 Charcot's joint, unspecified site; M76.821 Posterior tibial tendinitis, right leg; G62.9 Polyneuropathy, unspecified; R53.81 Other malaise; Z79.82 Long term (current) use of aspirin; E78.5 Hyperlipidemia, unspecified; R26.9 Unspecified abnormalities of gait and mobility; R29.898 Other symptoms and signs involving the musculoskeletal system
CPT/HCPCS: 11042; 99213; G0463

== ENCOUNTER 2023-08-16 10:45 | Outpatient (RCR) | payer MEDICARE, OTHER, SELFPAY ==
[2023-07-18 00:55] VITALS: BP 182/84; PULSE 87; RESP 20; TEMP 36.3; BMI 60.4
[2023-07-26 10:28] VITALS: BP 154/87; PULSE 88; RESP 18; TEMP 36.1; O2SAT 95; BMI 60.4
--- NOTE | 2023-07-26 19:45 | PN.PCM_ITS ---
History of Present Illness Date of Service: 07/26/23 Chief Complaint: Right foot ulcer History of Wound: Patient is a 78-year-old female who presents to the wound care center as a referral by Dr. Yun, GERMÁN, for right foot ulcer. She has PMHx of posterior tibial tendon dysfunction stage IV, lymphedema, HTN, HLD, debility, morbid obesity, degenerative disc disease of the lumbar, Hx Achilles tendon surgery right foot. Patient has been following with Dr. Yun for a few weeks for ulceration overlying the navicular bone of the right foot. Ulceration is complicated by significant foot deformity secondary to PTTD stage IV. Patient unable to ambulate in offloading boot secondary to significant lymphedema. Patient has been ambulating with foam cut out and placed inside of a sock barefoot. 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 Patient states she will be moving to [facility] in December as she has family in this area will aid in care of her and her. She states she has had previous discussion with a surgeon about her deformity and was told the only option was lower leg amputation. Patient did not want this at that time. States since then deformity has continued to progressively worsen with new ulceration developing on medial right foot and has been present for 2 months. Patient denies being diabetic, recent A1c 5.6%. She has been placing Aquacel to the site and is now utilizing Yaquelin. She was referred to the wound care center for second opinion pertaining to wound. She denies N/V/F/chills. She denies furthe r problems. Subjective Subjective Patient is a 78-year-old female who follows to the wound care center for right medial foot ulcer secondary to PTTD stage IV with significant inversion of the forefoot. She states she did not continue offloading with the prior made offloading padding feeling that this was too hard to walk on. Continue to ambulate on deformity. She states she has been changing dressings to the foot daily. Denies constitutional symptoms. Denies further complaints. Objective Data Objective Data Vital Signs: Vital Signs Temp Pulse Resp BP Pulse Ox O2 Del Method 96.9 F L 88 18 154/87 H 95 Room Air 07/26/23 10:28 07/26/23 10:28 07/26/23 10:28 07/26/23 10:28 07/26/23 10:28 07/26/23 10:28 Oxygen Delivery Method Room Air Weight: 149.924 kg Body Mass Index (BMI) 60.4 Physical Exam Const alert, oriented x3, no apparent distress and well nourished General Appearance: cooperative Nutritional Appearance: morbidly obese HEENT normocephalic Eyes General Eye: normal appearance of both eyes Neck General: normal visual inspection Lymph Lymphatic: no lymphadenopathy noted and lymphedema Resp normal respiratory effort Cardio regular rate and regular rhythm Extremity normal capillary refill, no calf tenderness and no pedal edema Extremity Narrative: DP and PT pulses palpable bilateral. Capillary fill time less than 5 seconds to the digits. Lymphedema and lipedema noted to lower extremity bilateral. Dermatological: Positive Stemmer sign bilateral. Lower extremity demonstrates significant swelling consistent with lymphedema versus lipedema/Lipolymphedema. There is an ulceration noted overlying the navicular bone medially with surrounding hyperkeratosis and macerated tissue. Wound base demonstrates granular layer with serosanguineous drainage. No erythema, no purulent drainage, no malodor, no palpable fluctuance/bogginess noted, no visible abscess formation, no lymphangitic streaking. Musculoskeletal: Muscle strength 5 of 5 age-appropriate left lower extremity. Muscle strength deferred secondary to significant deformity of the right lower extremity. Patient demonstrates significant valgus deformity of the ankle with inversion of the foot on ankle with rigidity of the subtalar joint and midtarsal joint. Deformity is noted to be rigid with inability to relocate calcaneus and talus under the tibia. Patient ambulates exclusively on the medial aspect of the ankle/foot with direct pressure overlying the navicular bone. Patient demonstrates changes consistent with PTTD stage IV of the right foot. Skin no rashes or lesions noted and no jaundice Neuro moves all extremities Debridement Note Debridement Note Wound debrided: Right foot Laterality: Right Wound Grade/Stage: Rivera stage I Type of Debridement: Excisional debridement Anesthesia Used: 5% Lidocaine Gel Depth: Down to and including healthy tissue and in the subcutaneous layer Percentage of wound debrided: 100 Instrument Used: 5mm curette Tissue Removed: Fibrous, devitalized subcutaneous, biofilm, slough Severity: Fat Layer Exposed Amount of bleeding with debridement: Mild Bleeding Controlled with: Compression and gauze Patient tolerated procedure: Patient tolerated procedure well Post-Debridement Measurements and Additional Note: Post-Debridement Measurements/Treatment TYE - Nurse 1 - General Ulcer Assessment Start: 07/26/23 10:28 Freq: Status: Active Protocol: CHELSI Activity Type Activity Date Activity User E-sign Co-sign Detail Recorded Client Recorded Date Recorded By Document 07/26/23 10:28 A [place] Pleasureop 07/26/23 10:44 KW 07/26/23 10:28 - Today's Visit Information Type of service Follow-up Visit (Physician/INSPECTOR QUALITY ASSURANCE ) Arrival Mode Ambulatory, Walker Patient Identification Verified (Name & Yes ) Height and Weight Body Mass Index (BMI) 60.4 BMI Classification Obese Vital Signs Temperature (97.8 F-99.1 F) 96.9 F L Temperature Source Temporal Pulse Rate (60-100) 88 Pulse Location Monitor Respiratory Rate (12-18) 18 Respiratory rate source Observation Pulse Oximetry 95 Oxygen Delivery Method Room Air Blood Pressure (90/60-120/80) 154/87 H Blood Pressure Mean (mm Hg) 109 Source Monitor Position Sitting Blood Pressure Location Left Arm History Since Last Visit- (Skip if this is Patient's initial visit) Have you changed medications since your No last visit? Any new allergies or adverse reactions No Had a fall/change in ADL's that may No increase risk of falls Signs or symptoms of abuse and/or No neglect since last visit Have you been in the hospital since your No last visit? Has dressing in place as prescribed Yes Has compression in place as prescribed Yes Has offloadiing in place as prescribed No Experienced any changes in pain level or No management Left Footwear Regular Shoe Right Footwear No Footwear Pain Scale: 0-10 Numeric Is Patient Pain Free? Yes TYE - Nurse 1 - General Ulcer Measurement Start: 07/26/23 10:28 Freq: Status: Active Protocol: Activity Type Activity Date Activity User E-sign Co-sign Detail Recorded Client Recorded Date Recorded By Document 07/26/23 10:28 A [place] Ple[place]op 07/26/23 10:44 KW 07/26/23 10:28 Wound Center Nurse 1 #3 R Med Foot -Current Size (cm) - Length 1.2 -Current Size (cm) - Width 1.6 -Current Size (cm) - Depth 1.2 -Total Square Cm 1.92 -Exudate Amt Medium -Exudate Type Serosanguineous -Wound Margin Distinct, Outline Attached -Granulation Amt Large (67-100%) -Granulation Quality [place] -Necrosis Amt Small (1-33%) -Necrotic Tissue Type Adherent Slough -Texture (Fidelia-wound Skin Appearance) Assessed,Callus -Moisture (Fidelia-wound Skin Appearance) Assessed -Color (Fidelia-wound Skin Appearance) Assessed -Temperature (Fidelia-wound Skin No Abnormality Appearance) (Pt Warm) -Ulcer Cleansing Soap and Water -Anesthetic Used 5% Lidocaine Gel Right Calf (cm) 52.5 Right Ankle (cm) 44.5 WC - Nurse 2 - General Ulcer CM Notes Start: 07/26/23 10:28 Freq: Status: Active Protocol: Activity Type Activity Date Activity User E-sign Co-sign Detail Recorded Client Recorded Date Recorded By Document 07/26/23 17:06 WALLY [id number] 07/26/23 17:07 WALLY 07/26/23 17:06 Wound Center Nurse 2 #3 R Med Foot -Time 11:16 -Correct Patient Yes -Correct Side, Site, Position Yes -Correct Procedure Yes -Procedure Performed Yes -Type of Procedure Debridement -Clinical Debridement Subcutaneous -Tissue Removed Subcutaneous -Post Debridement (cm) - Length 1.4 -Post Debridement (cm) - Width 1.4 -Post Debridement (cm) - Depth 0.9 -Total Square (Post) (cm) 1.96 -Area of Debridement (cm) - Length 1.4 -Area of Debridement (cm) - Width 1.4 -Total Square (Area) (cm) 1.96 -Tunneling No -Undermining/Tunneling No -Circular Undermining No -Wound/Ulcer Outcome Not Healed -Ulcer Cleansing Rinsed/ Irrigated with Saline -Foul Odor after Cleansing No -Bioengineered Tissue Yes -Type of Bioengineered Tissue Epifix 18mm Disc -Expiration Date 03/17/28 -Product Lot Number [id number] -Percent Used 100 -Bleeding Controlled with Pressure -Treatment Response Procedure Tolerated Well -Debridement - Subq, 1st 20sq cm No -Apply Skin Sub - 1st 25 sq cm - Feet 1 -Epifix 18mm Disc 3 Pain Scale: 0-10 Numeric Is Patient Pain Free? Yes TYE - Nurse 3 - General Ulcer D/C NN Start: 07/26/23 10:28 Freq: Status: Active Protocol: Activity Type Activity Date Activity User E-sign Co-sign Detail Recorded Client Recorded Date Recorded By Document 07/26/23 11:40 Laptop 07/26/23 11:41 07/26/23 11:40 Wound Care Center Nurse 3 #3 R Med Foot -Ulcer Cleansing Rinsed/ Irrigated with Saline -Foul Odor after Cleansing No -Other Dressing abd pad -Primary Dressing Covered/Secured with Dry Gauze & Roll Gauze, Secured with Tape Pain Scale: 0-10 Numeric Is Patient Pain Free? Yes WC - Visit Discharge Discharge Condition Stable Ambulatory Status Ambulatory, Walker Transportation Private Auto Medication Reconcilliation completed & Yes provided to patient/care provider Clinical Summary of Care Provided Yes Assessment/Plan Assessment/Plan (1) Altered gait: CODE(S): R26.9 - Unspecified abnormalities of gait and mobility (2) Neuropathic ulcer of right foot with fat layer exposed: CODE(S): L97.512 - Non-pressure chronic ulcer of other part of right foot with fat layer exposed (3) Acquired valgus deformity of ankle: CODE(S): M21.079 - Valgus deformity, not elsewhere classified, unspecified ankle (4) Posterior tibial tendon dysfunction (PTTD) of right lower extremity: CODE(S): M76.821 - Posterior tibial tendinitis, right leg (5) Lipedema: CODE(S): R60.9 - Edema, unspecified (6) Morbid obesity: CODE(S): E66.01 - Morbid (severe) obesity due to excess calories (7) Neuropathy: CODE(S): G62.9 - Polyneuropathy, unspecified (8) Lymphedema: CODE(S): I89.0 - Lymphedema, not elsewhere classified (9) Essential hypertension: CODE(S): I10 - Essential (primary) hypertension (10) Debility: CODE(S): R53.81 - Other malaise (11) Frequent falls: CODE(S): R29.6 - Repeated falls (12) HLD (hyperlipidemia): CODE(S): E78.5 - Hyperlipidemia, unspecified PLAN: Plan Patient seen and evaluated Right lower extremity: Lower extremity demonstrates significant swelling consistent with lymphedema vs lipedema;Lipolymphedema. There is an ulceration noted overlying the navicular bone medially with surrounding hyperkeratosis and macerated tissue. No signs of infection. Patient demonstrates significant valgus deformity of the ankle with inversion of the foot on ankle with rigidity of the subtalar joint and midtarsal joint. Deformity is noted to be rigid with inability to relocate calcaneus and talus under the tibia. Patient ambulates exclusively on the medial aspect of the ankle/foot with direct pressure overlying the navicular bone. Patient demonstrates changes consistent with PTTD stage IV of the right foot. Gait analysis: Patient ambulating without shoe gear secondary to foot deformity and Lipo lymphedema to the right lower extremity. Patient demonstrates significant valgus deformity of the ankle with inversion of the forefoot on the hindfoot. Patient ambulating exclusively on medial aspect of the ankle/foot with direct pressure overlying the navicular bone. Gait is altered secondary to significant deformity. Patient denies being diabetic, recent A1c 5.6%. Ulceration was debrided as noted in the clinical panel above. Ulceration overlying the navicular bone of the right foot measures 1.4 cm x 1.4 cm x 0.9 cm. No signs of infection. EpiFix #1 applied to the wound base and dressed with Adaptic touch, Steri-Strips, Aquacel Ag and dry sterile dressing. She is instructed to change outer dressing as needed. She was instructed to not get the site wet. Her plantar offloading insert (Pegasys insert) was modified with offloading cut outs underlying site of ulceration. A Plastizote insert was applied in addition to a felt offloading pad. These were secured together creating a try layer offloading insert. This insert was unable to be placed into boot or surgical shoe for additional offloading secondary to deformity and Lipo lymphedema. Patient secures offloading insert foot with Paco wrap and apply a sock over this to keep in place. She was instructed to continue to do this for adequate offloading of the right foot. We will modify this as needed. She reports from last visit she was unable to wear this modification due to offloading being uncomfortable to ambulate on. I did fashion to felt offloading pads to be placed about the foot and secured to the foot so that she may ambulate with reduced pressure to wound site. Discussed the pressure reduction is essential to healing. Discussed use of lymphedema pumps however this may be ineffective in her compounded lipedema. Discussed remaining off feet as much as possible however this is challenging secondary to being the only caregiver for her ill . Due to this patient also requires need to drive. Discussed elevation of lower extremities at all times of rest. Discussed adequate protein intake to aid in wound healing. Guicho supplementation recommended. She has finished oral antibiotic, Keflex, to completion. Offloading remains difficult secondary to deformity and Lipo lymphedema. Total contact cast would be ineffective secondary to deformity and possibility of new wound formation in other areas of foot/ankle. Consideration given to knee scooter however with considerable Lipo lymphedema this would also remain difficult for compliance and use. I discussed in detail surgical options for consideration. Discussed with patient given her stage of deformity a TTC fusion would be required via intramedullary gabriela to correct the hindfoot/ankle deformity. Secondary fusions may be required for the talonavicular joint in addition to posterior tibial tendon debridement and advancement/possible tendon transfer. Discussed typical postoperative course in detail in addition to recovery time. Discussed her chronic Lipo lymphedema complicates surgical intervention and poses risk of wound healing. Discussed risk of infection is higher given her condition. Discussed risk of infection with open ulceration currently. Discussed she is at high risk of below the knee amputation of the right lower extremity. She voices understanding of this discussion today. At this time patient not interested in surgical reconstruction due to the care of her . Discussed obtaining new x-rays of the right lower extremity, foot and ankle. She previously had radiographs at [facility] interpreted by Dr. Yun, demonstrating no evidence of osteomyelitis. Discussed signs and symptoms of infection. Discussed if she notices any redness about the ulcerative site that moves up the foot/leg, if she has any purulent drainage emerging from the wound site, she has increasing foul odor from the wound site, or if she experiences fever greater than 101 degree, nausea, vomiting, chills, these are signs of progressing infection and she needs to report to the ED to receive IV antibiotics. She voices understanding of this today. I reviewed and discussed his case today. Debridement was performed today as noted in the clinical panel to all of the ulcer sites. The following work up and care recommendations were made: Dressing: EpiFix, Adaptic touch, Steri-Strips, Aquacel Ag and dry sterile dressing. Change outer dressing as needed. Wash: Do not get wet Tissue growth optimization: EpiFix Offload: Modified offloading insert applied to right foot. She was instructed to continue to ambulate utilizing this to have as much offloading as possible Vascular: Palpable pedal pulses with adequate capillary fill time. Do not feel vascular is impeding healing progress. Edema: Chronic Lipo lymphedema. Discussed elevation of lower extremities and use of lymphedema pump however these may be ineffective given her status. Infection: No signs of infection. Patient currently finishing oral Keflex. Pain: May take [id number] Tylenol extra strength for discomfort Host factors: PTTD stage IV right foot, bilateral Lipo lymphedema, altered gait, valgus deformity right ankle/foot, morbid obesity, neuropathy, debility. I answered all the patient's questions. To return to the wound healing center in 1 week or call sooner if the patient has any questions or concerns.
[2023-08-02 10:48] VITALS: BP 154/84; PULSE 84; RESP 18; TEMP 36.2; BMI 60.4
--- NOTE | 2023-08-02 10:50 | PN.PCM_ITS ---
History of Present Illness Date of Service: 08/02/23 Chief Complaint: Right foot ulcer History of Wound: Patient is a 78-year-old female who presents to the wound care center as a referral by Dr. Yun, GERMÁN, for right foot ulcer. She has PMHx of posterior tibial tendon dysfunction stage IV, lymphedema, HTN, HLD, debility, morbid obesity, degenerative disc disease of the lumbar, Hx Achilles tendon surgery right foot. Patient has been following with Dr. Yun for a few weeks for ulceration overlying the navicular bone of the right foot. Ulceration is complicated by significant foot deformity secondary to PTTD stage IV. Patient unable to ambulate in offloading boot secondary to significant lymphedema. Patient has been ambulating with foam cut out and placed inside of a sock barefoot. 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 Patient states she will be moving to [facility] in December as she has family in this area will aid in care of her and her. She states she has had previous discussion with a surgeon about her deformity and was told the only option was lower leg amputation. Patient did not want this at that time. States since then deformity has continued to progressively worsen with new ulceration developing on medial right foot and has been present for 2 months. Patient denies being diabetic, recent A1c 5.6%. She has been placing Aquacel to the site and is now utilizing Yaquelin. She was referred to the wound care center for second opinion pertaining to wound. She denies N/V/F/chills. She denies furthe r problems. Subjective Subjective Patient is a 78-year-old female who follows to the wound care center for right medial foot ulcer secondary to PTTD stage IV with significant inversion of the forefoot. She states this new offloading padding was more comfortable to wear. She also states she tried to stay off of her feet is much as possible this week. She does continue to ambulate on deformity. She states she has been changing dressings to the foot daily. Denies constitutional symptoms. Denies further complaints. Objective Data Objective Data Vital Signs: Vital Signs Temp Pulse Resp BP Pulse Ox O2 Del Method 96.9 F L 88 18 154/87 H 95 Room Air 07/26/23 10:28 07/26/23 10:28 07/26/23 10:28 07/26/23 10:28 07/26/23 10:28 07/26/23 10:28 Oxygen Delivery Method Room Air Weight: 149.924 kg Body Mass Index (BMI) 60.4 Physical Exam Const alert, oriented x3, no apparent distress and well nourished General Appearance: cooperative Nutritional Appearance: morbidly obese HEENT normocephalic Eyes General Eye: normal appearance of both eyes Neck General: normal visual inspection Lymph Lymphatic: no lymphadenopathy noted and lymphedema Resp normal respiratory effort Cardio regular rate and regular rhythm Extremity normal capillary refill, no calf tenderness and no pedal edema Extremity Narrative: DP and PT pulses palpable bilateral. Capillary fill time less than 5 seconds to the digits. Lymphedema and lipedema noted to lower extremity bilateral. Dermatological: Positive Stemmer sign bilateral. Lower extremity demonstrates significant swelling consistent with lymphedema versus lipedema/Lipolymphedema. There is an ulceration noted overlying the navicular bone medially with surrounding hyperkeratosis and macerated tissue. Wound base demonstrates granular layer with serosanguineous drainage. No erythema, no purulent drainage, no malodor, no palpable fluctuance/bogginess noted, no visible abscess formation, no lymphangitic streaking. Musculoskeletal: Muscle strength 5 of 5 age-appropriate left lower extremity. Muscle strength deferred secondary to significant deformity of the right lower extremity. Patient demonstrates significant valgus deformity of the ankle with inversion of the foot on ankle with rigidity of the subtalar joint and midtarsal joint. Deformity is noted to be rigid with inability to relocate calcaneus and talus under the tibia. Patient ambulates exclusively on the medial aspect of the ankle/foot with direct pressure overlying the navicular bone. Patient demonstrates changes consistent with PTTD stage IV of the right foot. Skin no rashes or lesions noted and no jaundice Neuro moves all extremities Debridement Note Debridement Note Wound debrided: Right foot Laterality: Right Wound Grade/Stage: Rivera stage I Type of Debridement: Excisional debridement Anesthesia Used: 5% Lidocaine Gel Depth: Down to and including healthy tissue and in the subcutaneous layer Percentage of wound debrided: 100 Instrument Used: 5mm curette Tissue Removed: Fibrous, devitalized subcutaneous, biofilm, slough Severity: Fat Layer Exposed Amount of bleeding with debridement: Mild Bleeding Controlled with: Compression and gauze Patient tolerated procedure: Patient tolerated procedure well Post-Debridement Measurements and Additional Note: Post-Debridement Measurements/Treatment - Nurse 1 - General Ulcer Assessment Start: 07/26/23 10:28 Freq: Status: Active Protocol: CHELSI Activity Type Activity Date Activity User E-sign Co-sign Detail Recorded Client Recorded Date Recorded By Document 07/26/23 10:28 KW [employer] 07/26/23 10:44 KW 07/26/23 10:28 - Today's Visit Information Type of service 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 ) Arrival Mode Ambulatory, Walker Patient Identification Verified (Name & Yes ) Height and Weight Body Mass Index (BMI) 60.4 BMI Classification Obese Vital Signs Temperature (97.8 F-99.1 F) 96.9 F L Temperature Source Temporal Pulse Rate (60-100) 88 Pulse Location Monitor Respiratory Rate (12-18) 18 Respiratory rate source Observation Pulse Oximetry 95 Oxygen Delivery Method Room Air Blood Pressure (90/60-120/80) 154/87 H Blood Pressure Mean (mm Hg) 109 Source Monitor Position Sitting Blood Pressure Location Left Arm History Since Last Visit- (Skip if this is Patient's initial visit) Have you changed medications since your No last visit? Any new allergies or adverse reactions No Had a fall/change in ADL's that may No increase risk of falls Signs or symptoms of abuse and/or No neglect since last visit Have you been in the hospital since your No last visit? Has dressing in place as prescribed Yes Has compression in place as prescribed Yes Has offloadiing in place as prescribed No Experienced any changes in pain level or No management Left Footwear Regular Shoe Right Footwear No Footwear Pain Scale: 0-10 Numeric Is Patient Pain Free? Yes - Nurse 1 - General Ulcer Measurement Start: 07/26/23 10:28 Freq: Status: Active Protocol: Activity Type Activity Date Activity User E-sign Co-sign Detail Recorded Client Recorded Date Recorded By Document 07/26/23 10:28 KW [employer] 07/26/23 10:44 KW 07/26/23 10:28 Wound Center Nurse 1 #3 R Med Foot -Current Size (cm) - Length 1.2 -Current Size (cm) - Width 1.6 -Current Size (cm) - Depth 1.2 -Total Square Cm 1.92 -Exudate Amt Medium -Exudate Type Serosanguineous -Wound Margin Distinct, Outline Attached -Granulation Amt Large (67-100%) -Granulation Quality Sanderson -Necrosis Amt Small (1-33%) -Necrotic Tissue Type Adherent Slough -Texture (Fidelia-wound Skin Appearance) Assessed,Callus -Moisture (Fidelia-wound Skin Appearance) Assessed -Color (Fidelia-wound Skin Appearance) Assessed -Temperature (Fidelia-wound Skin No Abnormality Appearance) (Pt Warm) -Ulcer Cleansing Soap and Water -Anesthetic Used 5% Lidocaine Gel Right Calf (cm) 52.5 Right Ankle (cm) 44.5 WC - Nurse 2 - General Ulcer CM Notes Start: 07/26/23 10:28 Freq: Status: Active Protocol: Activity Type Activity Date Activity User E-sign Co-sign Detail Recorded Client Recorded Date Recorded By Document 07/26/23 17:06 PL [id number] 07/26/23 17:07 PL 07/26/23 17:06 Wound Center Nurse 2 #3 R Med Foot -Time 11:16 -Correct Patient Yes -Correct Side, Site, Position Yes -Correct Procedure Yes -Procedure Performed Yes -Type of Procedure Debridement -Clinical Debridement Subcutaneous -Tissue Removed Subcutaneous -Post Debridement (cm) - Length 1.4 -Post Debridement (cm) - Width 1.4 -Post Debridement (cm) - Depth 0.9 -Total Square (Post) (cm) 1.96 -Area of Debridement (cm) - Length 1.4 -Area of Debridement (cm) - Width 1.4 -Total Square (Area) (cm) 1.96 -Tunneling No -Undermining/Tunneling No -Circular Undermining No -Wound/Ulcer Outcome Not Healed -Ulcer Cleansing Rinsed/ Irrigated with Saline -Foul Odor after Cleansing No -Bioengineered Tissue Yes -Type of Bioengineered Tissue Epifix 18mm Disc -Expiration Date 03/17/28 -Product Lot Number [id number] -Percent Used 100 -Bleeding Controlled with Pressure -Treatment Response Procedure Tolerated Well -Debridement - Subq, 1st 20sq cm No -Apply Skin Sub - 1st 25 sq cm - Feet 1 -Epifix 18mm Disc 3 Pain Scale: 0-10 Numeric Is Patient Pain Free? Yes - Nurse 3 - General Ulcer D/C NN Start: 07/26/23 10:28 Freq: Status: Active Protocol: Activity Type Activity Date Activity User E-sign Co-sign Detail Recorded Client Recorded Date Recorded By Document 07/26/23 11:40 Laptop 07/26/23 11:41 07/26/23 11:40 Wound Care Center Nurse 3 #3 R Med Foot -Ulcer Cleansing Rinsed/ Irrigated with Saline -Foul Odor after Cleansing No -Other Dressing abd pad -Primary Dressing Covered/Secured with Dry Gauze & Roll Gauze, Secured with Tape Pain Scale: 0-10 Numeric Is Patient Pain Free? Yes WC - Visit Discharge Discharge Condition Stable Ambulatory Status Ambulatory, Walker Transportation Private Auto Medication Reconcilliation completed & Yes provided to patient/care provider Clinical Summary of Care Provided Yes Assessment/Plan Assessment/Plan (1) Altered gait: CODE(S): R26.9 - Unspecified abnormalities of gait and mobility (2) Neuropathic ulcer of right foot with fat layer exposed: CODE(S): L97.512 - Non-pressure chronic ulcer of other part of right foot with fat layer exposed (3) Acquired valgus deformity of ankle: CODE(S): M21.079 - Valgus deformity, not elsewhere classified, unspecified ankle (4) Posterior tibial tendon dysfunction (PTTD) of right lower extremity: CODE(S): M76.821 - Posterior tibial tendinitis, right leg (5) Lipedema: CODE(S): R60.9 - Edema, unspecified (6) Morbid obesity: CODE(S): E66.01 - Morbid (severe) obesity due to excess calories (7) Neuropathy: CODE(S): G62.9 - Polyneuropathy, unspecified (8) Lymphedema: CODE(S): I89.0 - Lymphedema, not elsewhere classified (9) Essential hypertension: CODE(S): I10 - Essential (primary) hypertension (10) Debility: CODE(S): R53.81 - Other malaise (11) Frequent falls: CODE(S): R29.6 - Repeated falls (12) HLD (hyperlipidemia): CODE(S): E78.5 - Hyperlipidemia, unspecified PLAN: Plan Patient seen and evaluated Right lower extremity: Lower extremity demonstrates significant swelling consistent with lymphedema vs lipedema;Lipolymphedema. There is an ulceration noted overlying the navicular bone medially with surrounding hyperkeratosis and macerated tissue. No signs of infection. Patient demonstrates significant valgus deformity of the ankle with inversion of the foot on ankle with rigidity of the subtalar joint and midtarsal joint. Deformity is noted to be rigid with inability to relocate calcaneus and talus under the tibia. Patient ambulates exclusively on the medial aspect of the ankle/foot with direct pressure overlying the navicular bone. Patient demonstrates changes consistent with PTTD stage IV of the right foot. Gait analysis: Patient ambulating without shoe gear secondary to foot deformity and Lipo lymphedema to the right lower extremity. Patient demonstrates significant valgus deformity of the ankle with inversion of the forefoot on the hindfoot. Patient ambulating exclusively on medial aspect of the ankle/foot with direct pressure overlying the navicular bone. Gait is altered secondary to significant deformity. Patient denies being diabetic, recent A1c 5.6%. Ulceration was debrided as noted in the clinical panel above. Ulceration overlying the navicular bone of the right foot measures 1.4 cm x 1.2 cm x 1.3 cm. No signs of infection. EpiFix #2 applied to the wound base and dressed with Adaptic touch, Steri-Strips, Aquacel Ag and dry sterile dressing. She is instructed to change outer dressing as needed. She was instructed to not get the site wet. I did fashion to felt offloading pads to be placed about the foot and secured to the foot so that she may ambulate with reduced pressure to wound site. This is going much better for her. Discussed the pressure reduction is essential to healing. Discussed use of lymphedema pumps however this may be ineffective in her compounded lipedema. Discussed remaining off feet as much as possible however this is challenging secondary to being the only caregiver for her ill . Due to this patient also requires need to drive. Discussed elevation of lower extremities at all times of rest. Discussed adequate protein intake to aid in wound healing. Guicho supplementation recommended. She has finished oral antibiotic, Keflex, to completion. Offloading remains difficult secondary to deformity and Lipo lymphedema. Total contact cast would be ineffective secondary to deformity and possibility of new wound formation in other areas of foot/ankle. Consideration given to knee sc ooter however with considerable Lipo lymphedema this would also remain difficult for compliance and use. I discussed in detail surgical options for consideration. Discussed with patient given her stage of deformity a TTC fusion would be required via intramedullary gabriela to correct the hindfoot/ankle deformity. Secondary fusions may be required for the talonavicular joint in addition to posterior tibial tendon debridement and advancement/possible tendon transfer. Discussed typical postoperative course in detail in addition to recovery time. Discussed her chronic Lipo lymphedema complicates surgical intervention and poses risk of wound healing. Discussed risk of infection is higher given her condition. Discussed risk of infection with open ulceration currently. Discussed she is at high risk of below the knee amputation of the right lower extremity. She voices understanding of this discussion today. At this time patient not interested in surgical reconstruction due to the care of her . Discussed obtaining new x-rays of the right lower extremity, foot and ankle. New radiographs were ordered today. She previously had radiographs at [facility] interpreted by Dr. Yun, demonstrating no evidence of osteomyelitis. Discussed signs and symptoms of infection. Discussed if she notices any redness about the ulcerative site that moves up the foot/leg, if she has any purulent drainage emerging from the wound site, she has increasing foul odor from the wound site, or if she experiences fever greater than 101 degree, nausea, vomiting, chills, these are signs of progressing infection and she needs to report to the ED to receive IV antibiotics. She voices understanding of this today. I reviewed and discussed his case today. Debridement was performed today as noted in the clinical panel to all of the ulcer sites. The following work up and care recommendations were made: Dressing: EpiFix, Adaptic touch, Steri-Strips, Aquacel Ag and dry sterile dressing. Change outer dressing as needed. Wash: Do not get wet Tissue growth optimization: EpiFix Offload: Modified offloading insert applied to right foot. She was instructed to continue to ambulate utilizing this to have as much offloading as possible Vascular: Palpable pedal pulses with adequate capillary fill time. Do not feel vascular is impeding healing progress. Edema: Chronic Lipo lymphedema. Discussed elevation of lower extremities and use of lymphedema pump however these may be ineffective given her status. Infection: No signs of infection. Patient currently finishing oral Keflex. Pain: May take [id number] Tylenol extra strength for discomfort Host factors: PTTD stage IV right foot, bilateral Lipo lymphedema, altered gait, valgus deformity right ankle/foot, morbid obesity, neuropathy, debility. I answered all the patient's questions. To return to the wound healing center in 2 weeks or call sooner if the patient has any questions or concerns.
--- NOTE | 2023-08-02 12:15 | RAD_ITS ---
STUDY: X-RAY - RIGHT FOOT CLINICAL: Female, 78 years old. ULCER TECHNIQUE: 2 view(s) of the foot. COMPARISON: None. FINDINGS: Normal talus, calcaneus, and tarsal bones. No bony destruction to suggest osteomyelitis. Charcot foot of the hindfoot. Normal metatarsi. Normal metatarsophalangeal joint of the great toe. Normal tibial and fibular sesamoid bones. Normal interphalangeal joint of the great toe. Normal phalanges of the great toe. Normal second through fifth metatarsophalangeal joints. Normal interphalangeal joints and phalanges of the lesser toes. The soft tissue structures are unremarkable. RAD/Foot 2 Views IMPRESSION: No radiographic evidence of osteomyelitis. Electronically Signed: Adal Edgar MD at 23:38 EST ,
--- NOTE | 2023-08-02 12:15 | RAD_ITS ---
STUDY: X-RAY - RIGHT ANKLE REASON FOR EXAM: Female, 78 years old. VALGUS DEFORMITY TECHNIQUE: 2 view(s) of the ankle. COMPARISON: None. FINDINGS: Normal visualized distal tibia and fibula. Normal medial and lateral malleoli. Moderate tibiotalar joint arthrosis. Charcot foot of the hindfoot. No bony destruction to suggest osteomyelitis. The soft tissue structures are unremarkable. RAD/Ankle min 3 Views IMPRESSION: No radiographic evidence of osteomyelitis. Electronically Signed: Adal Edgar MD at 23:39 EST ,
[2023-08-16 11:03] VITALS: BP 152/61; PULSE 84; RESP 18; TEMP 36.6; BMI 60.4
--- NOTE | 2023-08-16 13:37 | PCM.WC.PN ---
History of Present Illness Date of Service: 08/16/23 Chief Complaint: Right foot ulcer History of Wound: Patient is a 78-year-old female who presents to the wound care center as a referral by Dr. Yun, GERMÁN, for right foot ulcer. She has PMHx of posterior tibial tendon dysfunction stage IV, lymphedema, HTN, HLD, debility, morbid obesity, degenerative disc disease of the lumbar, Hx Achilles tendon surgery right foot. Patient has been following with Dr. Yun for a few weeks for ulceration overlying the navicular bone of the right foot. Ulceration is complicated by significant foot deformity secondary to PTTD stage IV. Patient unable to ambulate in offloading boot secondary to significant lymphedema. Patient has been ambulating with foam cut out and placed inside of a sock barefoot. 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 Patient states she will be moving to [facility] in December as she has family in this area will aid in care of her and her. She states she has had previous discussion with a surgeon about her deformity and was told the only option was lower leg amputation. Patient did not want this at that time. States since then deformity has continued to progressively worsen with new ulceration developing on medial right foot and has been present for 2 months. Patient denies being diabetic, recent A1c 5.6%. She has been placing Aquacel to the site and is now utilizing Yaquelin. She was referred to the wound care center for second opinion pertaining to wound. She denies N/V/F/chills. She denies further problems. Subjective Subjective Patient is a 78-year-old female who follows to the wound care center for right medial foot ulcer secondary to PTTD stage IV with significant inversion of the forefoot. She states felt offloading padding is comfortable to wear. She does continue to ambulate on deformity. She states she has been changing outer dressings to the foot as needed. Denies constitutional symptoms. Denies further complaints. Objective Data Objective Data Vital Signs: Vital Signs Temp Pulse Resp BP Pulse Ox O2 Del Method 97.8 F 84 18 152/61 H 95 Room Air 08/16/23 11:03 08/16/23 11:03 08/16/23 11:03 08/16/23 11:03 07/26/23 10:28 08/16/23 11:03 Oxygen Delivery Method Room Air Weight: 149.924 kg Body Mass Index (BMI) 60.4 Physical Exam Const alert, oriented x3, no apparent distress and well nourished General Appearance: cooperative Nutritional Appearance: morbidly obese HEENT normocephalic Eyes General Eye: normal appearance of both eyes Neck General: normal visual inspection Lymph Lymphatic: no lymphadenopathy noted and lymphedema Resp normal respiratory effort Cardio regular rate and regular rhythm Extremity normal capillary refill, no calf tenderness and no pedal edema Extremity Narrative: DP and PT pulses palpable bilateral. Capillary fill time less than 5 seconds to the digits. Lymphedema and lipedema noted to lower extremity bilateral. Dermatological: Positive Stemmer sign bilateral. Lower extremity demonstrates significant swelling consistent with lymphedema versus lipedema/Lipolymphedema. There is an ulceration noted overlying the navicular bone medially with surrounding hyperkeratosis and macerated tissue. Wound base demonstrates granular layer with serosanguineous drainage. No erythema, no purulent drainage, no malodor, no palpable fluctuance/bogginess noted, no visible abscess formation, no lymphangitic streaking. Musculoskeletal: Muscle strength 5 of 5 age-appropriate left lower extremity. Muscle strength deferred secondary to significant deformity of the right lower extremity. Patient demonstrates significant valgus deformity of the ankle with inversion of the foot on ankle with rigidity of the subtalar joint and midtarsal joint. Deformity is noted to be rigid with inability to relocate calcaneus and talus under the tibia. Patient ambulates exclusively on the medial aspect of the ankle/foot with direct pressure overlying the navicular bone. Patient demonstrates changes consistent with PTTD stage IV of the right foot. Skin no rashes or lesions noted and no jaundice Neuro moves all extremities Debridement Note Debridement Note Wound debrided: Right foot Laterality: Right Wound Grade/Stage: Rivera stage I Type of Debridement: Excisional debridement Anesthesia Used: 5% Lidocaine Gel Depth: Down to and including healthy tissue and in the subcutaneous layer Percentage of wound debrided: 100 Instrument Used: 5mm curette and - (313 blade) Tissue Removed: Fibrous, devitalized subcutaneous, biofilm, slough Severity: Fat Layer Exposed Bleeding Controlled with: Compression and gauze Patient tolerated procedure: Patient tolerated procedure well Post-Debridement Measurements and Additional Note: Post-Debridement Measurements/Treatment WC - Nurse 1 - General Ulcer Assessment Start: 07/26/23 10:28 Freq: Status: Active Protocol: WC.LOWEXT Activity Type Activity Date Activity User E-sign Co-sign Detail Recorded Client Recorded Date Recorded By Document 07/26/23 10:28 KW Desktop 07/26/23 10:44 KW Document 08/02/23 10:48 KW Desktop 08/02/23 10:53 KW Document 08/16/23 11:03 KW Desktop 08/16/23 11:14 KW 07/26/23 08/02/23 08/16/23 10:28 10:48 11:03 WC - Today's Visit Information Type of service Follow-up Visit Follow-up Visit Follow-up Visit (Physician/SYSTEM SAFETY ENGINEER (Physician/SYSTEM SAFETY ENGINEER (Physician/SYSTEM SAFETY ENGINEER ) ) ) Arrival Mode Ambulatory, Ambulatory, Ambulatory, Walker Walker Walker Patient Identification Verified (Name & Yes Yes Yes ) Height and Weight Body Mass Index (BMI) 60.4 60.4 60.4 BMI Classification Obese Obese Obese Vital Signs Temperature (97.8 F-99.1 F) 96.9 F L 97.1 F L 97.8 F Temperature Source Temporal Temporal Temporal Pulse Rate (60-100) 88 84 84 Pulse Location Monitor Monitor Monitor Respiratory Rate (12-18) 18 18 18 Respiratory rate source Observation Observation Observation Pulse Oximetry 95 Oxygen Delivery Method Room Air Room Air Blood Pressure (90/60-120/80) 154/87 H 154/84 H 152/61 H Blood Pressure Mean (mm Hg) 109 107 91 Source Monitor Monitor Monitor Position Sitting Sitting Semi-Fowlers Blood Pressure Location Left Arm Left Forearm Left Forearm History Since Last Visit- (Skip if this is Patient's initial visit) Have you changed medications since your No No No last visit? Any new allergies or adverse reactions No No No Had a fall/change in ADL's that may No No No increase risk of falls Signs or symptoms of abuse and/or No No neglect since last visit Have you been in the hospital since your No No No last visit? Has dressing in place as prescribed Yes Yes Yes Has compression in place as prescribed Yes N/A No Has offloadiing in place as prescribed No N/A No Experienced any changes in pain level or No No No management Left Footwear Regular Shoe Regular Shoe Regular Shoe Right Footwear No Footwear Multipodus Slipper Splint/Boot Pain Scale: 0-10 Numeric Is Patient Pain Free? Yes Yes Yes WC - Nurse 1 - General Ulcer Measurement Start: 07/26/23 10:28 Freq: Status: Active Protocol: Activity Type Activity Date Activity User E-sign Co-sign Detail Recorded Client Recorded Date Recorded By Document 07/26/23 10:28 KW Desktop 07/26/23 10:44 KW Document 08/02/23 10:48 KW Desktop 08/02/23 10:53 KW Document 08/16/23 11:03 KW Desktop 08/16/23 11:14 KW 07/26/23 08/02/23 08/16/23 10:28 10:48 11:03 Wound Center Nurse 1 #3 R Med Foot -Combined with other wound No -Current Size (cm) - Length 1.2 1.1 1.1 -Current Size (cm) - Width 1.6 1.2 1.5 -Current Size (cm) - Depth 1.2 0.8 1.0 -Total Square Cm 1.92 1.32 1.65 -Epithelialization Small 1-33% -Undermining/Tunneling Yes Yes -Undermining/Tunneling Starts (O'clock 7 5 ) -Undermining/Tunneling Ends (O'clock) 8 9 -Maximum Distance (cm) 0.8 0.1 -Circular Undermining No -Exudate Amt Medium Medium Medium -Exudate Type Serosanguineous Serosanguineous Serosanguineous -Wound Margin Distinct, Distinct, Distinct, Outline Outline Outline Attached Attached Attached -Granulation Amt Large (67-100%) Small (1-33%) Large (67-100%) -Granulation Quality [place] Red -Slough/Fibrin Yes -Necrosis Amt Small (1-33%) Small (1-33%) -Necrotic Tissue Type Adherent Slough Adherent Slough Adherent Slough -Texture (Fidelia-wound Skin Appearance) Assessed,Callus Assessed Assessed,Callus ,Localized Edema -Moisture (Fidelia-wound Skin Appearance) Assessed Assessed Assessed -Color (Fidelia-wound Skin Appearance) Assessed Assessed Assessed -Temperature (Fidelia-wound Skin No Abnormality No Abnormality No Abnormality Appearance) (Pt Warm) (Pt Warm) (Pt Warm) -Tenderness on Palpation (Fidelia-wound No Skin Appearance) -Ulcer Cleansing Soap and Water Wound Cleanser Soap and Water -Foul Odor after Cleansing No No -Anesthetic Used 5% Lidocaine 5% Lidocaine 4% Lidocaine Gel Gel Solution Lower Limb Edema Present Yes Right Calf (cm) 52.5 Right Ankle (cm) 44.5 - Nurse 2 - General Ulcer CM Notes Start: 07/26/23 10:28 Freq: Status: Active Protocol: Activity Type Activity Date Activity User E-sign Co-sign Detail Recorded Client Recorded Date Recorded By Document 07/26/23 17:06 PL [id number] 07/26/23 17:07 PL Document 08/02/23 16:21 PL [id number] 08/02/23 16:23 PL 07/26/23 08/02/23 17:06 16:21 Wound Center Nurse 2 #3 R Med Foot -Time 11:16 10:58 -Correct Patient Yes Yes -Correct Side, Site, Position Yes Yes -Correct Procedure Yes Yes -Procedure Performed Yes Yes -Type of Procedure Debridement Debridement -Clinical Debridement Subcutaneous Subcutaneous -Tissue Removed Subcutaneous Subcutaneous -Post Debridement (cm) - Length 1.4 1.4 -Post Debridement (cm) - Width 1.4 1.2 -Post Debridement (cm) - Depth 0.9 1.3 -Total Square (Post) (cm) 1.96 1.68 -Area of Debridement (cm) - Length 1.4 1.4 -Area of Debridement (cm) - Width 1.4 1.2 -Total Square (Area) (cm) 1.96 1.68 -Tunneling No No -Undermining/Tunneling No No -Circular Undermining No No -Wound/Ulcer Outcome Not Healed Not Healed -Ulcer Cleansing Rinsed/ Rinsed/ Irrigated with Irrigated with Saline Saline -Foul Odor after Cleansing No No -Bioengineered Tissue Yes Yes -Type of Bioengineered Tissue Epifix 18mm Epifix 18mm Disc Disc -Expiration Date 03/17/28 03/17/28 -Product Lot Number [id number] -Percent Used 100 100 -Bleeding Controlled with Pressure Pressure -Treatment Response Procedure Procedure Tolerated Well Tolerated Well -Debridement - Subq, 1st 20sq cm No No -Apply Skin Sub - 1st 25 sq cm - Feet 1 1 -Epifix 18mm Disc 3 3 Pain Scale: 0-10 Numeric Is Patient Pain Free? Yes Yes - Nurse 3 - General Ulcer D/C NN Start: 07/26/23 10:28 Freq: Status: Active Protocol: Activity Type Activity Date Activity User E-sign Co-sign Detail Recorded Client Recorded Date Recorded By Document 07/26/23 11:40 Laptop 07/26/23 11:41 Document 08/02/23 11:23 KW Desktop 08/02/23 11:23 KW 07/26/23 08/02/23 11:40 11:23 Wound Care Center Nurse 3 #3 R Med Foot -Ulcer Cleansing Rinsed/ Irrigated with Saline -Foul Odor after Cleansing No -Other Dressing abd pad -Primary Dressing Covered/Secured with Dry Gauze & Dry Gauze & Roll Gauze, Roll Gauze, Secured with Secured with Tape Tape Pain Scale: 0-10 Numeric Is Patient Pain Free? Yes Yes WC - Visit Discharge Discharge Condition Stable Stable Ambulatory Status Ambulatory, Ambulatory Walker Transportation Private Auto Private Auto Medication Reconcilliation completed & Yes No provided to patient/care provider Clinical Summary of Care Provided Yes Yes Assessment/Plan Assessment/Plan (1) Altered gait: CODE(S): R26.9 - Unspecified abnormalities of gait and mobility (2) Neuropathic ulcer of right foot with fat layer exposed: CODE(S): L97.512 - Non-pressure chronic ulcer of other part of right foot with fat layer exposed (3) Acquired valgus deformity of ankle: CODE(S): M21.079 - Valgus deformity, not elsewhere classified, unspecified ankle (4) Posterior tibial tendon dysfunction (PTTD) of right lower extremity: CODE(S): M76.821 - Posterior tibial tendinitis, right leg (5) Lipedema: CODE(S): R60.9 - Edema, unspecified (6) Morbid obesity: CODE(S): E66.01 - Morbid (severe) obesity due to excess calories (7) Neuropathy: CODE(S): G62.9 - Polyneuropathy, unspecified (8) Lymphedema: CODE(S): I89.0 - Lymphedema, not elsewhere classified (9) Essential hypertension: CODE(S): I10 - Essential (primary) hypertension (10) Debility: CODE(S): R53.81 - Other malaise (11) Frequent falls: CODE(S): R29.6 - Repeated falls (12) HLD (hyperlipidemia): CODE(S): E78.5 - Hyperlipidemia, unspecified PLAN: Plan Patient seen and evaluated Right lower extremity: Lower extremity demonstrates significant swelling consistent with lymphedema vs lipedema;Lipolymphedema. There is an ulceration noted overlying the navicular bone medially with surrounding hyperkeratosis and macerated tissue. No signs of infection. Patient demonstrates significant valgus deformity of the ankle with inversion of the foot on ankle with rigidity of the subtalar joint and midtarsal joint. Deformity is noted to be rigid with inability to relocate calcaneus and talus under the tibia. Patient ambulates exclusively on the medial aspect of the ankle/foot with direct pressure overlying the navicular bone. Patient demonstrates changes consistent with PTTD stage IV of the right foot. Gait analysis: Patient ambulating without shoe gear secondary to foot deformity and Lipo lymphedema to the right lower extremity. Patient demonstrates significant valgus deformity of the ankle with inversion of the forefoot on the hindfoot. Patient ambulating exclusively on medial aspect of the ankle/foot with direct pressure overlying the navicular bone. Gait is altered secondary to significant deformity. Patient denies being diabetic, recent A1c 5.6%. Ulceration was debrided as noted in the clinical panel above. Ulceration overlying the navicular bone of the right foot measures 1.0 cm x 1.5 cm x 1.2 cm. No signs of infection. EpiFix #3 applied to the wound base and dressed with Adaptic touch, Steri-Strips, Aquacel Ag and dry sterile dressing. She is instructed to change outer dressing as needed. She was instructed to not get the site wet. I did fashion three felt offloading pads to be placed about the foot and secured to the foot so that she may ambulate with reduced pressure to wound site. This is going much better for her. Discussed the pressure reduction is essential to healing. Discussed use of lymphedema pumps however this may be ineffective in her compounded lipedema. Discussed remaining off feet as much as possible however this is challenging secondary to being the only caregiver for her ill . Due to this patient also requires need to drive. Discussed elevation of lower extremities at all times of rest. Discussed adequate protein intake to aid in wound healing. Guicho supplementation recommended. She has finished oral antibiotic, Keflex, to completion. Offloading remains difficult secondary to deformity and Lipo lymphedema. Total contact cast would be ineffective secondary to deformity and possibility of new wound formation in other areas of foot/ankle. Consideration given to knee scooter however with considerable Lipo lymphedema this would also remain difficult for compliance and use. I discussed in detail surgical options for consideration. Discussed with patient given her stage of deformity a TTC fusion would be required via intramedullary gabriela to correct the hindfoot/ankle deformity. Secondary fusions may be required for the talonavicular joint in addition to posterior tibial tendon debridement and advancement/possible tendon transfer. Discussed typical postoperative course in detail in addition to recovery time. Discussed her chronic Lipo lymphedema complicates surgical intervention and poses risk of wound healing. Discussed risk of infection is higher given her condition. Discussed risk of infection with open ulceration currently. Discussed she is at high risk of below the knee amputation of the right lower extremity. She voices understanding of this discussion today. At this time patient not interested in surgical reconstruction due to the care of her . Discussed obtaining new x-rays of the right lower extremity, foot and ankle. New radiographs were ordered and demonstrate subluxation and breakdown of the midfoot joints and ankle joints with secondary arthritic/Charcot changes. No evidence of osteomyelitis. She previously had radiographs at [facility] interpreted by Dr. Yun, demonstrating no evidence of osteomyelitis. Discussed signs and symptoms of infection. Discussed if she notices any redness about the ulcerative site that moves up the foot/leg, if she has any purulent drainage emerging from the wound site, she has increasing foul odor from the wound site, or if she experiences fever greater than 101 degree, nausea, vomiting, chills, these are signs of progressing infection and she needs to report to the ED to receive IV antibiotics. She voices understanding of this today. I reviewed and discussed his case today. Debridement was performed today as noted in the clinical panel to all of the ulcer sites. The following work up and care recommendations were made: Dressing: EpiFix, Adaptic touch, Steri-Strips, Aquacel Ag and dry sterile dressing. Change outer dressing as needed. Wash: Do not get wet Tissue growth optimization: EpiFix Offload: Modified offloading insert applied to right foot. She was instructed to continue to ambulate utilizing this to have as much offloading as possible Vascular: Palpable pedal pulses with adequate capillary fill time. Do not feel vascular is impeding healing progress. Edema: Chronic Lipo lymphedema. Discussed elevation of lower extremities and use of lymphedema pump however these may be ineffective given her status. Infection: No signs of infection. Patient currently finishing oral Keflex. Pain: May take [id number] Tylenol extra strength for discomfort Host factors: PTTD stage IV right foot, bilateral Lipo lymphedema, altered gait, valgus deformity right ankle/foot, morbid obesity, neuropathy, debility. I answered all the patient's questions. To return to the wound healing center in 1 week or call sooner if the patient has any questions or concerns.
== END 2023-08-16 23:59 | disposition home or self-care (01) ==
LOC: WC 10:45
PROVIDERS: PCP Family Medicine; Referring Provider Podiatrist Foot & Ankle Surgery; Visit Provider Student in an Organized Health Care Education/Training Program
DX: L97.512 Non-pressure chronic ulcer of other part of right foot with fat layer exposed (principal); E66.01 Morbid (severe) obesity due to excess calories; Z68.44 Body mass index [BMI] 60.0-69.9, adult; E78.5 Hyperlipidemia, unspecified; I10 Essential (primary) hypertension; R26.9 Unspecified abnormalities of gait and mobility; I89.0 Lymphedema, not elsewhere classified; G62.9 Polyneuropathy, unspecified; M21.079 Valgus deformity, not elsewhere classified, unspecified ankle; M76.821 Posterior tibial tendinitis, right leg
CPT/HCPCS: 15275; 73610; 73620; Q4186

== ENCOUNTER 2023-08-21 12:24 | Inpatient (IN) | payer MEDICARE, OTHER, SELFPAY ==
[2023-08-21] VITALS (7 sets, daily range): BP systolic 103–145; BP diastolic 60–91; PULSE 75–103; RESP 12–20; TEMP 36.8–37.6; O2SAT 93–98; BMI 58.8
--- NOTE | 2023-08-21 12:48 | EX.ED.DYSGE1 ---
HPI History of Present Illness Chief Complaint: General Illness Informant: patient Narrative Narrative: Patient has been feeling poorly generally speaking for about a week. Around that time she had foul-smelling urine, 2 days later she had a urinalysis the doctor and was diagnosed with a UTI and prescribed an antibiotic that she is almost complete with. She states malaise has been worsening and this morning at 4 AM she had a fever up to 102. She has a nonproductive cough but no dyspnea. She has a longstanding history of Charcot foot on the right, and bilateral lymphedema, about a month ago she had skin grafting performed in the right foot by Dr. Moreno, she has been having burning on the bottom of her foot, and since she started the antibiotics for the urine infection, she states the burning actually has gone away. She denies any other foot pain, does not have chronic numbness. Today she is been having some pain around her pelvis and low back all the way around. It is relatively mild. Denies any new urinary symptoms or hematuria. She denies any other symptoms. [facility] Medical History (Updated 08/21/23 @ 15:[address] Pablo Cardona MD) Acute cystitis Acute kidney injury Anemia Cellulitis DDD (degenerative disc disease), lumbar Debility Decubitus ulcer of left buttock, stage 2 Decubitus ulcer of right buttock, stage 2 Essential hypertension Frequent falls GERD (gastroesophageal reflux disease) HLD (hyperlipidemia) Lower extremity weakness Lymphedema Morbid obesity with BMI of 40.0-44.9, adult Spinal stenosis Venous stasis ulcers Home Medications aspirin 81 mg chewable tablet 81 mg PO DAILY@0800 heart 07/19/18 [History Last Taken 12/08/20] lovastatin 40 mg tablet 40 mg PO BID cholesterol 07/19/18 [History Last Taken 12/08/20] multivitamin 1 ea PO DAILY spinal stenosis 07/19/18 [History Last Taken 12/08/20] cholecalciferol (vitamin D3) 25 mcg (1,000 unit) tablet 1,000 unit PO DAILY supplement 11/21/18 [History Last Taken 12/08/20] selenium 100 mcg tablet 100 mcg PO DAILY Check with primary doctor 11/21/18 [History Last Taken 12/08/20] folic acid 400 mcg tablet 0.4 mg PO DAILY supplement 02/24/20 [History Last Taken 12/08/20] losartan 50 mg tablet 75 mg PO DAILY hypertension 02/24/20 [History Last Taken 12/08/20] potassium chloride 10 mEq tablet,extended release(part/cryst) 20 meq PO DAILY supplement 02/24/20 [History Last Taken 12/08/20] metoprolol tartrate 100 mg tablet 50 mg PO BID hypertension 03/05/20 [History Last Taken 12/08/20] omega-3 fatty acids-fish oil 300 mg-1,000 mg capsule 1 cap PO DAILY SUPPLEMENT 12/08/20 [History Last Taken 12/08/20] omeprazole 20 mg capsule,delayed release 20 mg PO DAILY GERD 12/08/20 [History Last Taken 12/08/20] zinc sulfate 50 mg zinc (220 mg) tablet 220 mg PO DAILY SUPPLEMENT 12/08/20 [History Last Taken 12/08/20] diltiazem HCl 120 mg capsule,extended release 24 hr 120 mg PO DAILY 08/21/23 [History Last Taken Unknown] furosemide 80 mg tablet 80 mg PO BID 08/21/23 [History Last Taken Unknown] Allergy/AdvReac Type Severity Reaction Status Date / Time ciprofloxacin [From Cipro] Allergy Severe throat Verified 08/21/23 12:26 swelling adhesive tape Allergy Intermediate Rash Verified 08/21/23 12:26 celecoxib [From Celebrex] Allergy vomited Verified 08/21/23 12:26 blood clots formaldehyde Allergy Other Verified 08/21/23 12:26 ketorolac [From Toradol] AdvReac Upset Verified 08/21/23 12:26 Stomach Family History Father CAD (coronary artery disease) Myocardial infarction Sister Breast cancer Surgical History H/O laminectomy History of Achilles tendon repair History of section History of foot surgery History of hysterectomy History of total bilateral knee replacement Social History Smoking Status: Never smoker substance use type: does not use ROS ROS ED Constitutional Constitutional ED: Reports chills, fever(s), malaise and weakness Eyes Eyes: Denies change in vision or diplopia ENT ENT ED: Denies ear pain, rhinorrhea or sore throat Cardiovascular Cardiovascular: Reports pedal edema; Denies chest pain or palpitations Respiratory/Chest Respiratory/Chest: Reports cough; Denies dyspnea Gastrointestinal Gastrointestinal: Reports abdominal pain; Denies diarrhea, nausea or vomiting Genitourinary Genitourinary ED: Denies dysuria or hematuria Musculoskeletal Musculoskeletal: Reports back pain; Denies neck pain Integumentary Reports other Details: wound R foot where skin grafting has occurred. ; Denies abscess or rash Neurologic Neurologic: Denies headache(s), paresthesias or weakness Psychiatric Psychiatric: Denies anxiety or suicidal thoughts EXAM Physical Exam Const Vital Signs: 08/21/23 12:26 08/21/23 12:35 08/21/23 12:51 Temperature 99.6 F H Temperature Source Temporal Pulse Rate 95 Respiratory Rate 18 Respiratory Effort Normal Non-Labored Respiratory Pattern Normal Blood Pressure 144/75 H Blood Pressure Mean 98 Pulse Ox 93 94 Oxygen Delivery Method Room Air Room Air 08/21/23 14:35 Temperature Temperature Source Pulse Rate 81 Respiratory Rate 20 H Respiratory Effort Respiratory Pattern Blood Pressure 103/60 Blood Pressure Mean 74 Pulse Ox 94 Oxygen Delivery Method Room Air Positive well nourished, well developed and obese General Appearance ED: well developed and NAD Nutritional Appearance: obese HEENT Reports moist mucous membranes normocephalic and atraumatic Eyes PERRL and EOMs intact bilaterally Neck full ROM and supple Chest Wall inspection of chest normal and palpation of chest normal Resp normal respiratory effort and clear to auscultation bilaterally Cardio regular rate, regular rhythm and no murmurs Rate: Negative for bradycardia or tachycardic GI non-distended GI Narrative: mild tenderness medial aspect RLQ, no guarding or rebound. Exam significantly limited by morbid obesity. She has an easily spontaneously reducible, nontender ventral hernia that is present only when she actively sit up and uses her abdominal musculature. Auscultation: normoactive bowel sounds Palpation: soft Back/Spine no CVA tenderness General Back: other FROM Extremity Extremity Narrative: Right foot: Chronic deformity, external rotation. Paco wrap, Kerlix over top of thick pad over the plantar aspect where her graft is then covered beneath the pad, there is a hole within the center of it without any active discharge, no surrounding erythema here but there is erythema on the dorsum of the foot that is nontender, uncovering this hole there is a foul smell but no necrotic tissue. General Extremety ED: Yes edema; Negative for pulses abnormal or tenderness General Extremity: edema bilateral lower extremity Details: severe; Negative for pulses abnormal Neuro oriented x3, CN's II-XII intact bilaterally and no sensory deficits noted Sensorium / Orientation: awake and alert Motor Exam: strength 5/5 throughout Psych mental status grossly normal Skin no rashes or lesions noted Skin Narrative: Wound plantar aspect right foot see above MDM MDM MDM Narrative Medical decision making narrative: Patient was seen in the office prior to being sent here, she presents paper copy of what appears to be a macro part of the urinalysis that appears unremarkable, suggesting that her urine infection is better, and she may have another source of the fever other than that. Symptoms that she has include cough, and this right foot that she has been having skin grafting on. Infection could be coming from either 1 of these locations, so workup was directed toward that including workup for sepsis with blood cultures, lactic acid, x-ray of the right foot. 3 views of foot on my interpretation showed chronic Charcot deformity but no acute bony erosions in the middle of the plantar aspect of the foot. Chest x-ray 2 views of my interpretation shows no acute pneumonia. Her COVID and influenza is negative. She has a white count of 17 with a leftward shift. ESR and CRP are elevated, my concern would be the foot even though it does not grossly look infected, it is the most obvious other potential source since it is an open wound with a recent skin graft there and is on the plantar aspect of her foot. I discussed with Dr. Moreno with podiatry, he has been following it closely and as I discussed with him it looks healthy but she has been having fevers up to 102 after the urine is clear, and he agrees with following the patient in the hospital, empiric antibiotics, possibly advanced imaging to rule out abscess/soft tissue infection/osteomyelitis. Given her mild abdominal and low back discomfort and mild right lower quadrant tenderness we did a CT of the abdomen/pelvis as well, it was negative for anything acute I reviewed the images and report which I agree with. Discussed with hospitalist for admission who will consult podiatry. Also at their request added respiratory viral panel. Lab Data Attestation: I reviewed the patient's lab results. Labs: Laboratory Results - last 24 hr 08/21/23 08/21/23 12:40 14:30 WBC 17.3 H RBC 4.36 Hgb 13.9 Hct 42.0 MCV 96.3 MCH 31.9 MCHC 33.1 RDW Std Deviation 46.1 H RDW Coeff of Joel 12.9 Plt Count 392 MPV 9.5 Immature Gran % (Auto) 1.000 H Neut % (Auto) 83.7 H Lymph % (Auto) 7.3 L [place] % (Auto) 2.5 Eos % (Auto) 5.3 H Baso % (Auto) 0.2 Absolute Neuts (auto) 14.5 H Absolute Lymphs (auto) 1.26 Nucleated RBC % 0 ESR 59 H PT 15.1 H INR 1.2 APTT 33.0 Sodium 134 L Potassium 3.5 Chloride 101 Carbon Dioxide 24.0 Anion Gap 9 BUN 21 H Creatinine 1.25 H Est GFR (MDRD) Af Amer 53 L Est GFR (MDRD) Non-Af 44 L BUN/Creatinine Ratio 16.8 Glucose 117 H Lactic Acid 3.4 H* Calcium 9.1 Total Bilirubin 1.00 AST 33 ALT 32 Alkaline Phosphatase 59 C-React Prot Ext Range 89.70 H Total Protein 7.3 Albumin 3.2 Globulin 4.1 Albumin/Globulin Ratio 0.8 L Urine Color Yellow Urine Clarity Clear Urine pH 5.0 Ur Specific [place] 1.020 Urine Protein 30 H Urine Glucose (UA) Normal Urine Ketones 5 H Urine Occult Blood 10 H Urine Nitrite Negative Urine Bilirubin Negative Urine Urobilinogen 1 H Ur Leukocyte Esterase 25 H Urine RBC 0 SEEN Urine WBC 0 SEEN Ur Squamous Epith Cells 0-5 SEEN Urine Bacteria 0 SEEN Urine Mucus 0 SEEN Radiography Diagnostic Testing: Clinical Impression(s) from Imaging Studies Abdomen/Pelvis CT 08/21/23 12:54 IMPRESSION: Prior cholecystectomy. Sigmoid diverticulosis. Prior hysterectomy. Electronically Signed: King Mcduffie MD at 13:51 EST , Chest X-Ray 08/21/23 13:30 IMPRESSION: Mild increased markings at the lung bases suggestive of atelectasis. Electronically Signed: King Mcduffie MD at 14:11 EST , Foot X-Ray 08/21/23 13:30 IMPRESSION: Diffuse soft tissue swelling. Charcot deformity of the foot. Electronically Signed: King Mcduffie MD at 14:08 EST , Rhythm Strip Rhythm Strip: Sinus Rhythm Rate: 95 Ectopy: None Management Discussion w/another healthcare provider: Hospitalist and [employer] Technician (podiatry) Discharge Plan Triage Chief Complaint: General Illness ED Provider: Pablo Cardona Dx/Rx/DC Orders Clinical Impression: SIRS (systemic inflammatory response syndrome), Charcot's joint of right foot, Open wound of right foot, Acute cough Clinical Impression: (Ruled Out): Neuropathy Prescriptions: No Action losartan 50 mg tablet 75 mg PO DAILY potassium chloride 10 mEq tablet,ER particles/crystals 20 meq PO DAILY folic acid 400 mcg tablet 0.4 mg PO DAILY metoprolol tartrate 100 mg tablet 50 mg PO BID multivitamin 1 EACH tablet 1 ea PO DAILY lovastatin 40 MG tablet 40 mg PO BID aspirin 81 MG tablet,chewable 81 mg PO DAILY@0800 selenium 100 MCG tablet 100 mcg PO DAILY cholecalciferol (vitamin D3) 1,000 UNIT tablet 1,000 unit PO DAILY zinc sulfate 50 MG tablet 220 mg PO DAILY omeprazole 20 MG capsule 20 mg PO DAILY omega-3 fatty acids-fish oil 1 EACH capsule 1 cap PO DAILY furosemide 80 mg tablet 80 mg PO BID diltiazem HCl 120 mg capsule,extended release 24hr 120 mg PO DAILY Primary Care Provider: Christofer Vazquez Referrals: Christofer Vazquez MD [Primary Care Provider] - Disposition Disposition: Acute Care Hospital [facility]
--- NOTE | 2023-08-21 12:54 | CT_ITS ---
STUDY: CT ABDOMEN AND PELVIS WITHOUT CONTRAST REASON FOR EXAM: Female, 78 years old. RLQ pain, fever. RADIATION DOSAGE (If Supplied By Facility): CTDIvol = ( 24.17 ) mGy, DLP = ( 1213.51 ) mGycm TECHNIQUE: Transaxial images were obtained from the dome of the diaphragm to the symphysis pubis without oral contrast, and without intravenous contrast. Sagittal and coronal images were reconstructed. Individualized dose optimization techniques were used for this CT. COMPARISON: None. FINDINGS: Reticular nodular pattern at the lung bases suggestive of a scarring. Coronary artery calcification. Normal liver. There are surgical clips in the gallbladder fossa consistent with a prior cholecystectomy. Normal spleen. Normal pancreas. Normal bilateral adrenal glands. Normal right kidney. Normal left kidney. There is a small hiatal hernia. Normal small intestine. There are scattered colonic diverticula consistent with diverticulosis. The appendix is visualized and appears normal. There is diffuse atherosclerotic calcification of the abdominal aorta and its major visceral branches, without a demonstrated aneurysm. Normal inferior vena cava. Normal retroperitoneum. Normal urinary bladder. There is absence of the uterus consistent with a prior hysterectomy. There is a small umbilical hernia containing fat. Multiple small bilateral inguinal lymph nodes are seen. There are diffuse degenerative changes of the visualized lumbar spine. Dextroscoliosis. CT/Abdomen/Pelvis without Cont IMPRESSION: Prior cholecystectomy. Sigmoid diverticulosis. Prior hysterectomy. Electronically Signed: King Mcduffie MD at 13:51 EST ,
[2023-08-21 13:16] LABS: Absolute Lymphocyte Count 1.26 X10^3/uL (0.83-4.51); Absolute Neutrophil Count 14.5 X10^3/uL (2.0-7.7); Basophil# 0.04 X10^3/uL; Basophil% 0.2 % (0-1); Eosinophil# 0.91 X10^3/uL; Eosinophils% 5.3 % (0-5); Hemoglobin 13.9 g/dL (12.0-15.0); Lymphocyte # 1.26 X10^3/ul (0.83-4.51); Lymphocyte % 7.3 % (19-41); Mean Corp Hgb Conc 33.1 g/dL (32-36); Mean Corpuscular Hgb 31.9 pg (27.0-32.0); Mean Corpuscular Volume 96.3 fL (81-99); Mean Platelet Vol. 9.5 fl (6.2-12.0); Monocyte# 0.43 X10^3/uL; Monocyte% 2.5 % (0-10); NRBC Flagged by Analyzer 0 % (0-5); Neutrophil # 14.48 X10^3/uL (2.7-7.7); Neutrophil % 83.7 % (47-70); Platelet Count 392 K/mm3 (150-450); RBC Distribution Width CV 12.9 % (11.6-14.6); RBC Distribution Width SD 46.1 fl (35.1-43.9); Red Blood Count 4.36 M/mm3 (4.2-5.4); White Blood Count 17.3 K/mm3 (4.4-11.0)
[2023-08-21 13:18] LABS: Erythrocyte Sedimentation Rate 59 mm/hr (0-30); International Normalized Ratio 1.2; Prothrombin Time (Protime)PT. 15.1 SECONDS (11.7-14.9)
[2023-08-21 13:21] LABS: ALB/GLOB Ratio 0.8 RATIO (0.9-2.4); AST(SGOT) 33 U/L (15-37); Alanine Aminotransfer ALT/SGPT 32 U/L (13-56); Albumin, Serum 3.2 g/dL (3.2-5.0); Alkaline Phosphatase 59 U/L (45-117); Anion Gap 9 (5-15); BUN 21 mg/dL (7-18); BUN/Creat Ratio 16.8 RATIO (10-20); Calcium,Total 9.1 mg/dL (8.5-10.1); Chloride 101 mmol/L (98-107); Creatinine, Serum 1.25 mg/dL (0.55-1.02); EST Glomerular Filtration Rate 44 mL/min (>60); Est Glom Filt Rate - Afr Amer 53 mL/min (>60); Globulin 4.1 g/dL (2.2-4.2); Glucose 117 mg/dL (74-106); Potassium 3.5 mmol/L (3.5-5.1); Protein, Total 7.3 g/dL (6.4-8.2); Sodium Level 134 mmol/L (136-145)
--- NOTE | 2023-08-21 13:30 | RAD_ITS ---
STUDY: X-RAY - RIGHT FOOT CLINICAL: Female, 78 years old. Fever, recent plantar skin graft TECHNIQUE: 3 view(s) of the foot. COMPARISON: Comparison is made with prior radiographs dated August 02, 2023. FINDINGS: Once again, there are surgical deformity of the hindfoot with sclerosis and this subluxation. Normal metatarsi. There is degenerative arthrosis of the metatarsophalangeal joint of the hallux with a hallux valgus deformity. Normal tibial and fibular sesamoid bones. There is degenerative arthrosis of the interphalangeal joint of the great toe. Normal phalanges of the great toe. Joint space narrowing of the metatarsophalangeal joints. Old fracture of the distal fourth metatarsal bone. There is Hammer toe deformity of the second through fifth toes. Diffuse soft tissue swelling. RAD/Foot min 3 Views IMPRESSION: Diffuse soft tissue swelling. Charcot deformity of the foot. Electronically Signed: King Mcduffie MD at 14:08 EST ,
--- NOTE | 2023-08-21 13:30 | RAD_ITS ---
STUDY: X-RAY CHEST REASON FOR EXAM: Female, 78 years old. Cough, fever TECHNIQUE: AP and lateral views of the chest. COMPARISON: Comparison is made with prior study December 08, 2020. FINDINGS: EKG electrodes are seen. Mild increased markings at the lung bases suggestive of atelectasis. There is no demonstrated pleural abnormality. Normal size heart. Normal mediastinum and [place]. Normal visualized pulmonary arteries. There is atherosclerotic calcification of the aortic arch with tortuosity. There are diffuse degenerative changes of the visualized thoracic spine. Normal visualized ribs, clavicles, and shoulders. There is no demonstrated abnormality of the visualized soft tissue structures of the upper abdomen. RAD/Chest PA and Lateral IMPRESSION: Mild increased markings at the lung bases suggestive of atelectasis. Electronically Signed: King Mcduffie MD at 14:11 EST ,
[2023-08-21 13:32] LABS: Lactic Acid 3.4 mmol/L (0.4-1.9)
[2023-08-21 14:39] LABS: Bacteria 0 SEEN /hpf (None Seen); Mucous, Urine 0 SEEN /hpf (<or=2+); Red Blood Cells-Urine 0 SEEN /hpf (0-5); White Blood Cells 0 SEEN /hpf (0-5)
[2023-08-21 14:51] LABS: Color, Urine Yellow (Yellow); Glucose, Dipstick Normal (Normal); Ketone-Dipstick 5 mg/dl (Negative); Leukocyte Esterase-Dipstick 25 /ul (Negative); Nitrite-Dipstick Negative (Negative); Occult Blood-Urine 10 /ul (Negative); Protein-Dipstick 30 mg/dl (Negative); Urine Bilirubin Dipstick Negative (Negative); Urine Clarity Clear (Clear); Urine Urobilinogen 1 mg/dl (Normal)
[2023-08-21 14:57] LABS: Squamous Epithelial Cells - UA 0-5 SEEN /hpf (5-10)
--- NOTE | 2023-08-21 15:40 | HP.PCM.HOS_ITS ---
HPI - General General Date of Admission: 08/21/23 HPI Narrative JUDITH MERCADO, is a 78 F who presents to the hospital with fevers and chills secondary to a right lower extremity chronic wound infection. She does have a history of Charcot foot and recently had a skin graft done to a chronic wound on her right foot. For last couple weeks she has been having fevers and chills and saw her PCP last and was told that she had an E. coli UTI and was placed on antibiotics for that which she is almost completed and then presents today because of continued fevers and chills and just not feeling well. Repeat urine cultures are pending though urinalysis is unremarkable. She does have an elevated white count with lactic acid of 3.4. Her inflammatory markers are also elevated. [facility] Medical History (Updated 08/21/23 @ 16:20 by Pebbles Zhao) Acute cystitis Acute kidney injury Anemia Cellulitis Chronic pain DDD (degenerative disc disease), lumbar Debility Decubitus ulcer of left buttock, stage 2 Decubitus ulcer of right buttock, stage 2 Essential hypertension Frequent falls GERD (gastroesophageal reflux disease) HLD (hyperlipidemia) Lower extremity weakness Lymphedema Migraines Morbid obesity with BMI of 40.0-44.9, adult Non-smoker Spinal stenosis Venous stasis ulcers Home Medications aspirin 81 mg chewable tablet 81 mg PO DAILY@0800 heart 07/19/18 [History Last Taken 12/08/20] lovastatin 40 mg tablet 40 mg PO BID cholesterol 07/19/18 [History Last Taken 12/08/20] multivitamin 1 ea PO DAILY spinal stenosis 07/19/18 [History Last Taken 12/08/20] cholecalciferol (vitamin D3) 25 mcg (1,000 unit) tablet 1,000 unit PO DAILY supplement 11/21/18 [History Last Taken 12/08/20] selenium 100 mcg tablet 100 mcg PO DAILY Check with primary doctor 11/21/18 [History Last Taken 12/08/20] folic acid 400 mcg tablet 0.4 mg PO DAILY supplement 02/24/20 [History Last Jone en 12/08/20] losartan 50 mg tablet 75 mg PO DAILY hypertension 02/24/20 [History Last Taken 12/08/20] potassium chloride 10 mEq tablet,extended release(part/cryst) 20 meq PO DAILY supplement 02/24/20 [History Last Taken 12/08/20] metoprolol tartrate 100 mg tablet 50 mg PO BID hypertension 03/05/20 [History Last Taken 12/08/20] omega-3 fatty acids-fish oil 300 mg-1,000 mg capsule 1 cap PO DAILY SUPPLEMENT 12/08/20 [History Last Taken 12/08/20] omeprazole 20 mg capsule,delayed release 20 mg PO DAILY GERD 12/08/20 [History Last Taken 12/08/20] zinc sulfate 50 mg zinc (220 mg) tablet 220 mg PO DAILY SUPPLEMENT 12/08/20 [History Last Taken 12/08/20] diltiazem HCl 120 mg capsule,extended release 24 hr 120 mg PO DAILY 08/21/23 [History Last Taken Unknown] furosemide 80 mg tablet 80 mg PO BID 08/21/23 [History Last Taken Unknown] Allergy/AdvReac Type Severity Reaction Status Date / Time ciprofloxacin [From Cipro] Allergy Severe throat Verified 08/21/23 12:26 swelling adhesive tape Allergy Intermediate Rash Verified 08/21/23 12:26 celecoxib [From Celebrex] Allergy vomited Verified 08/21/23 12:26 blood clots formaldehyde Allergy Other Verified 08/21/23 12:26 ketorolac [From Toradol] AdvReac Upset Verified 08/21/23 12:26 Stomach Family History Father CAD (coronary artery disease) Myocardial infarction Sister Breast cancer Surgical History (Updated 08/21/23 @ 16:20 by Pebbles Zhao) H/O laminectomy History of Achilles tendon repair History of section History of cholecystectomy History of foot surgery History of hysterectomy History of total bilateral knee replacement Social History Smoking Status: Never smoker substance use type: does not use ROS Constitutional Constitutional: Reports chills, fatigue and fever(s); Denies malaise Eyes Eyes: Denies blurry vision ENT HEENT: Denies headache(s) or nasal discharge Cardiovascular Cardiovascular: Denies chest pain, dyspnea on exertion or syncope Respiratory/Chest Respiratory/Chest: Denies cough, shortness of breath at rest or shortness of vasyl ath with exertion Gastrointestinal Gastrointestinal: Denies constipation, diarrhea, nausea or vomiting Genitourinary Genitourinary: Reports dysuria Musculoskeletal Musculoskeletal: Reports joint swelling Integumentary Integumentary: Reports wounds Neurologic Neurologic: Denies focal weakness, numbness or tremor(s) Psychiatric Psychiatric: Denies anxiety or depression Vital Signs Vital Signs Vital Signs: 08/21/23 12:26 08/21/23 12:35 08/21/23 12:51 Temperature 99.6 F H Temperature Source Temporal Pulse Rate 95 Respiratory Rate 18 Respiratory Effort Normal Non-Labored Respiratory Pattern Normal Blood Pressure 144/75 H Blood Pressure Mean 98 Pulse Ox 93 94 Oxygen Delivery Method Room Air Room Air 08/21/23 14:35 Temperature Temperature Source Pulse Rate 81 Respiratory Rate 20 H Respiratory Effort Respiratory Pattern Blood Pressure 103/60 Blood Pressure Mean 74 Pulse Ox 94 Oxygen Delivery Method Room Air Physical Exam Narrative General: Alert, Oriented x3, Cooperative, No apparent distress HEENT: Atraumatic, PERRLA, EOMI, Normocephalic Oral: Moist Mucosa Neck: Supple, No JVD Lungs: Diminished, Normal air movement, No rhonchi, No wheeze, No rales Cardiovascular: Regular rate, Regular Rhythm, Normal S1, Normal S2, No murmurs Abdomen: Soft, Non Tender, Non-Distended, No Hepato-splenomegaly Extremities: No edema, Capillary Refill Less than 3 Seconds Skin: Bilateral lower extremity lymphedema, right lower extremity Charcot foot with chronic wound dressing in place dorsum of the foot does appear red and erythematous Musculoskeletal: No Tenderness to Palpation of Joints or Extremities Neurological: Cranial nerves II-XII grossly intact, Motor Exam 5/5 strength throughout, Sensory exam intact to light touch and pain Psych/Mental Status: Normal Affect, Appropriate Results Lab / Micro Data 08/21/23 12:40 08/21/23 12:40 Labs: Laboratory Results - last 24 hr 08/21/23 12:40: WBC 17.3 H, RBC 4.36, Hgb 13.9, Hct 42.0, MCV 96.3, MCH 31.9, MCHC 33.1, RDW Std Deviation 46.1 H, RDW Coeff of Joel 12.9, Plt Count 392, MPV 9.5, Immature Gran % (Auto) 1.000 H, Neut % (Auto) 83.7 H, Lymph % (Auto) 7.3 L, [place] % (Auto) 2.5, Eos % (Auto) 5.3 H, Baso % (Auto) 0.2, Absolute Neuts (auto) 14.5 H, Absolute Lymphs (auto) 1.26, Nucleated RBC % 0, ESR 59 H, PT 15.1 H, INR 1.2, APTT 33.0, Sodium 134 L, Potassium 3.5, Chloride 101, Carbon Dioxide 24.0, Anion Gap 9, BUN 21 H, Creatinine 1.25 H, Est GFR (MDRD) Af Amer 53 L, Est GFR (MDRD) Non-Af 44 L, BUN/Creatinine Ratio 16.8, Glucose 117 H, Lactic Acid 3.4 H* , Calcium 9.1, Total Bilirubin 1.00, AST 33, ALT 32, Alkaline Phosphatase 59, C- React Prot Ext Range 89.70 H, Total Protein 7.3, Albumin 3.2, Globulin 4.1, Albumin/Globulin Ratio 0.8 L 08/21/23 14:30: Urine Color Yellow, Urine Clarity Clear, Urine pH 5.0, Ur Specific [place] 1.020, Urine Protein 30 H, Urine Glucose (UA) Normal, Urine Ketones 5 H, Urine Occult Blood 10 H, Urine Nitrite Negative, Urine Bilirubin Negative, Urine Urobilinogen 1 H, Ur Leukocyte Esterase 25 H, Urine RBC 0 SEEN, Urine WBC 0 SEEN, Ur Squamous Epith Cells 0-5 SEEN, Urine Bacteria 0 SEEN, Urine Mucus 0 SEEN Micro: Microbiology 08/21/23 12:50 Nasal Secretion SARS-CoV-2 & FLU Antigen (Rapid) - Final Rhythm Strip Rhythm Strip: Sinus Rhythm Rate: 95 Ectopy: None Imagaing Radiology Impression Abdomen/Pelvis CT 08/21/23 12:54 IMPRESSION: Prior cholecystectomy. Sigmoid diverticulosis. Prior hysterectomy. Electronically Signed: King Mcduffie MD at 13:51 EST , Chest X-Ray 08/21/23 13:30 IMPRESSION: Mild increased markings at the lung bases suggestive of atelectasis. Electronically Signed: King Mcduffie MD at 14:11 EST , Foot X-Ray 08/21/23 13:30 IMPRESSION: Diffuse soft tissue swelling. Charcot deformity of the foot. Electronically Signed: King Mcduffie MD at 14:08 EST , Assessment & Plan Assessment/Plan (1) Open wound of right foot: (2) Charcot's joint of right foot: PLAN: Plan 1. Open chronic wound with wound infection with surrounding cellulitis from Charcot foot and nonhealing after a wound graft/lymphedema ? Continue with Unasyn and will check a MRSA PCR ? We will consult podiatry for possible intervention we will hold off on any imaging pending their evaluation ? Hesitant to take down the specific dressing for the skin graft so wound culture will be difficult ? Urine cultures pending ? She does take Lasix so we will provide gentle hydration for 1 L given the sl ight rise in her creatinine as well as her lactic acid of 3.4 ? She is not septic as the only SIRS criteria that she does meet is her leukocytosis 2. HTN/HLD/pulmonary hypertension with chronic diastolic CHF ? We will hold her Lasix tonight while she receives IV fluids for her rising creatinine and her lactic acid ? We will continue with her other blood pressure medications ? We will monitor make adjustments as necessary ? We will hold her aspirin pending evaluation by podiatry for possible surgical intervention ? Echo from 2019 with an EF of 60% and stage II diastolic dysfunction 3. GERD ? Stable ? Continue with PPI DVT: Heparin 75 minutes was spent on direct patient care, including documentation as well as chart review and collaboration with colleagues Charges/Coding Visit Charges Inpatient E&M: 37362 Init Hosp L3
--- NOTE | 2023-08-21 15:45 | NURSING ---
MED SURG SAM SIRS, CHARCOT RIGHT FOOT WITH WOUND
[2023-08-21] MEDS: Ampicillin/Sulbactam 3 GM in 0.9% Normal Saline (100mL MB+) 100 ML IV ×2 (15:50→23:52)
[2023-08-21 16:58] LABS: Reflex Lactate? Y
[2023-08-21 17:50] LABS: Lactic Acid 2.3 mmol/L (0.4-1.9)
[2023-08-21] MEDS: 0.9% Normal Saline (1000mL) 1,000 ML 75 ML IV (17:57)
[2023-08-21] MEDS: Metoprolol Tartrate 50 MG Tablet PO (23:51)
[2023-08-21] MEDS: Heparin Injection (Vial) 5,000 UNIT/ML VIAL 5000 UNIT SC (23:51)
[2023-08-21] MEDS: Atorvastatin Calcium 20 MG Tablet PO (23:51)
[2023-08-22] VITALS (11 sets, daily range): BP systolic 115–163; BP diastolic 57–69; PULSE 90–103; RESP 16–17; TEMP 36.2–36.8; O2SAT 92–96
[2023-08-22] MEDS: Heparin Injection (Vial) 5,000 UNIT/ML VIAL 5000 UNIT SC ×3 (06:00→21:17)
[2023-08-22] MEDS: Ampicillin/Sulbactam 3 GM in 0.9% Normal Saline (100mL MB+) 100 ML IV ×3 (06:01→21:19)
[2023-08-22 07:15] LABS: Absolute Lymphocyte Count 1.69 X10^3/uL (0.83-4.51); Absolute Neutrophil Count 8.8 X10^3/uL (2.0-7.7); Basophil# 0.04 X10^3/uL; Basophil% 0.3 % (0-1); Eosinophil# 1.02 X10^3/uL; Eosinophils% 8.4 % (0-5); Hematocrit 37.5 % (37-47); Hemoglobin 11.9 g/dL (12.0-15.0); Lymphocyte # 1.69 X10^3/ul (0.83-4.51); Mean Corp Hgb Conc 31.7 g/dL (32-36); Mean Corpuscular Hgb 31.2 pg (27.0-32.0); Mean Corpuscular Volume 98.4 fL (81-99); Mean Platelet Vol. 9.4 fl (6.2-12.0); Monocyte# 0.45 X10^3/uL; Monocyte% 3.7 % (0-10); NRBC Flagged by Analyzer 0 % (0-5); Neutrophil % 72.9 % (47-70); Platelet Count 364 K/mm3 (150-450); RBC Distribution Width CV 13.2 % (11.6-14.6); RBC Distribution Width SD 46.9 fl (35.1-43.9); Red Blood Count 3.81 M/mm3 (4.2-5.4); White Blood Count 12.1 K/mm3 (4.4-11.0)
[2023-08-22 07:44] LABS: Anion Gap 7 (5-15); BUN 14 mg/dL (7-18); BUN/Creat Ratio 19.6 RATIO (10-20); Calcium,Total 8.6 mg/dL (8.5-10.1); Chloride 105 mmol/L (98-107); Creatinine, Serum 0.72 mg/dL (0.55-1.02); EST Glomerular Filtration Rate 84 mL/min (>60); Est Glom Filt Rate - Afr Amer 101 mL/min (>60); Estimated Creatinine Clearance 36.67 ml/min; Glucose 98 mg/dL (74-106); Potassium 3.2 mmol/L (3.5-5.1); Sodium Level 138 mmol/L (136-145)
--- NOTE | 2023-08-22 08:01 | PCM.CONS.GEN ---
Assessment & Plan Assessment/Plan (1) Charcot's joint of right foot: (2) Altered gait: (3) Neuropathic ulcer of right foot with fat layer exposed: (4) Acquired valgus deformity of ankle: (5) Posterior tibial tendon dysfunction (PTTD) of right lower extremity: (6) Lipedema: (7) Morbid obesity: (8) Neuropathy: (9) Cellulitis of right lower extremity: (10) Lymphedema: (11) HLD (hyperlipidemia): (12) Frequent falls: (13) Debility: PLAN: Plan Patient seen and evaluated Right lower extremity: Lower extremity demonstrates significant swelling consistent with Lipolymphedema. There is an ulceration noted overlying the navicular bone medially with surrounding hyperkeratosis. This wound is granulating in well with scant serosanguineous drainage. No signs of infection of the wound. Patient does demonstrate some erythema lateral foot and lower extremity. Patient demonstrates significant valgus deformity of the ankle with inversion of the foot on ankle with rigidity of subtalar joint midtarsal joint secondary to PTTD Charcot deformity. Deformity is noted to be rigid with inability to relocate the calcaneus and talus under tibia. Patient is a ambulate exclusively on medial aspect of the ankle/foot with direct pressure overlying the navicular bone/talar head. Patient denies being diabetic, recent A1c 5.6% WBC currently 12.1 improved from 17.3. ESR 59, CRP 89.7, lactic acid 2.3 improved from 3.4. Currently on IV Vanco/Zosyn Radiographs obtained in the ED 08/21/2023 demonstrating soft tissue swelling and Charcot changes of the midfoot. These demonstrate no changes from previous radiographic imaging 08/02/2023. No signs of osteomyelitis. Ulceration did undergo sharp excisional debridement via #7 curette at bedside. No local anesthetic required secondary to patient's neuropathic status. Excisional debridement consisted of debridement of all fibrous, devitalized subcutaneous, biofilm, slough. 100% of ulceration was debrided to healthy bleeding base. Hemostasis controlled via pressure and gauze. Ulceration measures 1.2 cm x 1 1.0 cm x 1 cm. Previously was applying EpiFix grafting products in wound care center and ulceration has significantly improved with this and continued offloading since last visit on 08/15/2023. Dressing: Cleanse with Dakin daily then apply Yaquelin and dry sterile dressing. Dressing change daily. Plan to reapply EpiFix grafting products at wound care center next visit. Discussed continued nonweightbearing to the right lower extremity while in house. Discussed I will fashion her a new felt offloading pad so that she may ambulate following discharge. Medicine team currently following for medical management, they are greatly appreciated. Podiatry will continue to follow while in house. Upon discharge we will continue to follow with me in wound care center. Jr. Willian [facility] [phone] HPI Consult Data Date of Consult: 08/22/23 HPI Narrative Reason for Consultation: Right foot wound HPI Narrative: JUDITH MERCADO, is a 78 F who presents to [facility] with cold symptoms of 1 week duration with accompanying fevers and chills. Patient stated when she saw me in the wound center last that she felt like she was coming down with something and was going to her PCP office following this visit. They did test urine and she was noted to have positive cultures and was placed on antibiotic. During this time she also noted a little redness on the leg but it has always been a little red. I did observe this and noted that the lateral foot is a little red with no erythema around the ulcerative site in the lower leg also demonstrates a slight increase in redness from previous wound care visits. She did present due to continued symptoms and just not feeling well. Repeat urinalysis cultures was done and ED was unremarkable. She was noted to have elevated white count of 17.3 with lactic acid of 3.4 which did decrease to 2.3, ESR 59, CRP 89.7 in ED. Radiographs in ED obtained demonstrate Charcot changes of the right foot consistent with previous radiographic imaging on 08/02/2023. She was consulted to podiatry for continued management of right foot wound with lower extremity cellulitis. She does state she does feel little better this morning compared to last night. Denies further complaints. [facility] Medical History (Updated 08/21/23 @ 16:20 by Pebbles Zhao) Acute cystitis Acute kidney injury Anemia Cellulitis Chronic pain DDD (degenerative disc disease), lumbar Debility Decubitus ulcer of left buttock, stage 2 Decubitus ulcer of right buttock, stage 2 Essential hypertension Frequent falls GERD (gastroesophageal reflux disease) HLD (hyperlipidemia) Lower extremity weakness Lymphedema Migraines Morbid obesity with BMI of 40.0-44.9, adult Non-smoker Spinal stenosis Venous stasis ulcers Home Medications aspirin 81 mg chewable tablet 81 mg PO DAILY@0800 heart 07/19/18 [History Last Taken 12/08/20] lovastatin 40 mg tablet 40 mg PO BID cholesterol 07/19/18 [History Last Taken 12/08/20] multivitamin 1 ea PO DAILY spinal stenosis 07/19/18 [History Last Taken 12/08/20] cholecalciferol (vitamin D3) 25 mcg (1,000 unit) tablet 1,000 unit PO DAILY supplement 11/21/18 [History Last Taken 12/08/20] selenium 100 mcg tablet 100 mcg PO DAILY Check with primary doctor 11/21/18 [History Last Taken 12/08/20] folic acid 400 mcg tablet 0.4 mg PO DAILY supplement 02/24/20 [History Last Taken 12/08/20] losartan 50 mg tablet 75 mg PO DAILY hypertension 02/24/20 [History Last Taken 12/08/20] potassium chloride 10 mEq tablet,extended release(part/cryst) 20 meq PO DAILY supplement 02/24/20 [History Last Taken 12/08/20] metoprolol tartrate 100 mg tablet 50 mg PO BID hypertension 03/05/20 [History Last Taken 12/08/20] omega-3 fatty acids-fish oil 300 mg-1,000 mg capsule 1 cap PO DAILY SUPPLEMENT 12/08/20 [History Last Taken 12/08/20] omeprazole 20 mg capsule,delayed release 20 mg PO DAILY GERD 12/08/20 [History Last Taken 12/08/20] zinc sulfate 50 mg zinc (220 mg) tablet 220 mg PO DAILY SUPPLEMENT 12/08/20 [History Last Taken 12/08/20] diltiazem HCl 120 mg capsule,extended release 24 hr 120 mg PO DAILY 08/21/23 [History Last Taken Unknown] furosemide 80 mg tablet 80 mg PO BID 08/21/23 [History Last Taken Unknown] Allergy/AdvReac Type Severity Reaction Status Date / Time ciprofloxacin [From Cipro] Allergy Severe throat Verified 08/21/23 12:26 swelling adhesive tape Allergy Intermediate Rash Verified 08/21/23 12:26 celecoxib [From Celebrex] Allergy vomited Verified 08/21/23 12:26 blood clots formaldehyde Allergy Other Verified 08/21/23 12:26 ketorolac [From Toradol] AdvReac Upset Verified 08/21/23 12:26 Stomach Family History Father CAD (coronary artery disease) Myocardial infarction Sister Breast cancer Surgical History (Updated 08/21/23 @ 16:20 by Pebbles Zhao) H/O laminectomy History of Achilles tendon repair History of section History of cholecystectomy History of foot surgery History of hysterectomy History of total bilateral knee replacement Social History Smoking Status: Never smoker substance use type: does not use ROS Constitutional Constitutional: Reports chills, fatigue and fever(s); Denies malaise Eyes Eyes: Denies burning, diplopia or loss of vision ENT HEENT: Denies headache(s), nasal congestion, nasal discharge or sore throat Cardiovascular Cardiovascular: Denies chest pain, claudication or cold extremities Respiratory/Chest Respiratory/Chest: Denies cough, dyspnea, shortness of breath at rest or shortness of breath with exertion Gastrointestinal Gastrointestinal: Denies abdominal pain, constipation, diarrhea, nausea or vomiting Genitourinary Genitourinary: Reports dysuria and urinary frequency; Denies hematuria or urinary hesitancy Musculoskeletal Musculoskeletal: Denies joint pain, joint stiffness or joint swelling Integumentary Integumentary: Denies lesions, pruritus or rash Neurologic Neurologic: Denies dizziness, numbness or seizures Psychiatric Psychiatric: Denies anxiety or depression Endocrine Endocrinology: Denies cold intolerance or heat intolerance Hematologic/Lymphatic Hematologic/Lymphatic: Denies easy bleeding or easy bruising Allergic/Immunologic Allergic/Immunologic: Denies wheezing Physical Exam Const alert, oriented x3 and no apparent distress General Appearance: cooperative Nutritional Appearance: morbidly obese HEENT normocephalic Eyes General Eye: normal appearance of both eyes Neck General: normal visual inspection Lymph Lymphatic: no lymphadenopathy noted Lymphatic Narrative: Lipolymphedema Resp normal respiratory effort Cardio regular rate and regular rhythm Extremity normal capillary refill, no calf tenderness and no pedal edema Extremity Narrative: DP and PT pulses weakly palpable secondary to Lipolymphedema bilateral, capillary fill time is adequate to digits bilateral. Dermatological: Positive Stemmer sign bilateral. Right lower extremity demonstrates significant deformity with Lipolymphedema. There is ulceration noted overlying the navicular bone medially with surrounding hyperkeratosis. Ulceration is noted to be improving from previous wound care visit. Wound base demonstrates healthy appearing granular layer with scant fibrotic tissue in the wound bed. There is slight serosanguineous drainage from wound base. There is some erythema to the lateral foot and distal lower extremity however this is not overtly warm versus previous visits and does improve with some elevation. No erythema about wound, no purulent drainage, no malodor, no palpable fluctuance/bogginess noted, no visible abscess formation, no lymphangitic streaking. Musculoskeletal: Muscle strength 5 of 5 age-appropriate to the left lower extremity. Muscle strength is deferred secondary to her significant deformity of the right lower extremity. Patient does demonstrate valgus deformity of the ankle with inversion of the foot on the ankle with rigidity of the subtalar joint midtarsal joint secondary to a Charcot deformity. Deformity is noted to be rigid with inability to relocate calcaneus and talus under the tibia. Patient does ambulate exclusively on the medial aspect of the ankle/foot with direct pressure overlying navicular and talar head. She does demonstrate changes consistent with PTTD stage IV versus Charcot deformity of the right foot. Skin no rashes or lesions noted and no jaundice Neuro moves all extremities Lab / Micro Data 08/22/23 06:10 08/22/23 06:10 Labs: Laboratory Results - last 24 hr 08/21/23 12:40: WBC 17.3 H, RBC 4.36, Hgb 13.9, Hct 42.0, MCV 96.3, MCH 31.9, MCHC 33.1, RDW Std Deviation 46.1 H, RDW Coeff of Joel 12.9, Plt Count 392, MPV 9.5, Immature Gran % (Auto) 1.000 H, Neut % (Auto) 83.7 H, Lymph % (Auto) 7.3 L, [place] % (Auto) 2.5, Eos % (Auto) 5.3 H, Baso % (Auto) 0.2, Absolute Neuts (auto) 14.5 H, Absolute Lymphs (auto) 1.26, Nucleated RBC % 0, ESR 59 H, PT 15.1 H, INR 1.2, APTT 33.0, Sodium 134 L, Potassium 3.5, Chloride 101, Carbon Dioxide 24.0, Anion Gap 9, BUN 21 H, Creatinine 1.25 H, Est GFR (MDRD) Af Amer 53 L, Est GFR (MDRD) Non-Af 44 L, BUN/Creatinine Ratio 16.8, Glucose 117 H, Lactic Acid 3.4 H*, Calcium 9.1, Total Bilirubin 1.00, AST 33, ALT 32, Alkaline Phosphatase 59, C-React Prot Ext Range 89.70 H, Total Protein 7.3, Albumin 3.2, Globulin 4.1, Albumin/Globulin Ratio 0.8 L 08/21/23 14:30: Urine Color Yellow, Urine Clarity Clear, Urine pH 5.0, Ur Specific [place] 1.020, Urine Protein 30 H, Urine Glucose (UA) Normal, Urine Ketones 5 H, Urine Occult Blood 10 H, Urine Nitrite Negative, Urine Bilirubin Negative, Urine Urobilinogen 1 H, Ur Leukocyte Esterase 25 H, Urine RBC 0 SEEN, Urine WBC 0 SEEN, Ur Squamous Epith Cells 0-5 SEEN, Urine Bacteria 0 SEEN, Urine Mucus 0 SEEN 08/21/23 16:58: Lactic Acid 2.3 H* 08/22/23 06:10: WBC 12.1 H, RBC 3.81 L, Hgb 11.9 L, Hct 37.5, MCV 98.4, MCH 31.2, MCHC 31.7 L, RDW Std Deviation 46.9 H, RDW Coeff of Joel 13.2, Plt Count 364, MPV 9.4, Immature Gran % (Auto) 0.700, Neut % (Auto) 72.9 H, Lymph % (Auto) 14.0 L, [place] % (Auto) 3.7, Eos % (Auto) 8.4 H, Baso % (Auto) 0.3, Absolute Neuts (auto) 8.8 H, Absolute Lymphs (auto) 1.69, Nucleated RBC % 0, Sodium 138, Potassium 3.2 L, Chloride 105, Carbon Dioxide 26.0, Anion Gap 7, BUN 14, Creatinine 0.72, Estim Creat Clear Calc 36.67, Est GFR (MDRD) Af Amer 101, Est GFR (MDRD) Non-Af 84, BUN/Creatinine Ratio 19.6, Glucose 98, Calcium 8.6 Micro: Microbiology 08/21/23 15:55 Mucosa - Nasopharyngeal Respiratory Panel (PCR) - Final 08/21/23 12:50 Nasal Secretion SARS-CoV-2 & FLU Antigen (Rapid) - Final Rhythm Strip Rhythm Strip: Sinus Rhythm Rate: 95 Ectopy: None Imagaing Radiology Impression Abdomen/Pelvis CT 08/21/23 12:54 IMPRESSION: Prior cholecystectomy. Sigmoid diverticulosis. Prior hysterectomy. Electronically Signed: King Mcduffie MD at 13:51 EST , Chest X-Ray 08/21/23 13:30 IMPRESSION: Mild increased markings at the lung bases suggestive of atelectasis. Electronically Signed: King Mcduffie MD at 14:11 EST , Foot X-Ray 08/21/23 13:30 IMPRESSION: Diffuse soft tissue swelling. Charcot deformity of the foot. Electronically Signed: King Mcduffie MD at 14:08 EST ,
[2023-08-22] MEDS: Folic Acid 1 MG Tablet 0.5 MG PO (08:54)
[2023-08-22] MEDS: dilTIAZem CD 120 MG Capsule PO (08:54)
[2023-08-22] MEDS: Metoprolol Tartrate 50 MG Tablet PO ×2 (08:55→21:18)
[2023-08-22] MEDS: Losartan Potassium 25 MG Tablet 75 MG PO (08:56)
[2023-08-22] MEDS: Pantoprazole Sodium 20 MG Tablet PO (08:56)
--- NOTE | 2023-08-22 10:07 | WOUNDNOTE ---
wound photo: right medial foot
--- NOTE | 2023-08-22 10:45 | CASEMGMT ---
RN CM Face to Face with patient for initial transition planning/care coordination assessment. RN CM introduced self and role at [facility]. Patient lying in bed, alert and oriented. Patient willing to participate in assessment and is able to answer all questions appropriately. Care providers, pharmacy, and demographics verified. Patient wishes to discharge home, denies need for home health at this time. Patient states she has no further needs or concerns at this time. CM to follow for discharge planning needs that may arise. PCP: Taylor Specialists: Court, implementation advisor; Dex, fbi investigator; Preferred Pharmacy: [facility] Insurance: [employer] Prescription Benefit: yes Living Will/HPOA: yes, Ed Cupec LNOK: , daughter Living Arrangements: Patient lives with in a first floor apartment, no steps to enter. Patient is independent at home. Transportation: self, neighbor DME/HHC: Patient has shower chair, raised toilet, cane, rollator at home. Patient has been to [facility]. No previous [place] Disposition Plan: Patient to discharge home with family support and follow-up plans in place. Meaghan HERNANDEZN, RN, CM
--- NOTE | 2023-08-22 11:08 | PN.HOSP_ITS ---
Reason for Visit Reason for Visit: Diagnoses Morbid (severe) obesity due to excess calories (08/21/23) Hyperlipidemia, unspecified (08/21/23) Polyneuropathy, unspecified (08/21/23) Lymphedema, not elsewhere classified (08/21/23) Cellulitis of right lower limb (08/21/23) Non-pressure chronic ulcer of other part of right foot with fat layer exposed (08/21/23) Charcot's joint, right ankle and foot (08/21/23) Valgus deformity, not elsewhere classified, unspecified ankle (08/21/23) Posterior tibial tendinitis, right leg (08/21/23) Unspecified abnormalities of gait and mobility (08/21/23) Repeated falls (08/21/23) Other malaise (08/21/23) Edema, unspecified (08/21/23) Unspecified open wound, right foot, initial encounter (08/21/23) Objective Data Objective Data Vital Signs: Vital Signs Temp Pulse Resp BP Pulse Ox O2 Del Method 98.3 F 93 16 163/57 H 93 Room Air 08/22/23 07:42 08/22/23 08:55 08/22/23 07:49 08/22/23 08:55 08/22/23 07:49 08/22/23 08:09 Oxygen Delivery Method Room Air Weight: 321 lb 10.471 oz Body Mass Index (BMI) 58.8 Intake & Output: Intake and Output for Last 24 Hours 08/20/23 08/21/23 08/22/23 23:59 23:59 23:59 Intake Total 112 / 132 1254 / 1254 Output Total 0 / 0 Balance 112 / 132 1254 / 1254 Lab / Micro Data 08/22/23 06:10 08/22/23 06:10 Labs: Laboratory Results - last 24 hr 08/21/23 12:40: WBC 17.3 H, RBC 4.36, Hgb 13.9, Hct 42.0, MCV 96.3, MCH 31.9, MCHC 33.1, RDW Std Deviation 46.1 H, RDW Coeff of Joel 12.9, Plt Count 392, MPV 9.5, Immature Gran % (Auto) 1.000 H, Neut % (Auto) 83.7 H, Lymph % (Auto) 7.3 L, [place] % (Auto) 2.5, Eos % (Auto) 5.3 H, Baso % (Auto) 0.2, Absolute Neuts (auto) 14.5 H, Absolute Lymphs (auto) 1.26, Nucleated RBC % 0, ESR 59 H, PT 15.1 H, INR 1.2, APTT 33.0, Sodium 134 L, Potassium 3.5, Chloride 101, Carbon Dioxide 24.0, Anion Gap 9, BUN 21 H, Creatinine 1.25 H, Est GFR (MDRD) Af Amer 53 L, Est GFR (MDRD) Non-Af 44 L, BUN/Creatinine Ratio 16.8, Glucose 117 H, Lactic Acid 3.4 H* , Calcium 9.1, Total Bilirubin 1.00, AST 33, ALT 32, Alkaline Phosphatase 59, C- React Prot Ext Range 89.70 H, Total Protein 7.3, Albumin 3.2, Globulin 4.1, Albumin/Globulin Ratio 0.8 L 08/21/23 14:30: Urine Color Yellow, Urine Clarity Clear, Urine pH 5.0, Ur Speci fic [place] 1.020, Urine Protein 30 H, Urine Glucose (UA) Normal, Urine Ketones 5 H, Urine Occult Blood 10 H, Urine Nitrite Negative, Urine Bilirubin Negative, Urine Urobilinogen 1 H, Ur Leukocyte Esterase 25 H, Urine RBC 0 SEEN, Urine WBC 0 SEEN, Ur Squamous Epith Cells 0-5 SEEN, Urine Bacteria 0 SEEN, Urine Mucus 0 SEEN 08/21/23 16:58: Lactic Acid 2.3 H* 08/22/23 06:10: WBC 12.1 H, RBC 3.81 L, Hgb 11.9 L, Hct 37.5, MCV 98.4, MCH 31.2, MCHC 31.7 L, RDW Std Deviation 46.9 H, RDW Coeff of Joel 13.2, Plt Count 364, MPV 9.4, Immature Gran % (Auto) 0.700, Neut % (Auto) 72.9 H, Lymph % (Auto) 14.0 L, [place] % (Auto) 3.7, Eos % (Auto) 8.4 H, Baso % (Auto) 0.3, Absolute Neuts (auto) 8.8 H, Absolute Lymphs (auto) 1.69, Nucleated RBC % 0, Sodium 138, Potassium 3.2 L, Chloride 105, Carbon Dioxide 26.0, Anion Gap 7, BUN 14, Creatinine 0.72, Estim Creat Clear Calc 36.67, Est GFR (MDRD) Af Amer 101, Est GFR (MDRD) Non-Af 84, BUN/Creatinine Ratio 19.6, Glucose 98, Calcium 8.6 Micro: Microbiology 08/21/23 15:55 Mucosa - Nasopharyngeal Respiratory Panel (PCR) - Final 08/21/23 12:50 Nasal Secretion SARS-CoV-2 & FLU Antigen (Rapid) - Final Radiography Diagnostic Testing: Radiology Impression Abdomen/Pelvis CT 08/21/23 12:54 IMPRESSION: Prior cholecystectomy. Sigmoid diverticulosis. Prior hysterectomy. Electronically Signed: King Mcduffie MD at 13:51 EST , Chest X-Ray 08/21/23 13:30 IMPRESSION: Mild increased markings at the lung bases suggestive of atelectasis. Electronically Signed: King Mcduffie MD at 14:11 EST , Foot X-Ray 08/21/23 13:30 IMPRESSION: Diffuse soft tissue swelling. Charcot deformity of the foot. Electronically Signed: King Mcduffie MD at 14:08 EST , Rhythm Strip Rhythm Strip: Sinus Rhythm Rate: 95 Ectopy: None Physical Exam Narrative Seen and examined. Patient has history of Charcot right foot deformity and decreased cellulitis. General: Alert, Oriented x3, Cooperative, morbid obesity BMI 58.8 kg/m?. HEENT: Atraumatic, PERRLA, EOMI, Normocephalic Oral: No Gingival or Mucosal Lesions/ Ulcerations Neck: Supple, No JVD, Negative Carotid Bruits Lungs: Air entry diminished in bilateral lung bases. No crepitation/rhonchi Cardiovascular: Regular rate, Regular Rhythm, Normal S1, Normal S2, No murmurs Abdomen: Bowel Sounds Present, Soft, Non Tender, Non-Distended : Chronic stress urinary incontinence. Denies burning micturition, increased frequency/urgency. No renal angle tenderness. No suprapubic tenderness. Extremities: Bilateral lower extremity lymphedema, Capillary Refill Less than 3 Seconds Skin: Bilateral lower extremity lymphedema, right lower extremity Charcot foot. Improving pressure ulcer over right midfoot and navicular bone. Wound also improved from 1.5x1.5x1.5 to 1.2 x 1.0 to 1.0. Musculoskeletal: Bilateral TKR no Tenderness to Palpation of Joints or Extremities Neurological: Cranial nerves II-XII grossly intact, DTR 2+/4. Peripheral neuropathy. Psych/Mental Status: Normal Affect, Appropriate. Assessment & Plan Assessment/Plan (1) Open wound of right foot: (2) Charcot's joint of right foot: PLAN: Plan 78-year-old female admitted with fever chills with chronic right foot ulcer. Patient has Charcot foot. She has chronic right medial foot ulcer and bilateral lower extremity lymphedema 1. Open chronic wound with wound infection with surrounding cellulitis from Charcot foot and nonhealing after a wound graft/lymphedema ? Continue with Unasyn and will check a MRSA PCR ? We will consult podiatry for possible intervention we will hold off on any imaging pending their evaluation ? Bedside debridement was done by wash house supervisor. Gram stain pending. ? Gentle hydration for 1 L given the slight rise in her creatinine as well as her lactic acid of 3.4 ? She is not septic as the only SIRS criteria that she does meet is her leukocytosis As per wash house supervisor, wound looks better and has decreased in size from 1.5 x 1 0.5 x 1.5 to 1.2 x 1.0 to 1.0. 2. Suspicion of UTI: Urine culture pending. 3. HTN/HLD/pulmonary hypertension with chronic diastolic CHF ? hold her Lasix tonight while she receives IV fluids for her rising creatinine and her lactic acid ? continue with her other blood pressure medications and titrate medications accordingly. ? Continue baby aspirin. ? Echo from 2020 with an EF of 60% and stage II diastolic dysfunction 3. GERD ? Stable ? Continue with PPI DVT: Heparin Charges/Coding Visit Charges Inpatient E&M: 26120 Subs Hosp L2
[2023-08-22 11:21] LABS: M R Staph aureus DNA By PCR Negative (Negative); Probe Check PASS; Specimen Processing Control PASS; Staph aureus DNA By PCR NEGATIVE (Negative)
[2023-08-22] MEDS: Potassium Chloride Oral Tablet 20 MEQ 40 MEQ PO ×2 (11:57→14:01)
[2023-08-22] MEDS: guaiFENesin/D-Methorphan TAB.SR.12H 2 TABLET PO ×2 (11:57→21:19)
--- NOTE | 2023-08-22 14:44 | CHAPLAIN ---
Type of Pastoral Visit _zx__ Initial Visit ___ Follow-up Visit ___ On-call Visit ___ General Patient Visit ___ Spiritual Assessment ___ Family Conference ___ Bereavement ___ Rapid Response ___ Code Blue ___ Other (describe below) Pastoral Care Referral From _x__ Patient ___ Family ___ Nurse ___ Physician ___ Field Operations Supervisor ___ Rn Palliative ___ Other (describe below) Sacrament/Intervention _x__ Active listening ___ Anointing ___ Sabianist ___ Bereavement ___ Communion _x__ Garima exploration ___ _x__ Life review _x__ Prayer ___ Reconciliation ___ Sacrament of Sick _x__ Supportive presence ___ Wedding ___ Other (describe below) Pastoral Comments patient is very talkative and covers many topics in her conversation including garima and her parish, health, health of her , moving to [place] city[place] to be closer to daughter, loss of her dog recently; pt welcomes presence to talk with someone about her life and for prayer of healing and direction
--- NOTE | 2023-08-22 18:43 | NURSING ---
Reviewed charting with Tr Ramsey RN
[2023-08-22] MEDS: 0.9% Normal Saline (250mL Bag) 250 ML 15 ML IV (21:17)
[2023-08-22] MEDS: Atorvastatin Calcium 20 MG Tablet PO (21:19)
[2023-08-23] VITALS (7 sets, daily range): BP systolic 129–161; BP diastolic 57–73; PULSE 61–90; RESP 17–18; TEMP 36.3–36.7; O2SAT 93–99
[2023-08-23] MEDS: Benzonatate 100 MG Capsule PO (05:40)
[2023-08-23] MEDS: Ampicillin/Sulbactam 3 GM in 0.9% Normal Saline (100mL MB+) 100 ML IV ×3 (05:40→19:47)
[2023-08-23] MEDS: Heparin Injection (Vial) 5,000 UNIT/ML VIAL 5000 UNIT SC ×3 (05:40→19:49)
[2023-08-23 06:25] LABS: Absolute Lymphocyte Count 2.53 X10^3/uL (0.83-4.51); Absolute Neutrophil Count 7.5 X10^3/uL (2.0-7.7); Basophil# 0.05 X10^3/uL; Basophil% 0.4 % (0-1); Eosinophil# 0.93 X10^3/uL; Eosinophils% 7.9 % (0-5); Hematocrit 37.4 % (37-47); Hemoglobin 12.1 g/dL (12.0-15.0); Lymphocyte # 2.53 X10^3/ul (0.83-4.51); Lymphocyte % 21.6 % (19-41); Mean Corp Hgb Conc 32.4 g/dL (32-36); Mean Corpuscular Hgb 32.7 pg (27.0-32.0); Mean Corpuscular Volume 101.1 fL (81-99); Mean Platelet Vol. 9.1 fl (6.2-12.0); Monocyte# 0.55 X10^3/uL; Monocyte% 4.7 % (0-10); NRBC Flagged by Analyzer 0 % (0-5); Neutrophil # 7.51 X10^3/uL (2.7-7.7); Neutrophil % 64.3 % (47-70); Platelet Count 372 K/mm3 (150-450); RBC Distribution Width CV 13.4 % (11.6-14.6); RBC Distribution Width SD 49.5 fl (35.1-43.9); White Blood Count 11.7 K/mm3 (4.4-11.0)
[2023-08-23 07:09] LABS: Anion Gap 3 (5-15); BUN 17 mg/dL (7-18); BUN/Creat Ratio 24.5 RATIO (10-20); Calcium,Total 8.8 mg/dL (8.5-10.1); Chloride 109 mmol/L (98-107); EST Glomerular Filtration Rate 87 mL/min (>60); Est Glom Filt Rate - Afr Amer 105 mL/min (>60); Estimated Creatinine Clearance 36.67 ml/min; Glucose 95 mg/dL (74-106); Potassium 4.1 mmol/L (3.5-5.1); Sodium Level 140 mmol/L (136-145)
[2023-08-23] MEDS: Folic Acid 1 MG Tablet 0.5 MG PO (08:53)
[2023-08-23] MEDS: Aspirin 81 MG TAB.CHEW PO (08:53)
[2023-08-23] MEDS: Metoprolol Tartrate 50 MG Tablet PO ×2 (08:53→19:52)
[2023-08-23] MEDS: Cholecalciferol (VIT D3) 25 MCG TABLET (1,000 UNITS) PO (08:53)
[2023-08-23] MEDS: Multivitamins,Therapeutic Tablet 1 TABLET PO (08:53)
[2023-08-23] MEDS: dilTIAZem CD 120 MG Capsule PO (08:53)
[2023-08-23] MEDS: Potassium Chloride Oral Tablet 20 MEQ 40 MEQ PO (08:53)
[2023-08-23] MEDS: guaiFENesin/D-Methorphan TAB.SR.12H 2 TABLET PO ×2 (08:54→19:50)
[2023-08-23] MEDS: Pantoprazole Sodium 20 MG Tablet PO (08:54)
[2023-08-23] MEDS: Losartan Potassium 25 MG Tablet 75 MG PO (08:59)
--- NOTE | 2023-08-23 09:23 | CASEMGMT ---
Patient has a Healthcare Power of Irrigation Manager and a Healthcare Living Will and she is aware they are not on file at [facility]. Patient is also aware to bring in copies. Donna MAURICE
--- NOTE | 2023-08-23 10:45 | PCM.PROGNOTE ---
Subjective Subjective Patient was seen early this a.m. in bed resting with right foot elevated. She states that she still feels a little off with discolored urine. Denies pain to the foot or right leg. Continues to remain nonweightbearing. Denies further complaints. Objective Data Objective Data Vital Signs: Vital Signs Temp Pulse Resp BP Pulse Ox O2 Del Method 97.5 F L 90 18 143/73 H 97 Room Air 08/23/23 08:46 08/23/23 08:53 08/23/23 08:46 08/23/23 08:53 08/23/23 08:46 08/23/23 08:49 Oxygen Delivery Method Room Air Weight: 145.9 kg Body Mass Index (BMI) 58.8 Intake & Output: Intake and Output for Last 24 Hours 08/21/23 08/22/23 08/23/23 23:59 23:59 23:59 Intake Total 112 / 132 2228 / 2258 142 / 142 Output Total 400 / 400 0 / 0 Balance 112 / 132 1828 / 1858 142 / 142 Lab / Micro Data 08/23/23 06:05 08/23/23 06:05 Labs: Laboratory Results - last 24 hr 08/22/23 07:57: S.aureus Protein A PCR NEGATIVE, MRSA (PCR) Negative 08/23/23 06:05: WBC 11.7 H, RBC 3.70 L, Hgb 12.1, Hct 37.4, MCV 101.1 H, MCH 32.7 H, MCHC 32.4, RDW Std Deviation 49.5 H, RDW Coeff of Joel 13.4, Plt Count 372, MPV 9.1, Immature Gran % (Auto) 1.100 H, Neut % (Auto) 64.3, Lymph % (Auto) 21.6, [place] % (Auto) 4.7, Eos % (Auto) 7.9 H, Baso % (Auto) 0.4, Absolute Neuts (auto) 7.5, Absolute Lymphs (auto) 2.53, Nucleated RBC % 0, Sodium 140, Potassium 4.1, Chloride 109 H, Carbon Dioxide 28.0, Anion Gap 3 L, BUN 17, Creatinine 0.70, Estim Creat Clear Calc 36.67, Est GFR (MDRD) Af Amer 105, Est GFR (MDRD) Non-Af 87, BUN/Creatinine Ratio 24.5 H, Glucose 95, Calcium 8.8 Micro: Microbiology 08/22/23 07:58 Wound - Right Foot Gram Stain - Final 08/22/23 07:58 Wound - Right Foot Wound Culture - Preliminary Gram negative gabriela Staphylococcus species 08/21/23 14:30 Urine, Clean Catch Urine Culture - Preliminary Alpha hemolytic organism 08/21/23 13:55 Blood Culture (Wb) - Anticubital Left Blood Culture - Preliminary No growth in 48 hours. 08/21/23 12:40 Blood Culture (Wb) - Anticubital Left Blood Culture - Preliminary No growth in 48 hours. 08/21/23 15:55 Mucosa - Nasopharyngeal Respiratory Panel (PCR) - Final 08/21/23 12:50 Nasal Secretion SARS-CoV-2 & FLU Antigen (Rapid) - Final Rhythm Strip Rhythm Strip: Sinus Rhythm Rate: 95 Ectopy: None Physical Exam Const alert, oriented x3 and no apparent distress General Appearance: cooperative Nutritional Appearance: morbidly obese HEENT normocephalic Eyes General Eye: normal appearance of both eyes Neck General: normal visual inspection Lymph Lymphatic: no lymphadenopathy noted Lymphatic Narrative: Lipolymphedema Resp normal respiratory effort Cardio regular rate and regular rhythm Extremity normal capillary refill, no calf tenderness and no pedal edema Extremity Narrative: DP and PT pulses weakly palpable secondary to Lipolymphedema bilateral, capillary fill time is adequate to digits bilateral. Dermatological: Positive Stemmer sign bilateral. Right lower extremity demonstrates significant deformity with Lipolymphedema. There is ulceration noted overlying the navicular bone medially with surrounding hyperkeratosis. Ulceration is noted to be improving from previous wound care visit. Wound base demonstrates healthy appearing granular layer with scant fibrotic tissue in the wound bed. There is slight serosanguineous drainage from wound base. There is some erythema to the lateral foot and distal lower extremity however this is not overtly warm versus previous visits and does improve with some elevation. No erythema about wound, no purulent drainage, no malodor, no palpable fluctuance/bogginess noted, no visible abscess formation, no lymphangitic streaking. Musculoskeletal: Muscle strength 5 of 5 age-appropriate to the left lower extremity. Muscle strength is deferred secondary to her significant deformity of the right lower extremity. Patient does demonstrate valgus deformity of the ankle with inversion of the foot on the ankle with rigidity of the subtalar joint midtarsal joint secondary to a Charcot deformity. Deformity is noted to be rigid with inability to relocate calcaneus and talus under the tibia. Patient does ambulate exclusively on the medial aspect of the ankle/foot with direct pressure overlying navicular and talar head. She does demonstrate changes consistent with PTTD stage IV versus Charcot deformity of the right foot. Skin no rashes or lesions noted and no jaundice Neuro moves all extremities Assessment & Plan Assessment/Plan (1) Charcot's joint of right foot: (2) Altered gait: (3) Neuropathic ulcer of right foot with fat layer exposed: (4) Acquired valgus deformity of ankle: (5) Posterior tibial tendon dysfunction (PTTD) of right lower extremity: (6) Lipedema: (7) Morbid obesity: (8) Neuropathy: (9) Cellulitis of right lower extremity: (10) Lymphedema: (11) HLD (hyperlipidemia): (12) Frequent falls: (13) Debility: PLAN: Plan Patient seen and evaluated Right lower extremity: Lower extremity demonstrates significant swelling consistent with Lipolymphedema. There is an ulceration noted overlying the navicular bone medially with surrounding hyperkeratosis. This wound is granulating in well with scant serosanguineous drainage. No signs of infection of the wound. Patient does demonstrate some erythema lateral foot and lower extremity. Patient demonstrates significant valgus deformity of the ankle with inversion of the foot on ankle with rigidity of subtalar joint midtarsal joint secondary to PTTD Charcot deformity. Deformity is noted to be rigid with inability to relocate the calcaneus and talus under tibia. Patient is a ambulate exclusively on medial aspect of the ankle/foot with direct pressure overlying the navicular bone/talar head. Patient denies being diabetic, recent A1c 5.6% WBC currently 11.7 continuing to trend down form 12.1 and 17.3. ESR 59, CRP 89.7, lactic acid 2.3 improved from 3.4. Currently on IV Vanco/Zosyn Cultures of right foot demonstrate negative Staph aureus protein A PCR and negative MRSA PCR. Urine cultures demonstrate alphahemolytic organism, staph species, and gram-negative gabriela. Radiographs obtained in the ED 08/21/2023 demonstrating soft tissue swelling and Charcot changes of the midfoot. These demonstrate no changes from previous radiographic imaging 08/02/2023. No signs of osteomyelitis. Ulceration did undergo sharp excisional debridement to the level of the subcutaneous tissue via #7 curette at bedside on 08/22/2023. No local anesthetic required secondary to patient's neuropathic status. Excisional debridement consisted of debridement of all fibrous, devitalized subcutaneous, biofilm, slough. 100% of ulceration was debrided to healthy bleeding base. Hemostasis controlled via pressure and gauze. Ulceration measures 1.2 cm x 1.0 cm x 1 cm. Previously was applying EpiFix grafting products in wound care center and ulceration has significantly improved with this and continued offloading since last visit on 08/15/2023. Overall wound does demonstrate healthy appearing granular base with no purulent drainage. There is some bloody drainage secondary to debridement yesterday. Dressing: Cleanse with Dakin daily then apply Yaquelin and dry sterile dressing. Dressing change daily. Plan to reapply EpiFix grafting products at wound care center next visit. Discussed continued nonweightbearing to the right lower extremity while in house. Discussed I will fashion her a new felt offloading pad so that she may ambulate following discharge. Medicine team currently following for medical management, they are greatly appreciated. Podiatry will continue to follow while in house. Upon discharge we will continue to follow with me in wound care center for continued Epifix applications. Jr. Cierra Nina.P.M. [facility] [phone]
[2023-08-23] MEDS: Benzonatate 100 MG Capsule 200 MG PO ×2 (14:45→19:51)
--- NOTE | 2023-08-23 17:55 | PN.HOSP_ITS ---
Reason for Visit Reason for Visit: Diagnoses Morbid (severe) obesity due to excess calories (08/21/23) Hyperlipidemia, unspecified (08/21/23) Polyneuropathy, unspecified (08/21/23) Lymphedema, not elsewhere classified (08/21/23) Cellulitis of right lower limb (08/21/23) Non-pressure chronic ulcer of other part of right foot with fat layer exposed (08/21/23) Charcot's joint, right ankle and foot (08/21/23) Valgus deformity, not elsewhere classified, unspecified ankle (08/21/23) Posterior tibial tendinitis, right leg (08/21/23) Unspecified abnormalities of gait and mobility (08/21/23) Repeated falls (08/21/23) Other malaise (08/21/23) Edema, unspecified (08/21/23) Unspecified open wound, right foot, initial encounter (08/21/23) Objective Data Objective Data Vital Signs: Vital Signs Temp Pulse Resp BP Pulse Ox O2 Del Method 98.1 F 77 18 143/57 H 97 Room Air 08/23/23 14:40 08/23/23 14:40 08/23/23 14:40 08/23/23 14:40 08/23/23 14:40 08/23/23 14:40 Oxygen Delivery Method Room Air Weight: 321 lb 10.471 oz Body Mass Index (BMI) 58.8 Intake & Output: Intake and Output for Last 24 Hours 08/21/23 08/22/23 08/23/23 23:59 23:59 23:59 Intake Total 112 / 132 2228 / 2258 504 / 504 Output Total 400 / 400 400 / 400 Balance 112 / 132 1828 / 1858 104 / 104 Lab / Micro Data 08/23/23 06:05 08/23/23 06:05 Labs: Laboratory Results - last 24 hr 08/23/23 06:05: WBC 11.7 H, RBC 3.70 L, Hgb 12.1, Hct 37.4, MCV 101.1 H, MCH 32.7 H, MCHC 32.4, RDW Std Deviation 49.5 H, RDW Coeff of Joel 13.4, Plt Count 372, MPV 9.1, Immature Gran % (Auto) 1.100 H, Neut % (Auto) 64.3, Lymph % (Auto) 21.6, [place] % (Auto) 4.7, Eos % (Auto) 7.9 H, Baso % (Auto) 0.4, Absolute Neuts (auto) 7.5, Absolute Lymphs (auto) 2.53, Nucleated RBC % 0, Sodium 140, Potassium 4.1, Chloride 109 H, Carbon Dioxide 28.0, Anion Gap 3 L, BUN 17, Creatinine 0.70, Estim Creat Clear Calc 36.67, Est GFR (MDRD) Af Amer 105, Est GFR (MDRD) Non-Af 87, BUN/Creatinine Ratio 24.5 H, Glucose 95, Calcium 8.8 Micro: Microbiology 08/22/23 07:58 Wound - Right Foot Gram Stain - Final 08/22/23 07:58 Wound - Right Foot Wound Culture - Preliminary Gram negative gabriela Staphylococcus species 08/21/23 14:30 Urine, Clean Catch Urine Culture - Preliminary Alpha hemolytic organism 08/21/23 13:55 Blood Culture (Wb) - Anticubital Left Blood Culture - Preliminary No growth in 48 hours. 08/21/23 12:40 Blood Culture (Wb) - Anticubital Left Blood Culture - Preliminary No growth in 48 hours. 08/21/23 15:55 Mucosa - Nasopharyngeal Respiratory Panel (PCR) - Final 08/21/23 12:50 Nasal Secretion SARS-CoV-2 & FLU Antigen (Rapid) - Final Rhythm Strip Rhythm Strip: Sinus Rhythm Rate: 95 Ectopy: None Physical Exam Narrative Seen and examined. Patient has history of Charcot right foot deformity and decreased cellulitis. Complain of aches and pain over the back and neck area. Physical exam General: Alert, Oriented x3, Cooperative, morbid obesity BMI 58.8 kg/m?. HEENT: Atraumatic, PERRLA, EOMI, Normocephalic Oral: No Gingival or Mucosal Lesions/ Ulcerations Neck: Supple, No JVD, Negative Carotid Bruits Lungs: Air entry diminished in bilateral lung bases. No crepitation/rhonchi Cardiovascular: Regular rate, Regular Rhythm, Normal S1, Normal S2, No murmurs Abdomen: Bowel Sounds Present, Soft, Non Tender, Non-Distended : Chronic stress urinary incontinence. Denies burning micturition, increased frequency/urgency. No renal angle tenderness. No suprapubic tenderness. Extremities: Bilateral lower extremity lymphedema, Capillary Refill Less than 3 Seconds Skin: Bilateral lower extremity lymphedema, right lower extremity Charcot foot. Improving pressure ulcer over right midfoot and navicular bone. Wound also improved from 1.5x1.5x1.5 to 1.2 x 1.0 to 1.0. Musculoskeletal: Mild tenderness over neck and scapular region. Bilateral TKR no Tenderness to Palpation of Joints or Extremities Neurological: Cranial nerves II-XII grossly intact, DTR 2+/4. Peripheral neuropathy. Psych/Mental Status: Normal Affect, Appropriate. Assessment & Plan Assessment/Plan (1) Open wound of right foot: (2) Charcot's joint of right foot: PLAN: Plan 78-year-old female admitted with fever chills with chronic right foot ulcer. Patient has Charcot foot. She has chronic right medial foot ulcer and bilateral lower extremity lymphedema 1. Open chronic wound with wound infection with surrounding cellulitis from Charcot foot and nonhealing after a wound graft/lymphedema ? Continue with Unasyn and will check a MRSA PCR ? We will consult podiatry for possible intervention we will hold off on any imaging pending their evaluation ? Bedside debridement was done by test engineering intern. Gram stain pending. ? Gentle hydration for 1 L given the slight rise in her creatinine as well as her lactic acid of 3.4 ? She is not septic as the only SIRS criteria that she does meet is her leukocytosis As per test engineering intern, wound looks better and has decreased in size from 1.5 x 1 0.5 x 1.5 to 1.2 x 1.0 to 1.0. 08/22: Continue PT and OT. Wound dressing change. Wound culture shows gram-neg ative gabriela 1+ and staph species 1+. Blood culture negative so far. 2. UTI ruled out. Preliminary urine culture shows alphahemolytic organism 1000-10,000, 1 none pathologic range therefore no UTI. Contamination 3. HTN/HLD/pulmonary hypertension with chronic diastolic CHF ? hold her Lasix tonight while she receives IV fluids for her rising creatinine and her lactic acid ? continue with her other blood pressure medications and titrate medications accordingly. ? Continue baby aspirin. ? Echo from 2020 with an EF of 60% and stage II diastolic dysfunction 3. GERD ? Stable ? Continue with PPI DVT: Heparin Charges/Coding Visit Charges Inpatient E&M: 10833 Subs Hosp L2
[2023-08-23] MEDS: Atorvastatin Calcium 20 MG Tablet PO (19:52)
[2023-08-23] MEDS: Acetaminophen 325 MG Tablet 650 MG PO (19:56)
[2023-08-24 02:00] VITALS: BP 142/64; PULSE 89; RESP 18; TEMP 35.9; O2SAT 95
[2023-08-24] MEDS: Ampicillin/Sulbactam 3 GM in 0.9% Normal Saline (100mL MB+) 100 ML IV (04:58)
[2023-08-24] MEDS: Benzonatate 100 MG Capsule 200 MG PO ×2 (05:00→13:19)
[2023-08-24] MEDS: Heparin Injection (Vial) 5,000 UNIT/ML VIAL 5000 UNIT SC (05:01)
[2023-08-24 07:16] LABS: Absolute Lymphocyte Count 2.85 X10^3/uL (0.83-4.51); Absolute Neutrophil Count 7.8 X10^3/uL (2.0-7.7); Basophil# 0.11 X10^3/uL; Basophil% 0.9 % (0-1); Eosinophil# 0.89 X10^3/uL; Eosinophils% 7.2 % (0-5); Hematocrit 38.6 % (37-47); Hemoglobin 12.4 g/dL (12.0-15.0); Lymphocyte # 2.85 X10^3/ul (0.83-4.51); Mean Corp Hgb Conc 32.1 g/dL (32-36); Mean Corpuscular Hgb 31.7 pg (27.0-32.0); Mean Corpuscular Volume 98.7 fL (81-99); NRBC Flagged by Analyzer 0 % (0-5); Neutrophil % 63.1 % (47-70); Platelet Count 402 K/mm3 (150-450); RBC Distribution Width CV 13.4 % (11.6-14.6); RBC Distribution Width SD 48.3 fl (35.1-43.9); Red Blood Count 3.91 M/mm3 (4.2-5.4); White Blood Count 12.4 K/mm3 (4.4-11.0)
[2023-08-24 07:39] LABS: Anion Gap 1 (5-15); BUN 15 mg/dL (7-18); BUN/Creat Ratio 25.9 RATIO (10-20); Calcium,Total 9.1 mg/dL (8.5-10.1); Chloride 111 mmol/L (98-107); Creatinine, Serum 0.58 mg/dL (0.55-1.02); EST Glomerular Filtration Rate 107 mL/min (>60); Est Glom Filt Rate - Afr Amer 129 mL/min (>60); Estimated Creatinine Clearance 36.67 ml/min; Glucose 98 mg/dL (74-106); Potassium 4.2 mmol/L (3.5-5.1); Sodium Level 138 mmol/L (136-145)
[2023-08-24 10:25] VITALS: BP 161/81; PULSE 97; RESP 18; TEMP 36.7; O2SAT 94
[2023-08-24] MEDS: Pantoprazole Sodium 20 MG Tablet PO (10:31)
[2023-08-24] MEDS: Losartan Potassium 25 MG Tablet 75 MG PO (10:31)
[2023-08-24] MEDS: Aspirin 81 MG TAB.CHEW PO (10:32)
[2023-08-24] MEDS: guaiFENesin/D-Methorphan TAB.SR.12H 2 TABLET PO (10:32)
[2023-08-24] MEDS: Cholecalciferol (VIT D3) 25 MCG TABLET (1,000 UNITS) PO (10:32)
[2023-08-24] MEDS: Potassium Chloride Oral Tablet 20 MEQ 40 MEQ PO (10:33)
[2023-08-24] MEDS: Folic Acid 1 MG Tablet 0.5 MG PO (10:34)
[2023-08-24] MEDS: Multivitamins,Therapeutic Tablet 1 TABLET PO (10:34)
[2023-08-24] MEDS: dilTIAZem CD 120 MG Capsule PO (10:35)
[2023-08-24 10:51] VITALS: BP 161/81; PULSE 97
[2023-08-24] MEDS: Metoprolol Tartrate 50 MG Tablet PO (10:51)
--- NOTE | 2023-08-24 11:10 | DCINST_ITS ---
Discharge Instructions Diet Discharge Diet: Low fat / Low cholesterol and 2000 mg Sodium Diet Activity Discharge Activity: Return to Normal Activity Weight Bearing Status: Weight bearing as tolerated Dressing / Incision Call your doctor if you observe: Fever of 101 or Higher, Coldness, Increased Pain, Numbness or Tingling, Change in Color, Inability to urinate, Inability to have a bowel movement, Using more than 1 pad per hour, Shortness of breath, Dizziness, Fainting spells, Swelling in the ankles, Chest pain, Prolonged hiccupping, Increased palpitations (irregular heartbeat) and Calf discomfort Follow Up Care When: IN 2 WEEKS Test Results: Test results from this visit will be discussed in further detail at your follow- up appointment, if applicable. Discharge Plan Admission Admit Date/Time: 08/21/23 15:35 Primary Reason for Your Visit: Right foot ulcer with infection. Attending Provider: Sathya Ross Primary Care Provider: Christofer Vazquez Consulting Providers: Rylan Moreno; Eliceo Oliver; Zheng Alba Discharge Orders/Prescriptions Prescriptions: New potassium chloride 20 mEq Tablet,Er Particles/Crystals 40 meq PO DAILYCM 30 Days Qty: 60 0RF Mucinex DM 30-600 mg Tablet Extended Release 12 Hr 2 tab PO BID 7 Days Qty: 28 0RF acidophilus-pectin, citrus 25 million cell -100 mg Tablet 1 tab PO TID 7 Days Qty: 0 0RF Rx Instructions: Zadd-yqw-plcotil Eliquis 2.5 mg tablet 2.5 mg PO BID 14 Days Qty: 28 0RF Continued losartan 50 mg tablet 75 mg PO DAILY folic acid 400 mcg tablet 0.4 mg PO DAILY metoprolol tartrate 100 mg tablet 50 mg PO BID multivitamin 1 EACH tablet 1 ea PO DAILY lovastatin 40 MG tablet 40 mg PO BID selenium 100 MCG tablet 100 mcg PO DAILY cholecalciferol (vitamin D3) 1,000 UNIT tablet 1,000 unit PO DAILY zinc sulfate 50 MG tablet 220 mg PO DAILY omeprazole 20 MG capsule 20 mg PO DAILY omega-3 fatty acids-fish oil 1 EACH capsule 1 cap PO DAILY diltiazem HCl 120 mg capsule,extended release 24hr 120 mg PO DAILY Changed furosemide 80 mg tablet 40 mg PO BID Qty: 60 0RF Held aspirin 81 MG tablet,chewable 81 mg PO DAILY@0800 Hold Instructions: Hold for 2 weeks while taking Eliquis. Discontinued potassium chloride 10 mEq tablet,ER particles/crystals 20 meq PO DAILY Referrals / Follow Up: Christofer Vazquez MD [Primary Care Provider] - Within 1 Week Rylan Moreno DPM [Med Staff - Active Staff] - Within 2 Weeks Disposition Disposition (needs filled in before D/C Order can be placed): Home, Self Care
--- NOTE | 2023-08-24 11:50 | PN_ITS ---
Subjective Subjective Patient seen early this a.m. with feet elevated resting in bed. Patient states she still feels a little ill overall. Continues to deny pain to the right leg/foot. States therapy is going to work with her to get her up and moving this afternoon. Denies further complaints. Objective Data Objective Data Vital Signs: Vital Signs Temp Pulse Resp BP Pulse Ox O2 Del Method 98.0 F 97 18 161/81 H 94 Room Air 08/24/23 10:25 08/24/23 10:51 08/24/23 10:25 08/24/23 10:51 08/24/23 10:25 08/24/23 10:25 Oxygen Delivery Method Room Air Weight: 145.9 kg Body Mass Index (BMI) 58.8 Intake & Output: Intake and Output for Last 24 Hours 08/22/23 08/23/23 08/24/23 23:59 23:59 23:59 Intake Total 2228 / 2258 616 / 856 472 / 472 Output Total 400 / 400 400 / 900 900 / 900 Balance 1828 / 1858 216 / -44 -428 / -428 Lab / Micro Data 08/24/23 06:50 08/24/23 06:50 Labs: Laboratory Results - last 24 hr 08/24/23 06:50: WBC 12.4 H, RBC 3.91 L, Hgb 12.4, Hct 38.6, MCV 98.7, MCH 31.7, MCHC 32.1, RDW Std Deviation 48.3 H, RDW Coeff of Joel 13.4, Plt Count 402, MPV 9.0, Immature Gran % (Auto) 1.800 H, Neut % (Auto) 63.1, Lymph % (Auto) 23.0, [place] % (Auto) 4.0, Eos % (Auto) 7.2 H, Baso % (Auto) 0.9, Absolute Neuts (auto) 7.8 H, Absolute Lymphs (auto) 2.85, Nucleated RBC % 0, Sodium 138, Potassium 4.2, Chloride 111 H, Carbon Dioxide 26.0, Anion Gap 1 L, BUN 15, Creatinine 0.58, Estim Creat Clear Calc 36.67, Est GFR (MDRD) Af Amer 129, Est GFR (MDRD) Non-Af 107, BUN/Creatinine Ratio 25.9 H, Glucose 98, Calcium 9.1 Micro: Microbiology 08/22/23 07:58 Wound - Right Foot Gram Stain - Final 08/22/23 07:58 Wound - Right Foot Wound Culture - Preliminary Serratia marcescens Staphylococcus species Gram positive gabriela 08/21/23 14:30 Urine, Clean Catch Urine Culture - Final Aerococcus viridans. 08/21/23 13:55 Blood Culture (Wb) - Anticubital Left Blood Culture - Preliminary No growth in 48 hours. 08/21/23 12:40 Blood Culture (Wb) - Anticubital Left Blood Culture - Preliminary No growth in 48 hours. 08/21/23 15:55 Mucosa - Nasopharyngeal Respiratory Panel (PCR) - Final 08/21/23 12:50 Nasal Secretion SARS-CoV-2 & FLU Antigen (Rapid) - Final Rhythm Strip Rhythm Strip: Sinus Rhythm Rate: 95 Ectopy: None Physical Exam Const alert, oriented x3 and no apparent distress General Appearance: cooperative Nutritional Appearance: morbidly obese HEENT normocephalic Eyes General Eye: normal appearance of both eyes Neck General: normal visual inspection Lymph Lymphatic: no lymphadenopathy noted Lymphatic Narrative: Lipolymphedema Resp normal respiratory effort Cardio regular rate and regular rhythm Extremity normal capillary refill, no calf tenderness and no pedal edema Extremity Narrative: DP and PT pulses weakly palpable secondary to Lipolymphedema bilateral, capillary fill time is adequate to digits bilateral. Dermatological: Positive Stemmer sign bilateral. Right lower extremity demonstrates significant deformity with Lipolymphedema. There is ulceration noted overlying the navicular bone medially with surrounding hyperkeratosis. Ul ceration is noted to be improving from previous wound care visit. Wound base demonstrates healthy appearing granular layer with scant fibrotic tissue in the wound bed. There is slight serosanguineous drainage from wound base. There is some erythema to the lateral foot and distal lower extremity however this is not overtly warm versus previous visits and does improve with some elevation. No erythema about wound, no purulent drainage, no malodor, no palpable fluctuance/bogginess noted, no visible abscess formation, no lymphangitic streaking. Musculoskeletal: Muscle strength 5 of 5 age-appropriate to the left lower extremity. Muscle strength is deferred secondary to her significant deformity of the right lower extremity. Patient does demonstrate valgus deformity of the ankle with inversion of the foot on the ankle with rigidity of the subtalar joint midtarsal joint secondary to a Charcot deformity. Deformity is noted to be rigid with inability to relocate calcaneus and talus under the tibia. Patient does ambulate exclusively on the medial aspect of the ankle/foot with direct pressure overlying navicular and talar head. She does demonstrate changes consistent with PTTD stage IV versus Charcot deformity of the right foot. Skin no rashes or lesions noted and no jaundice Neuro moves all extremities Assessment & Plan Assessment/Plan (1) Charcot's joint of right foot: (2) Altered gait: (3) Neuropathic ulcer of right foot with fat layer exposed: (4) Acquired valgus deformity of ankle: (5) Posterior tibial tendon dysfunction (PTTD) of right lower extremity: (6) Lipedema: (7) Morbid obesity: (8) Neuropathy: (9) Cellulitis of right lower extremity: (10) Lymphedema: (11) HLD (hyperlipidemia): (12) Frequent falls: (13) Debility: PLAN: Plan Patient seen and evaluated Right lower extremity: Lower extremity demonstrates significant swelling consistent with Lipolymphedema. There is an ulceration noted overlying the navicular bone medially with surrounding hyperkeratosis. This wound is granulating in well with scant serosanguineous drainage. No signs of infection of the wound. Patient does demonstrate some erythema lateral foot and lower extremity. Patient demonstrates significant valgus deformity of the ankle with inversion of the foot on ankle with rigidity of subtalar joint midtarsal joint secondary to PTTD Charcot deformity. Deformity is noted to be rigid with inability to relocate the calcaneus and talus under tibia. Patient is a ambulate exclusively on medial aspect of the ankle/foot with direct pressure overlying the navicular bone/talar head. Patient denies being diabetic, recent A1c 5.6% WBC currently 12.4. ESR 59, CRP 89.7, lactic acid 2.3 improved from 3.4. Currently on IV Vanco/Zosyn Cultures of right foot demonstrate negative Staph aureus protein A PCR and negative MRSA PCR. Urine cultures demonstrate alphahemolytic organism, staph species, and Serratia marcescens. Wound cultures demonstrate Serratia marcescens, staph species, and Gram positive gabriela Radiographs obtained in the ED 08/21/2023 demonstrating soft tissue swelling and Charcot changes of the midfoot. These demonstrate no changes from previous radiographic imaging 08/02/2023. No signs of osteomyelitis. Ulceration did undergo sharp excisional debridement to the level of the subcutaneous tissue via #7 curette at bedside on 08/22/2023. No local anesthetic required secondary to patient's neuropathic status. Excisional debridement consisted of debridement of all fibrous, devitalized subcutaneous, biofilm, slough. 100% of ulceration was debrided to healthy bleeding base. Hemostasis controlled via pressure and gauze. Ulceration measures 1.2 cm x 1.0 cm x 1 cm. Previously was applying EpiFix grafting products in wound care center and ulceration has significantly improved with this and continued offloading since last visit on 08/15/2023. Overall wound does demonstrate healthy appearing granular base with no purulent drainage. There is some bloody drainage secondary to debridement yesterday. Dressing: Cleanse with Dakin daily then apply Yaquelin and dry sterile dressing offloading pad was cut for the right foot and applied today. Dressing change daily, do not discard offloading pad and reapplied his pad with Medipore tape over it. Plan to reapply EpiFix grafting products at wound care center next visit. Discussed continued nonweightbearing to the right lower extremity while in [facility]. A new felt offloading pad was fashioned and applied so that she may ambulate following discharge. Medicine team currently following for medical management, they are greatly appreciated. Podiatry will continue to follow while in house. Upon discharge we will continue to follow with me in wound care center for continued Epifix applications. Jr. Willian NinaPBaM. [facility] [phone]
--- NOTE | 2023-08-24 12:05 | PN.HOSP_ITS ---
Reason for Visit Reason for Visit: Diagnoses Morbid (severe) obesity due to excess calories (08/21/23) Hyperlipidemia, unspecified (08/21/23) Polyneuropathy, unspecified (08/21/23) Lymphedema, not elsewhere classified (08/21/23) Cellulitis of right lower limb (08/21/23) Non-pressure chronic ulcer of other part of right foot with fat layer exposed (08/21/23) Charcot's joint, right ankle and foot (08/21/23) Valgus deformity, not elsewhere classified, unspecified ankle (08/21/23) Posterior tibial tendinitis, right leg (08/21/23) Unspecified abnormalities of gait and mobility (08/21/23) Repeated falls (08/21/23) Other malaise (08/21/23) Edema, unspecified (08/21/23) Unspecified open wound, right foot, initial encounter (08/21/23) Objective Data Objective Data Vital Signs: Vital Signs Temp Pulse Resp BP Pulse Ox O2 Del Method 98.0 F 97 18 161/81 H 94 Room Air 08/24/23 10:25 08/24/23 10:51 08/24/23 10:25 08/24/23 10:51 08/24/23 10:25 08/24/23 10:25 Oxygen Delivery Method Room Air Weight: 321 lb 10.471 oz Body Mass Index (BMI) 58.8 Intake & Output: Intake and Output for Last 24 Hours 08/22/23 08/23/23 08/24/23 23:59 23:59 23:59 Intake Total 2228 / 2258 616 / 856 472 / 472 Output Total 400 / 400 400 / 900 900 / 900 Balance 1828 / 1858 216 / -44 -428 / -428 Lab / Micro Data 08/24/23 06:50 08/24/23 06:50 Labs: Laboratory Results - last 24 hr 08/24/23 06:50: WBC 12.4 H, RBC 3.91 L, Hgb 12.4, Hct 38.6, MCV 98.7, MCH 31.7, MCHC 32.1, RDW Std Deviation 48.3 H, RDW Coeff of Joel 13.4, Plt Count 402, MPV 9.0, Immature Gran % (Auto) 1.800 H, Neut % (Auto) 63.1, Lymph % (Auto) 23.0, [place] % (Auto) 4.0, Eos % (Auto) 7.2 H, Baso % (Auto) 0.9, Absolute Neuts (auto) 7.8 H, Absolute Lymphs (auto) 2.85, Nucleated RBC % 0, Sodium 138, Potassium 4.2, Chloride 111 H, Carbon Dioxide 26.0, Anion Gap 1 L, BUN 15, Creatinine 0.58, Estim Creat Clear Calc 36.67, Est GFR (MDRD) Af Amer 129, Est GFR (MDRD) Non-Af 107, BUN/Creatinine Ratio 25.9 H, Glucose 98, Calcium 9.1 Micro: Microbiology 08/22/23 07:58 Wound - Right Foot Gram Stain - Final 08/22/23 07:58 Wound - Right Foot Wound Culture - Preliminary Serratia marcescens Staphylococcus species Gram positive gabriela 08/21/23 14:30 Urine, Clean Catch Urine Culture - Final Aerococcus viridans. 08/21/23 13:55 Blood Culture (Wb) - Anticubital Left Blood Culture - Preliminary No growth in 48 hours. 08/21/23 12:40 Blood Culture (Wb) - Anticubital Left Blood Culture - Prel iminary No growth in 48 hours. 08/21/23 15:55 Mucosa - Nasopharyngeal Respiratory Panel (PCR) - Final 08/21/23 12:50 Nasal Secretion SARS-CoV-2 & FLU Antigen (Rapid) - Final Rhythm Strip Rhythm Strip: Sinus Rhythm Rate: 95 Ectopy: None Physical Exam Narrative Seen and examined. Patient has history of Charcot right foot deformity and decreased cellulitis. She has multiple bouts of loose bowel movement, diarrhea. Nonbloody. Physical exam General: Alert, Oriented x3, Cooperative, morbid obesity BMI 58.8 kg/m?. HEENT: Atraumatic, PERRLA, EOMI, Normocephalic Oral: No Gingival or Mucosal Lesions/ Ulcerations Neck: Supple, No JVD, Negative Carotid Bruits Lungs: Air entry diminished in bilateral lung bases. No crepitation/rhonchi Cardiovascular: Regular rate, Regular Rhythm, Normal S1, Normal S2, No murmurs Abdomen: Bowel Sounds Present, Soft, Non Tender, Non-Distended : Chronic stress urinary incontinence. Denies burning micturition, increased frequency/urgency. No renal angle tenderness. No suprapubic tenderness. Extremities: Bilateral lower extremity lymphedema, Capillary Refill Less than 3 Seconds Skin: Bilateral lower extremity lymphedema, right lower extremity Charcot foot. Improving pressure ulcer over right midfoot and navicular bone. Wound also improved from 1.5x1.5x1.5 to 1.2 x 1.0 to 1.0. Musculoskeletal: Mild tenderness over neck and scapular region. Bilateral TKR no Tenderness to Palpation of Joints or Extremities Neurological: Cranial nerves II-XII grossly intact, DTR 2+/4. Peripheral neuropathy. Psych/Mental Status: Normal Affect, Appropriate. Assessment & Plan Assessment/Plan (1) Open wound of right foot: (2) Charcot's joint of right foot: PLAN: Plan 78-year-old female admitted with fever chills with chronic right foot ulcer. Patient has Charcot foot. She has chronic right medial foot ulcer and bilateral lower extremity lymphedema 1. Open chronic wound with wound infection with surrounding cellulitis from Charcot foot and nonhealing after a wound graft/lymphedema ? Continue with Unasyn and will check a MRSA PCR ? We will consult podiatry for possible intervention we will hold off on any imaging pending their evaluation ? Bedside debridement was done by clinical documentation improvement specialist. Gram stain pending. ? Gentle hydration for 1 L given the slight rise in her creatinine as well as her lactic acid of 3.4 ? She is not septic as the only SIRS criteria that she does meet is her leukocytosis As per clinical documentation improvement specialist, wound looks better and has decreased in size from 1.5 x 1 0.5 x 1.5 to 1.2 x 1.0 to 1.0. 08/23: Continue PT and OT. Wound dressing change. Wound culture shows gram- negative gabriela 1+ and staph species 1+. Blood culture negative so far. 08/24: Wound culture shows Serratia marcescens and staph although antibiotic sensitive for staph available but wound MRSA screen is negative. I suspect MSSA. 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 She is having multiple bouts of diarrhea probably due to stool softeners. Stool softener Ice and MiraLAX discontinued. Patient started on lactobacillus. Antibiotic Unasyn changed to ceftriaxone. 2. UTI ruled out. Preliminary urine culture shows alphahemolytic organism 1000-10,000, not in pathologic range therefore no UTI. Contamination 3. HTN/HLD/pulmonary hypertension with chronic diastolic CHF ? hold her Lasix tonight while she receives IV fluids for her rising creatinine and her lactic acid ? continue with her other blood pressure medications and titrate medications accordingly. ? Continue baby aspirin. ? Echo from 2020 with an EF of 60% and stage II diastolic dysfunction 3. GERD ? Stable ? Continue with PPI DVT: Heparin Charges/Coding Visit Charges Inpatient E&M: 52866 Subs Hosp L2
--- NOTE | 2023-08-24 12:32 | CASEMGMT ---
Discharge Planning A list of HH providers including quality and resource use data and consistent with the patient's preferred geographic region, medical needs, and insurance network was created in [employer] Guide.? This list was provided to the RN SUDEEP. Yeimi Jones, Discharge Planning Asst.
--- NOTE | 2023-08-24 13:05 | CASEMGMT ---
RN CM in to discuss needs at discharge. RN CM discussed HHC at discharge. Patient would like HHC for SN. HHC list provided to patient, patient prefers [facility]. [facility] denied DME needs at discharge. Patient had no further questions or concerns at this time. RN CM called and made referral for [facility], awaiting acceptance. CM will continue to follow this patient and plan for a safe discharge.
--- NOTE | 2023-08-24 14:40 | PCM.CONS.GEN ---
Assessment & Plan Assessment/Plan (1) Charcot's joint of right foot: PLAN: Chronic nonhealing wound of the right foot that does not look infected based on the description by podiatry. I understand there is wound culture positive for bacteria but given the overall appearance of not looking infected we will hold off on antimicrobial therapy. No need for antibiotics upon discharge. I will discontinue ceftriaxone at this point HPI Consult Data Date of Consult: 08/24/23 HPI Narrative Reason for Consultation: Right foot Charcot changes with chronic wound and bacteria on the culture HPI Narrative: JUDITH MERCADO, is a 78 F who presents past medical history of morbid obesity, Charcot changes of the right foot which is chronic who was admitted after not feeling well and concern of urinary tract infection. Patient was seen by podiatry on multiple visits in this hospitalization and the notes were reviewed. Patient feels well with no fever. Overall clinically stable. In reviewing the notes from the podiatry visits, the wound itself does not look infected. Patient is currently on ceftriaxone. Patient does have an external urinary catheter in place. Occasional cough but no respiratory distress or shortness of breath. [facility] Medical History (Updated 08/21/23 @ 16:20 by Pebbles Zhao) Acute cystitis Acute kidney injury Anemia Cellulitis Chronic pain DDD (degenerative disc disease), lumbar Debility Decubitus ulcer of left buttock, stage 2 Decubitus ulcer of right buttock, stage 2 Essential hypertension Frequent falls GERD (gastroesophageal reflux disease) HLD (hyperlipidemia) Lower extremity weakness Lymphedema Migraines Morbid obesity with BMI of 40.0-44.9, adult Non-smoker Spinal stenosis Venous stasis ulcers Home Medications aspirin 81 mg chewable tablet 81 mg PO DAILY@0800 heart 07/19/18 [History Last Taken 12/08/20] lovastatin 40 mg tablet 40 mg PO BID cholesterol 07/19/18 [History Last Taken 12/08/20] multivitamin 1 ea PO DAILY spinal stenosis 07/19/18 [History Last Taken 12/08/20] cholecalciferol (vitamin D3) 25 mcg (1,000 unit) tablet 1,000 unit PO DAILY supplement 11/21/18 [History Last Taken 12/08/20] selenium 100 mcg tablet 100 mcg PO DAILY Check with primary doctor 11/21/18 [History Last Taken 12/08/20] folic acid 400 mcg tablet 0.4 mg PO DAILY supplement 02/24/20 [History Last Taken 12/08/20] losartan 50 mg tablet 75 mg PO DAILY hypertension 02/24/20 [History Last Taken 12/08/20] potassium chloride 10 mEq tablet,extended release(part/cryst) 20 meq PO DAILY supplement 02/24/20 [History Last Taken 12/08/20] metoprolol tartrate 100 mg tablet 50 mg PO BID hypertension 03/05/20 [History Last Taken 12/08/20] omega-3 fatty acids-fish oil 300 mg-1,000 mg capsule 1 cap PO DAILY SUPPLEMENT 12/08/20 [History Last Taken 12/08/20] omeprazole 20 mg capsule,delayed release 20 mg PO DAILY GERD 12/08/20 [History Last Taken 12/08/20] zinc sulfate 50 mg zinc (220 mg) tablet 220 mg PO DAILY SUPPLEMENT 12/08/20 [History Last Taken 12/08/20] diltiazem HCl 120 mg capsule,extended release 24 hr 120 mg PO DAILY 08/21/23 [History Last Taken Unknown] furosemide 80 mg tablet 80 mg PO BID 08/21/23 [History Last Taken Unknown] Allergy/AdvReac Type Severity Reaction Status Date / Time ciprofloxacin [From Cipro] Allergy Severe throat Verified 08/21/23 12:26 swelling adhesive tape Allergy Intermediate Rash Verified 08/21/23 12:26 celecoxib [From Celebrex] Allergy vomited Verified 08/21/23 12:26 blood clots formaldehyde Allergy Other Verified 08/21/23 12:26 ketorolac [From Toradol] AdvReac Upset Verified 08/21/23 12:26 Stomach Family History Father CAD (coronary artery disease) Myocardial infarction Sister Breast cancer Surgical History (Updated 08/21/23 @ 16:20 by Pebbles Zhao) H/O laminectomy History of Achilles tendon repair History of section History of cholecystectomy History of foot surgery History of hysterectomy History of total bilateral knee replacement Social History Smoking Status: Never smoker substance use type: does not use ROS ROS Narrative As stated in history of present illness otherwise negative Physical Exam Narrative Patient looks well does not appear toxic lungs are clear heart exam S1-S2 abdomen obese but soft. Both feet and legs are wrapped extensively by the podiatry service Lab / Micro Data 08/24/23 06:50 08/24/23 06:50 Labs: Laboratory Results - last 24 hr 08/24/23 06:50: WBC 12.4 H, RBC 3.91 L, Hgb 12.4, Hct 38.6, MCV 98.7, MCH 31.7, MCHC 32.1, RDW Std Deviation 48.3 H, RDW Coeff of Joel 13.4, Plt Count 402, MPV 9.0, Immature Gran % (Auto) 1.800 H, Neut % (Auto) 63.1, Lymph % (Auto) 23.0, [place] % (Auto) 4.0, Eos % (Auto) 7.2 H, Baso % (Auto) 0.9, Absolute Neuts (auto) 7.8 H, Absolute Lymphs (auto) 2.85, Nucleated RBC % 0, Sodium 138, Potassium 4.2, Chloride 111 H, Carbon Dioxide 26.0, Anion Gap 1 L, BUN 15, Creatinine 0.58, Estim Creat Clear Calc 36.67, Est GFR (MDRD) Af Amer 129, Est GFR (MDRD) Non-Af 107, BUN/Creatinine Ratio 25.9 H, Glucose 98, Calcium 9.1 Micro: Microbiology 08/22/23 07:58 Wound - Right Foot Gram Stain - Final 08/22/23 07:58 Wound - Right Foot Wound Culture - Preliminary Serratia marcescens Staphylococcus species Gram positive gabriela 08/21/23 14:30 Urine, Clean Catch Urine Culture - Final Aerococcus viridans. Rhythm Strip Rhythm Strip: Sinus Rhythm Rate: 95 Ectopy: None
--- NOTE | 2023-08-24 14:58 | DS.PCM_ITS ---
Providers Date of Admission: 08/21/23 Date of Discharge: 08/24/23 Primary Care Physician: Dr. Christofer Vazquez MD Consultations 08/21/23 16:58 Consult: Podiatry Routine Consulting Provider: Rylan Moreno Reason for Consult: Right chronic foot wound EMERGENT Consult: No MD Notified: Yes Date Notified: 08/21/23 Time Notified: 15:39 Method of Notification: ED Physician Initiated 08/22/23 06:19 Consult: Onc/Wound/licensed occupational therapy assistant Routine Comment: Reason for Consult:: right foot 08/24/23 10:34 Consult: Infectious Disease Routine Consulting Provider: Zheng Alba Reason for Consult: multiple bacterial infection of foot, charcot EMERGENT Consult: No MD Notified: Yes Date Notified: 08/24/23 Time Notified: 10:34 Method of Notification: Text Reason For Visit: CHARCOT FOOT CHRONIC WOUND INFECTION Diagnosis Discharge Diagnosis (1) Charcot's joint of right foot: Status: Acute Code(s): M14.671 - Charcot's joint, right ankle and foot Plan 78-year-old female admitted with fever chills with chronic right foot ulcer. Patient has Charcot foot. She has chronic right medial foot ulcer and bilateral lower extremity lymphedema 1. Open chronic wound with wound infection with surrounding cellulitis from Charcot foot and nonhealing after a wound graft/lymphedema ? Continue with Unasyn and will check a MRSA PCR ? We will consult podiatry for possible intervention we will hold off on any imaging pending their evaluation ? Bedside debridement was done by staff educator. Gram stain pending. ? Gentle hydration for 1 L given the slight rise in her creatinine as well as her lactic acid of 3.4 ? She is not septic as the only SIRS criteria that she does meet is her leukocytosis As per staff educator, wound looks better and has decreased in size from 1.5 x 1 0.5 x 1.5 to 1.2 x 1.0 to 1.0. 08/23: Continue PT and OT. Wound dressing change. Wound culture shows gram- negative gabriela 1+ and staph species 1+. Blood culture negative so far. 08/24: Wound culture shows Serratia marcescens and staph although antibiotic sensitive for staph available but wound MRSA screen is negative. I suspect MSSA. 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 Patient adamant that she is going h ome and refused for intermediate. She demonstrated satisfactory ambulation to the nurses. She is having multiple bouts of diarrhea probably due to stool softeners. Stool softener Ice and MiraLAX discontinued. Patient started on lactobacillus. Antibiotic Unasyn changed to ceftriaxone. 08/24: Patient was evaluated by ID. No further requirement of ID antibiotic therefore discontinued 2. UTI ruled out. Preliminary urine culture shows alphahemolytic organism 1000-10,000, not in pathologic range therefore no UTI. Contamination 3. HTN/HLD/pulmonary hypertension with chronic diastolic CHF ? hold her Lasix tonight while she receives IV fluids for her rising creatinine and her lactic acid ? continue with her other blood pressure medications and titrate medications accordingly. ? Continue baby aspirin. ? Echo from 2020 with an EF of 60% and stage II diastolic dysfunction 3. GERD ? Stable ? Continue with PPI DVT: Heparin Discharge medication reconciliation done. Discharge follow-up instructions completed. Discharge process discussed with the patient and all questions were answered to patient's satisfaction. Follow with PCP in 1 to 2 weeks Total time spent, exact 35 minutes on discharge meds reconciliation, examination, coordination of care with nurses and ancillary staff, review of imaging and blood test and discussion with the patient on follow-up instructions. Medications at Discharge Home Medications aspirin 81 mg chewable tablet 81 mg PO DAILY@0800 heart 07/19/18 lovastatin 40 mg tablet 40 mg PO BID cholesterol 07/19/18 multivitamin 1 ea PO DAILY spinal stenosis 07/19/18 cholecalciferol (vitamin D3) 25 mcg (1,000 unit) tablet 1,000 unit PO DAILY supplement 11/21/18 selenium 100 mcg tablet 100 mcg PO DAILY Check with primary doctor 11/21/18 folic acid 400 mcg tablet 0.4 mg PO DAILY supplement 02/24/20 losartan 50 mg tablet 75 mg PO DAILY hypertension 02/24/20 metoprolol tartrate 100 mg tablet 50 mg PO BID hypertension 03/05/20 omega-3 fatty acids-fish oil 300 mg-1,000 mg capsule 1 cap PO DAILY SUPPLEMENT 12/08/20 omeprazole 20 mg capsule,delayed release 20 mg PO DAILY GERD 12/08/20 zinc sulfate 50 mg zinc (220 mg) tablet 220 mg PO DAILY SUPPLEMENT 12/08/20 diltiazem HCl 120 mg capsule,extended release 24 hr 120 mg PO DAILY 08/21/23 acidophilus 25 million cell-pectin, citrus 100 mg tablet 1 tab PO TID 7 days #0 tabs 08/24/23 apixaban 2.5 mg tablet (Eliquis) 2.5 mg PO BID 2 weeks #28 tabs 08/24/23 dextromethorphan-guaifenesin 30 mg-600 mg tablet extended [id number] hr (Mucinex DM) 2 tab PO BID 7 days #28 tabs 08/24/23 furosemide 80 mg tablet 40 mg (1/2 x 80 mg) PO BID #60 tabs 08/24/23 potassium chloride 20 mEq tablet,extended release(part/cryst) 40 meq (2 x 20 m Eq) PO DAILYCM 30 days #60 tabs 08/24/23 Physical Exam Narrative Please see progress note of the same date. Weight / BMI Weight Weight: 321 lb 10.471 oz Body Mass Index (BMI) 58.8 ABG / Lab / Microbiology Data 08/24/23 06:50 08/24/23 06:50 Laboratory: Laboratory Results - last 24 hr 08/24/23 06:50: WBC 12.4 H, RBC 3.91 L, Hgb 12.4, Hct 38.6, MCV 98.7, MCH 31.7, MCHC 32.1, RDW Std Deviation 48.3 H, RDW Coeff of Joel 13.4, Plt Count 402, MPV 9.0, Immature Gran % (Auto) 1.800 H, Neut % (Auto) 63.1, Lymph % (Auto) 23.0, [place] % (Auto) 4.0, Eos % (Auto) 7.2 H, Baso % (Auto) 0.9, Absolute Neuts (auto) 7.8 H, Absolute Lymphs (auto) 2.85, Nucleated RBC % 0, Sodium 138, Potassium 4.2, Chloride 111 H, Carbon Dioxide 26.0, Anion Gap 1 L, BUN 15, Creatinine 0.58, Estim Creat Clear Calc 36.67, Est GFR (MDRD) Af Amer 129, Est GFR (MDRD) Non-Af 107, BUN/Creatinine Ratio 25.9 H, Glucose 98, Calcium 9.1 Microbiology: Microbiology 08/22/23 07:58 Wound - Right Foot Gram Stain - Final 08/22/23 07:58 Wound - Right Foot Wound Culture - Preliminary Serratia marcescens Staphylococcus species Gram positive gabriela 08/21/23 14:30 Urine, Clean Catch Urine Culture - Final Aerococcus viridans. 08/21/23 13:55 Blood Culture (Wb) - Anticubital Left Blood Culture - Preliminary No growth in 48 hours. 08/21/23 12:40 Blood Culture (Wb) - Anticubital Left Blood Culture - Preliminary No growth in 48 hours. 08/21/23 15:55 Mucosa - Nasopharyngeal Respiratory Panel (PCR) - Final 08/21/23 12:50 Nasal Secretion SARS-CoV-2 & FLU Antigen (Rapid) - Final D/C Instructions Discharge Diet: Low fat / Low cholesterol and 2000 mg Sodium Diet Weight Bearing Status: Weight bearing as tolerated Call your doctor if you observe: Fever of 101 or Higher, Coldness, Increased Pain, Numbness or Tingling, Change in Color, Inability to urinate, Inability to have a bowel movement, Using more than 1 pad per hour, Shortness of breath, Dizziness, Fainting spells, Swelling in the ankles, Chest pain, Prolonged hiccupping, Increased palpitations (irregular heartbeat) and Calf discomfort When: IN 2 WEEKS Meaningful Use Info Meaningful Use Diagnoses (Choose all that apply): None applicable Discharge Plan Admission Admit Date/Time: 08/21/23 15:35 Primary Reason for Your Visit: Right foot ulcer with infection. Attending Provider: Sathya Ross Primary Care Provider: Christofer Vazquez Consulting Providers: Rylan Moreno; Eliceo Oliver; Zheng Alba Discharge Orders/Prescriptions Prescriptions: New potassium chloride 20 mEq Tablet,Er Particles/Crystals 40 meq PO DAILYCM 30 Days Qty: 60 0RF Mucinex DM 30-600 mg Tablet Extended Release 12 Hr 2 tab PO BID 7 Days Qty: 28 0RF acidophilus-pectin, citrus 25 million cell -100 mg Tablet 1 tab PO TID 7 Days Qty: 0 0RF Rx Instructions: Sxkn-hns-yfngaqz Eliquis 2.5 mg tablet 2.5 mg PO BID 14 Days Qty: 28 0RF Continued losartan 50 mg tablet 75 mg PO DAILY folic acid 400 mcg tablet 0.4 mg PO DAILY metoprolol tartrate 100 mg tablet 50 mg PO BID multivitamin 1 EACH tablet 1 ea PO DAILY lovastatin 40 MG tablet 40 mg PO BID selenium 100 MCG tablet 100 mcg PO DAILY cholecalciferol (vitamin D3) 1,000 UNIT tablet 1,000 unit PO DAILY zinc sulfate 50 MG tablet 220 mg PO DAILY omeprazole 20 MG capsule 20 mg PO DAILY omega-3 fatty acids-fish oil 1 EACH capsule 1 cap PO DAILY diltiazem HCl 120 mg capsule,extended release 24hr 120 mg PO DAILY Changed furosemide 80 mg tablet 40 mg PO BID Qty: 60 0RF Held aspirin 81 MG tablet,chewable 81 mg PO DAILY@0800 Hold Instructions: Hold for 2 weeks while taking Eliquis. Discontinued potassium chloride 10 mEq tablet,ER particles/crystals 20 meq PO DAILY Referrals / Follow Up: Christofer Vazquez MD [Primary Care Provider] - Within 1 Week Rylan Moreno DPM [Med Staff - Active Staff] - Within 2 Weeks Disposition Disposition (needs filled in before D/C Order can be placed): Home, Self Care Charges/Coding Addendum Addendum: Cancel the billing charge of the progress note. Visit Charges Inpatient E&M: 69077 Disch Hosp >30min
[2023-08-24 15:05] VITALS: BP 148/78; PULSE 88; RESP 18; TEMP 36.6; O2SAT 94
== END 2023-08-24 15:46 | disposition home or self-care (01) | DRG 902 ==
LOC: ED 15:33 → PCU 15:40
PROVIDERS: Admitting Provider Family Medicine; Emergency Provider Emergency Medicine; PCP Family Medicine; Referring Provider Emergency Medicine; Visit Provider Internal Medicine
DX: T81.89XA Other complications of procedures, not elsewhere classified, initial encounter (principal); L03.115 Cellulitis of right lower limb; Z68.43 Body mass index [BMI] 50.0-59.9, adult; L97.412 Non-pressure chronic ulcer of right heel and midfoot with fat layer exposed; I50.32 Chronic diastolic (congestive) heart failure; I27.20 Pulmonary hypertension, unspecified; I11.0 Hypertensive heart disease with heart failure; E66.01 Morbid (severe) obesity due to excess calories; I10 Essential (primary) hypertension; I89.0 Lymphedema, not elsewhere classified; K21.9 Gastro-esophageal reflux disease without esophagitis; M14.671 Charcot's joint, right ankle and foot; E78.5 Hyperlipidemia, unspecified; M21.071 Valgus deformity, not elsewhere classified, right ankle; M76.821 Posterior tibial tendinitis, right leg; R19.7 Diarrhea, unspecified; Y83.8 Other surgical procedures as the cause of abnormal reaction of the patient, or of later complication, without mention of misadventure at the time of the procedure; R53.81 Other malaise; G89.29 Other chronic pain; Z11.52 Encounter for screening for COVID-19; Z79.01 Long term (current) use of anticoagulants; Z79.82 Long term (current) use of aspirin; Z79.899 Other long term (current) drug therapy
CPT/HCPCS: 36415; 71046; 73630; 74176; 80048; 80053; 81001; 83605; 85025; 85610; 85652; 85730; 86140; 87040; 87070; 87075; 87077; 87086; 87088; 87186; 87205; 87428; 87633; 87640; 94668; 97162; 97166; 97530; 97535; 97802; 99284; J7030; J7050; A4216; J0295

== ENCOUNTER 2023-09-13 10:45 | Outpatient (RCR) | payer MEDICARE, OTHER, SELFPAY ==
[2023-08-17 00:23] VITALS: BP 152/61; PULSE 84; RESP 18; TEMP 36.6; O2SAT 95; BMI 60.4
--- NOTE | 2023-08-24 12:55 | CASEMGMT ---
[facility] updated by hospitalist that patient will discharge today. Patient required min assist x2 with therapy. RN CM in to discuss needs at discharge. Patient refuses to go to SNF. Patient is agreable to [facility] at discharge for snf only for wound care teaching, declined PT/OT. Patient states is able to help with dressing changes. [facility] provided list of HHC to patient and prefers [facility]. [facility] sent referral to [facility], awaiting acceptance. CM will continue to follow this patient and plan for a safe discharge.
--- NOTE | 2023-08-24 15:00 | CASEMGMT ---
[facility] declined patient due to patient needing assistance x2. GUILLE SHEETS updated patient. Patient adamant that she can transfer and ambulate on own. Patient refusing referral to [facility] now. GUILLE SHEETS discussed progress with therapy and patient states she can ambulate on her own. GUILLE SHEETS asked nursing to ambulate patient to restroom to see if she is able to ambulate on own. Per nursing, patient was able to transfer and ambulate on own. GUILLE SHEETS attempted to call daugther to discuss plans, no answer and not able to leave voicemail. GUILLE SHEETS educated patient to follow up with PCP and wound center should need arise, patient voiced understanding. Patient had no further questions or concerns.
--- NOTE | 2023-08-30 10:48 | PN.PCM_ITS ---
History of Present Illness Date of Service: 08/30/23 Chief Complaint: Right foot ulcer History of Wound: Patient is a 78-year-old female who presents to the wound care center as a referral by Dr. Yun, GERM[place]N, for right foot ulcer. She has PMHx of posterior tibial tendon dysfunction stage IV, lymphedema, HTN, HLD, debility, morbid obesity, degenerative disc disease of the lumbar, Hx Achilles tendon surgery right foot. Patient has been following with Dr. Yun for a few weeks for ulceration overlying the navicular bone of the right foot. Ulceration is complicated by significant foot deformity secondary to PTTD stage IV. Patient unable to ambulate in offloading boot secondary to significant lymphedema. Patient has been ambulating with foam cut out and placed inside of a sock barefoot. 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 Patient states she will be moving to [place] [facility] in December as she has family in this area will aid in care of her and her. She states she has had previous discussion with a surgeon about her deformity and was told the only option was lower leg amputation. Patient did not want this at that time. States since then deformity has continued to progressively worsen with new ulceration developing on medial right foot and has been present for 2 months. Patient denies being diabetic, recent A1c 5.6%. She has been placing Aquacel to the site and is now utilizing Yaquelin. She was referred to the wound care center for second opinion pertaining to wound. She denies N/V/F/chills. She denies furthe r problems. Subjective Subjective Patient is a 78-year-old female who follows to the wound care center for right medial foot ulcer secondary to PTTD stage IV with Charcot changes and significant foot deformity. She was recently discharged from [facility] on 08/24/23 following UTI and cellulitis. She states felt offloading padding is comfortable to wear and continues to offload. She does continue to ambulate on deformity with offloading padding. She states she has been changing dressings to the foot daily. Denies constitutional symptoms. Denies further complaints. Objective Data Objective Data Vital Signs: Vital Signs Temp Pulse Resp BP Pulse Ox 97.8 F 84 18 152/61 H 95 08/17/23 00:23 08/17/23 00:23 08/17/23 00:23 08/17/23 00:23 08/17/23 00:23 Weight: 149.924 kg Body Mass Index (BMI) 60.4 Physical Exam Const alert, oriented x3 and no apparent distress General Appearance: cooperative Nutritional Appearance: morbidly obese HEENT normocephalic Eyes General Eye: normal appearance of both eyes Neck General: normal visual inspection Lymph Lymphatic: no lymphadenopathy noted Lymphatic Narrative: Lipolymphedema bilateral lower extremity Resp normal respiratory effort Cardio regular rate and regular rhythm Extremity normal capillary refill and no calf tenderness Extremity Narrative: DP and PT pulses palpable bilateral. Capillary fill time less than 5 seconds to the digits. Lipolymphedema noted to lower extremity bilateral. Dermatological: Positive Stemmer sign bilateral. Lower extremity demonstrates significant swelling consistent with Lipolymphedema. There is an ulceration noted overlying the navicular bone medially with surrounding hyperkeratosis and macerated tissue. Wound base demonstrates granular layer with serosanguineous drainage. No erythema, no purulent drainage, no malodor, no palpable fluctuance/bogginess noted, no visible abscess formation, no lymphangitic streaking. Musculoskeletal: Muscle strength 5 of 5 age-appropriate left lower extremity. Muscle strength deferred secondary to significant deformity of the right lower extremity. Patient demonstrates significant valgus deformity of the ankle with inversion of the foot on ankle with rigidity of the subtalar joint and midtarsal joint. Deformity is noted to be rigid with inability to relocate calcaneus and talus under the tibia. Patient ambulates exclusively on the medial aspect of the ankle/foot with direct pressure overlying the navicular bone and Talar head. Patient demonstrates changes consistent with PTTD stage IV versus Charcot deformity of the right foot. Skin no rashes or lesions noted and no jaundice Neuro moves all extremities Debridement Note Debridement Note Wound debrided: Right foot Laterality: Right Wound Grade/Stage: Rivera stage I Type of Debridement: Excisional debridement Anesthesia Used: 5% Lidocaine Gel Depth: Down to and including healthy tissue and in the subcutaneous layer Percentage of wound debrided: 100 Instrument Used: 5mm curette Tissue Removed: Fibrous, devitalized subcutaneous, biofilm, slough Severity: Fat Layer Exposed Amount of bleeding with debridement: Mild Bleeding Controlled with: Compression and gauze Patient tolerated procedure: Patient tolerated procedure well Assessment/Plan Assessment/Plan (1) Alysoncot's joint of right foot: CODE(S): M14.671 - Charcot's joint, right ankle and foot (2) Altered gait: CODE(S): R26.9 - Unspecified abnormalities of gait and mobility (3) Neuropathic ulcer of right foot with fat layer exposed: CODE(S): L97.512 - Non-pressure chronic ulcer of other part of right foot with fat layer exposed (4) Acquired valgus deformity of ankle: CODE(S): M21.079 - Valgus deformity, not elsewhere classified, unspecified ankle (5) Posterior tibial tendon dysfunction (PTTD) of right lower extremity: CODE(S): M76.821 - Posterior tibial tendinitis, right leg (6) Lipedema: CODE(S): R60.9 - Edema, unspecified (7) Morbid obesity: CODE(S): E66.01 - Morbid (severe) obesity due to excess calories (8) Neuropathy: CODE(S): G62.9 - Polyneuropathy, unspecified (9) Lymphedema: CODE(S): I89.0 - Lymphedema, not elsewhere classified (10) Essential hypertension: CODE(S): I10 - Essential (primary) hypertension (11) Debility: CODE(S): R53.81 - Other malaise (12) HLD (hyperlipidemia): CODE(S): E78.5 - Hyperlipidemia, unspecified PLAN: Plan Patient seen and evaluated Right lower extremity: Lower extremity demonstrates significant swelling consistent with Lipolymphedema. There is an ulceration noted overlying the navicular bone medially with surrounding hyperkeratosis. No signs of infection. Patient demonstrates significant valgus deformity of the ankle with inversion of the foot on ankle with rigidity of the subtalar joint and midtarsal joint. Deformity is noted to be rigid with inability to relocate calcaneus and talus under the tibia. Patient ambulates exclusively on the medial aspect of the ankle/foot with direct pressure overlying the navicular bone/Talar head. Patient demonstrates changes consistent with PTTD stage IV with Charcot arthropathy of the right foot. Gait analysis: Patient ambulating without shoe gear secondary to foot deformity and Lipolymphedema to the right lower extremity. Patient demonstrates significant valgus deformity of the ankle with inversion of the forefoot on the hindfoot. Patient ambulating exclusively on medial aspect of the ankle/foot with direct pressure overlying the navicular bone/Talar head. Gait is altered secondary to significant deformity. Patient denies being diabetic, recent A1c 5.6%. In hospital at discharge on 08/24/23 wound measured 1.2 cm x 1.0 cm x 1.0 cm. Ulceration was debrided as noted in the clinical panel above. Ulceration overlying the navicular bone of the right foot measures 1.3 cm x 0.7 cm x 1.0 cm. No signs of infection to wound. EpiFix #4 applied to the wound base and dressed with Adaptic touch, Steri-Strips, Aquacel Ag and dry sterile dressing. She is instructed to change outer dressing as needed. She was instructed to not get the site wet. She still has some localized erythema to the lower extremity that has slightly increased since discharge and thus she will be placed on oral antibiotics. Rx: Doxycycline 100mg BID x 14 days and levofloxacin 750 mg BID x 14 days. She was instructed to take activity a probiotic yogurt daily to aid in gnosticist of gut darlene while on oral antibiotic. Stop date to be 09/13/23. I did fashion three felt offloading pads to be placed about the foot and secured to the foot so that she may ambulate with reduced pressure to wound site. This is going much better for her. Discussed the pressure reduction is essential to healing. Discussed use of lymphedema pumps however this may be ineffective in her compounded lipedema. Discussed remaining off feet as much as possible however this is challenging secondary to being the only caregiver for her ill . Due to this patient also requires need to drive. Discussed elevation of lower extremities at all times of rest. Discussed adequate protein intake to aid in wound healing. Guicho supplementation recommended. Offloading remains difficult secondary to deformity and Lipolymphedema. Total contact cast would be ineffective secondary to deformity and possibility of new wound formation in other areas of foot/ankle. Consideration given to knee scooter however with considerable Lipo lymphedema this would also remain difficult for compliance and use. I discussed in detail surgical options for consideration. Discussed with patient given her stage of deformity a TTC fusion would be required via intramedullary gabriela to correct the hindfoot/ankle deformity. Secondary fusions may be required for the talonavicular joint in addition to posterior tibial tendon debridement and advancement/possible tendon transfer. Discussed typical postoperative course in detail in addition to recovery time. Discussed her chronic Lipo lymphedema complicates surgical intervention and poses risk of wound healing. Discussed risk of infection is higher given her condition. Discussed risk of infection with open ulceration currently. Discussed she is at high risk of below the knee amputation of the right lower extremity. She voices understanding of this discussion today. At this time patient not interested in surgical reconstruction due to the care of her . Radiographs 08/02/23 demonstrate subluxation and breakdown of the midfoot joints and ankle joints with secondary arthritic/Charcot changes. No evidence of osteomyelitis. She previously had radiographs at [facility] interpreted by Dr. Yun, demonstrating no evidence of osteomyelitis. Radiographs obtained during admission 08/21/23 demonstrates soft tissue swelling and Charcot changes of the midfoot. No demonstrated changes from previous radiographic imaging 08/02/2023. No signs of osteomyelitis. Discussed signs and symptoms of infection. Discussed if she notices any redness about the ulcerative site that moves up the foot/leg, if she has any purulent drainage emerging from the wound site, she has increasing foul odor from the wound site, or if she experiences fever greater than 101 degree, nausea, vomiting, chills, these are signs of progressing infection and she needs to report to the ED to receive IV antibiotics. She voices understanding of this today. I reviewed and discussed his case today. Debridement was performed today as noted in the clinical panel to all of the ulcer sites. The following work up and care recommendations were made: Dressing: EpiFix, Adaptic touch, Steri-Strips, Aquacel Ag and dry sterile dressing. Change outer dressing as needed. Wash: Do not get wet Tissue growth optimization: EpiFix Offload: Modified offloading insert applied to right foot. She was instructed to continue to ambulate utilizing this to have as much offloading as possible Vascular: Palpable pedal pulses with adequate capillary fill time. Do not feel vascular is impeding healing progress. Edema: Chronic Lipo lymphedema. Discussed elevation of lower extremities and use of lymphedema pump however these may be ineffective given her status. Infection: No signs of infection. Patient currently finishing oral Keflex. Pain: May take [id number] Tylenol extra strength for discomfort Host factors: PTTD stage IV right foot, bilateral Lipo lymphedema, altered gait, valgus deformity right ankle/foot, morbid obesity, neuropathy, debility. I answered all the patient's questions. To return to the wound healing center in 2 weeks or call sooner if the patient has any questions or concerns.
[2023-08-30 10:49] VITALS: BP 143/67; PULSE 83; RESP 18; TEMP 35.9; BMI 60.4
[2023-09-05 13:00] VITALS: BP 145/79; PULSE 81; RESP 18; BMI 60.4
[2023-09-13 11:17] VITALS: RESP 18; TEMP 35.9; BMI 60.4
--- NOTE | 2023-09-13 13:37 | PN.PCM_ITS ---
History of Present Illness Date of Service: 09/13/23 Chief Complaint: Right foot ulcer History of Wound: Patient is a 78-year-old female who presents to the wound care center as a referral by Dr. Yun, GERMÁN, for right foot ulcer. She has PMHx of posterior tibial tendon dysfunction stage IV, lymphedema, HTN, HLD, debility, morbid obesity, degenerative disc disease of the lumbar, Hx Achilles tendon surgery right foot. Patient has been following with Dr. Yun for a few weeks for ulceration overlying the navicular bone of the right foot. Ulceration is complicated by significant foot deformity secondary to PTTD stage IV. Patient unable to ambulate in offloading boot secondary to significant lymphedema. Patient has been ambulating with foam cut out and placed inside of a sock barefoot. 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 Patient states she will be moving to [facility] in December as she has family in this area will aid in care of her and her. She states she has had previous discussion with a surgeon about her deformity and was told the only option was lower leg amputation. Patient did not want this at that time. States since then deformity has continued to progressively worsen with new ulceration developing on medial right foot and has been present for 2 months. Patient denies being diabetic, recent A1c 5.6%. She has been placing Aquacel to the site and is now utilizing Yaquelin. She was referred to the wound care center for second opinion pertaining to wound. She denies N/V/F/chills. She denies furthe r problems. Subjective Subjective Patient is a 78-year-old female who follows to the wound care center for right medial foot ulcer secondary to PTTD stage IV with Charcot changes and significant foot deformity. She states felt offloading padding is comfortable to wear and continues to offload. She does continue to ambulate on deformity with offloading padding. She is currently finishing course of oral antibiotic. She has left grafting product in place and is changing outer dressing as needed. Denies constitutional symptoms. Denies further complaints. Objective Data Objective Data Vital Signs: Vital Signs Temp Pulse Resp BP Pulse Ox O2 Del Method 96.6 F L 81 18 145/79 H 95 Room Air 09/13/23 11:17 09/05/23 13:00 09/13/23 11:17 09/05/23 13:00 08/17/23 00:23 09/05/23 13:00 Oxygen Delivery Method Room Air Weight: 149.924 kg Body Mass Index (BMI) 60.4 Physical Exam Const alert, oriented x3 and no apparent distress General Appearance: cooperative Nutritional Appearance: morbidly obese HEENT normocephalic Eyes General Eye: normal appearance of both eyes Neck General: normal visual inspection Lymph Lymphatic: no lymphadenopathy noted Lymphatic Narrative: Lipolymphedema bilateral lower extremity Resp normal respiratory effort Cardio regular rate and regular rhythm Extremity normal capillary refill and no calf tenderness Extremity Narrative: DP and PT pulses palpable bilateral. Capillary fill time less than 5 seconds to the digits. Lipolymphedema noted to lower extremity bilateral. Dermatological: Positive Stemmer sign bilateral. Lower extremity demonstrates significant swelling consistent with Lipolymphedema. There is an ulceration noted overlying the navicular bone medially with surrounding hyperkeratosis and macerated tissue. Wound base demonstrates granular layer with serosanguineous drainage. No erythema, no purulent drainage, no malodor, no palpable fluctuance/bogginess noted, no visible abscess formation, no lymphangitic streaking. Musculoskeletal: Muscle strength 5 of 5 age-appropriate left lower extremity. Muscle strength deferred secondary to significant deformity of the right lower extremity. Patient demonstrates significant valgus deformity of the ankle with inversion of the foot on ankle with rigidity of the subtalar joint and midtarsal joint. Deformity is noted to be rigid with inability to relocate calcaneus and talus under the tibia. Patient ambulates exclusively on the medial aspect of the ankle/foot with direct pressure overlying the navicular bone and Talar head. Patient demonstrates changes consistent with PTTD stage IV versus Charcot deformity of the right foot. Skin no rashes or lesions noted and no jaundice Neuro moves all extremities Debridement Note Debridement Note Wound debrided: Right foot Laterality: Right Wound Grade/Stage: Rivera stage I Type of Debridement: Excisional debridement Anesthesia Used: 5% Lidocaine Gel Depth: Down to and including healthy tissue and in the subcutaneous layer Percentage of wound debrided: 100 Instrument Used: 3mm curette and - (313 blade) Tissue Removed: Fibrous, devitalized subcutaneous, biofilm, slough Severity: Fat Layer Exposed Amount of bleeding with debridement: Mild Bleeding Controlled with: Compression and gauze Patient tolerated procedure: Patient tolerated procedure well Post-Debridement Measurements and Additional Note: Post-Debridement Measurements/Treatment WC - Nurse 1 - General Ulcer Assessment Start: 08/30/23 10:49 Freq: Status: Active Protocol: CHELSI Activity Type Activity Date Activity User E-sign Co-sign Detail Recorded Client Recorded Date Recorded By Document 08/30/23 10:49 KW Desktop 08/30/23 11:00 KW Document 09/05/23 13:00 KW Desktop 09/05/23 13:52 KW Document 09/13/23 11:17 JF Desktop 09/13/23 11:27 JF 08/30/23 09/05/23 09/13/23 10:49 13:00 11:17 - Today's Visit Information Type of service Follow-up Visit Nurse-only Follow-up Visit (Physician/REDYE HAND Visit (Physician/REDYE HAND ) ) Arrival Mode Ambulatory, Ambulatory, Ambulatory, Walker Walker Walker Patient Identification Verified (Name & Yes Yes Yes ) Patient Requires Transmission-Based No Precautions Height and Weight Body Mass Index (BMI) 60.4 60.4 60.4 BMI Classification Obese Obese Obese Vital Signs Temperature (97.8 F-99.1 F) 96.7 F L 96.6 F L Temperature Source Temporal Temporal Pulse Rate (60-100) 83 81 Pulse Location Monitor Monitor Respiratory Rate (12-18) 18 18 18 Respiratory rate source Observation Observation Oxygen Delivery Method Room Air Room Air Blood Pressure (90/60-120/80) 143/67 H 145/79 H Blood Pressure Mean (mm Hg) 92 101 Source Monitor Monitor Position Semi-Fowlers Semi-Fowlers Blood Pressure Location Left Forearm Left Forearm History Since Last Visit- (Skip if this is Patient's initial visit) Have you changed medications since your No No No last visit? Any new allergies or adverse reactions No No No Had a fall/change in ADL's that may No No No increase risk of falls Signs or symptoms of abuse and/or No No No neglect since last visit Have you been in the hospital since your No No No last visit? Has dressing in place as prescribed Yes Yes Yes Has compression in place as prescribed Yes Yes Yes Has offloadiing in place as prescribed No Yes Yes Experienced any changes in pain level or No No No management Left Footwear Regular Shoe Regular Shoe Regular Shoe Right Footwear Slipper Slipper No Footwear Pain Scale: 0-10 Numeric Is Patient Pain Free? Yes Yes Yes WC - Nurse 1 - General Ulcer Measurement Start: 08/30/23 10:49 Freq: Status: Active Protocol: Activity Type Activity Date Activity User E-sign Co-sign Detail Recorded Client Recorded Date Recorded By Document 08/30/23 10:49 KW Desktop 08/30/23 11:00 KW Document 09/13/23 11:17 JF Desktop 09/13/23 11:27 08/30/23 09/13/23 10:49 11:17 Wound Center Nurse 1 #3 R Med Foot -Combined with other wound No -Current Size (cm) - Length 0.6 0.5 -Current Size (cm) - Width 0.9 0.9 -Current Size (cm) - Depth 0.9 1.3 -Total Square Cm 0.54 0.45 -Photo Taken No -Epithelialization Small 1-33% -Tunneling No -Undermining/Tunneling No -Circular Undermining No -Exudate Amt Medium Small -Exudate Type Serosanguineous Serosanguineous -Wound Margin Thickened Flat & Intact -Granulation Amt Medium (34-66%) Medium (34-66%) -Granulation Quality Red Red -Slough/Fibrin Yes -Necrosis Amt Small (1-33%) Small (1-33%) -Necrotic Tissue Type Adherent Slough Adherent Slough -Structure Exposed N/A -Texture (Fidelia-wound Skin Appearance) Callus Assessed,Callus -Moisture (Fidelia-wound Skin Appearance) Assessed,Dry/ Assessed,Dry/ Scaly Scaly -Color (Fidelia-wound Skin Appearance) Assessed Assessed -Temperature (Fidelia-wound Skin No Abnormality No Abnormality Appearance) (Pt Warm) (Pt Warm) -Tenderness on Palpation (Fidelia-wound No Skin Appearance) -Ulcer Cleansing Soap and Water Wound Cleanser -Foul Odor after Cleansing No -Anesthetic Used 5% Lidocaine 5% Lidocaine Gel Gel Lower Limb Edema Present Yes Right Calf (cm) 55.8 Right Ankle (cm) 34.5 WC - Nurse 2 - General Ulcer CM Notes Start: 08/30/23 10:49 Freq: Status: Active Protocol: Activity Type Activity Date Activity User E-sign Co-sign Detail Recorded Client Recorded Date Recorded By Document 08/30/23 16:55 PL [id number] 08/30/23 16:56 PL Edit Result 08/30/23 16:55 PL (1) [id number] 08/31/23 07:16 PL Document 09/13/23 12:58 PL [id number] 09/13/23 13:00 PL (1) #3 R Med Foot - Dermabond => 1 08/30/23 09/13/23 16:55 12:58 Wound Center Nurse 2 #3 R Med Foot -Time 11:18 01:42 -Correct Patient Yes Yes -Correct Side, Site, Position Yes Yes -Correct Procedure Yes Yes -Procedure Performed Yes Yes -Type of Procedure Debridement Debridement -Clinical Debridement Subcutaneous Subcutaneous -Tissue Removed Subcutaneous Subcutaneous -Post Debridement (cm) - Length 1.3 1.0 -Post Debridement (cm) - Width 0.7 0.7 -Post Debridement (cm) - Depth 1.0 0.2 -Total Square (Post) (cm) 0.91 0.70 -Area of Debridement (cm) - Length 1.3 1.0 -Area of Debridement (cm) - Width 0.7 0.7 -Total Square (Area) (cm) 0.91 0.70 -Tunneling No No -Undermining/Tunneling No No -Circular Undermining No No -Wound/Ulcer Outcome Not Healed Not Healed -Ulcer Cleansing Rinsed/ Rinsed/ Irrigated with Irrigated with Saline Saline -Foul Odor after Cleansing No No -Bioengineered Tissue Yes Yes -Type of Bioengineered Tissue Epifix 18mm Epifix 18mm Disc Disc -Expiration Date 05/18/28 05/18/28 -Product Lot Number [id number] -Percent Used 100 100 -Bleeding Controlled with Pressure Pressure -Treatment Response Procedure Procedure Tolerated Well Tolerated Well -Debridement - Subq, 1st 20sq cm No No -Apply Skin Sub - 1st 25 sq cm - Feet 1 1 -Dermabond 1 -Epifix 18mm Disc 3 3 Pain Scale: 0-10 Numeric Is Patient Pain Free? Yes Yes WC - Nurse 3 - General Ulcer D/C NN Start: 08/30/23 10:49 Freq: Status: Active Protocol: Activity Type Activity Date Activity User E-sign Co-sign Detail Recorded Client Recorded Date Recorded By Document 08/30/23 12:00 KW Desktop 08/30/23 12:00 KW Document 09/05/23 13:00 KW Desktop 09/05/23 13:52 KW Document 09/05/23 13:30 BMF Desktop 09/05/23 13:34 BMF Document 09/13/23 12:03 KW Desktop 09/13/23 12:04 KW 08/30/23 09/05/23 09/05/23 12:00 13:00 13:30 Wound Care Center Nurse 3 #3 R Med Foot -Other Dressing DRSG CHK AND CHANGE PER [employer] REPRESENT[employer]IVE. EPI INTACT . -Primary Dressing Covered/Secured with Dry Gauze & Roll Gauze, Secured with Tape -Other Covering NEW OFFLOADING PADDING REAPPLIED; AND ABD Treatment Response Procedure Tolerated Well Vital Signs Pulse Rate (60-100) 81 Pulse Location Monitor Respiratory Rate (12-18) 18 Respiratory rate source Observation Oxygen Delivery Method Room Air Blood Pressure (90/60-120/80) 145/79 H Blood Pressure Mean (mm Hg) 101 Source Monitor Position Semi-Fowlers Blood Pressure Location Left Forearm Pain Scale: 0-10 Numeric Is Patient Pain Free? Yes Yes Yes WC - Visit Discharge Discharge Condition Stable Ambulatory Status Ambulatory, Walker Transportation Private Auto Medication Reconcilliation completed & provided to patient/care provider Clinical Summary of Care Provided 09/13/23 12:03 Wound Care Center Nurse 3 #3 R Med Foot -Other Dressing -Primary Dressing Covered/Secured with Dry Gauze & Roll Gauze, Secured with Tape -Other Covering Treatment Response Vital Signs Pulse Rate (60-100) Pulse Location Respiratory Rate (12-18) Respiratory rate source Oxygen Delivery Method Blood Pressure (90/60-120/80) Blood Pressure Mean (mm Hg) Source Position Blood Pressure Location Pain Scale: 0-10 Numeric Is Patient Pain Free? Yes WC - Visit Discharge Discharge Condition Stable Ambulatory Status Ambulatory, Walker Transportation Private Auto Medication Reconcilliation completed & No provided to patient/care provider Clinical Summary of Care Provided Yes Assessment/Plan Assessment/Plan (1) Charcot's joint of right foot: CODE(S): M14.671 - Charcot's joint, right ankle and foot (2) Altered gait: CODE(S): R26.9 - Unspecified abnormalities of gait and mobility (3) Neuropathic ulcer of right foot with fat layer exposed: CODE(S): L97.512 - Non-pressure chronic ulcer of other part of right foot with fat layer exposed (4) Acquired valgus deformity of ankle: CODE(S): M21.079 - Valgus deformity, not elsewhere classified, unspecified ankle (5) Posterior tibial tendon dysfunction (PTTD) of right lower extremity: CODE(S): M76.821 - Posterior tibial tendinitis, right leg (6) Lipedema: CODE(S): R60.9 - Edema, unspecified (7) Morbid obesity: CODE(S): E66.01 - Morbid (severe) obesity due to excess calories (8) Neuropathy: CODE(S): G62.9 - Polyneuropathy, unspecified (9) Lymphedema: CODE(S): I89.0 - Lymphedema, not elsewhere classified (10) Essential hypertension: CODE(S): I10 - Essential (primary) hypertension (11) Debility: CODE(S): R53.81 - Other malaise (12) HLD (hyperlipidemia): CODE(S): E78.5 - Hyperlipidemia, unspecified PLAN: Plan Patient seen and evaluated Right lower extremity: Lower extremity demonstrates significant swelling consistent with Lipolymphedema. There is an ulceration noted overlying the navicular bone medially with surrounding hyperkeratosis. No signs of infection. Patient demonstrates significant valgus deformity of the ankle with inversion of the foot on ankle with rigidity of the subtalar joint and midtarsal joint. Deformity is noted to be rigid with inability to relocate calcaneus and talus under the tibia. Patient ambulates exclusively on the medial aspect of the ankle/foot with direct pressure overlying the navicular bone/Talar head. Patient demonstrates changes consistent with PTTD stage IV with Charcot art hropathy of the right foot. Gait analysis: Patient ambulating without shoe gear secondary to foot deformity and Lipolymphedema to the right lower extremity. Patient demonstrates significant valgus deformity of the ankle with inversion of the forefoot on the hindfoot. Patient ambulating exclusively on medial aspect of the ankle/foot with direct pressure overlying the navicular bone/Talar head. Gait is altered secondary to significant deformity. Patient denies being diabetic, recent A1c 5.6%. In hospital at discharge on 08/24/23 wound measured 1.2 cm x 1.0 cm x 1.0 cm. Ulceration was debrided as noted in the clinical panel above. Ulceration overlying the navicular bone of the right foot measures 0.7 cm x 1.0 cm x 0.3 cm. No signs of infection to wound. EpiFix #5 applied to the wound base and dressed with Adaptic touch, Steri-Strips, Aquacel Ag and dry sterile dressing. She is instructed to change outer dressing as needed. She was instructed to not get the site wet. Wound continues to demonstrate reduction in size vs previous visit. She still has some localized erythema to the lower extremity that has slightly increased since discharge and thus she will be placed on oral antibiotics. Rx: Doxycycline 100mg BID x 14 days and levofloxacin 750 mg BID x 14 days. She was instructed to take activity a probiotic yogurt daily to aid in oriental orthodox of gut darlene while on oral antibiotic. Stop date to be 09/13/23. There is noted improvement in lower extremity redness as she is finishing oral antibiotics. She also states urine has improved in color. I did fashion three felt offloading pads to be placed about the foot and secured to the foot so that she may ambulate with reduced pressure to wound site. This is going much better for her. Discussed the pressure reduction is essential to healing. Discussed use of lymphedema pumps however this may be ineffective in her compounded lipedema. Discussed remaining off feet as much as possible however this is challenging secondary to being the only caregiver for her ill . Due to this patient also requires need to drive. Discussed elevation of lower extremities at all times of rest. Discussed adequate protein intake to aid in wound healing. Guicho supplementation recommended. Offloading remains difficult secondary to deformity and Lipolymphedema. Total contact cast would be ineffective secondary to deformity and possibility of new wound formation in other areas of foot/ankle. Consideration given to knee scooter however with considerable Lipo lymphedema this would also remain difficult for compliance and use. I discussed in detail surgical options for consideration. Discussed with patient given her stage of deformity a TTC fusion would be required via intramedullary gabriela to correct the hindfoot/ankle deformity. Secondary fusions may be required for the talonavicular joint in addition to posterior tibial tendon debridement and advancement/possible tendon transfer. Discussed typical postoperative course in detail in addition to recovery time. Discussed her chronic Lipo lymphedema complicates surgical intervention and poses risk of wound healing. Discussed risk of infection is higher given her condition. Discussed risk of infection with open ulceration currently. Discussed she is at high risk of below the knee amputation of the right lower extremity. She voices understanding of this discussion today. At this time patient not interested in surgical reconstruction due to the care of her . Radiographs 08/02/23 demonstrate subluxation and breakdown of the midfoot joints and ankle joints with secondary arthritic/Charcot changes. No evidence of osteomyelitis. She previously had radiographs at [facility] interpreted by Dr. Yun, demonstrating no evidence of osteomyelitis. Radiographs obtained during admission 08/21/23 demonstrates soft tissue swelling and Charcot changes of the midfoot. No demonstrated changes from previous radiographic imaging 08/02/2023. No signs of osteomyelitis. Discussed signs and symptoms of infection. Discussed if she notices any redness about the ulcerative site that moves up the foot/leg, if she has any purulent drainage emerging from the wound site, she has increasing foul odor from the wound site, or if she experiences fever greater than 101 degree, nausea, vomiting, chills, these are signs of progressing infection and she needs to report to the ED to receive IV antibiotics. She voices understanding of this today. I reviewed and discussed his case today. Debridement was performed today as noted in the clinical panel to all of the ulcer sites. The following work up and care recommendations were made: Dressing: EpiFix, Adaptic touch, Steri-Strips, Aquacel Ag and dry sterile dressing. Change outer dressing as needed. Wash: Do not get wet Tissue growth optimization: EpiFix Offload: Modified offloading insert applied to right foot. She was instructed to continue to ambulate utilizing this to have as much offloading as possible Vascular: Palpable pedal pulses with adequate capillary fill time. Do not feel vascular is impeding healing progress. Edema: Chronic Lipo lymphedema. Discussed elevation of lower extremities and use of lymphedema pump however these may be ineffective given her status. Infection: No signs of infection. Patient currently finishing oral Keflex. Pain: May take [id number] Tylenol extra strength for discomfort Host factors: PTTD stage IV right foot, bilateral Lipo lymphedema, altered gait, valgus deformity right ankle/foot, morbid obesity, neuropathy, debility. I answered all the patient's questions. To return to the wound healing center in 1 week or call sooner if the patient has any questions or concerns.
== END 2023-09-16 23:59 | disposition home or self-care (01) ==
LOC: WC 10:45
PROVIDERS: PCP Family Medicine; Referring Provider Podiatrist Foot & Ankle Surgery; Visit Provider Student in an Organized Health Care Education/Training Program
DX: L97.512 Non-pressure chronic ulcer of other part of right foot with fat layer exposed (principal); E66.01 Morbid (severe) obesity due to excess calories; M21.079 Valgus deformity, not elsewhere classified, unspecified ankle; M76.821 Posterior tibial tendinitis, right leg; R26.9 Unspecified abnormalities of gait and mobility; I89.0 Lymphedema, not elsewhere classified; E78.5 Hyperlipidemia, unspecified; G62.9 Polyneuropathy, unspecified; I10 Essential (primary) hypertension; R60.9 Edema, unspecified; R53.81 Other malaise; M14.671 Charcot's joint, right ankle and foot
CPT/HCPCS: 15275; 99211; Q4186; G0463

== ENCOUNTER 2023-10-11 10:45 | Outpatient (RCR) | payer MEDICARE, OTHER, SELFPAY ==
[2023-09-17 00:37] VITALS: BP 145/79; PULSE 81; RESP 18; TEMP 35.9; O2SAT 95; BMI 60.4
[2023-09-20 11:21] VITALS: BP 143/81; PULSE 87; RESP 18; TEMP 35.4; BMI 60.4
--- NOTE | 2023-09-20 12:58 | PN.PCM_ITS ---
History of Present Illness Date of Service: 09/20/23 Chief Complaint: Right foot ulcer History of Wound: Patient is a 78-year-old female who presents to the wound care center as a referral by Dr. Yun, GERMÁN, for right foot ulcer. She has PMHx of posterior tibial tendon dysfunction stage IV, lymphedema, HTN, HLD, debility, morbid obesity, degenerative disc disease of the lumbar, Hx Achilles tendon surgery right foot. Patient has been following with Dr. Yun for a few weeks for ulceration overlying the navicular bone of the right foot. Ulceration is complicated by significant foot deformity secondary to PTTD stage IV. Patient unable to ambulate in offloading boot secondary to significant lymphedema. Patient has been ambulating with foam cut out and placed inside of a sock barefoot. 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 Patient states she will be moving to [facility] in December as she has family in this area will aid in care of her and her. She states she has had previous discussion with a surgeon about her deformity and was told the only option was lower leg amputation. Patient did not want this at that time. States since then deformity has continued to progressively worsen with new ulceration developing on medial right foot and has been present for 2 months. Patient denies being diabetic, recent A1c 5.6%. She has been placing Aquacel to the site and is now utilizing Yaquelin. She was referred to the wound care center for second opinion pertaining to wound. She denies N/V/F/chills. She denies furthe r problems. Subjective Subjective Patient is a 78-year-old female who follows to the wound care center for right medial foot ulcer secondary to PTTD stage IV with Charcot changes and significant foot deformity. She states felt offloading padding is comfortable to wear and continues to offload. She does continue to ambulate on deformity with offloading padding. She has finished course of oral antibiotic. She has left grafting product in place and is changing outer dressing as needed. Denies constitutional symptoms. Denies further complaints. Objective Data Objective Data Vital Signs: Vital Signs Temp Pulse Resp BP Pulse Ox O2 Del Method 95.8 F L 87 18 143/81 H 95 Room Air 09/20/23 11:21 09/20/23 11:21 09/20/23 11:21 09/20/23 11:21 09/17/23 00:37 09/20/23 11:21 Oxygen Delivery Method Room Air Weight: 149.924 kg Body Mass Index (BMI) 60.4 Physical Exam Const alert, oriented x3 and no apparent distress General Appearance: cooperative Nutritional Appearance: morbidly obese HEENT normocephalic Eyes General Eye: normal appearance of both eyes Neck General: normal visual inspection Lymph Lymphatic: no lymphadenopathy noted and no lymphedema noted Resp normal respiratory effort Cardio regular rate and regular rhythm Extremity normal capillary refill, no joint enlargement and no calf tenderness Extremity Narrative: DP and PT pulses palpable bilateral. Capillary fill time less than 5 seconds to the digits. Lipolymphedema noted to lower extremity bilateral. Dermatological: Positive Stemmer sign bilateral. Lower extremity demonstrates significant swelling consistent with Lipolymphedema. There is an ulceration noted overlying the navicular bone medially with surrounding hyperkeratosis and macerated tissue. Wound base demonstrates granular layer with serosanguineous d rainage. No erythema, no purulent drainage, no malodor, no palpable fluctuance/bogginess noted, no visible abscess formation, no lymphangitic streaking. Musculoskeletal: Muscle strength 5 of 5 age-appropriate left lower extremity. Muscle strength deferred secondary to significant deformity of the right lower extremity. Patient demonstrates significant valgus deformity of the ankle with inversion of the foot on ankle with rigidity of the subtalar joint and midtarsal joint. Deformity is noted to be rigid with inability to relocate calcaneus and talus under the tibia. Patient ambulates exclusively on the medial aspect of the ankle/foot with direct pressure overlying the navicular bone and Talar head. Patient demonstrates changes consistent with PTTD stage IV versus Charcot deformity of the right foot. Skin no rashes or lesions noted, skin turgor normal and no jaundice General Skin Exam: venous stasis and dermatitis Neuro moves all extremities Debridement Note Debridement Note Wound debrided: Right foot Laterality: Right Wound Grade/Stage: Rivera stage I Type of Debridement: Excisional debridement Anesthesia Used: 5% Lidocaine Gel Depth: Down to and including healthy tissue and in the subcutaneous layer Percentage of wound debrided: 100 Instrument Used: 5mm curette and - (313 blade) Tissue Removed: Fibrous, devitalized subcutaneous, biofilm, slough Severity: Fat Layer Exposed Amount of bleeding with debridement: Mild Bleeding Controlled with: Compression and gauze Patient tolerated procedure: Patient tolerated procedure well Post-Debridement Measurements and Additional Note: Post-Debridement Measurements/Treatment - Nurse 1 - General Ulcer Assessment Start: 09/20/23 11:21 Freq: Status: Active Protocol: CHELSI Activity Type Activity Date Activity User E-sign Co-sign Detail Recorded Client Recorded Date Recorded By Document 09/20/23 11:21 KW [employer] 09/20/23 11:27 KW 09/20/23 11:21 WC - Today's Visit Information Type of service Nurse-only Visit Arrival Mode Ambulatory, Walker Patient Identification Verified (Name & Yes ) Height and Weight Body Mass Index (BMI) 60.4 BMI Classification Obese Vital Signs Temperature (97.8 F-99.1 F) 95.8 F L Temperature Source Temporal Pulse Rate (60-100) 87 Pulse Location Monitor Respiratory Rate (12-18) 18 Respiratory rate source Observation Oxygen Delivery Method Room Air Blood Pressure (90/60-120/80) 143/81 H Blood Pressure Mean (mm Hg) 101 Source Monitor Position Semi-Fowlers Blood Pressure Location Left Arm History Since Last Visit- (Skip if this is Patient's initial visit) Have you changed medications since your No last visit? Any new allergies or adverse reactions No Had a fall/change in ADL's that may No increase risk of falls Signs or symptoms of abuse and/or No neglect since last visit Have you been in the hospital since your No last visit? Has dressing in place as prescribed Yes Has compression in place as prescribed Yes Has offloadiing in place as prescribed Yes Experienced any changes in pain level or No management Left Footwear Slipper Right Footwear Regular Shoe Pain Scale: 0-10 Numeric Is Patient Pain Free? Yes - Nurse 1 - General Ulcer Measurement Start: 09/20/23 11:21 Freq: Status: Active Protocol: Activity Type Activity Date Activity User E-sign Co-sign Detail Recorded Client Recorded Date Recorded By Document 09/20/23 11:21 KW [employer] 09/20/23 11:27 KW 09/20/23 11:21 Wound Center Nurse 1 #3 R Med Foot -Current Size (cm) - Length 1.1 -Current Size (cm) - Width 0.4 -Current Size (cm) - Depth 0.2 -Total Square Cm 0.44 -Exudate Amt Medium -Exudate Type Serosanguineous -Wound Margin Distinct, Outline Attached -Granulation Amt Medium (34-66%) -Granulation Quality [place] -Necrosis Amt Medium (34-66%) -Necrotic Tissue Type Adherent Slough -Texture (Fidelia-wound Skin Appearance) Callus -Moisture (Fidelia-wound Skin Appearance) Dry/Scaly -Color (Fidelia-wound Skin Appearance) Assessed -Temperature (Fidelia-wound Skin No Abnormality Appearance) (Pt Warm) -Ulcer Cleansing Soap and Water -Anesthetic Used 5% Lidocaine Gel Right Calf (cm) 55.4 Right Ankle (cm) 39.6 WC - Nurse 2 - General Ulcer CM Notes Start: 09/20/23 11:21 Freq: Status: Active Protocol: Activity Type Activity Date Activity User E-sign Co-sign Detail Recorded Client Recorded Date Recorded By Document 09/20/23 12:29 PL [id number] 09/20/23 12:30 PL 09/20/23 12:29 Wound Center Nurse 2 #3 R Med Foot -Time 11:55 -Correct Patient Yes -Correct Side, Site, Position Yes -Correct Procedure Yes -Procedure Performed Yes -Type of Procedure Debridement -Clinical Debridement Subcutaneous -Tissue Removed Subcutaneous -Post Debridement (cm) - Length 1.2 -Post Debridement (cm) - Width 0.6 -Post Debridement (cm) - Depth 0.2 -Total Square (Post) (cm) 0.72 -Area of Debridement (cm) - Length 1.2 -Area of Debridement (cm) - Width 0.6 -Total Square (Area) (cm) 0.72 -Tunneling No -Undermining/Tunneling No -Circular Undermining No -Wound/Ulcer Outcome Not Healed -Ulcer Cleansing Rinsed/ Irrigated with Saline -Foul Odor after Cleansing No -Bioengineered Tissue Yes -Type of Bioengineered Tissue Epifix 18mm Disc -Expiration Date 05/18/28 -Product Lot Number [id number] -Percent Used 100 -Bleeding Controlled with Pressure -Treatment Response Procedure Tolerated Well -Debridement - Subq, 1st 20sq cm No -Apply Skin Sub - 1st 25 sq cm - Feet 1 -Epifix 18mm Disc 3 Pain Scale: 0-10 Numeric Is Patient Pain Free? Yes - Nurse 3 - General Ulcer D/C NN Start: 09/20/23 11:21 Freq: Status: Active Protocol: Activity Type Activity Date Activity User E-sign Co-sign Detail Recorded Client Recorded Date Recorded By Document 09/20/23 12:14 KW Desktop 09/20/23 12:16 KW 09/20/23 12:14 Wound Care Center Nurse 3 #3 R Med Foot -Primary Dressing Covered/Secured with Dry Gauze & Roll Gauze, Secured with Tape Pain Scale: 0-10 Numeric Is Patient Pain Free? Yes WC - Visit Discharge Discharge Condition Stable Ambulatory Status Ambulatory Transportation Private Auto Medication Reconcilliation completed & No provided to patient/care provider Clinical Summary of Care Provided Yes Assessment/Plan Assessment/Plan (1) Neuropathic ulcer of right foot with fat layer exposed: CODE(S): L97.512 - Non-pressure chronic ulcer of other part of right foot with fat layer exposed (2) Acquired valgus deformity of ankle: CODE(S): M21.079 - Valgus deformity, not elsewhere classified, unspecified ankle (3) Posterior tibial tendon dysfunction (PTTD) of right lower extremity: CODE(S): M76.821 - Posterior tibial tendinitis, right leg (4) Lipedema: CODE(S): R60.9 - Edema, unspecified (5) Morbid obesity: CODE(S): E66.01 - Morbid (severe) obesity due to excess calories (6) Neuropathy: CODE(S): G62.9 - Polyneuropathy, unspecified (7) HLD (hyperlipidemia): CODE(S): E78.5 - Hyperlipidemia, unspecified (8) Frequent falls: CODE(S): R29.6 - Repeated falls (9) Debility: CODE(S): R53.81 - Other malaise (10) Essential hypertension: CODE(S): I10 - Essential (primary) hypertension (11) Lymphedema: CODE(S): I89.0 - Lymphedema, not elsewhere classified (12) Charcot's joint of right foot: CODE(S): M14.671 - Charcot's joint, right ankle and foot PLAN: Plan Patient seen and evaluated Right lower extremity: Lower extremity demonstrates significant swelling consistent with Lipolymphedema. There is an ulceration noted overlying the navicular bone medially with surrounding hyperkeratosis. No signs of infection. Patient demonstrates significant valgus deformity of the ankle with inversion of the foot on ankle with rigidity of the subtalar joint and midtarsal joint. Deformity is noted to be rigid with inability to relocate calcaneus and talus under the tibia. Patient ambulates exclusively on the medial aspect of the ankle/foot with direct pressure overlying the navicular bone/Talar head. Patient demonstrates changes consistent with PTTD stage IV with Charcot arthropathy of the right foot. Gait analysis: Patient ambulating without shoe gear secondary to foot deformity and Lipolymphedema to the right lower extremity. Patient demonstrates significant valgus deformity of the ankle with inversion of the forefoot on the hindfoot. Patient ambulating exclusively on medial aspect of the ankle/foot with direct pressure overlying the navicular bone/Talar head. Gait is altered secondary to significant deformity. Patient denies being diabetic, recent A1c 5.6%. In hospital at discharge on 08/24/23 wound measured 1.2 cm x 1.0 cm x 1.0 cm. Ulceration was debrided as noted in the clinical panel above. Ulceration overlying the navicular bone of the right foot measures 1.2 cm x 0.6 cm x 0.3 cm. No signs of infection to wound. EpiFix #6 applied to the wound base and dressed with Adaptic touch, Steri-Strips, Aquacel Ag and dry sterile dressing. She is instructed to change outer dressing as needed. She was instructed to not get the site wet. Wound continues to demonstrate reduction in size vs previous visit. She still has some localized erythema to the lower extremity that has slightly increased since discharge and thus she will be placed on oral antibiotics. Rx: Doxycycline 100mg BID x 14 days and levofloxacin 750 mg BID x 14 days. She was instructed to take activity a probiotic yogurt daily to aid in pentecostal of gut darlene while on oral antibiotic. Stop date to be 09/13/23. There is noted improvement in lower extremity redness as she has finished oral antibiotics. She also states urine has improved in color. I did fashion three felt offloading pads to be placed about the foot and secured to the foot so that she may ambulate with reduced pressure to wound site. This is going much better for her. Discussed the pressure reduction is essential to healing. Discussed use of lymphedema pumps however this may be ineffective in her compo unded lipedema. Discussed remaining off feet as much as possible however this is challenging secondary to being the only caregiver for her ill . Due to this patient also requires need to drive. Discussed elevation of lower extremities at all times of rest. Discussed adequate protein intake to aid in wound healing. Guicho supplementation recommended. Offloading remains difficult secondary to deformity and Lipolymphedema. Total contact cast would be ineffective secondary to deformity and possibility of new wound formation in other areas of foot/ankle. Consideration given to knee sco oter however with considerable Lipo lymphedema this would also remain difficult for compliance and use. I discussed in detail surgical options for consideration. Discussed with patient given her stage of deformity a TTC fusion would be required via intramedullary gabriela to correct the hindfoot/ankle deformity. Secondary fusions may be required for the talonavicular joint in addition to posterior tibial tendon debridement and advancement/possible tendon transfer. Discussed typical postoperative course in detail in addition to recovery time. Discussed her chronic Lipo lymphedema complicates surgical intervention and poses risk of wound healing. Discussed risk of infection is higher given her condition. Discussed risk of infection with open ulceration currently. Discussed she is at high risk of below the knee amputation of the right lower extremity. She voices understanding of this discussion today. At this time patient not interested in surgical reconstruction due to the care of her . Radiographs 08/02/23 demonstrate subluxation and breakdown of the midfoot joints and ankle joints with secondary arthritic/Charcot changes. No evidence of osteomyelitis. She previously had radiographs at [facility] interpreted by Dr. Ynu, demonstrating no evidence of osteomyelitis. Radiographs obtained during admission 08/21/23 demonstrates soft tissue swelling and Charcot changes of the midfoot. No demonstrated changes from previous radiographic imaging 08/02/2023. No signs of osteomyelitis. Discussed signs and symptoms of infection. Discussed if she notices any redness about the ulcerative site that moves up the foot/leg, if she has any purulent drainage emerging from the wound site, she has increasing foul odor from the wound site, or if she experiences fever greater than 101 degree, nausea, vomiting, chills, these are signs of progressing infection and she needs to report to the ED to receive IV antibiotics. She voices understanding of this today. I reviewed and discussed his case today. Debridement was performed today as noted in the clinical panel to all of the ulcer sites. The following work up and care recommendations were made: Dressing: EpiFix, Adaptic touch, Steri-Strips, Aquacel Ag and dry sterile dressing. Change outer dressing as needed. Wash: Do not get wet Tissue growth optimization: EpiFix Offload: Modified offloading insert applied to right foot. She was instructed to continue to ambulate utilizing this to have as much offloading as possible Vascular: Palpable pedal pulses with adequate capillary fill time. Do not feel vascular is impeding healing progress. Edema: Chronic Lipo lymphedema. Discussed elevation of lower extremities and use of lymphedema pump however these may be ineffective given her status. Infection: No signs of infection. Patient currently finishing oral Keflex. Pain: May take [id number] Tylenol extra strength for discomfort Host factors: PTTD stage IV right foot, bilateral Lipo lymphedema, altered gait, valgus deformity right ankle/foot, morbid obesity, neuropathy, debility. I answered all the patient's questions. To return to the wound healing center in 1 week or call sooner if the patient has any questions or concerns.
[2023-09-27 10:58] VITALS: BP 143/78; PULSE 84; RESP 16; TEMP 35.3; BMI 60.4
--- NOTE | 2023-09-27 11:54 | PCM.WC.PN ---
History of Present Illness Date of Service: 09/27/23 Chief Complaint: Right foot ulcer History of Wound: Patient is a 78-year-old female who presents to the wound care center as a referral by Dr. Yun, GERMÁN, for right foot ulcer. She has PMHx of posterior tibial tendon dysfunction stage IV, lymphedema, HTN, HLD, debility, morbid obesity, degenerative disc disease of the lumbar, Hx Achilles tendon surgery right foot. Patient has been following with Dr. Yun for a few weeks for ulceration overlying the navicular bone of the right foot. Ulceration is complicated by significant foot deformity secondary to PTTD stage IV. Patient unable to ambulate in offloading boot secondary to significant lymphedema. Patient has been ambulating with foam cut out and placed inside of a sock barefoot. 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 Patient states she will be moving to [facility] in December as she has family in this area will aid in care of her and her. She states she has had previous discussion with a surgeon about her deformity and was told the only option was lower leg amputation. Patient did not want this at that time. States since then deformity has continued to progressively worsen with new ulceration developing on medial right foot and has been present for 2 months. Patient denies being diabetic, recent A1c 5.6%. She has been placing Aquacel to the site and is now utilizing Yaquelin. She was referred to the wound care center for second opinion pertaining to wound. She denies N/V/F/chills. She denies further problems. Subjective Subjective Patient is a 78-year-old female who follows to the wound care center for right medial foot ulcer secondary to PTTD stage IV with Charcot changes and significant foot deformity. She states felt offloading padding is comfortable to wear and continues to offload with no pain. She does continue to ambulate on deformity with offloading padding. She has left grafting product in place and is changing outer dressing as needed. Denies constitutional symptoms. Denies further complaints. Objective Data Objective Data Vital Signs: Vital Signs Temp Pulse Resp BP Pulse Ox O2 Del Method 95.6 F L 84 16 143/78 H 95 Room Air 09/27/23 10:58 09/27/23 10:58 09/27/23 10:58 09/27/23 10:58 09/17/23 00:37 09/20/23 11:21 Oxygen Delivery Method Room Air Weight: 149.924 kg Body Mass Index (BMI) 60.4 Physical Exam Const alert, oriented x3 and no apparent distress General Appearance: cooperative Nutritional Appearance: morbidly obese HEENT normocephalic Eyes General Eye: normal appearance of both eyes Neck General: normal visual inspection Lymph Lymphatic: no lymphadenopathy noted and no lymphedema noted Resp normal respiratory effort Cardio regular rate and regular rhythm Extremity normal capillary refill, no joint enlargement and no calf tenderness Extremity Narrative: DP and PT pulses palpable bilateral. Capillary fill time less than 5 seconds to the digits. Lipolymphedema noted to lower extremity bilateral. Dermatological: Positive Stemmer sign bilateral. Lower extremity demonstrates significant swelling consistent with Lipolymphedema. There is an ulceration noted overlying the navicular bone medially with surrounding hyperkeratosis and macerated tissue. Wound base demonstrates granular layer with serosanguineous drainage. No erythema, no purulent drainage, no malodor, no palpable fluctuance/bogginess noted, no visible abscess formation, no lymphangitic streaking. Musculoskeletal: Muscle strength 5 of 5 age-appropriate left lower extremity. Muscle strength deferred secondary to significant deformity of the right lower extremity. Patient demonstrates significant valgus deformity of the ankle with inversion of the foot on ankle with rigidity of the subtalar joint and midtarsal joint. Deformity is noted to be rigid with inability to relocate calcaneus and talus under the tibia. Patient ambulates exclusively on the medial aspect of the ankle/foot with direct pressure overlying the navicular bone and Talar head. Patient demonstrates changes consistent with PTTD stage IV versus Charcot deformity of the right foot. Skin no rashes or lesions noted, skin turgor normal and no jaundice General Skin Exam: venous stasis and dermatitis Neuro moves all extremities Debridement Note Debridement Note Wound debrided: Right foot Laterality: Right Wound Grade/Stage: Rivera stage I Type of Debridement: Excisional debridement Anesthesia Used: 5% Lidocaine Gel Depth: Down to and including healthy tissue and in the subcutaneous layer Percentage of wound debrided: 100 Instrument Used: - (313 blade) Tissue Removed: fibrous, devitalized subcutaneous, biofilm, slough Severity: Fat Layer Exposed Amount of bleeding with debridement: Mild Bleeding Controlled with: Compression and gauze Patient tolerated procedure: Patient tolerated procedure well Post-Debridement Measurements and Additional Note: Post-Debridement Measurements/Treatment - Nurse 1 - General Ulcer Assessment Start: 09/20/23 11:21 Freq: Status: Active Protocol: CHELSI Activity Type Activity Date Activity User E-sign Co-sign Detail Recorded Client Recorded Date Recorded By Document 09/20/23 11:21 KW Desktop 09/20/23 11:27 KW Document 09/27/23 10:58 JF Laptop 09/27/23 10:59 JF 09/20/23 09/27/23 11:21 10:58 - Today's Visit Information Type of service Nurse-only Follow-up Visit Visit (Physician/AD OPERATIONS INTERN ) Arrival Mode Ambulatory, Ambulatory, Walker Walker Transfer Assistance Manual Patient Identification Verified (Name & Yes Yes ) Patient Requires Transmission-Based No Precautions Height and Weight Body Mass Index (BMI) 60.4 60.4 BMI Classification Obese Obese Vital Signs Temperature (97.8 F-99.1 F) 95.8 F L 95.6 F L Temperature Source Temporal Temporal Pulse Rate (60-100) 87 84 Pulse Location Monitor Monitor Respiratory Rate (12-18) 18 16 Respiratory rate source Observation Observation Oxygen Delivery Method Room Air Blood Pressure (90/60-120/80) 143/81 H 143/78 H Blood Pressure Mean (mm Hg) 101 99 Source Monitor Monitor Position Semi-Fowlers Semi-Fowlers Blood Pressure Location Left Arm Left Forearm History Since Last Visit- (Skip if this is Patient's initial visit) Have you changed medications since your No No last visit? Any new allergies or adverse reactions No No Had a fall/change in ADL's that may No No increase risk of falls Signs or symptoms of abuse and/or No No neglect since last visit Have you been in the hospital since your No No last visit? Has dressing in place as prescribed Yes Yes Has compression in place as prescribed Yes Yes Has offloadiing in place as prescribed Yes Yes Experienced any changes in pain level or No No management Left Footwear Slipper No Footwear Right Footwear Regular Shoe No Footwear Pain Scale: 0-10 Numeric Is Patient Pain Free? Yes Yes - Nurse 1 - General Ulcer Measurement Start: 09/20/23 11:21 Freq: Status: Active Protocol: Activity Type Activity Date Activity User E-sign Co-sign Detail Recorded Client Recorded Date Recorded By Document 09/20/23 11:21 KW Desktop 09/20/23 11:27 KW Document 09/27/23 10:58 JF Laptop 09/27/23 10:59 JF 09/20/23 09/27/23 11:21 10:58 Wound Center Nurse 1 #3 R Med Foot -Combined with other wound No -Current Size (cm) - Length 1.1 0.4 -Current Size (cm) - Width 0.4 1.0 -Current Size (cm) - Depth 0.2 0.4 -Total Square Cm 0.44 0.40 -Photo Taken No -Epithelialization Small 1-33% -Tunneling No -Undermining/Tunneling No -Circular Undermining No -Exudate Amt Medium Medium -Exudate Type Serosanguineous Serosanguineous -Wound Margin Distinct, Flat & Intact Outline Attached -Granulation Amt Medium (34-66%) Medium (34-66%) -Granulation Quality [place] -Slough/Fibrin Yes -Necrosis Amt Medium (34-66%) Medium (34-66%) -Necrotic Tissue Type Adherent Slough Adherent Slough -Structure Exposed N/A -Texture (Fidelia-wound Skin Appearance) Callus Assessed,Callus -Moisture (Fidelia-wound Skin Appearance) Dry/Scaly Assessed,Dry/ Scaly -Color (Fidelia-wound Skin Appearance) Assessed Assessed -Temperature (Fidelia-wound Skin No Abnormality No Abnormality Appearance) (Pt Warm) (Pt Warm) -Tenderness on Palpation (Fidelia-wound No Skin Appearance) -Ulcer Cleansing Soap and Water Wound Cleanser -Foul Odor after Cleansing No -Anesthetic Used 5% Lidocaine 5% Lidocaine Gel Gel Lower Limb Edema Present Yes Right Calf (cm) 55.4 53.7 Right Ankle (cm) 39.6 33.7 WC - Nurse 2 - General Ulcer CM Notes Start: 09/20/23 11:21 Freq: Status: Active Protocol: Activity Type Activity Date Activity User E-sign Co-sign Detail Recorded Client Recorded Date Recorded By Document 09/20/23 12:29 PL [id number] 09/20/23 12:30 PL 09/20/23 12:29 Wound Center Nurse 2 #3 R Med Foot -Time 11:55 -Correct Patient Yes -Correct Side, Site, Position Yes -Correct Procedure Yes -Procedure Performed Yes -Type of Procedure Debridement -Clinical Debridement Subcutaneous -Tissue Removed Subcutaneous -Post Debridement (cm) - Length 1.2 -Post Debridement (cm) - Width 0.6 -Post Debridement (cm) - Depth 0.2 -Total Square (Post) (cm) 0.72 -Area of Debridement (cm) - Length 1.2 -Area of Debridement (cm) - Width 0.6 -Total Square (Area) (cm) 0.72 -Tunneling No -Undermining/Tunneling No -Circular Undermining No -Wound/Ulcer Outcome Not Healed -Ulcer Cleansing Rinsed/ Irrigated with Saline -Foul Odor after Cleansing No -Bioengineered Tissue Yes -Type of Bioengineered Tissue Epifix 18mm Disc -Expiration Date 05/18/28 -Product Lot Number [id number] -Percent Used 100 -Bleeding Controlled with Pressure -Treatment Response Procedure Tolerated Well -Debridement - Subq, 1st 20sq cm No -Apply Skin Sub - 1st 25 sq cm - Feet 1 -Epifix 18mm Disc 3 Pain Scale: 0-10 Numeric Is Patient Pain Free? Yes - Nurse 3 - General Ulcer D/C NN Start: 09/20/23 11:21 Freq: Status: Active Protocol: Activity Type Activity Date Activity User E-sign Co-sign Detail Recorded Client Recorded Date Recorded By Document 09/20/23 12:14 KW Desktop 09/20/23 12:16 KW Document 09/27/23 11:26 KW Desktop 09/27/23 11:27 KW 09/20/23 09/27/23 12:14 11:26 Wound Care Center Nurse 3 #3 R Med Foot -Primary Dressing Covered/Secured with Dry Gauze & Dry Gauze & Roll Gauze, Roll Gauze, Secured with Secured with Tape Tape Pain Scale: 0-10 Numeric Is Patient Pain Free? Yes Yes - Visit Discharge Discharge Condition Stable Stable Ambulatory Status Ambulatory Ambulatory, Walker Transportation Private Auto Private Auto Medication Reconcilliation completed & No No provided to patient/care provider Clinical Summary of Care Provided Yes Yes Assessment/Plan Assessment/Plan (1) Neuropathic ulcer of right foot with fat layer exposed: CODE(S): L97.512 - Non-pressure chronic ulcer of other part of right foot with fat layer exposed (2) Acquired valgus deformity of ankle: CODE(S): M21.079 - Valgus deformity, not elsewhere classified, unspecified ankle (3) Posterior tibial tendon dysfunction (PTTD) of right lower extremity: CODE(S): M76.821 - Posterior tibial tendinitis, right leg (4) Lipedema: CODE(S): R60.9 - Edema, unspecified (5) Morbid obesity: CODE(S): E66.01 - Morbid (severe) obesity due to excess calories (6) Neuropathy: CODE(S): G62.9 - Polyneuropathy, unspecified (7) HLD (hyperlipidemia): CODE(S): E78.5 - Hyperlipidemia, unspecified (8) Frequent falls: CODE(S): R29.6 - Repeated falls (9) Debility: CODE(S): R53.81 - Other malaise (10) Essential hypertension: CODE(S): I10 - Essential (primary) hypertension (11) Lymphedema: CODE(S): I89.0 - Lymphedema, not elsewhere classified (12) Charcot's joint of right foot: CODE(S): M14.671 - Charcot's joint, right ankle and foot PLAN: Plan Patient seen and evaluated Right lower extremity: Lower extremity demonstrates significant swelling consistent with Lipolymphedema. There is an ulceration noted overlying the navicular bone medially with surrounding hyperkeratosis. No signs of infection. Patient demonstrates significant valgus deformity of the ankle with inversion of the foot on ankle with rigidity of the subtalar joint and midtarsal joint. Deformity is noted to be rigid with inability to relocate calcaneus and talus under the tibia. Patient ambulates exclusively on the medial aspect of the ankle/foot with direct pressure overlying the navicular bone/Talar head. Patient demonstrates changes consistent with PTTD stage IV with Charcot arthropathy of the right foot. Gait analysis: Patient ambulating without shoe gear secondary to foot deformity and Lipolymphedema to the right lower extremity. Patient demonstrates significant valgus deformity of the ankle with inversion of the forefoot on the hindfoot. Patient ambulating exclusively on medial aspect of the ankle/foot with direct pressure overlying the navicular bone/Talar head. Gait is altered secondary to significant deformity. Patient denies being diabetic, recent A1c 5.6%. In hospital at discharge on 08/24/23 wound measured 1.2 cm x 1.0 cm x 1.0 cm. Ulceration was debrided as noted in the clinical panel above. Ulceration overlying the navicular bone of the right foot measures 1.1 cm x 0.4 cm x 0.2 cm. No signs of infection to wound. EpiFix #7 applied to the wound base and dressed with Adaptic touch, Steri-Strips, Aquacel Ag and dry sterile dressing. She is instructed to change outer dressing as needed. She was instructed to not get the site wet. Wound continues to demonstrate reduction in size vs previous visit. She still has some localized erythema to the lower extremity that has slightly increased since discharge and thus she will be placed on oral antibiotics. Rx: Doxycycline 100mg BID x 14 days and levofloxacin 750 mg BID x 14 days. She was instructed to take activity a probiotic yogurt daily to aid in moravian of gut darlene while on oral antibiotic. Stop date 09/13/23. There is noted improvement in lower extremity redness as she has finished oral antibiotics. She also states urine has improved in color. I did fashion three felt offloading pads to be placed about the foot and secured to the foot so that she may ambulate with reduced pressure to wound site. This is going much better for her. Discussed the pressure reduction is essential to healing. Discussed use of lymphedema pumps however this may be ineffective in her compounded lipedema. Discussed remaining off feet as much as possible however this is challenging secondary to being the only caregiver for her ill . Due to this patient also requires need to drive. Discussed elevation of lower extremities at all times of rest. Discussed adequate protein intake to aid in wound healing. Guicho supplementation recommended. Offloading remains difficult secondary to deformity and Lipolymphedema. Total contact cast would be ineffective secondary to deformity and possibility of new wound formation in other areas of foot/ankle. Consideration given to knee scooter however with considerable Lipo lymphedema this would also remain difficult for compliance and use. I discussed in detail surgical options for consideration. Discussed with patient given her stage of deformity a TTC fusion would be required via intramedullary gabriela to correct the hindfoot/ankle deformity. Secondary fusions may be required for the talonavicular joint in addition to posterior tibial tendon debridement and advancement/possible tendon transfer. Discussed typical postoperative course in detail in addition to recovery time. Discussed her chronic Lipo lymphedema complicates surgical intervention and poses risk of wound healing. Discussed risk of infection is higher given her condition. Discussed risk of infection with open ulceration currently. Discussed she is at high risk of below the knee amputation of the right lower extremity. She voices understanding of this discussion today. At this time patient not interested in surgical reconstruction due to the care of her . Radiographs 08/02/23 demonstrate subluxation and breakdown of the midfoot joints and ankle joints with secondary arthritic/Charcot changes. No evidence of osteomyelitis. She previously had radiographs at [facility] interpreted by Dr. Yun, demonstrating no evidence of osteomyelitis. Radiographs obtained during admission 08/21/23 demonstrates soft tissue swelling and Charcot changes of the midfoot. No demonstrated changes from previous radiographic imaging 08/02/2023. No signs of osteomyelitis. Discussed signs and symptoms of infection. Discussed if she notices any redness about the ulcerative site that moves up the foot/leg, if she has any purulent drainage emerging from the wound site, she has increasing foul odor from the wound site, or if she experiences fever greater than 101 degree, nausea, vomiting, chills, these are signs of progressing infection and she needs to report to the ED to receive IV antibiotics. She voices understanding of this today. I reviewed and discussed his case today. Debridement was performed today as noted in the clinical panel to all of the ulcer sites. The following work up and care recommendations were made: Dressing: EpiFix, Adaptic touch, Steri-Strips, Aquacel Ag and dry sterile dressing. Change outer dressing as needed. Wash: Do not get wet Tissue growth optimization: EpiFix Offload: Modified offloading insert applied to right foot. She was instructed to continue to ambulate utilizing this to have as much offloading as possible Vascular: Palpable pedal pulses with adequate capillary fill time. Do not feel vascular is impeding healing progress. Edema: Chronic Lipo lymphedema. Discussed elevation of lower extremities and use of lymphedema pump however these may be ineffective given her status. Infection: No signs of infection. Patient currently finishing oral Keflex. Pain: May take [id number] Tylenol extra strength for discomfort Host factors: PTTD stage IV right foot, bilateral Lipo lymphedema, altered gait, valgus deformity right ankle/foot, morbid obesity, neuropathy, debility. I answered all the patient's questions. To return to the wound healing center in 1 week or call sooner if the patient has any questions or concerns.
[2023-10-04 10:32] VITALS: RESP 18; TEMP 35.8; BMI 60.4
--- NOTE | 2023-10-04 10:33 | PCM.WC.PN ---
History of Present Illness Date of Service: 10/04/23 Chief Complaint: Right foot ulcer History of Wound: Patient is a 78-year-old female who presents to the wound care center as a referral by Dr. Yun, DPRodolfo, for right foot ulcer. She has PMHx of posterior tibial tendon dysfunction stage IV, lymphedema, HTN, HLD, debility, morbid obesity, degenerative disc disease of the lumbar, Hx Achilles tendon surgery right foot. Patient has been following with Dr. Yun for a few weeks for ulceration overlying the navicular bone of the right foot. Ulceration is complicated by significant foot deformity secondary to PTTD stage IV. Patient unable to ambulate in offloading boot secondary to significant lymphedema. Patient has been ambulating with foam cut out and placed inside of a sock barefoot. 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 Patient states she will be moving to [facility] in December as she has family in this area will aid in care of her and her. She states she has had previous discussion with a surgeon about her deformity and was told the only option was lower leg amputation. Patient did not want this at that time. States since then deformity has continued to progressively worsen with new ulceration developing on medial right foot and has been present for 2 months. Patient denies being diabetic, recent A1c 5.6%. She has been placing Aquacel to the site and is now utilizing Yaquelin. She was referred to the wound care center for second opinion pertaining to wound. She denies N/V/F/chills. She denies further problems. Subjective Subjective Patient is a 78-year-old female who follows to the wound care center for right medial foot ulcer secondary to PTTD stage IV with Charcot changes and significant foot deformity. She states felt offloading padding remains comfortable to wear and continues to offload with no pain. She does continue to ambulate on deformity with offloading padding. She has left grafting product in place and is changing outer dressing as needed. Denies constitutional symptoms. Denies further complaints. Objective Data Objective Data Vital Signs: Vital Signs Temp Pulse Resp BP Pulse Ox O2 Del Method 95.6 F L 84 16 143/78 H 95 Room Air 09/27/23 10:58 09/27/23 10:58 09/27/23 10:58 09/27/23 10:58 09/17/23 00:37 09/20/23 11:21 Oxygen Delivery Method Room Air Weight: 149.924 kg Body Mass Index (BMI) 60.4 Physical Exam Const alert, oriented x3 and no apparent distress General Appearance: cooperative Nutritional Appearance: morbidly obese HEENT normocephalic Eyes General Eye: normal appearance of both eyes Neck General: normal visual inspection Lymph Lymphatic: no lymphadenopathy noted and no lymphedema noted Resp normal respiratory effort Cardio regular rate and regular rhythm Extremity normal capillary refill, no joint enlargement and no calf tenderness Extremity Narrative: DP and PT pulses palpable bilateral. Capillary fill time less than 5 seconds to the digits. Lipolymphedema noted to lower extremity bilateral. Dermatological: Positive Stemmer sign bilateral. Lower extremity demonstrates significant swelling consistent with Lipolymphedema. There is an ulceration noted overlying the navicular bone medially with surrounding hyperkeratosis and macerated tissue. Wound base demonstrates granular layer with serosanguineous drainage. No erythema, no purulent drainage, no malodor, no palpable fluctuance/bogginess noted, no visible abscess formation, no lymphangitic streaking. Musculoskeletal: Muscle strength 5 of 5 age-appropriate left lower extremity. Muscle strength deferred secondary to significant deformity of the right lower extremity. Patient demonstrates significant valgus deformity of the ankle with inversion of the foot on ankle with rigidity of the subtalar joint and midtarsal joint. Deformity is noted to be rigid with inability to relocate calcaneus and talus under the tibia. Patient ambulates exclusively on the medial aspect of the ankle/foot with direct pressure overlying the navicular bone and Talar head. Patient demonstrates changes consistent with PTTD stage IV versus Charcot deformity of the right foot. Skin no rashes or lesions noted, skin turgor normal and no jaundice General Skin Exam: venous stasis and dermatitis Neuro moves all extremities Debridement Note Debridement Note Wound debrided: Right foot Laterality: Right Wound Grade/Stage: Rivera stage I Type of Debridement: Excisional debridement and Selective debridement Anesthesia Used: 5% Lidocaine Gel Depth: Down to and including healthy tissue and in the subcutaneous layer Percentage of wound debrided: 100 Instrument Used: 3mm curette and #15 blade Tissue Removed: Fibrous, devitalized subcutaneous, biofilm, slough Severity: Fat Layer Exposed Amount of bleeding with debridement: Mild Bleeding Controlled with: Compression and gauze Patient tolerated procedure: Patient tolerated procedure well Post-Debridement Measurements and Additional Note: Post-Debridement Measurements/Treatment - Nurse 1 - General Ulcer Assessment Start: 09/20/23 11:21 Freq: Status: Active Protocol: CHELSI Activity Type Activity Date Activity User E-sign Co-sign Detail Recorded Client Recorded Date Recorded By Document 09/20/23 11:21 KW Desktop 09/20/23 11:27 KW Document 09/27/23 10:58 JF Laptop 09/27/23 10:59 JF 09/20/23 09/27/23 11:21 10:58 - Today's Visit Information Type of service Nurse-only Follow-up Visit 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 ) Arrival Mode Ambulatory, Ambulatory, Walker Walker Transfer Assistance Manual Patient Identification Verified (Name & Yes Yes ) Patient Requires Transmission-Based No Precautions Height and Weight Body Mass Index (BMI) 60.4 60.4 BMI Classification Obese Obese Vital Signs Temperature (97.8 F-99.1 F) 95.8 F L 95.6 F L Temperature Source Temporal Temporal Pulse Rate (60-100) 87 84 Pulse Location Monitor Monitor Respiratory Rate (12-18) 18 16 Respiratory rate source Observation Observation Oxygen Delivery Method Room Air Blood Pressure (90/60-120/80) 143/81 H 143/78 H Blood Pressure Mean (mm Hg) 101 99 Source Monitor Monitor Position Semi-Fowlers Semi-Fowlers Blood Pressure Location Left Arm Left Forearm History Since Last Visit- (Skip if this is Patient's initial visit) Have you changed medications since your No No last visit? Any new allergies or adverse reactions No No Had a fall/change in ADL's that may No No increase risk of falls Signs or symptoms of abuse and/or No No neglect since last visit Have you been in the hospital since your No No last visit? Has dressing in place as prescribed Yes Yes Has compression in place as prescribed Yes Yes Has offloadiing in place as prescribed Yes Yes Experienced any changes in pain level or No No management Left Footwear Slipper No Footwear Right Footwear Regular Shoe No Footwear Pain Scale: 0-10 Numeric Is Patient Pain Free? Yes Yes [facility] Nurse 1 - General Ulcer Measurement Start: 09/20/23 11:21 Freq: Status: Active Protocol: Activity Type Activity Date Activity User E-sign Co-sign Detail Recorded Client Recorded Date Recorded By Document 09/20/23 11:21 KW Desktop 09/20/23 11:27 KW Document 09/27/23 10:58 Laptop 09/27/23 10:59 JF 09/20/23 09/27/23 11:21 10:58 Wound Center Nurse 1 #3 R Med Foot -Combined with other wound No -Current Size (cm) - Length 1.1 0.4 -Current Size (cm) - Width 0.4 1.0 -Current Size (cm) - Depth 0.2 0.4 -Total Square Cm 0.44 0.40 -Photo Taken No -Epithelialization Small 1-33% -Tunneling No -Undermining/Tunneling No -Circular Undermining No -Exudate Amt Medium Medium -Exudate Type Serosanguineous Serosanguineous -Wound Margin Distinct, Flat & Intact Outline Attached -Granulation Amt Medium (34-66%) Medium (34-66%) -Granulation Quality Tatums Tatums -Slough/Fibrin Yes -Necrosis Amt Medium (34-66%) Medium (34-66%) -Necrotic Tissue Type Adherent Slough Adherent Slough -Structure Exposed N/A -Texture (Fidelia-wound Skin Appearance) Callus Assessed,Callus -Moisture (Fidelia-wound Skin Appearance) Dry/Scaly Assessed,Dry/ Scaly -Color (Fidelia-wound Skin Appearance) Assessed Assessed -Temperature (Fidelia-wound Skin No Abnormality No Abnormality Appearance) (Pt Warm) (Pt Warm) -Tenderness on Palpation (Fidelia-wound No Skin Appearance) -Ulcer Cleansing Soap and Water Wound Cleanser -Foul Odor after Cleansing No -Anesthetic Used 5% Lidocaine 5% Lidocaine Gel Gel Lower Limb Edema Present Yes Right Calf (cm) 55.4 53.7 Right Ankle (cm) 39.6 33.7 WC - Nurse 2 - General Ulcer CM Notes Start: 09/20/23 11:21 Freq: Status: Active Protocol: Activity Type Activity Date Activity User E-sign Co-sign Detail Recorded Client Recorded Date Recorded By Document 09/20/23 12:29 PL [id number] 09/20/23 12:30 PL Document 09/27/23 12:10 PL [id number] 09/27/23 12:12 PL 09/20/23 09/27/23 12:29 12:10 Wound Center Nurse 2 #3 R Med Foot -Time 11:55 11:06 -Correct Patient Yes Yes -Correct Side, Site, Position Yes Yes -Correct Procedure Yes Yes -Procedure Performed Yes Yes -Type of Procedure Debridement Debridement -Clinical Debridement Subcutaneous Subcutaneous -Tissue Removed Subcutaneous Subcutaneous -Post Debridement (cm) - Length 1.2 1.1 -Post Debridement (cm) - Width 0.6 0.4 -Post Debridement (cm) - Depth 0.2 0.2 -Total Square (Post) (cm) 0.72 0.44 -Area of Debridement (cm) - Length 1.2 1.1 -Area of Debridement (cm) - Width 0.6 0.4 -Total Square (Area) (cm) 0.72 0.44 -Tunneling No No -Undermining/Tunneling No No -Circular Undermining No No -Wound/Ulcer Outcome Not Healed Not Healed -Ulcer Cleansing Rinsed/ Rinsed/ Irrigated with Irrigated with Saline Saline -Foul Odor after Cleansing No No -Bioengineered Tissue Yes Yes -Type of Bioengineered Tissue Epifix 18mm Epifix 18mm Disc Disc -Expiration Date 05/18/28 05/18/28 -Product Lot Number [id number] -Percent Used 100 100 -Bleeding Controlled with Pressure Pressure -Treatment Response Procedure Procedure Tolerated Well Tolerated Well -Debridement - Subq, 1st 20sq cm No No -Apply Skin Sub - 1st 25 sq cm - Feet 1 1 -Epifix 18mm Disc 3 3 Pain Scale: 0-10 Numeric Is Patient Pain Free? Yes Yes - Nurse 3 - General Ulcer D/C NN Start: 09/20/23 11:21 Freq: Status: Active Protocol: Activity Type Activity Date Activity User E-sign Co-sign Detail Recorded Client Recorded Date Recorded By Document 09/20/23 12:14 KW Desktop 09/20/23 12:16 KW Document 09/27/23 11:26 KW Desktop 09/27/23 11:27 KW 09/20/23 09/27/23 12:14 11:26 Wound Care Center Nurse 3 #3 R Med Foot -Primary Dressing Covered/Secured with Dry Gauze & Dry Gauze & Roll Gauze, Roll Gauze, Secured with Secured with Tape Tape Pain Scale: 0-10 Numeric Is Patient Pain Free? Yes Yes WC - Visit Discharge Discharge Condition Stable Stable Ambulatory Status Ambulatory Ambulatory, Walker Transportation Private Auto Private Auto Medication Reconcilliation completed & No No provided to patient/care provider Clinical Summary of Care Provided Yes Yes Assessment/Plan Assessment/Plan (1) Neuropathic ulcer of right foot with fat layer exposed: CODE(S): L97.512 - Non-pressure chronic ulcer of other part of right foot with fat layer exposed (2) Acquired valgus deformity of ankle: CODE(S): M21.079 - Valgus deformity, not elsewhere classified, unspecified ankle (3) Posterior tibial tendon dysfunction (PTTD) of right lower extremity: CODE(S): M76.821 - Posterior tibial tendinitis, right leg (4) Lipedema: CODE(S): R60.9 - Edema, unspecified (5) Morbid obesity: CODE(S): E66.01 - Morbid (severe) obesity due to excess calories (6) Neuropathy: CODE(S): G62.9 - Polyneuropathy, unspecified (7) HLD (hyperlipidemia): CODE(S): E78.5 - Hyperlipidemia, unspecified (8) Frequent falls: CODE(S): R29.6 - Repeated falls (9) Debility: CODE(S): R53.81 - Other malaise (10) Essential hypertension: CODE(S): I10 - Essential (primary) hypertension (11) Lymphedema: CODE(S): I89.0 - Lymphedema, not elsewhere classified (12) Charcot's joint of right foot: CODE(S): M14.671 - Charcot's joint, right ankle and foot PLAN: Plan Patient seen and evaluated Right lower extremity: Lower extremity demonstrates significant swelling consistent with Lipolymphedema. There is an ulceration noted overlying the navicular bone medially with surrounding hyperkeratosis. No signs of infection. Patient demonstrates significant valgus deformity of the ankle with inversion of the foot on ankle with rigidity of the subtalar joint and midtarsal joint. Deformity is noted to be rigid with inability to relocate calcaneus and talus under the tibia. Patient ambulates exclusively on the medial aspect of the ankle/foot with direct pressure overlying the navicular bone/Talar head. Patient demonstrates changes consistent with PTTD stage IV with Charcot arthropathy of the right foot. Gait analysis: Patient ambulating without shoe gear secondary to foot deformity and Lipolymphedema to the right lower extremity. Patient demonstrates significant valgus deformity of the ankle with inversion of the forefoot on the hindfoot. Patient ambulating exclusively on medial aspect of the ankle/foot with direct pressure overlying the navicular bone/Talar head. Gait is altered secondary to significant deformity. Patient denies being diabetic, recent A1c 5.6%. In hospital at discharge on 08/24/23 wound measured 1.2 cm x 1.0 cm x 1.0 cm. Ulceration was debrided as noted in the clinical panel above. Ulceration overlying the navicular bone of the right foot measures 1.5 cm x 0.5 cm x 0.2 cm. No signs of infection to wound. EpiFix #8 applied to the wound base and dressed with Adaptic touch, Steri-Strips, Aquacel Ag and dry sterile dressing. She is instructed to change outer dressing as needed. She was instructed to not get the site wet. Wound demonstrates little improvement vs previous visit. She still has some localized erythema to the lower extremity that has slightly increased since discharge and thus she will be placed on oral antibiotics. Rx: Doxycycline 100mg BID x 14 days and levofloxacin 750 mg BID x 14 days. She was instructed to take activity a probiotic yogurt daily to aid in religion of gut darlene while on oral antibiotic. Stop date 09/13/23. There is noted improvement in lower extremity redness as she has finished oral antibiotics. She also states urine has improved in color. I did fashion four felt offloading pads to be placed about the foot and secured to the foot so that she may ambulate with reduced pressure to wound site. This is going much better for her. Discussed the pressure reduction is essential to healing. Discussed use of lymphedema pumps however this may be ineffective in her compounded lipedema. Discussed remaining off feet as much as possible however this is challenging secondary to being the only caregiver for her ill . Due to this patient also requires need to drive. Discussed elevation of lower extremities at all times of rest. Discussed adequate protein intake to aid in wound healing. Guicho supplementation recommended. Offloading remains difficult secondary to deformity and Lipolymphedema. Total contact cast would be ineffective secondary to deformity and possibility of new wound formation in other areas of foot/ankle. Consideration given to knee scooter however with considerable Lipo lymphedema this would also remain difficult for compliance and use. I discussed in detail surgical options for consideration. Discussed with patient given her stage of deformity a TTC fusion would be required via intramedullary gabriela to correct the hindfoot/ankle deformity. She would likely require correction with external fixator prior to fusion followed by the TTC fusion. Secondary fusions will also be required for the talonavicular joint in addition to posterior tibial tendon debridement and advancement/possible tendon transfer. Discussed typical postoperative course in detail in addition to recovery time. Discussed her chronic Lipo lymphedema complicates surgical intervention and poses risk of wound healing. Discussed risk of infection is higher given her condition. Discussed risk of infection with open ulceration currently. Discussed she is at high risk of below the knee amputation of the right lower extremity. She voices understanding of this discussion today. At this time patient not interested in surgical reconstruction due to the care of her . Radiographs 08/02/23 demonstrate subluxation and breakdown of the midfoot joints and ankle joints with secondary arthritic/Charcot changes. No evidence of osteomyelitis. She previously had radiographs at [facility] interpreted by Dr. Yun, demonstrating no evidence of osteomyelitis. Radiographs obtained during admission 08/21/23 demonstrates soft tissue swelling and Charcot changes of the midfoot. No demonstrated changes from previous radiographic imaging 08/02/2023. No signs of osteomyelitis. Discussed signs and symptoms of infection. Discussed if she notices any redness about the ulcerative site that moves up the foot/leg, if she has any purulent drainage emerging from the wound site, she has increasing foul odor from the wound site, or if she experiences fever greater than 101 degree, nausea, vomiting, chills, these are signs of progressing infection and she needs to report to the ED to receive IV antibiotics. She voices understanding of this today. The following work up and care recommendations were made: Dressing: EpiFix, Adaptic touch, Steri-Strips, Aquacel Ag and dry sterile dressing. Change outer dressing as needed. Wash: Do not get wet Tissue growth optimization: EpiFix Offload: Modified offloading insert applied to right foot. She was instructed to continue to ambulate utilizing this to have as much offloading as possible Vascular: Palpable pedal pulses with adequate capillary fill time. Do not feel vascular is impeding healing progress. Edema: Chronic Lipo lymphedema. Discussed elevation of lower extremities and use of lymphedema pump however these may be ineffective given her status. Infection: No signs of infection. Patient currently finishing oral Keflex. Pain: May take [id number] Tylenol extra strength for discomfort Host factors: PTTD stage IV right foot, bilateral Lipo lymphedema, altered gait, valgus deformity right ankle/foot, morbid obesity, neuropathy, debility. I answered all the patient's questions. To return to the wound healing center in 1 week or call sooner if the patient has any questions or concerns.
[2023-10-11 10:43] VITALS: BP 159/80; PULSE 95; RESP 18; TEMP 36.2; BMI 60.4
--- NOTE | 2023-10-11 12:36 | PN.PCM_ITS ---
History of Present Illness Date of Service: 10/11/23 Chief Complaint: Right foot ulcer History of Wound: Patient is a 78-year-old female who presents to the wound care center as a referral by Dr. Yun, GERMÁN, for right foot ulcer. She has PMHx of posterior tibial tendon dysfunction stage IV, lymphedema, HTN, HLD, debility, morbid obesity, degenerative disc disease of the lumbar, Hx Achilles tendon surgery right foot. Patient has been following with Dr. Yun for a few weeks for ulceration overlying the navicular bone of the right foot. Ulceration is complicated by significant foot deformity secondary to PTTD stage IV. Patient unable to ambulate in offloading boot secondary to significant lymphedema. Patient has been ambulating with foam cut out and placed inside of a sock barefoot. 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 Patient states she will be moving to [facility] in December as she has family in this area will aid in care of her and her. She states she has had previous discussion with a surgeon about her deformity and was told the only option was lower leg amputation. Patient did not want this at that time. States since then deformity has continued to progressively worsen with new ulceration developing on medial right foot and has been present for 2 months. Patient denies being diabetic, recent A1c 5.6%. She has been placing Aquacel to the site and is now utilizing Yaquelin. She was referred to the wound care center for second opinion pertaining to wound. She denies N/V/F/chills. She denies furthe r problems. Subjective Subjective Patient is a 78-year-old female who follows to the wound care center for right medial foot ulcer secondary to PTTD stage IV with Charcot changes and significant foot deformity. She states felt offloading padding remains comfortable to wear and continues to offload with no pain. She does continue to ambulate on deformity with offloading padding. She has left grafting product in place and is changing outer dressing as needed. States her wound is getting smaller. Denies constitutional symptoms. Denies further complaints. Objective Data Objective Data Vital Signs: Vital Signs Temp Pulse Resp BP Pulse Ox O2 Del Method 97.1 F L 95 18 159/80 H 95 Room Air 10/11/23 10:43 10/11/23 10:43 10/11/23 10:43 10/11/23 10:43 09/17/23 00:37 10/04/23 10:32 Oxygen Delivery Method Room Air Weight: 149.924 kg Body Mass Index (BMI) 60.4 Physical Exam Const alert, oriented x3 and no apparent distress General Appearance: cooperative Nutritional Appearance: morbidly obese HEENT normocephalic Eyes General Eye: normal appearance of both eyes Neck General: normal visual inspection Lymph Lymphatic: no lymphadenopathy noted and no lymphedema noted Resp normal respiratory effort Cardio regular rate and regular rhythm Extremity normal capillary refill, no joint enlargement and no calf tenderness Extremity Narrative: DP and PT pulses palpable bilateral. Capillary fill time less than 5 seconds to the digits. Lipolymphedema noted to lower extremity bilateral. Dermatological: Positive Stemmer sign bilateral. Lower extremity demonstrates significant swelling consistent with Lipolymphedema. There is an ulceration noted overlying the navicular bone medially with surrounding hyperkeratosis and macerated tissue. Wound base demonstrates granular layer with serosanguineous drainage. No erythema, no purulent drainage, no malodor, no palpable fluctuance/bogginess noted, no visible abscess formation, no lymphangitic streaking. Musculoskeletal: Muscle strength 5 of 5 age-appropriate left lower extremity. Muscle strength deferred secondary to significant deformity of the right lower extremity. Patient demonstrates significant valgus deformity of the ankle with inversion of the foot on ankle with rigidity of the subtalar joint and midtarsal joint. Deformity is noted to be rigid with inability to relocate calcaneus and talus under the tibia. Patient ambulates exclusively on the medial aspect of the ankle/foot with direct pressure overlying the navicular bone and Talar head. Patient demonstrates changes consistent with PTTD stage IV versus Charcot def ormity of the right foot. Skin no rashes or lesions noted, skin turgor normal and no jaundice General Skin Exam: venous stasis and dermatitis Neuro moves all extremities Debridement Note Debridement Note Wound debrided: Right foot Laterality: Right Wound Grade/Stage: Rivera stage I Type of Debridement: Excisional debridement Anesthesia Used: 5% Lidocaine Gel Depth: Down to and including healthy tissue and in the subcutaneous layer Percentage of wound debrided: 100 Instrument Used: #15 blade Tissue Removed: Fibrous, devitalized subcutaneous, biofilm, slough Severity: Fat Layer Exposed Amount of bleeding with debridement: Mild Bleeding Controlled with: Compression and gauze Patient tolerated procedure: Patient tolerated procedure well Post-Debridement Measurements and Additional Note: Post-Debridement Measurements/Treatment - Nurse 1 - General Ulcer Assessment Start: 09/20/23 11:21 Freq: Status: Active Protocol: CHELSI Activity Type Activity Date Activity User E-sign Co-sign Detail Recorded Client Recorded Date Recorded By Document 09/20/23 11:21 KW Desktop 09/20/23 11:27 KW Document 09/27/23 10:58 Laptop 09/27/23 10:59 JF Document 10/04/23 10:32 KW Desktop 10/04/23 10:46 KW Document 10/11/23 10:43 KW [email or web address] 10/11/23 10:55 KW 09/20/23 09/27/23 10/04/23 11:21 10:58 10:32 - Today's Visit Information Type of service Nurse-only Follow-up Visit Follow-up Visit Visit (Physician/INDUSTRIAL ENGINEERING MANAGER (Physician/INDUSTRIAL ENGINEERING MANAGER ) ) Arrival Mode Ambulatory, Ambulatory, Ambulatory, Walker Walker Walker Transfer Assistance Manual Patient Identification Verified (Name & Yes Yes Yes ) Patient Requires Transmission-Based No Precautions Height and Weight Body Mass Index (BMI) 60.4 60.4 60.4 BMI Classification Obese Obese Obese Vital Signs Temperature (97.8 F-99.1 F) 95.8 F L 95.6 F L 96.5 F L Temperature Source Temporal Temporal Temporal Pulse Rate (60-100) 87 84 Pulse Location Monitor Monitor Monitor Respiratory Rate (12-18) 18 16 18 Respiratory rate source Observation Observation Observation Oxygen Delivery Method Room Air Room Air Blood Pressure (90/60-120/80) 143/81 H 143/78 H Blood Pressure Mean (mm Hg) 101 99 Source Monitor Monitor Monitor Position Semi-Fowlers Semi-Fowlers Semi-Fowlers Blood Pressure Location Left Arm Left Forearm Left Forearm History Since Last Visit- (Skip if this is Patient's initial visit) Have you changed medications since your No No No last visit? Any new allergies or adverse reactions No No No Had a fall/change in ADL's that may No No No increase risk of falls Signs or symptoms of abuse and/or No No No neglect since last visit Have you been in the hospital since your No No No last visit? Has dressing in place as prescribed Yes Yes Yes Has compression in place as prescribed Yes Yes Yes Has offloadiing in place as prescribed Yes Yes Yes Experienced any changes in pain level or No No No management Left Footwear Slipper No Footwear Regular Shoe Right Footwear Regular Shoe No Footwear Slipper Pain Scale: 0-10 Numeric Is Patient Pain Free? Yes Yes Yes 10/11/23 10:43 - Today's Visit Information Type of service Follow-up Visit (Physician/INDUSTRIAL ENGINEERING MANAGER ) Arrival Mode Ambulatory, Walker Transfer Assistance Patient Identification Verified (Name & Yes ) Patient Requires Transmission-Based Precautions Height and Weight Body Mass Index (BMI) 60.4 BMI Classification Obese Vital Signs Temperature (97.8 F-99.1 F) 97.1 F L Temperature Source Temporal Pulse Rate (60-100) 95 Pulse Location Monitor Respiratory Rate (12-18) 18 Respiratory rate source Observation Oxygen Delivery Method Blood Pressure (90/60-120/80) 159/80 H Blood Pressure Mean (mm Hg) 106 Source Monitor Position Semi-Fowlers Blood Pressure Location Left Forearm History Since Last Visit- (Skip if this is Patient's initial visit) Have you changed medications since your No last visit? Any new allergies or adverse reactions No Had a fall/change in ADL's that may No increase risk of falls Signs or symptoms of abuse and/or No neglect since last visit Have you been in the hospital since your No last visit? Has dressing in place as prescribed Yes Has compression in place as prescribed Yes Has offloadiing in place as prescribed Yes Experienced any changes in pain level or No management Left Footwear Regular Shoe Right Footwear Slipper Pain Scale: 0-10 Numeric Is Patient Pain Free? Yes - Nurse 1 - General Ulcer Measurement Start: 09/20/23 11:21 Freq: Status: Active Protocol: Activity Type Activity Date Activity User E-sign Co-sign Detail Recorded Client Recorded Date Recorded By Document 09/20/23 11:21 KW Desktop 09/20/23 11:27 KW Document 09/27/23 10:58 JF Laptop 09/27/23 10:59 JF Document 10/04/23 10:32 KW Desktop 10/04/23 10:46 KW Document 10/11/23 10:43 KW Desktop 10/11/23 10:55 KW 09/20/23 09/27/2310/04/24 11:21 10:58 10:32 Wound Center Nurse 1 #3 R Med Foot -Combined with other wound No -Current Size (cm) - Length 1.1 0.4 0.7 -Current Size (cm) - Width 0.4 1.0 1.0 -Current Size (cm) - Depth 0.2 0.4 0.6 -Total Square Cm 0.44 0.40 0.70 -Date of Last Picture (Recall this 10/04/23 field) -Photo Taken No Yes -Epithelialization Small 1-33% -Tunneling No -Undermining/Tunneling No Yes -Undermining/Tunneling Starts (O'clock 7 ) -Undermining/Tunneling Ends (O'clock) 1 -Maximum Distance (cm) 0.4 -Circular Undermining No -Exudate Amt Medium Medium Medium -Exudate Type Serosanguineous Serosanguineous Serosanguineous -Wound Margin Distinct, Flat & Intact Thickened Outline Attached -Granulation Amt Medium (34-66%) Medium (34-66%) Small (1-33%) -Granulation Quality [place] -Slough/Fibrin Yes -Necrosis Amt Medium (34-66%) Medium (34-66%) Medium (34-66%) -Necrotic Tissue Type Adherent Slough Adherent Slough Adherent Slough -Structure Exposed N/A -Texture (Fidelia-wound Skin Appearance) Callus Assessed,Callus Assessed -Moisture (Fidelia-wound Skin Appearance) Dry/Scaly Assessed,Dry/ Assessed, Scaly Weeping -Color (Fidelia-wound Skin Appearance) Assessed Assessed Assessed -Temperature (Fidelia-wound Skin No Abnormality No Abnormality No Abnormality Appearance) (Pt Warm) (Pt Warm) (Pt Warm) -Tenderness on Palpation (Fidelia-wound No Skin Appearance) -Ulcer Cleansing Soap and Water Wound Cleanser Soap and Water -Foul Odor after Cleansing No No -Anesthetic Used 5% Lidocaine 5% Lidocaine 5% Lidocaine Gel Gel Gel Lower Limb Edema Present Yes Right Calf (cm) 55.4 53.7 Right Ankle (cm) 39.6 33.7 10/11/23 10:43 Wound Center Nurse 1 #3 R Med Foot -Combined with other wound -Current Size (cm) - Length 0.1 -Current Size (cm) - Width 0.7 -Current Size (cm) - Depth 0.1 -Total Square Cm 0.07 -Date of Last Picture (Recall this field) -Photo Taken -Epithelialization -Tunneling -Undermining/Tunneling -Undermining/Tunneling Starts (O'clock ) -Undermining/Tunneling Ends (O'clock) -Maximum Distance (cm) -Circular Undermining -Exudate Amt Small -Exudate Type Serosanguineous -Wound Margin Distinct, Outline Attached -Granulation Amt -Granulation Quality -Slough/Fibrin -Necrosis Amt -Necrotic Tissue Type -Structure Exposed -Texture (Fidelia-wound Skin Appearance) Assessed,Callus ,Localized Edema -Moisture (Fidelia-wound Skin Appearance) Assessed -Color (Fidelia-wound Skin Appearance) Assessed -Temperature (Fidelia-wound Skin No Abnormality Appearance) (Pt Warm) -Tenderness on Palpation (Fidelia-wound Skin Appearance) -Ulcer Cleansing Soap and Water -Foul Odor after Cleansing -Anesthetic Used 5% Lidocaine Gel Lower Limb Edema Present Right Calf (cm) Right Ankle (cm) WC - Nurse 2 - General Ulcer CM Notes Start: 09/20/23 11:21 Freq: Status: Active Protocol: Activity Type Activity Date Activity User E-sign Co-sign Detail Recorded Client Recorded Date Recorded By Document 09/20/23 12:29 PL [id number] 09/20/23 12:30 PL Document 09/27/23 12:10 PL [id number] 09/27/23 12:12 PL Document 10/04/23 11:03 PL Tablet 10/04/23 11:05 PL Document 10/11/23 12:00 PL [id number] 10/11/23 12:04 PL 09/20/23 09/27/23 10/04/23 12:29 12:10 11:03 Wound Center Nurse 2 #3 R Med Foot -Time 11:55 11:06 10:50 -Correct Patient Yes Yes Yes -Correct Side, Site, Position Yes Yes Yes -Correct Procedure Yes Yes Yes -Procedure Performed Yes Yes Yes -Type of Procedure Debridement Debridement Debridement -Clinical Debridement Subcutaneous Subcutaneous Subcutaneous -Tissue Removed Subcutaneous Subcutaneous Subcutaneous -Post Debridement (cm) - Length 1.2 1.1 1.5 -Post Debridement (cm) - Width 0.6 0.4 0.5 -Post Debridement (cm) - Depth 0.2 0.2 0.2 -Total Square (Post) (cm) 0.72 0.44 0.75 -Area of Debridement (cm) - Length 1.2 1.1 1.5 -Area of Debridement (cm) - Width 0.6 0.4 0.5 -Total Square (Area) (cm) 0.72 0.44 0.75 -Tunneling No No No -Undermining/Tunneling No No No -Circular Undermining No No No -Wound/Ulcer Outcome Not Healed Not Healed Not Healed -Ulcer Cleansing Rinsed/ Rinsed/ Rinsed/ Irrigated with Irrigated with Irrigated with Saline Saline Saline -Foul Odor after Cleansing No No No -Bioengineered Tissue Yes Yes Yes -Type of Bioengineered Tissue -Type of Bioengineered Tissue Epifix 18mm Epifix 18mm Epifix 18mm Disc Disc Disc -Expiration Date 05/18/28 05/18/28 05/18/28 -Product Lot Number [id number] -Percent Used 100 100 100 -Bleeding Controlled with Pressure Pressure Pressure -Treatment Response Procedure Procedure Procedure Tolerated Well Tolerated Well Tolerated Well -Debridement - Subq, 1st 20sq cm No No No -Apply Skin Sub - 1st 25 sq cm - Feet 1 1 1 -Epifix 18mm Disc 3 3 3 Pain Scale: 0-10 Numeric Is Patient Pain Free? Yes Yes Yes 10/11/23 12:00 Wound Center Nurse 2 #3 R Med Foot -Time 11:30 -Correct Patient Yes -Correct Side, Site, Position Yes -Correct Procedure Yes -Procedure Performed Yes -Type of Procedure Debridement -Clinical Debridement Subcutaneous -Tissue Removed Subcutaneous -Post Debridement (cm) - Length 0.7 -Post Debridement (cm) - Width 0.2 -Post Debridement (cm) - Depth 0.1 -Total Square (Post) (cm) 0.14 -Area of Debridement (cm) - Length 0.7 -Area of Debridement (cm) - Width 0.2 -Total Square (Area) (cm) 0.14 -Tunneling No -Undermining/Tunneling No -Circular Undermining No -Wound/Ulcer Outcome Not Healed -Ulcer Cleansing Rinsed/ Irrigated with Saline -Foul Odor after Cleansing No -Bioengineered Tissue Yes -Type of Bioengineered Tissue Epifix 18mm Disc -Type of Bioengineered Tissue -Expiration Date 05/18/28 -Product Lot Number [id number] -Percent Used 100 -Bleeding Controlled with Pressure -Treatment Response Procedure Tolerated Well -Debridement - Subq, 1st 20sq cm No -Apply Skin Sub - 1st 25 sq cm - Feet 1 -Epifix 18mm Disc 3 Pain Scale: 0-10 Numeric Is Patient Pain Free? Yes - Nurse 3 - General Ulcer D/C NN Start: 09/20/23 11:21 Freq: Status: Active Protocol: Activity Type Activity Date Activity User E-sign Co-sign Detail Recorded Client Recorded Date Recorded By Document 09/20/23 12:14 KW Desktop 09/20/23 12:16 KW Document 09/27/23 11:26 KW Desktop 09/27/23 11:27 KW Document 10/04/23 11:30 KW Desktop 10/04/23 11:30 KW Document 10/11/23 11:50 MW Desktop 10/11/23 11:52 MW 09/20/23 09/27/23 10/04/23 12:14 11:26 11:30 Wound Care Center Nurse 3 #3 R Med Foot -Ulcer Cleansing -Foul Odor after Cleansing -Negative Pressure Wound Therapy -Primary Dressing Covered/Secured with Dry Gauze & Dry Gauze & Dry Gauze & Roll Gauze, Roll Gauze, Roll Gauze, Secured with Secured with Secured with Tape Tape Tape -Other Covering Right -Lotion applied to leg before compression wrap -Compression Wrap -Other Treatment Response Pain Scale: 0-10 Numeric Is Patient Pain Free? Yes Yes Yes Teaching: Wound Center Dressing Your Wound -Person Taught -Teaching Method -Response to teaching - Visit Discharge Discharge Condition Stable Stable Stable Ambulatory Status Ambulatory Ambulatory, Ambulatory, Walker Walker Transportation Private Auto Private Auto Private Auto Accompanied by Medication Reconcilliation completed & No No No provided to patient/care provider Clinical Summary of Care Provided Yes Yes Yes 10/11/23 11:50 Wound Care Center Nurse 3 #3 R Med Foot -Ulcer Cleansing Not Cleansed -Foul Odor after Cleansing No -Negative Pressure Wound Therapy N/A -Primary Dressing Covered/Secured with Dry Gauze & Roll Gauze, Secured with Tape -Other Covering ABD, STASIS PADS Right -Lotion applied to leg before Yes compression wrap -Compression Wrap Paco Wrap -Other stockinette Treatment Response Procedure Tolerated Well Pain Scale: 0-10 Numeric Is Patient Pain Free? Yes Teaching: Wound Center Dressing Your Wound -Person Taught Patient -Teaching Method Discussion, Demonstration -Response to teaching Verbalize understanding WC - Visit Discharge Discharge Condition Stable Ambulatory Status Ambulatory, Walker Transportation Private Auto Accompanied by self Medication Reconcilliation completed & No provided to patient/care provider Clinical Summary of Care Provided Yes Assessment/Plan Assessment/Plan (1) Neuropathic ulcer of right foot with fat layer exposed: CODE(S): L97.512 - Non-pressure chronic ulcer of other part of right foot with fat layer exposed (2) Acquired valgus deformity of ankle: CODE(S): M21.079 - Valgus deformity, not elsewhere classified, unspecified ankle (3) Posterior tibial tendon dysfunction (PTTD) of right lower extremity: CODE(S): M76.821 - Posterior tibial tendinitis, right leg (4) Lipedema: CODE(S): R60.9 - Edema, unspecified (5) Morbid obesity: CODE(S): E66.01 - Morbid (severe) obesity due to excess calories (6) Neuropathy: CODE(S): G62.9 - Polyneuropathy, unspecified (7) HLD (hyperlipidemia): CODE(S): E78.5 - Hyperlipidemia, unspecified (8) Frequent falls: CODE(S): R29.6 - Repeated falls (9) Debility: CODE(S): R53.81 - Other malaise (10) Essential hypertension: CODE(S): I10 - Essential (primary) hypertension (11) Lymphedema: CODE(S): I89.0 - Lymphedema, not elsewhere classified (12) Charcot's joint of right foot: CODE(S): M14.671 - Charcot's joint, right ankle and foot PLAN: Plan Patient seen and evaluated Right lower extremity: Lower extremity demonstrates significant swelling consistent with Lipolymphedema. There is an ulceration noted overlying the navicular bone medially with surrounding hyperkeratosis. No signs of infection. Patient demonstrates significant valgus deformity of the ankle with inversion of the foot on ankle with rigidity of the subtalar joint and midtarsal joint. Deformity is noted to be rigid with inability to relocate calcaneus and talus under the tibia. Patient ambulates exclusively on the medial aspect of the ankle/foot with direct pressure overlying the navicular bone/Talar head. Patient demonstrates changes consistent with PTTD stage IV with Charcot arthropathy of the right foot. Gait analysis: Patient ambulating without shoe gear secondary to foot deformity and Lipolymphedema to the right lower extremity. Patient demonstrates significant valgus deformity of the ankle with inversion of the forefoot on the hindfoot. Patient ambulating exclusively on medial aspect of the ankle/foot with direct pressure overlying the navicular bone/Talar head. Gait is altered secondary to significant deformity. Patient denies being diabetic, recent A1c 5.6%. In hospital at discharge on 08/24/23 wound measured 1.2 cm x 1.0 cm x 1.0 cm. Ulceration was debrided as noted in the clinical panel above. Ulceration overlying the navicular bone of the right foot measures 0.7 cm x 0.2 cm x 0.1 cm. No signs of infection to wound. EpiFix #9 applied to the wound base and dressed with Adaptic touch, Steri-Strips, Aquacel Ag and dry sterile dressing. She is instructed to change outer dressing as needed. She was instructed to not get the site wet. Wound demonstrates improvement vs previous visit and is nearing closure. She still has some localized erythema to the lower extremity that has slightly increased since discharge and thus she will be placed on oral antibiotics. Rx: Doxycycline 100mg BID x 14 days and levofloxacin 750 mg BID x 14 days. She was instructed to take activity a probiotic yogurt daily to aid in rastafarian of gut darlene while on oral antibiotic. Stop date 09/13/23. There is noted improvement in lower extremity redness as she has finished oral antibiotics. She also states urine has improved in color. I did fashion four felt offloading pads to be placed about the foot and secured to the foot so that she may ambulate with reduced pressure to wound site. This is going much better for her. Discussed the pressure reduction is essential to healing. Discussed use of lymphedema pumps however this may be ineffective in her compounded lipedema. Discussed remaining off feet as much as possible however this is challenging secondary to being the only caregiver for her ill . Due to this patient also requires need to drive. Discussed elevation of lower extremities at all times of rest. Discussed adequate protein intake to aid in wound healing. Guicho supplementation recommended. Offloading remains difficult secondary to deformity and Lipolymphedema. Total contact cast would be ineffective secondary to deformity and possibility of new wound formation in other areas of foot/ankle. Consideration given to knee scooter however with considerable Lipo lymphedema this would also remain difficult for compliance and use. I discussed in detail surgical options for consideration. Discussed with patient given her stage of deformity a TTC fusion would be required via int ramedullary gabriela to correct the hindfoot/ankle deformity. She would likely require correction with external fixator prior to fusion followed by the TTC fusion. Secondary fusions will also be required for the talonavicular joint in addition to posterior tibial tendon debridement and advancement/possible tendon transfer. Discussed typical postoperative course in detail in addition to recovery time. Discussed her chronic Lipo lymphedema complicates surgical intervention and poses risk of wound healing. Discussed risk of infection is higher given her condition. Discussed risk of infection with open ulceration currently. Discussed she is at high risk of below the knee amputation of the right lower extremity. She voices understanding of this discussion today. At this time patient not interested in surgical reconstruction due to the care of her . Radiographs 08/02/23 demonstrate subluxation and breakdown of the midfoot joints and ankle joints with secondary arthritic/Charcot changes. No evidence of osteomyelitis. She previously had radiographs at [facility] interpreted by Dr. Yun, demonstrating no evidence of osteomyelitis. Radiographs obtained during admission 08/21/23 demonstrates soft tissue swelling and Charcot changes of the midfoot. No demonstrated changes from previous radiographic imaging 08/02/2023. No signs of osteomyelitis. Discussed signs and symptoms of infection. Discussed if she notices any redness about the ulcerative site that moves up the foot/leg, if she has any purulent drainage emerging from the wound site, she has increasing foul odor from the wound site, or if she experiences fever greater than 101 degree, nausea, vomiting, chills, these are signs of progressing infection and she needs to report to the ED to receive IV antibiotics. She voices understanding of this today. The following work up and care recommendations were made: Dressing: EpiFix, Adaptic touch, Steri-Strips, Aquacel Ag and dry sterile dressing. Change outer dressing as needed. Wash: Do not get wet Tissue growth optimization: EpiFix Offload: Modified offloading insert applied to right foot. She was instructed to continue to ambulate utilizing this to have as much offloading as possible Vascular: Palpable pedal pulses with adequate capillary fill time. Do not feel vascular is impeding healing progress. Edema: Chronic Lipo lymphedema. Discussed elevation of lower extremities and use of lymphedema pump however these may be ineffective given her status. Infection: No signs of infection. Patient currently finishing oral Keflex. Pain: May take [id number] Tylenol extra strength for discomfort Host factors: PTTD stage IV right foot, bilateral Lipo lymphedema, altered gait, valgus deformity right ankle/foot, morbid obesity, neuropathy, debility. I answered all the patient's questions. To return to the wound healing center in 1 week or call sooner if the patient has any questions or concerns.
== END 2023-10-17 23:59 | disposition home or self-care (01) ==
LOC: WC 10:45
PROVIDERS: PCP Family Medicine; Referring Provider Podiatrist Foot & Ankle Surgery; Visit Provider Student in an Organized Health Care Education/Training Program
DX: L97.512 Non-pressure chronic ulcer of other part of right foot with fat layer exposed (principal); E66.01 Morbid (severe) obesity due to excess calories; M14.671 Charcot's joint, right ankle and foot; I10 Essential (primary) hypertension; E78.5 Hyperlipidemia, unspecified; I89.0 Lymphedema, not elsewhere classified; M21.079 Valgus deformity, not elsewhere classified, unspecified ankle; M76.821 Posterior tibial tendinitis, right leg; R60.9 Edema, unspecified; G62.9 Polyneuropathy, unspecified; R29.6 Repeated falls; R53.81 Other malaise
CPT/HCPCS: 15275; Q4186

== ENCOUNTER 2023-11-15 10:45 | Outpatient (RCR) | payer MEDICARE, OTHER, SELFPAY ==
[2023-10-18 00:24] VITALS: BP 159/80; PULSE 95; RESP 18; TEMP 36.2; O2SAT 95; BMI 60.4
[2023-10-18 10:43] VITALS: BP 141/85; PULSE 99; RESP 18; TEMP 35.9; BMI 60.4
--- NOTE | 2023-10-18 12:27 | PN.PCM_ITS ---
History of Present Illness Date of Service: 10/18/23 Chief Complaint: Right foot ulcer History of Wound: Patient is a 78-year-old female who presents to the wound care center as a referral by Dr. Yun, GERMÁN, for right foot ulcer. She has PMHx of posterior tibial tendon dysfunction stage IV, lymphedema, HTN, HLD, debility, morbid obesity, degenerative disc disease of the lumbar, Hx Achilles tendon surgery right foot. Patient has been following with Dr. Yun for a few weeks for ulceration overlying the navicular bone of the right foot. Ulceration is complicated by significant foot deformity secondary to PTTD stage IV. Patient unable to ambulate in offloading boot secondary to significant lymphedema. Patient has been ambulating with foam cut out and placed inside of a sock barefoot. 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 Patient states she will be moving to [facility] in December as she has family in this area will aid in care of her and her. She states she has had previous discussion with a surgeon about her deformity and was told the only option was lower leg amputation. Patient did not want this at that time. States since then deformity has continued to progressively worsen with new ulceration developing on medial right foot and has been present for 2 months. Patient denies being diabetic, recent A1c 5.6%. She has been placing Aquacel to the site and is now utilizing Yaquelin. She was referred to the wound care center for second opinion pertaining to wound. She denies N/V/F/chills. She denies furthe r problems. Subjective Subjective Patient is a 78-year-old female who follows to the wound care center for right medial foot ulcer secondary to PTTD stage IV with Charcot changes and significant foot deformity. She states felt offloading padding remains comfortable to wear and continues to offload with no pain. She does continue to ambulate on deformity with offloading padding. She has left grafting product in place and is changing outer dressing as needed. States she did get more swelling in foot and dressing did cause small wound due to rubbing top of foot. Denies constitutional symptoms. Denies further complaints. Objective Data Objective Data Vital Signs: Vital Signs Temp Pulse Resp BP Pulse Ox O2 Del Method 96.6 F L 99 18 141/85 H 95 Room Air 10/18/23 10:43 10/18/23 10:43 10/18/23 10:43 10/18/23 10:43 10/18/23 00:24 10/18/23 10:43 Oxygen Delivery Method Room Air Weight: 149.924 kg Body Mass Index (BMI) 60.4 Physical Exam Const alert, oriented x3 and no apparent distress General Appearance: cooperative Nutritional Appearance: morbidly obese HEENT normocephalic Eyes General Eye: normal appearance of both eyes Neck General: normal visual inspection Lymph Lymphatic: no lymphadenopathy noted and lymphedema Resp normal respiratory effort Cardio regular rate and regular rhythm Extremity normal capillary refill, no joint enlargement and no calf tenderness Extremity Narrative: DP and PT pulses palpable bilateral. Capillary fill time less than 5 seconds to the digits. Lipolymphedema noted to lower extremity bilateral. Dermatological: Positive Stemmer sign bilateral. Lower extremity demonstrates significant swelling consistent with Lipolymphedema. There is an ulceration noted overlying the navicular bone medially with surrounding hyperkeratosis and macerated tissue. Wound base demonstrates granular layer with serosanguineous drainage. No erythema, no purulent drainage, no malodor, no palpable fluctuance/bogginess noted, no visible abscess formation, no lymphangitic streaking. Musculoskeletal: Muscle strength 5 of 5 age-appropriate left lower extremity. Muscle strength deferred secondary to significant deformity of the right lower extremity. Patient demonstrates significant valgus deformity of the ankle with inversion of the foot on ankle with rigidity of the subtalar joint and midtarsal joint. Deformity is noted to be rigid with inability to relocate calcaneus and talus under the tibia. Patient ambulates exclusively on the medial aspect of the ankle/foot with direct pressure overlying the navicular bone and Talar head. Patient demonstrates changes consistent with PTTD stage IV versus Charcot deformity of the right foot. Skin no rashes or lesions noted, skin turgor normal and no jaundice General Skin Exam: venous stasis and dermatitis Neuro moves all extremities Debridement Note Debridement Note Wound debrided: Right foot Laterality: Right Wound Grade/Stage: Rivera stage I Type of Debridement: Excisional debridement Anesthesia Used: 5% Lidocaine Gel Depth: Down to and including healthy tissue and in the subcutaneous layer Percentage of wound debrided: 100 Instrument Used: 3mm curette Tissue Removed: Fibrous, devitalized subcutaneous, biofilm, slough Severity: Fat Layer Exposed Amount of bleeding with debridement: Mild Bleeding Controlled with: Compression and gauze Patient tolerated procedure: Patient tolerated procedure well Post-Debridement Measurements and Additional Note: Post-Debridement Measurements/Treatment - Nurse 1 - General Ulcer Assessment Start: 10/18/23 10:43 Freq: Status: Active Protocol: CHELSI Activity Type Activity Date Activity User E-sign Co-sign Detail Recorded Client Recorded Date Recorded By Document 10/18/23 10:43 KW Desktop 10/18/23 10:50 KW 10/18/23 10:43 WC - Today's Visit Information Type of service Follow-up Visit (Physician/MATERIAL MOVER ) Arrival Mode Ambulatory, Walker Patient Identification Verified (Name & Yes ) Height and Weight Body Mass Index (BMI) 60.4 BMI Classification Obese Vital Signs Temperature (97.8 F-99.1 F) 96.6 F L Temperature Source Temporal Pulse Rate (60-100) 99 Pulse Location Monitor Respiratory Rate (12-18) 18 Respiratory rate source Observation Oxygen Delivery Method Room Air Blood Pressure (90/60-120/80) 141/85 H Blood Pressure Mean (mm Hg) 103 Source Monitor Position Semi-Fowlers Blood Pressure Location Left Forearm History Since Last Visit- (Skip if this is Patient's initial visit) Have you changed medications since your No last visit? Any new allergies or adverse reactions No Had a fall/change in ADL's that may No increase risk of falls Signs or symptoms of abuse and/or No neglect since last visit Have you been in the hospital since your No last visit? Has dressing in place as prescribed Yes Has compression in place as prescribed Yes Has offloadiing in place as prescribed Yes Experienced any changes in pain level or No management Left Footwear Regular Shoe Right Footwear Slipper Pain Scale: 0-10 Numeric Is Patient Pain Free? Yes - Nurse 1 - General Ulcer Measurement Start: 10/18/23 10:43 Freq: Status: Active Protocol: Activity Type Activity Date Activity User E-sign Co-sign Detail Recorded Client Recorded Date Recorded By Document 10/18/23 10:43 KW [email or web address] 10/18/23 10:50 KW 10/18/23 10:43 Wound Center Nurse 1 #4 RT DORSAL CLUSTER -Current Size (cm) - Length 4.3 -Current Size (cm) - Width 6.5 -Current Size (cm) - Depth 0.1 -Total Square Cm 27.95 -Wound Margin Distinct, Outline Attached -Granulation Amt Large (67-100%) -Granulation Quality Red -Texture (Fidelia-wound Skin Appearance) Assessed -Moisture (Fidelia-wound Skin Appearance) Assessed -Color (Fidelia-wound Skin Appearance) Assessed -Ulcer Cleansing Soap and Water -Anesthetic Used 5% Lidocaine Gel #3 R Med Foot -Current Size (cm) - Length 0.4 -Current Size (cm) - Width 1 -Current Size (cm) - Depth 0.5 -Total Square Cm 0.4 -Undermining/Tunneling Yes -Undermining/Tunneling Starts (O'clock 12 ) -Undermining/Tunneling Ends (O'clock) 12 -Maximum Distance (cm) 0.5 -Circular Undermining Yes -Exudate Amt Medium -Exudate Type Serosanguineous -Wound Margin Distinct, Outline Attached -Granulation Amt Large (67-100%) -Granulation Quality Pale,[place] -Texture (Fidelia-wound Skin Appearance) Assessed,Callus -Moisture (Fidelia-wound Skin Appearance) Assessed,Dry/ Scaly -Color (Fidelia-wound Skin Appearance) Assessed -Temperature (Fidelia-wound Skin No Abnormality Appearance) (Pt Warm) -Ulcer Cleansing Soap and Water -Anesthetic Used 5% Lidocaine Gel Right Calf (cm) 53 Right Ankle (cm) 34.5 WC - Nurse 2 - General Ulcer CM Notes Start: 10/18/23 10:43 Freq: Status: Active Protocol: Activity Type Activity Date Activity User E-sign Co-sign Detail Recorded Client Recorded Date Recorded By Document 10/18/23 11:11 WALLY [id number] 10/18/23 11:14 WALLY 10/18/23 11:11 Wound Center Nurse 2 #4 RT DORSAL CLUSTER -Procedure Performed No #3 R Med Foot -Time 10:54 -Correct Patient Yes -Correct Side, Site, Position Yes -Correct Procedure Yes -Procedure Performed Yes -Type of Procedure Debridement -Clinical Debridement Subcutaneous -Tissue Removed Subcutaneous -Post Debridement (cm) - Length 0.9 -Post Debridement (cm) - Width 0.3 -Post Debridement (cm) - Depth 0.1 -Total Square (Post) (cm) 0.27 -Area of Debridement (cm) - Length 0.9 -Area of Debridement (cm) - Width 0.3 -Total Square (Area) (cm) 0.27 -Tunneling No -Undermining/Tunneling No -Circular Undermining No -Wound/Ulcer Outcome Not Healed -Ulcer Cleansing Rinsed/ Irrigated with Saline -Foul Odor after Cleansing No -Bioengineered Tissue Yes -Type of Bioengineered Tissue Epifix 18mm Disc -Expiration Date 06/17/28 -Product Lot Number [id number] -Percent Used 100 -Bleeding Controlled with Pressure -Treatment Response Procedure Tolerated Well -Debridement - Subq, 1st 20sq cm No -Apply Skin Sub - 1st 25 sq cm - Feet 1 -Epifix 18mm Disc 3 Pain Scale: 0-10 Numeric Is Patient Pain Free? Yes - Nurse 3 - General Ulcer D/C NN Start: 10/18/23 10:43 Freq: Status: Active Protocol: Activity Type Activity Date Activity User E-sign Co-sign Detail Recorded Client Recorded Date Recorded By Document 10/18/23 11:17 DL [id number] 10/18/23 11:20 DL 10/18/23 11:17 Wound Care Center Nurse 3 #4 RT DORSAL CLUSTER -Ulcer Cleansing Rinsed/ Irrigated with Saline -Foul Odor after Cleansing No -Primary Dressing Applied NonAdherent Contact Layer -Primary Dressing Covered/Secured with Dry Gauze & Roll Gauze, Secured with Tape #3 R Med Foot -Foul Odor after Cleansing No -Other Dressing Epifix -Primary Dressing Covered/Secured with Dry Gauze & Roll Gauze, Secured with Tape -Other Covering Padding Treatment Response Procedure Tolerated Well Pain Scale: 0-10 Numeric Is Patient Pain Free? Yes - Visit Discharge Discharge Condition Stable Ambulatory Status Ambulatory, Walker Transportation Private Auto Notes: Dressing applied per Alyson Garcia LPN today in clinic. Assessment/Plan Assessment/Plan (1) Neuropathic ulcer of right foot with fat layer exposed: CODE(S): L97.512 - Non-pressure chronic ulcer of other part of right foot with fat layer exposed (2) Charcot's joint of right foot: CODE(S): M14.671 - Charcot's joint, right ankle and foot (3) Acquired valgus deformity of ankle: CODE(S): M21.079 - Valgus deformity, not elsewhere classified, unspecified ankle (4) Posterior tibial tendon dysfunction (PTTD) of right lower extremity: CODE(S): M76.821 - Posterior tibial tendinitis, right leg (5) Lipedema: CODE(S): R60.9 - Edema, unspecified (6) Lymphedema: CODE(S): I89.0 - Lymphedema, not elsewhere classified (7) Altered gait: CODE(S): R26.9 - Unspecified abnormalities of gait and mobility (8) Neuropathy: CODE(S): G62.9 - Polyneuropathy, unspecified (9) Morbid obesity: CODE(S): E66.01 - Morbid (severe) obesity due to excess calories (10) Debility: CODE(S): R53.81 - Other malaise (11) Essential hypertension: CODE(S): I10 - Essential (primary) hypertension (12) HLD (hyperlipidemia): CODE(S): E78.5 - Hyperlipidemia, unspecified PLAN: Plan Patient seen and evaluated Right lower extremity: Lower extremity demonstrates significant swelling co nsistent with Lipolymphedema. There is an ulceration noted overlying the navicular bone medially with surrounding hyperkeratosis. No signs of infection. Patient demonstrates significant valgus deformity of the ankle with inversion of the foot on ankle with rigidity of the subtalar joint and midtarsal joint. Deformity is noted to be rigid with inability to relocate calcaneus and talus under the tibia. Patient ambulates exclusively on the medial aspect of the ankle/foot with direct pressure overlying the navicular bone/Talar head. Patient demonstrates changes consistent with PTTD stage IV with Charcot arthropathy of the right foot. Gait analysis: Patient ambulating without shoe gear secondary to foot deformity and Lipolymphedema to the right lower extremity. Patient demonstrates signif icant valgus deformity of the ankle with inversion of the forefoot on the hindfoot. Patient ambulating exclusively on medial aspect of the ankle/foot with direct pressure overlying the navicular bone/Talar head. Gait is altered secondary to significant deformity. Patient denies being diabetic, recent A1c 5.6%. In hospital at discharge on 08/24/23 wound measured 1.2 cm x 1.0 cm x 1.0 cm. Ulceration was debrided as noted in the clinical panel above. Ulceration overlying the navicular bone of the right foot measures 0.9 cm x 0.3 cm x 0.1 cm. No signs of infection to wound. EpiFix #10 applied to the wound base and dressed with Adaptic touch, Steri-Strips, Aquacel Ag and dry sterile dressing. She is instructed to change outer dressing as needed. She was instructed to not get the site wet. Wound demonstrates slight increase in size versus previous visit secondary to offloading pad sliding out of place. She still has some localized erythema to the lower extremity that has slightly i ncreased since discharge and thus she will be placed on oral antibiotics. Rx: Doxycycline 100mg BID x 14 days and levofloxacin 750 mg BID x 14 days. She was instructed to take activity a probiotic yogurt daily to aid in yarsanism of gut darlene while on oral antibiotic. Stop date 09/13/23. There is noted improvement in lower extremity redness as she has finished oral antibiotics. She also states urine has improved in color. I did fashion four felt offloading pads to be placed about the foot and secured to the foot so that she may ambulate with reduced pressure to wound site. This is going much better for her. Discussed the pressure reduction is essential to healing. Discussed use of lymphedema pumps however this may be ineffective in her compounded lipedema. Discussed remaining off feet as much as possible however this is challenging secondary to being the only caregiver for her ill . Due to this patient also requires need to drive. Discussed elevation of lower extremities at all times of rest. Discussed adequate protein intake to aid in wound healing. Guicho supplementation recommended. Offloading remains difficult secondary to deformity and Lipolymphedema. Total c ontact cast would be ineffective secondary to deformity and possibility of new wound formation in other areas of foot/ankle. Consideration given to knee scooter however with considerable Lipo lymphedema this would also remain difficult for compliance and use. I discussed in detail surgical options for consideration. Discussed with patient given her stage of deformity a TTC fusion would be required via intramedullary gabriela to correct the hindfoot/ankle deformity. She would likely require correction with external fixator prior to fusion followed by the TTC fusion. Secondary fusions will also be required for the talonavicular joint in addition to posterior tibial tendon debridement and advancement/possible tendon transfer. Discussed typical postoperative course in detail in addition to juan very time. Discussed her chronic Lipo lymphedema complicates surgical intervention and poses risk of wound healing. Discussed risk of infection is higher given her condition. Discussed risk of infection with open ulceration currently. Discussed she is at high risk of below the knee amputation of the right lower extremity. She voices understanding of this discussion today. At this time patient not interested in surgical reconstruction due to the care of her . Radiographs 08/02/23 demonstrate subluxation and breakdown of the midfoot joints and ankle joints with secondary arthritic/Charcot changes. No evidence of osteomyelitis. She previously had radiographs at [facility] interpreted by Dr. Yun, demonstrating no evidence of osteomyelitis. Radiographs obtained during admission 08/21/23 demonstrates soft tissue swelling and Charcot changes of the midfoot. No demonstrated changes from previous radiographic imaging 08/02/2023. No signs of osteomyelitis. Discussed signs and symptoms of infection. Discussed if she notices any redness about the ulcerative site that moves up the foot/leg, if she has any purulent drainage emerging from the wound site, she has increasing foul odor from the wound site, or if she experiences fever greater than 101 degree, nausea, vomiting, chills, these are signs of progressing infection and she needs to report to the ED to receive IV antibiotics. She voices understanding of this today. The following work up and care recommendations were made: Dressing: EpiFix, Adaptic touch, Steri-Strips, Aquacel Ag and dry sterile dressing. Change outer dressing as needed. Wash: Do not get wet Tissue growth optimization: EpiFix Offload: Modified offloading insert applied to right foot. She was instructed to continue to ambulate utilizing this to have as much offloading as possible Vascular: Palpable pedal pulses with adequate capillary fill time. Do not feel vascular is impeding healing progress. Edema: Chronic Lipo lymphedema. Discussed elevation of lower extremities and use of lymphedema pump however these may be ineffective given her status. Infection: No signs of infection. Pain: May take [id number] Tylenol extra strength for discomfort Host factors: PTTD stage IV right foot, bilateral Lipo lymphedema, altered gait, valgus deformity right ankle/foot, morbid obesity, neuropathy, debility. I answered all the patient's questions. To return to the wound healing center in 2 weeks or call sooner if the patient has any questions or concerns.
[2023-10-26 10:51] VITALS: BP 144/64; PULSE 82; RESP 18; TEMP 36.1; BMI 60.4
[2023-11-01 10:46] VITALS: BP 126/94; PULSE 94; RESP 18; TEMP 35.9; BMI 60.4
--- NOTE | 2023-11-01 10:52 | PN.PCM_ITS ---
History of Present Illness Date of Service: 11/01/23 Chief Complaint: Right foot ulcer History of Wound: Patient is a 78-year-old female who presents to the wound care center as a referral by Dr. Yun, GERMÁN, for right foot ulcer. She has PMHx of posterior tibial tendon dysfunction stage IV, lymphedema, HTN, HLD, debility, morbid obesity, degenerative disc disease of the lumbar, Hx Achilles tendon surgery right foot. Patient has been following with Dr. Yun for a few weeks for ulceration overlying the navicular bone of the right foot. Ulceration is complicated by significant foot deformity secondary to PTTD stage IV. Patient unable to ambulate in offloading boot secondary to significant lymphedema. Patient has been ambulating with foam cut out and placed inside of a sock barefoot. 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 Patient states she will be moving to [facility] in December as she has family in this area will aid in care of her and her. She states she has had previous discussion with a surgeon about her deformity and was told the only option was lower leg amputation. Patient did not want this at that time. States since then deformity has continued to progressively worsen with new ulceration developing on medial right foot and has been present for 2 months. Patient denies being diabetic, recent A1c 5.6%. She has been placing Aquacel to the site and is now utilizing Yaquelin. She was referred to the wound care center for second opinion pertaining to wound. She denies N/V/F/chills. She denies furthe r problems. Subjective Subjective Patient is a 78-year-old female who follows to the wound care center for right medial foot ulcer secondary to PTTD stage IV with Charcot changes and significant foot deformity. She states the felt offloading padding remains comfortable to wear and continues to offload with no pain. She does continue to ambulate on deformity with offloading padding. She has left grafting product in place and is changing outer dressing as needed. Denies constitutional symptoms. Denies further complaints. Objective Data Objective Data Vital Signs: Vital Signs Temp Pulse Resp BP Pulse Ox O2 Del Method 96.9 F L 82 18 144/64 H 95 Room Air 10/26/23 10:51 10/26/23 10:51 10/26/23 10:51 10/26/23 10:51 10/18/23 00:24 10/26/23 10:51 Oxygen Delivery Method Room Air Weight: 149.924 kg Body Mass Index (BMI) 60.4 Physical Exam Const alert, oriented x3 and no apparent distress General Appearance: cooperative Nutritional Appearance: morbidly obese HEENT normocephalic Eyes General Eye: normal appearance of both eyes Neck General: normal visual inspection Lymph Lymphatic: no lymphadenopathy noted and lymphedema Resp normal respiratory effort Cardio regular rate and regular rhythm Extremity normal capillary refill, no joint enlargement and no calf tenderness Extremity Narrative: DP and PT pulses palpable bilateral. Capillary fill time less than 5 seconds to the digits. Lipolymphedema noted to lower extremity bilateral. Dermatological: Positive Stemmer sign bilateral. Lower extremity demonstrates significant swelling consistent with Lipolymphedema. There is an ulceration noted overlying the navicular bone medially with surrounding hyperkeratosis and macerated tissue. Wound base demonstrates granular layer with serosanguineous drainage. No erythema, no purulent drainage, no malodor, no palpable fluctuance/bogginess noted, no visible abscess formation, no lymphangitic streaking. Musculoskeletal: Muscle strength 5 of 5 age-appropriate left lower extremity. Muscle strength deferred secondary to significant deformity of the right lower extremity. Patient demonstrates significant valgus deformity of the ankle with inversion of the foot on ankle with rigidity of the subtalar joint and midtarsal joint. Deformity is noted to be rigid with inability to relocate calcaneus and talus under the tibia. Patient ambulates exclusively on the medial aspect of t he ankle/foot with direct pressure overlying the navicular bone and Talar head. Patient demonstrates changes consistent with PTTD stage IV versus Charcot deformity of the right foot. Skin no rashes or lesions noted, skin turgor normal and no jaundice General Skin Exam: venous stasis and dermatitis Neuro moves all extremities Debridement Note Debridement Note Wound debrided: Right plantar medial foot Laterality: Right Wound Grade/Stage: Rivera stage I Type of Debridement: Excisional debridement Anesthesia Used: 5% Lidocaine Gel Depth: Down to and including healthy tissue and in the subcutaneous layer Percentage of wound debrided: 100 Instrument Used: - (1 mm curette) Tissue Removed: Fibrous, devitalized subcutaneous, biofilm, slough Severity: Fat Layer Exposed Amount of bleeding with debridement: Mild Bleeding Controlled with: Compression and gauze Patient tolerated procedure: Patient tolerated procedure well Post-Debridement Measurements and Additional Note: Post-Debridement Measurements/Treatment - Nurse 1 - General Ulcer Assessment Start: 10/18/23 10:43 Freq: Status: Active Protocol: CHELSI Activity Type Activity Date Activity User E-sign Co-sign Detail Recorded Client Recorded Date Recorded By Document 10/18/23 10:43 KW Desktop 10/18/23 10:50 KW Document 10/26/23 10:51 KW Desktop 10/26/23 10:55 KW 10/18/23 10/26/23 10:43 10:51 - Today's Visit Information Type of service Follow-up Visit Nurse-only (Physician/COPPERSMITH HELPER Visit ) Arrival Mode Ambulatory, Ambulatory, Walker Walker Patient Identification Verified (Name & Yes Yes ) Height and Weight Body Mass Index (BMI) 60.4 60.4 BMI Classification Obese Obese Vital Signs Temperature (97.8 F-99.1 F) 96.6 F L 96.9 F L Temperature Source Temporal Temporal Pulse Rate (60-100) 99 82 Pulse Location Monitor Monitor Respiratory Rate (12-18) 18 18 Respiratory rate source Observation Observation Oxygen Delivery Method Room Air Room Air Blood Pressure (90/60-120/80) 141/85 H 144/64 H Blood Pressure Mean (mm Hg) 103 90 Source Monitor Monitor Position Semi-Fowlers Semi-Fowlers Blood Pressure Location Left Forearm Left Forearm History Since Last Visit- (Skip if this is Patient's initial visit) Have you changed medications since your No No last visit? Any new allergies or adverse reactions No No Had a fall/change in ADL's that may No No increase risk of falls Signs or symptoms of abuse and/or No No neglect since last visit Have you been in the hospital since your No No last visit? Has dressing in place as prescribed Yes Yes Has compression in place as prescribed Yes Yes Has offloadiing in place as prescribed Yes Yes Experienced any changes in pain level or No No management Left Footwear Regular Shoe Slipper Right Footwear Slipper Regular Shoe Pain Scale: 0-10 Numeric Is Patient Pain Free? Yes Yes [facility] Nurse 1 - General Ulcer Measurement Start: 10/18/23 10:43 Freq: Status: Active Protocol: Activity Type Activity Date Activity User E-sign Co-sign Detail Recorded Client Recorded Date Recorded By Document 10/18/23 10:43 KW Desktop 10/18/23 10:50 KW Document 10/26/23 10:51 KW Desktop 10/26/23 10:55 KW 10/18/23 10/26/23 10:43 10:51 Wound Center Nurse 1 #4 RT DORSAL CLUSTER -Current Size (cm) - Length 4.3 -Current Size (cm) - Width 6.5 -Current Size (cm) - Depth 0.1 -Total Square Cm 27.95 -Wound Margin Distinct, Outline Attached -Granulation Amt Large (67-100%) -Granulation Quality Red -Texture (Fidelia-wound Skin Appearance) Assessed -Moisture (Fidelia-wound Skin Appearance) Assessed -Color (Fidelia-wound Skin Appearance) Assessed -Ulcer Cleansing Soap and Water -Anesthetic Used 5% Lidocaine Gel #3 R Med Foot -Current Size (cm) - Length 0.4 -Current Size (cm) - Width 1 -Current Size (cm) - Depth 0.5 -Total Square Cm 0.4 -Undermining/Tunneling Yes -Undermining/Tunneling Starts (O'clock 12 ) -Undermining/Tunneling Ends (O'clock) 12 -Maximum Distance (cm) 0.5 -Circular Undermining Yes -Exudate Amt Medium -Exudate Type Serosanguineous -Wound Margin Distinct, Outline Attached -Granulation Amt Large (67-100%) -Granulation Quality Pale,[place] -Texture (Fidelia-wound Skin Appearance) Assessed,Callus -Moisture (Fidelia-wound Skin Appearance) Assessed,Dry/ Scaly -Color (Fidelia-wound Skin Appearance) Assessed -Temperature (Fidelia-wound Skin No Abnormality Appearance) (Pt Warm) -Ulcer Cleansing Soap and Water -Anesthetic Used 5% Lidocaine Gel Right Calf (cm) 53 Right Ankle (cm) 34.5 Left Calf (cm) 53.8 Left Ankle (cm) 30 WC - Nurse 2 - General Ulcer CM Notes Start: 10/18/23 10:43 Freq: Status: Active Protocol: Activity Type Activity Date Activity User E-sign Co-sign Detail Recorded Client Recorded Date Recorded By Document 10/18/23 11:11 PL [id number] 10/18/23 11:14 PL 10/18/23 11:11 Wound Center Nurse 2 #4 RT DORSAL CLUSTER -Procedure Performed No #3 R Med Foot -Time 10:54 -Correct Patient Yes -Correct Side, Site, Position Yes -Correct Procedure Yes -Procedure Performed Yes -Type of Procedure Debridement -Clinical Debridement Subcutaneous -Tissue Removed Subcutaneous -Post Debridement (cm) - Length 0.9 -Post Debridement (cm) - Width 0.3 -Post Debridement (cm) - Depth 0.1 -Total Square (Post) (cm) 0.27 -Area of Debridement (cm) - Length 0.9 -Area of Debridement (cm) - Width 0.3 -Total Square (Area) (cm) 0.27 -Tunneling No -Undermining/Tunneling No -Circular Undermining No -Wound/Ulcer Outcome Not Healed -Ulcer Cleansing Rinsed/ Irrigated with Saline -Foul Odor after Cleansing No -Bioengineered Tissue Yes -Type of Bioengineered Tissue Epifix 18mm Disc -Expiration Date 06/17/28 -Product Lot Number [id number] -Percent Used 100 -Bleeding Controlled with Pressure -Treatment Response Procedure Tolerated Well -Debridement - Subq, 1st 20sq cm No -Apply Skin Sub - 1st 25 sq cm - Feet 1 -Epifix 18mm Disc 3 Pain Scale: 0-10 Numeric Is Patient Pain Free? Yes WC - Nurse 3 - General Ulcer D/C NN Start: 10/18/23 10:43 Freq: Status: Active Protocol: Activity Type Activity Date Activity User E-sign Co-sign Detail Recorded Client Recorded Date Recorded By Document 10/18/23 11:17 DL [id number] 10/18/23 11:20 DL Document 10/26/23 10:55 KW Desktop 10/26/23 11:24 KW 10/18/23 10/26/23 11:17 10:55 Wound Care Center Nurse 3 #4 RT DORSAL CLUSTER -Ulcer Cleansing Rinsed/ Irrigated with Saline -Foul Odor after Cleansing No -Primary Dressing Applied NonAdherent Contact Layer -Primary Dressing Covered/Secured with Dry Gauze & Dry Gauze & Roll Gauze, Roll Gauze, Secured with Secured with Tape Tape #3 R Med Foot -Foul Odor after Cleansing No -Primary Dressing Applied NonAdherent Contact Layer -Other Dressing Epifix -Primary Dressing Covered/Secured with Dry Gauze & Dry Gauze & Roll Gauze, Roll Gauze, Secured with Secured with Tape Tape -Other Covering Padding Right -Compression Wrap Paco Wrap Treatment Response Procedure Tolerated Well Pain Scale: 0-10 Numeric Is Patient Pain Free? Yes Yes WC - Visit Discharge Discharge Condition Stable Stable Ambulatory Status Ambulatory, Ambulatory, Walker Walker Transportation Private Auto Private Auto Medication Reconcilliation completed & No provided to patient/care provider Clinical Summary of Care Provided Yes Notes: Dressing applied per Alyson Garcia LPN today in clinic. Assessment/Plan Assessment/Plan (1) Neuropathic ulcer of right foot with fat layer exposed: CODE(S): L97.512 - Non-pressure chronic ulcer of other part of right foot with fat layer exposed (2) Charcot's joint of right foot: CODE(S): M14.671 - Charcot's joint, right ankle and foot (3) Acquired valgus deformity of ankle: CODE(S): M21.079 - Valgus deformity, not elsewhere classified, unspecified ankle (4) Posterior tibial tendon dysfunction (PTTD) of right lower extremity: CODE(S): M76.821 - Posterior tibial tendinitis, right leg (5) Lipedema: CODE(S): R60.9 - Edema, unspecified (6) Lymphedema: CODE(S): I89.0 - Lymphedema, not elsewhere classified (7) Altered gait: CODE(S): R26.9 - Unspecified abnormalities of gait and mobility (8) Neuropathy: CODE(S): G62.9 - Polyneuropathy, unspecified (9) Morbid obesity: CODE(S): E66.01 - Morbid (severe) obesity due to excess calories (10) Debility: CODE(S): R53.81 - Other malaise (11) Essential hypertension: CODE(S): I10 - Essential (primary) hypertension (12) HLD (hyperlipidemia): CODE(S): E78.5 - Hyperlipidemia, unspecified PLAN: Plan Patient seen and evaluated Right lower extremity: Lower extremity demonstrates significant swelling consistent with Lipolymphedema. There is an ulceration noted overlying the navicular bone medially with surrounding hyperkeratosis. No signs of infection. Patient demonstrates significant valgus deformity of the ankle with inversion of the foot on ankle with rigidity of the subtalar joint and midtarsal joint. Deformity is noted to be rigid with inability to relocate calcaneus and talus under the tibia. Patient ambulates exclusively on the medial aspect of the ankle/foot with direct pressure overlying the navicular bone/Talar head. Patient demonstrates changes consistent with PTTD stage IV with Charcot arthropathy of the right foot. Gait analysis: Patient ambulating without shoe gear secondary to foot deformity and Lipolymphedema to the right lower extremity. Patient demonstrates significant valgus deformity of the ankle with inversion of the forefoot on the hindfoot. Patient ambulating exclusively on medial aspect of the ankle/foot with direct pressure overlying the navicular bone/Talar head. Gait is altered secondary to significant deformity. Patient denies being diabetic, recent A1c 5.6%. Ulceration was debrided as noted in the clinical panel above. Ulceration overlying the navicular bone of the right foot measures 0.3 cm x 0.1 cm x 0.1 cm. No signs of infection to wound. She has completed all 10 applications of EpiFix grafts. Yaqueiln applied to the wound base today and dressed with dry sterile dressing with plantar offloading padding. Wound demonstrates decrease in size versus previous visit. I did fashion four felt offloading pads to be placed about the foot and secured to the foot so that she may ambulate with reduced pressure to wound site. This is going much better for her. Discussed the pressure reduction is essential to healing. Discussed use of lymphedema pumps however this may be ineffective in her compounded lipedema. Discussed remaining off feet as much as possible however this is challenging secondary to being the only caregiver for her ill . Due to this patient also requires need to drive. Discussed elevation of lower extremities at all times of rest. Discussed adequate protein intake to aid in wound healing. Guicho supplementation recommended. Offloading remains difficult secondary to deformity and Lipolymphedema. Total contact cast would be ineffective secondary to deformity and possibility of new wound formation in other areas of foot/ankle. Consideration given to knee scooter however with considerable Lipo lymphedema this would also remain difficult for compliance and use. I discussed in detail surgical options for consideration. Discussed with patient given her stage of deformity a TTC fusion would be required via intramedullary gabriela to correct the hindfoot/ankle deformity. She would likely require correction with external fixator prior to fusion followed by the TTC fusion. Secondary fusions will also be required for the talonavicular joint in addition to posterior tibial tendon debridement and advancement/possible tendon transfer. Discussed typical postoperative course in detail in addition to recovery time. Discussed her chronic Lipo lymphedema complicates surgical intervention and poses risk of wound healing. Discussed risk of infection is higher given her condition. Discussed risk of infection with open ulceration currently. Discussed she is at high risk of below the knee amputation of the right lower extremity. She voices understanding of this discussion today. At this time patient not interested in surgical reconstruction due to the care of her . Radiographs 08/02/23 demonstrate subluxation and breakdown of the midfoot joints and ankle joints with secondary arthritic/Charcot changes. No evidence of osteomyelitis. She previously had radiographs at [facility] interpreted by Dr. Yun, demonstrating no evidence of osteomyelitis. Radiographs obtained during admission 08/21/23 demonstrates soft tissue swelling and Charcot changes of the midfoot. No demonstrated changes from previous radiographic imaging 08/02/2023. No signs of osteomyelitis. Discussed signs and symptoms of infection. Discussed if she notices any redness about the ulcerative site that moves up the foot/leg, if she has any purulent drainage emerging from the wound site, she has increasing foul odor from the wound site, or if she experiences fever greater than 101 degree, nausea, vomiting, chills, these are signs of progressing infection and she needs to report to the ED to receive IV antibiotics. She voices understanding of this today. The following work up and care recommendations were made: Dressing: Yaquelin and dry sterile dressing, plantar offloading padding. Change dressing daily and reapply the offloading padding. Wash: Soap and water Tissue growth optimization: Yaquelin Offload: Modified offloading insert applied to right foot. She was instructed to continue to ambulate utilizing this to have as much offloading as possible Vascular: Palpable pedal pulses with adequate capillary fill time. Do not feel vascular is impeding healing progress. Edema: Chronic Lipo lymphedema. Discussed elevation of lower extremities and use of lymphedema pump however these may be ineffective given her status. Infection: No signs of infection. Pain: May take [id number] Tylenol extra strength for discomfort Host factors: PTTD stage IV right foot, bilateral Lipo lymphedema, altered gait, valgus deformity right ankle/foot, morbid obesity, neuropathy, debility. I answered all the patient's questions. To return to the wound healing center in 2 weeks or call sooner if the patient has any questions or concerns.
[2023-11-15 10:46] VITALS: BP 130/79; PULSE 69; RESP 22; TEMP 35.8; BMI 60.4
--- NOTE | 2023-11-15 12:30 | PCM.WC.PN ---
History of Present Illness Date of Service: 11/15/23 Chief Complaint: Right foot ulcer History of Wound: Patient is a 78-year-old female who presents to the wound care center as a referral by Dr. Yun, GERMÁN, for right foot ulcer. She has PMHx of posterior tibial tendon dysfunction stage IV, lymphedema, HTN, HLD, debility, morbid obesity, degenerative disc disease of the lumbar, Hx Achilles tendon surgery right foot. Patient has been following with Dr. Yun for a few weeks for ulceration overlying the navicular bone of the right foot. Ulceration is complicated by significant foot deformity secondary to PTTD stage IV. Patient unable to ambulate in offloading boot secondary to significant lymphedema. Patient has been ambulating with foam cut out and placed inside of a sock barefoot. 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 Patient states she will be moving to [facility] in December as she has family in this area will aid in care of her and her. She states she has had previous discussion with a surgeon about her deformity and was told the only option was lower leg amputation. Patient did not want this at that time. States since then deformity has continued to progressively worsen with new ulceration developing on medial right foot and has been present for 2 months. Patient denies being diabetic, recent A1c 5.6%. She has been placing Aquacel to the site and is now utilizing Yaquelin. She was referred to the wound care center for second opinion pertaining to wound. She denies N/V/F/chills. She denies further problems. Subjective Subjective Patient is a 78-year-old female who follows to the wound care center for right medial foot ulcer secondary to PTTD stage IV with Charcot changes and significant foot deformity. She states the felt offloading padding remains comfortable to wear and continues to offload with no pain. She does continue to ambulate on deformity with offloading padding. She states that she will now be moving in the next month or two to be closer to family in the [place], [place] area as her has recently passed as of last Sunday. She Denies constitutional symptoms. Denies further complaints. Objective Data Objective Data Vital Signs: Vital Signs Temp Pulse Resp BP Pulse Ox O2 Del Method 96.5 F L 69 22 H 130/79 H 95 Room Air 11/15/23 10:46 11/15/23 10:46 11/15/23 10:46 11/15/23 10:46 10/18/23 00:24 11/01/23 10:46 Oxygen Delivery Method Room Air Weight: 149.924 kg Body Mass Index (BMI) 60.4 Physical Exam Const alert, oriented x3 and no apparent distress General Appearance: cooperative Nutritional Appearance: morbidly obese HEENT normocephalic Eyes General Eye: normal appearance of both eyes Neck General: normal visual inspection Lymph Lymphatic: no lymphadenopathy noted and lymphedema Resp normal respiratory effort Cardio regular rate and regular rhythm Extremity normal capillary refill, no joint enlargement and no calf tenderness Extremity Narrative: DP and PT pulses palpable bilateral. Capillary fill time less than 5 seconds to the digits. Lipolymphedema noted to lower extremity bilateral. Dermatological: Positive Stemmer sign bilateral. Lower extremity demonstrates significant swelling consistent with Lipolymphedema. There is an ulceration noted overlying the navicular bone medially which has healed with surrounding hyperkeratosis. No signs of infection. Musculoskeletal: Muscle strength 5 of 5 age-appropriate left lower extremity. Muscle strength deferred secondary to significant deformity of the right lower extremity. Patient demonstrates significant valgus deformity of the ankle with inversion of the foot on ankle with rigidity of the subtalar joint and midtarsal joint. Deformity is noted to be rigid with inability to relocate calcaneus and talus under the tibia. Patient ambulates exclusively on the medial aspect of the ankle/foot with direct pressure overlying the navicular bone and Talar head. Patient demonstrates changes consistent with PTTD stage IV versus Charcot deformity of the right foot. Skin no rashes or lesions noted, skin turgor normal and no jaundice General Skin Exam: venous stasis and dermatitis Neuro moves all extremities Debridement Note Debridement Note No debridement was completed: No debridement was completed today Post-Debridement Measurements and Additional Note: Post-Debridement Measurements/Treatment WC - Nurse 1 - General Ulcer Assessment Start: 10/18/23 10:43 Freq: Status: Active Protocol: CHELSI Activity Type Activity Date Activity User E-sign Co-sign Detail Recorded Client Recorded Date Recorded By Document 10/18/23 10:43 KW Desktop 10/18/23 10:50 KW Document 10/26/23 10:51 KW Desktop 10/26/23 10:55 KW Document 11/01/23 10:46 DL Desktop 11/01/23 10:54 DL Document 11/15/23 10:46 KW Desktop 11/15/23 10:54 KW 10/18/23 10/26/23 11/01/23 10:43 10:51 10:46 - Today's Visit Information Type of service Follow-up Visit Nurse-only Follow-up Visit (Physician/CLINICAL DATA MANAGEMENT MANAGER Visit (Physician/CLINICAL DATA MANAGEMENT MANAGER ) ) Arrival Mode Ambulatory, Ambulatory, Ambulatory, Walker Walker Walker Transfer Assistance Patient Identification Verified (Name & Yes Yes Yes ) Patient Requires Transmission-Based Precautions Height and Weight Body Mass Index (BMI) 60.4 60.4 60.4 BMI Classification Obese Obese Obese Vital Signs Temperature (97.8 F-99.1 F) 96.6 F L 96.9 F L 96.6 F L Temperature Source Temporal Temporal Temporal Pulse Rate (60-100) 99 82 94 Pulse Location Monitor Monitor Monitor Respiratory Rate (12-18) 18 18 18 Respiratory rate source Observation Observation Observation Oxygen Delivery Method Room Air Room Air Room Air Blood Pressure (90/60-120/80) 141/85 H 144/64 H 126/94 H Blood Pressure Mean (mm Hg) 103 90 104 Source Monitor Monitor Monitor Position Semi-Fowlers Semi-Fowlers Semi-Fowlers Blood Pressure Location Left Forearm Left Forearm Left Forearm History Since Last Visit- (Skip if this is Patient's initial visit) Have you changed medications since your No No No last visit? Any new allergies or adverse reactions No No No Had a fall/change in ADL's that may No No No increase risk of falls Signs or symptoms of abuse and/or No No No neglect since last visit Have you been in the hospital since your No No No last visit? Has dressing in place as prescribed Yes Yes Yes Has compression in place as prescribed Yes Yes Yes Has offloadiing in place as prescribed Yes Yes Yes Experienced any changes in pain level or No No No management Left Footwear Regular Shoe Slipper Regular Shoe Right Footwear Slipper Regular Shoe No Footwear Pain Scale: 0-10 Numeric Is Patient Pain Free? Yes Yes Yes 11/15/23 10:46 - Today's Visit Information Type of service Follow-up Visit (Physician/CLINICAL DATA MANAGEMENT MANAGER ) Arrival Mode Ambulatory, Walker Transfer Assistance None Patient Identification Verified (Name & Yes ) Patient Requires Transmission-Based No Precautions Height and Weight Body Mass Index (BMI) 60.4 BMI Classification Obese Vital Signs Temperature (97.8 F-99.1 F) 96.5 F L Temperature Source Temporal Pulse Rate (60-100) 69 Pulse Location Monitor Respiratory Rate (12-18) 22 H Respiratory rate source Observation Oxygen Delivery Method Blood Pressure (90/60-120/80) 130/79 H Blood Pressure Mean (mm Hg) 96 Source Monitor Position Blood Pressure Location History Since Last Visit- (Skip if this is Patient's initial visit) Have you changed medications since your No last visit? Any new allergies or adverse reactions No Had a fall/change in ADL's that may No increase risk of falls Signs or symptoms of abuse and/or No neglect since last visit Have you been in the hospital since your No last visit? Has dressing in place as prescribed Yes Has compression in place as prescribed Yes Has offloadiing in place as prescribed Yes Experienced any changes in pain level or No management Left Footwear Right Footwear No Footwear Pain Scale: 0-10 Numeric Is Patient Pain Free? Yes WC - Nurse 1 - General Ulcer Measurement Start: 10/18/23 10:43 Freq: Status: Active Protocol: Activity Type Activity Date Activity User E-sign Co-sign Detail Recorded Client Recorded Date Recorded By Document 10/18/23 10:43 KW Desktop 10/18/23 10:50 KW Document 10/26/23 10:51 KW Desktop 10/26/23 10:55 KW Document 11/01/23 10:46 DL Desktop 11/01/23 10:54 DL Document 11/15/23 10:46 KW Desktop 11/15/23 10:54 KW 10/18/23 10/26/23 11/01/23 10:43 10:51 10:46 Wound Center Nurse 1 #4 RT DORSAL CLUSTER -Current Size (cm) - Length 4.3 0.2 -Current Size (cm) - Width 6.5 0.4 -Current Size (cm) - Depth 0.1 0.3 -Total Square Cm 27.95 0.08 -Exudate Amt Small -Exudate Type Serosanguineous -Wound Margin Distinct, Thickened Outline Attached -Granulation Amt Large (67-100%) Large (67-100%) -Granulation Quality Red [place] -Texture (Fidelia-wound Skin Appearance) Assessed Callus -Moisture (Fidelia-wound Skin Appearance) Assessed Assessed -Color (Fidelia-wound Skin Appearance) Assessed Assessed -Ulcer Cleansing Soap and Water Soap and Water -Anesthetic Used 5% Lidocaine 5% Lidocaine Gel Gel #3 R Med Foot -Current Size (cm) - Length 0.4 -Current Size (cm) - Width 1 -Current Size (cm) - Depth 0.5 -Total Square Cm 0.4 -Photo Taken -Undermining/Tunneling Yes -Undermining/Tunneling Starts (O'clock 12 ) -Undermining/Tunneling Ends (O'clock) 12 -Maximum Distance (cm) 0.5 -Circular Undermining Yes -Exudate Amt Medium -Exudate Type Serosanguineous -Wound Margin Distinct, Outline Attached -Granulation Amt Large (67-100%) -Granulation Quality Pale,[place] -Necrosis Amt -Necrotic Tissue Type -Structure Exposed -Texture (Fidelia-wound Skin Appearance) Assessed,Callus -Moisture (Fidelia-wound Skin Appearance) Assessed,Dry/ Scaly -Color (Fidelia-wound Skin Appearance) Assessed -Temperature (Fidelia-wound Skin No Abnormality Appearance) (Pt Warm) -Ulcer Cleansing Soap and Water -Foul Odor after Cleansing -Anesthetic Used 5% Lidocaine Gel Right Calf (cm) 53 Right Ankle (cm) 34.5 Left Calf (cm) 53.8 Left Ankle (cm) 30 11/15/23 10:46 Wound Center Nurse 1 #4 RT DORSAL CLUSTER -Current Size (cm) - Length -Current Size (cm) - Width -Current Size (cm) - Depth -Total Square Cm -Exudate Amt -Exudate Type -Wound Margin -Granulation Amt -Granulation Quality -Texture (Fidelia-wound Skin Appearance) -Moisture (Fidelia-wound Skin Appearance) -Color (Fidelia-wound Skin Appearance) -Ulcer Cleansing -Anesthetic Used #3 R Med Foot -Current Size (cm) - Length 0.1 -Current Size (cm) - Width 0.1 -Current Size (cm) - Depth 0.1 -Total Square Cm 0.01 -Photo Taken Yes -Undermining/Tunneling -Undermining/Tunneling Starts (O'clock ) -Undermining/Tunneling Ends (O'clock) -Maximum Distance (cm) -Circular Undermining -Exudate Amt None Present -Exudate Type -Wound Margin Thickened -Granulation Amt None Present (0 %) -Granulation Quality -Necrosis Amt Small (1-33%) -Necrotic Tissue Type Eschar -Structure Exposed N/A -Texture (Fidelia-wound Skin Appearance) Scarring -Moisture (Fidelia-wound Skin Appearance) Dry/Scaly -Color (Fidelia-wound Skin Appearance) Hemosiderin Staining -Temperature (Fidelia-wound Skin No Abnormality Appearance) (Pt Warm) -Ulcer Cleansing Soap and Water -Foul Odor after Cleansing No -Anesthetic Used 5% Lidocaine Gel Right Calf (cm) Right Ankle (cm) Left Calf (cm) Left Ankle (cm) WC - Nurse 2 - General Ulcer CM Notes Start: 10/18/23 10:43 Freq: Status: Active Protocol: Activity Type Activity Date Activity User E-sign Co-sign Detail Recorded Client Recorded Date Recorded By Document 10/18/23 11:11 PL [id number] 10/18/23 11:14 PL Document 11/01/23 11:48 PL [id number] 11/01/23 11:49 PL Document 11/15/23 11:55 PL [id number] 11/15/23 11:55 PL 10/18/23 11/01/23 11/15/23 11:11 11:48 11:55 Wound Center Nurse 2 #4 RT DORSAL CLUSTER -Procedure Performed No #3 R Med Foot -Time 10:54 11:17 -Correct Patient Yes Yes -Correct Side, Site, Position Yes Yes -Correct Procedure Yes Yes -Procedure Performed Yes Yes No -Type of Procedure Debridement Debridement -Clinical Debridement Subcutaneous Subcutaneous -Tissue Removed Subcutaneous Subcutaneous -Post Debridement (cm) - Length 0.9 0.3 -Post Debridement (cm) - Width 0.3 0.1 -Post Debridement (cm) - Depth 0.1 0.1 -Total Square (Post) (cm) 0.27 0.03 -Area of Debridement (cm) - Length 0.9 0.3 -Area of Debridement (cm) - Width 0.3 0.1 -Total Square (Area) (cm) 0.27 0.03 -Tunneling No No -Undermining/Tunneling No No -Circular Undermining No No -Wound/Ulcer Outcome Not Healed Not Healed Healed- Epithelialized -Ulcer Cleansing Rinsed/ Rinsed/ Irrigated with Irrigated with Saline Saline -Foul Odor after Cleansing No No -Bioengineered Tissue Yes No -Type of Bioengineered Tissue Epifix 18mm Disc -Expiration Date 06/17/28 -Product Lot Number [id number] -Percent Used 100 -Bleeding Controlled with Pressure -Treatment Response Procedure Tolerated Well -Debridement - Subq, 1st 20sq cm No Yes -Apply Skin Sub - 1st 25 sq cm - Feet 1 -Epifix 18mm Disc 3 Pain Scale: 0-10 Numeric Is Patient Pain Free? Yes Yes Yes - Nurse 3 - General Ulcer D/C NN Start: 10/18/23 10:43 Freq: Status: Active Protocol: Activity Type Activity Date Activity User E-sign Co-sign Detail Recorded Client Recorded Date Recorded By Document 10/18/23 11:17 DL [id number] 10/18/23 11:20 DL Document 10/26/23 10:55 KW Desktop 10/26/23 11:24 KW Document 11/01/23 11:30 KW Desktop 11/01/23 11:31 KW Document 11/15/23 11:32 KW Desktop 11/15/23 11:34 KW 10/18/23 10/26/23 11/01/23 11:17 10:55 11:30 Wound Care Center Nurse 3 #4 RT DORSAL CLUSTER -Ulcer Cleansing Rinsed/ Irrigated with Saline -Foul Odor after Cleansing No -Primary Dressing Applied NonAdherent Contact Layer -Primary Dressing Covered/Secured with Dry Gauze & Dry Gauze & Roll Gauze, Roll Gauze, Secured with Secured with Tape Tape #3 R Med Foot -Ulcer Cleansing -Foul Odor after Cleansing No -Primary Dressing Applied NonAdherent Promogran Contact Layer Yaquelin Matter -Other Dressing Epifix -Primary Dressing Covered/Secured with Dry Gauze & Dry Gauze & Dry Gauze & Roll Gauze, Roll Gauze, Roll Gauze, Secured with Secured with Secured with Tape Tape Tape -Other Covering Padding -Promogran Yaquelin Matter 1 Right -Compression Wrap Paco Wrap Paco Wrap Treatment Response Procedure Tolerated Well Pain Scale: 0-10 Numeric Is Patient Pain Free? Yes Yes Yes - Visit Discharge Discharge Condition Stable Stable Stable Ambulatory Status Ambulatory, Ambulatory, Ambulatory, Walker Walker Walker Transportation Private Auto Private Auto Private Auto Medication Reconcilliation completed & No No provided to patient/care provider Clinical Summary of Care Provided Yes Yes Notes: Dressing applied per Alyson Garcia LPN today in clinic. 11/15/23 11:32 Wound Care Center Nurse 3 #4 RT DORSAL CLUSTER -Ulcer Cleansing -Foul Odor after Cleansing -Primary Dressing Applied -Primary Dressing Covered/Secured with #3 R Med Foot -Ulcer Cleansing Rinsed/ Irrigated with Saline -Foul Odor after Cleansing No -Primary Dressing Applied -Other Dressing pad and protect -Primary Dressing Covered/Secured with Dry Gauze & Roll Gauze, Secured with Tape -Other Covering -Promogran Yaquelin Matter Right -Compression Wrap Paco Wrap Treatment Response Procedure Tolerated Well Pain Scale: 0-10 Numeric Is Patient Pain Free? Yes WC - Visit Discharge Discharge Condition Stable Ambulatory Status Ambulatory, Walker Transportation Private Auto Medication Reconcilliation completed & provided to patient/care provider Clinical Summary of Care Provided Notes: Healed and discharged. Assessment/Plan Assessment/Plan (1) Neuropathic ulcer of right foot with fat layer exposed: CODE(S): L97.512 - Non-pressure chronic ulcer of other part of right foot with fat layer exposed (2) Charcot's joint of right foot: CODE(S): M14.671 - Charcot's joint, right ankle and foot (3) Acquired valgus deformity of ankle: CODE(S): M21.079 - Valgus deformity, not elsewhere classified, unspecified ankle (4) Posterior tibial tendon dysfunction (PTTD) of right lower extremity: CODE(S): M76.821 - Posterior tibial tendinitis, right leg (5) Lipedema: CODE(S): R60.9 - Edema, unspecified (6) Lymphedema: CODE(S): I89.0 - Lymphedema, not elsewhere classified (7) Altered gait: CODE(S): R26.9 - Unspecified abnormalities of gait and mobility (8) Neuropathy: CODE(S): G62.9 - Polyneuropathy, unspecified (9) Morbid obesity: CODE(S): E66.01 - Morbid (severe) obesity due to excess calories (10) Debility: CODE(S): R53.81 - Other malaise (11) Essential hypertension: CODE(S): I10 - Essential (primary) hypertension (12) HLD (hyperlipidemia): CODE(S): E78.5 - Hyperlipidemia, unspecified PLAN: Plan Patient seen and evaluated Right lower extremity: Lower extremity demonstrates significant swelling consistent with Lipolymphedema. There is an ulceration noted overlying the navicular bone medially with surrounding hyperkeratosis. No signs of infection. Patient demonstrates significant valgus deformity of the ankle with inversion of the foot on ankle with rigidity of the subtalar joint and midtarsal joint. Deformity is noted to be rigid with inability to relocate calcaneus and talus under the tibia. Patient ambulates exclusively on the medial aspect of the ankle/foot with direct pressure overlying the navicular bone/Talar head. Patient demonstrates changes consistent with PTTD stage IV with Charcot arthropathy of the right foot. Gait analysis: Patient ambulating without shoe gear secondary to foot deformity and Lipolymphedema to the right lower extremity. Patient demonstrates significant valgus deformity of the ankle with inversion of the forefoot on the hindfoot. Patient ambulating exclusively on medial aspect of the ankle/foot with direct pressure overlying the navicular bone/Talar head. Gait is altered secondary to significant deformity. Patient denies being diabetic, recent A1c 5.6%. Ulceration has healed today. No signs of infection. Dry sterile dressing with plantar offloading padding. I did fashion four felt offloading pads to be placed about the foot and secured to the foot so that she may ambulate with reduced pressure to previous wound site. This is going much better for her. Discussed the pressure reduction is essential wound reformation. Discussed use of lymphedema pumps however this may be ineffective in her compounded lipedema. Discussed remaining off feet as much as possible however this is challenging secondary to being the only caregiver for her ill . Due to this patient also requires need to drive. - Patient has stated her has recently passed and she will be moving closer to family in [facility] in the next 2 months. She states she is looking for an assisted living facility to continue to aid in her care and she will now be able to remain off the foot. Discussed elevation of lower extremities at all times of rest. Discussed adequate protein intake to aid in wound healing. Guicho supplementation recommended. Offloading remains difficult secondary to deformity and Lipolymphedema. Total contact cast would be ineffective secondary to deformity and possibility of new wound formation in other areas of foot/ankle. Consideration given to knee scooter however with considerable Lipo lymphedema this would also remain difficult for compliance and use. I discussed in detail surgical options for consideration. Discussed with patient given her stage of deformity a TTC fusion would be required via intramedullary gabriela to correct the hindfoot/ankle deformity. She would likely require correction with external fixator prior to fusion followed by the TTC fusion. Secondary fusions will also be required for the talonavicular joint in addition to posterior tibial tendon debridement and advancement/possible tendon transfer. Discussed typical postoperative course in detail in addition to recovery time. Discussed her chronic Lipo lymphedema complicates surgical intervention and poses risk of wound healing. Discussed risk of infection is higher given her condition. Discussed risk of infection with open ulceration currently. Discussed she is at high risk of below the knee amputation of the right lower extremity. She voices understanding of this discussion today. At this time patient not interested in surgical reconstruction due to the care of her . Radiographs 08/02/23 demonstrate subluxation and breakdown of the midfoot joints and ankle joints with secondary arthritic/Charcot changes. No evidence of osteomyelitis. She previously had radiographs at [facility] interpreted by Dr. Yun, demonstrating no evidence of osteomyelitis. Radiographs obtained during admission 08/21/23 demonstrates soft tissue swelling and Charcot changes of the midfoot. No demonstrated changes from previous radiographic imaging 08/02/2023. No signs of osteomyelitis. Discussed signs and symptoms of infection. Discussed if she notices any redness about the ulcerative site that moves up the foot/leg, if she has any purulent drainage emerging from the wound site, she has increasing foul odor from the wound site, or if she experiences fever greater than 101 degree, nausea, vomiting, chills, these are signs of progressing infection and she needs to report to the ED to receive IV antibiotics. She voices understanding of this today. The following work up and care recommendations were made: Dressing: Dry sterile dressing next 7-10 days, plantar offloading padding. Change dressing daily and reapply the offloading padding. Wash: Soap and water Tissue growth optimization: None Offload: Modified offloading insert applied to right foot. She was instructed to continue to ambulate utilizing this to have as much offloading as possible. Discussed shoe modification by [employer] to fabricate medial wall thickness with Navicular offloading pocket to discourage recidivism of wound Vascular: Palpable pedal pulses with adequate capillary fill time. Do not feel vascular is impeding healing progress. Edema: Chronic Lipo lymphedema. Discussed elevation of lower extremities and use of lymphedema pump however these may be ineffective given her status. Infection: No signs of infection. Pain: May take [id number] Tylenol extra strength for discomfort Host factors: PTTD stage IV right foot, bilateral Lipo lymphedema, altered gait, valgus deformity right ankle/foot, morbid obesity, neuropathy, debility. At this time her wound has healed and she is being discharged from the wound care center. Recommend continued offloading of foot deformity to discourage recidivism of wound. I answered all the patient's questions. To return to the wound healing center as needed or call sooner if the patient has any questions or concerns.
== END 2023-11-15 15:15 | disposition home or self-care (01) ==
LOC: WC 10:45
PROVIDERS: PCP Family Medicine; Referring Provider Podiatrist Foot & Ankle Surgery; Visit Provider Student in an Organized Health Care Education/Training Program
DX: L97.512 Non-pressure chronic ulcer of other part of right foot with fat layer exposed (principal); E66.01 Morbid (severe) obesity due to excess calories; Z68.44 Body mass index [BMI] 60.0-69.9, adult; I10 Essential (primary) hypertension; I89.0 Lymphedema, not elsewhere classified; E78.5 Hyperlipidemia, unspecified; M14.671 Charcot's joint, right ankle and foot; M21.079 Valgus deformity, not elsewhere classified, unspecified ankle; M76.821 Posterior tibial tendinitis, right leg; R60.9 Edema, unspecified; R26.9 Unspecified abnormalities of gait and mobility; G62.9 Polyneuropathy, unspecified; R53.81 Other malaise
CPT/HCPCS: 11042; 15275; 99211; 99213; Q4186; G0463